=== PATIENT | male | born 1935 | race Caucasian/White ===

== ENCOUNTER → 2016-09-15 | Outpatient (CLI) | payer MEDICARE ==
[2015-07-18 06:23] VITALS: BP 164/73
[~2016-09-15] MED LIST: ASPI325T70 PO; ASPI81TA2 PO; AZIT250T PO; CALC-112 PO; CELE200C PO; CINN500C PO; CLOP75TA PO; CLOP75TA27 PO; CYAN10005 PO; DIGO125T PO; DOCU100C5 PO; FERR325T58 PO; GLYB5TAB3 PO; HYDR-2666 PO; HYDR-2762 PO; HYDR12.53 PO; INSU100I17 SQ; INSU100V13 SQ; INSU100V8 SQ; LISI40TA PO; LOSA100T6 PO; METF850T2 PO; METH500T5 PO; METO-269 PO; METO100T11 PO; METO50TA2 PO; NITR0.4T6 SL; SIMV20TA3 PO; WARF5TAB PO; ZINC30TA2 PO
[2016-09-15 09:54] LABS: BASO % 1 % (0-3); EOS % 3 % (0-3); HEMATOCRIT 29.9 % (39.0-53.0); HEMOGLOBIN 9.9 g/dL (13.0-17.5); LYMPH # 0.9 x10^3/uL (1.0-4.8); LYMPH % 15 % (24-48); MEAN CORPUSCULAR HEMOGLOBIN 25 pg (25-35); MEAN CORPUSCULAR HGB CONC 33 g/dL (31-37); MEAN CORPUSCULAR VOLUME 75 fL (79-100); MONO % 6 % (0-9); NEUT % 77 % (31-73); PLATELET COUNT 356 x10^3/uL (140-400); RED BLOOD COUNT 3.98 x10^6/uL (4.30-5.70); RED CELL DISTRIBUTION WIDTH 15.7 % (11.5-14.5); WHITE BLOOD COUNT 5.9 x10^3/uL (4.0-11.0)
[2016-09-15 10:05] LABS: INR 1.2 (0.8-1.1); PROTHROMBIN TIME PATIENT 14.1 SEC (11.7-14.0)
[2016-09-15 10:06] LABS: ALBUMIN 2.6 g/dL (3.4-5.0); CALCIUM 8.9 mg/dL (8.5-10.1); CREATININE 1.8 mg/dL (0.7-1.3); GFR 36.5; POTASSIUM 4.1 mmol/L (3.5-5.1)
[2016-09-15 10:31] LABS: BILIRUBIN,URINE SMALL (NEG); GLUCOSE,URINE NEGATIVE (NEG); NITRITE,URINE NEGATIVE (NEG); PH,URINE 5.5; PROTEIN,URINE NEGATIVE (NEG-TRACE)
[2016-09-15 10:51] LABS: BACTERIA,URINE 0 /HPF (0-FEW); RBC,URINE 0 /HPF (0-2); SQUAMOUS EPITHELIAL CELL,UR FEW /LPF
--- NOTE | 2016-09-15 10:55 | EKG ---
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
--- NOTE | 2016-09-15 16:59 | RAD ---
PA and lateral chest radiographs 09/15/2016 Clinical history: Preoperative evaluation prior to knee replacement. PA and lateral digital radiographs of the chest were obtained. Comparison study is dated 07/09/2015. A pacemaker is unchanged in position. The cardiac silhouette is mildly enlarged. There is left ventricular prominence. The thoracic aorta is tortuous. Atherosclerotic calcification of the thoracic aorta is seen. Patchy area of probable scarring is seen involving left lower lobe, unchanged. No acute pulmonary infiltrate is seen. No pleural effusion or pneumothorax is noted. Degenerative changes are seen involving the thoracic spine and both shoulders. Impression: No acute abnormality is seen.
== END | disposition home or self-care (01) ==
LOC: SURGPAT 09:13
PROVIDERS: ATTEND Orthopaedic Surgery Sports Medicine
DX: Z01.818 Encounter for other preprocedural examination (principal)
CPT/HCPCS: 36415; 71020; 80048; 81001; 82040; 83036; 85027; 85610; 85651; 85730; 87641; 93005

== ENCOUNTER → 2016-09-26 | Outpatient (CLI) | payer MEDICARE ==
[2015-07-18 06:23] VITALS: BP 164/73
[~2016-09-26] MED LIST changes: +REGADENOSON 0.4 MG/5 ML DISP.SYRIN. IV ONE
--- NOTE | 2016-09-27 12:09 | RAD ---
APPROVED REPORT Test Type: Pharmacological Stress Nurse/Tech: Al Holden RN Test Indications: Pre-op clearance Cardiac History: see ehr Medications: see ehr Medical History: see ehr Resting ECG: Paced Resting Heart Rate: 79 bpm Resting Blood Pressure: 160/78mmHg Pretest Chest Pain: None Nurse/Tech Notes Lungs CTA, S1, S2 Consent: The procedure was explained to the patient in lay terms. Informed consent was witnessed. Mark eout was entered into [employer]. History and Stress Test performed by Ilia CarrNRiley Pharm. Details Pharmacologic stress testing was performed using 0.4mg per 5ml of regadenoson given intravenously ove r 7-10 seconds. Stress Symptoms No chest pain or symptoms. POST EXERCISE Reason for Termination: Infusion complete Max HR: 95 bpm Max Blood Pressure: 164/81mmHg Chest Pain: No. Arrhythmia: No. ST Change: No. INTERPRETATION Stress EKG Conclusion: No acute changes were noted. Imaging Protocol IMAGE PROTOCOL: Rest Tc-99m/stress Tc-99m 1 day Rest: Stress: Viability: Radiopharm.Tc99m DcnrfiilkWi82c Sestamibi Dose12.6mCi 34mCi Duration 15min. 10min. Img Date 09/26/2016 09/26/2016 Inj-Img Vdtm31mcm. 60min. Rest Admin Site:IV - Right ForearmAdministrator:SUZANNA Mccray Stress Admin Site: IV - Right ForearmAdministrator: BRYAN Yung, ARRT (R)(N) STRESS DATA End Diast. Vol.193.0mlAv. Heart Rate72.0bpm End Syst. Vol.94.0mlCO Index BSA0.0L/min Myocardial Sozg555.0gEject. Nohpjkkg85.0% Stress Rates Pk. Fill Rate1.64EDV/secLVtime Pk. Fill 100.03msec Pk. Empty Rate2.49ESV/secLVtime Pk. Jwnjp832.20msec 06/10 Pk. Fill1.21EDV/sec Stress Scores Regional WT1.00Summed WT16.00 Regional WM0.00Summed WM9.00 LV Perf. Quant 17 Seg. SSS14.00 17 Seg. SRS15.00 17 Seg. SDS1.00 Stress Defect Extent (% LAD)31.90Rest Defect Extent (% LAD)26.30Rev. Defect Extent (% LAD)0.60 Stress Defect Extent (% LCX) 85.00Rest Defect Extent (% LCX)85.00Rev. Defect Extent (% LCX)0.00 Stress Defect Extent (% RCA)0.00Rest Defect Extent (% RCA)0.00Rev. Defect Extent (% RCA)0.00 Stress Defect Extent (% LUIS)33.00Rest Defect Extent (% LUIS)30.00Rev. Defect Extent (% LUIS)1.10 Conclusion 1. Baseline electrocardiogram showed an A and V paced rhythm. 2. There is a large perfusion defect both with stress aThe summed reversibility score is only 1. 3. There is a decrease in wall motion over the apex and the lateral wall giving an ejection fraction of 51%. 4. Scan indicates low risk for future cardiac events.
== END | disposition home or self-care (01) ==
LOC: NM 08:01
PROVIDERS: ATTEND Specialist
DX: Z01.818 Encounter for other preprocedural examination (principal); I25.10 Atherosclerotic heart disease of native coronary artery without angina pectoris
CPT/HCPCS: 78452; 93017; 96374; 96375; 96376; A9500; J2785

== ENCOUNTER 2016-10-08 04:14 | Inpatient (IN) | payer MEDICARE ==
[~2016-10-08] VITALS: Ht 172.7 cm; Wt 86.7 kg
[2016-10-08] VITALS (7 sets, daily range): BP systolic 110–161; BP diastolic 50–66
[~2016-10-08 04:14] MED LIST changes: +FERR-26 PO; +OXYC-244 PO; -REGADENOSON 0.4 MG/5 ML DISP.SYRIN. IV ONE; +WARF-78 PO; +WARF2TAB7 PO; -WARF5TAB PO
--- NOTE | 2016-10-08 04:23 | PHYS DOC ---
Past Medical History Past Medical History: CAD, Diabetes-Type II, High Cholesterol, Hypertension Past Surgical History: Colectomy, Pacemaker, Other Additional Past Surgical Histo: cardiac cath with stents,EGD,colonoscopy,bilat elbow surgery,bilat lens imp Alcohol Use: Occasionally Drug Use: None Adult General Chief Complaint Chief Complaint: SHORTNESS OF BREATH HPI HPI Patient is a 81 year old male presenting to the emergency department for evaluation of shortness of breath that started gradually last evening however he has not been able to sleep as he feels he cannot catch his breath when he tries to lay down he feels much more short of breath. He was trying to get to the hospital however when walking to the vehicle he could not catch his breath and had to stop and called the ambulance. Ambulance brought him in on CPAP and he says this has helped his breathing significantly. CPAP was taken off and he appears to be taking deep breaths but he is satting 98% on 2 L. He denies any history of COPD he is unsure if he has congestive heart failure. He had a right knee arthroplasty one week ago and there is some swelling in his right lower extremity but no obvious infection. He is in mild respiratory distress with normal vital signs. Review of Systems Review of Systems Constitutional: Denies fever or chills [] Eyes: Denies change in visual acuity, redness, or eye pain [] HENT: Denies nasal congestion or sore throat [] Respiratory: Denies cough. + shortness of breath [] Cardiovascular: No additional information not addressed in HPI [] GI: Denies abdominal pain, nausea, vomiting, bloody stools or diarrhea [] : Denies dysuria or hematuria [] Musculoskeletal: Denies back pain or joint pain [] Integument: Denies rash or skin lesions [] Neurologic: Denies headache, focal weakness or sensory changes [] Current Medications Current Medications Current Medications Medications (Trade) Dose Ordered Sig/Joey Start Time Stop Time Status Last Admin Dose Admin Albuterol/ Ipratropium (Duoneb) 3 ml 1X ONCE 10/08/16 04:30 10/08/16 04:36 DC 10/08/16 04:33 3 ML Aspirin (Ecotrin) 325 mg 1X ONCE 10/08/16 06:00 10/08/16 06:01 Furosemide (Lasix) 40 mg 1X ONCE 10/08/16 06:00 10/08/16 06:01 Morphine Sulfate 4 mg PRN Q2HR PRN 10/08/16 05:30 10/09/16 05:29 Nitroglycerin (Nitro-Bid Oint) 1 inch 1X ONCE 10/08/16 06:00 10/08/16 06:01 Ondansetron HCl (Zofran) 4 mg PRN Q8HRS PRN 10/08/16 05:30 10/09/16 05:29 Allergies Allergies Allergies Coded Allergies Type Severity Reaction Last Updated Verified No Known Drug Allergies 09/29/16 No Physical Exam Physical Exam Constitutional: Well developed, well nourished, mild respiratory distress, anxious, non-toxic appearance. [] HENT: Normocephalic, atraumatic, bilateral external ears normal, oropharynx moist, no oral exudates, nose normal. [] Eyes: PERRLA, EOMI, conjunctiva normal, no discharge. [] Neck: Normal range of motion, no tenderness, supple, no stridor. [] Cardiovascular:Heart rate regular rhythm, no murmur [] Lungs & Thorax: Bilateral breath sounds with good aeration, crackles noted at bases. Abdomen: Bowel sounds normal, soft, no tenderness, no masses, no pulsatile masses. [] Skin: Warm, dry, no erythema, no rash. [] Back: No tenderness, no CVA tenderness. [] Extremities: RLE wound dressed with mild edema of RLE. Neurologic: Alert and oriented X 3, normal motor function, normal sensory function, no focal deficits noted. [] Current Patient Data Vital Signs Vital Signs Date Time Temp Pulse Resp B/P Pulse Ox O2 Delivery O2 Flow Rate FiO2 10/08/16 05:19 70 20 145/67 95 Nasal Cannula 3 10/08/16 04:24 97.6 97.6 Lab Values Laboratory Tests Test 10/08/16 04:20 10/08/16 04:58 White Blood Count 9.7x10^3/uL (4.0-11.0) Red Blood Count 3.78x10^6/uL (4.30-5.70) L Hemoglobin 9.4g/dL (13.0-17.5) L Hematocrit 29.5% (39.0-53.0) L Mean Corpuscular Volume 78fL (79-100) L Mean Corpuscular Hemoglobin 25pg (25-35) Mean Corpuscular Hemoglobin Concent 32g/dL (31-37) Red Cell Distribution Width 17.5% (11.5-14.5) H Platelet Count 509x10^3/uL (140-400) H Neutrophils (%) (Auto) 87% (31-73) H Lymphocytes (%) (Auto) 7% (24-48) L Monocytes (%) (Auto) 6% (0-9) Eosinophils (%) (Auto) 0% (0-3) Basophils (%) (Auto) 1% (0-3) Neutrophils # (Auto) 8.4x10^3uL (1.8-7.7) H Lymphocytes # (Auto) 0.7x10^3/uL (1.0-4.8) L Monocytes # (Auto) 0.5x10^3/uL (0.0-1.1) Eosinophils # (Auto) 0.0x10^3/uL (0.0-0.7) Basophils # (Auto) 0.1x10^3/uL (0.0-0.2) Platelet Estimate Pending Prothrombin Time 24.8SEC (11.7-14.0) H Prothrombin Time INR 2.4 (0.8-1.1) H PTT 46SEC (24-38) H D-Dimer (Melodie) 3.72ug/mlFEU (0.00-0.50) H Sodium Level 131mmol/L (136-145) L Potassium Level 5.2mmol/L (3.5-5.1) H Chloride Level 97mmol/L (98-107) L Carbon Dioxide Level 21mmol/L (21-32) Anion Gap 13 (6-14) Blood Urea Nitrogen 38mg/dL (8-26) H Creatinine 2.3mg/dL (0.7-1.3) H Estimated GFR (Cockcroft-Gault) 27.5 BUN/Creatinine Ratio 17 (6-20) Glucose Level 384mg/dL (70-99) H Lactic Acid Level 4.6mmol/L (0.4-2.0) *H Calcium Level 8.9mg/dL (8.5-10.1) Magnesium Level 2.0mg/dL (1.8-2.4) Total Bilirubin 0.4mg/dL (0.2-1.0) Aspartate Amino Transferase (AST) 33U/L (15-37) Alanine Aminotransferase (ALT) 17U/L (16-63) Alkaline Phosphatase 70U/L (46-116) Troponin I Quantitative 1.615ng/mL (0.000-0.055) GT-Hlf-F-Type Natriuretic Peptide 11683ox/mL (0-449) H Total Protein 7.3g/dL (6.4-8.2) Albumin 3.1g/dL (3.4-5.0) L Albumin/Globulin Ratio 0.7 (1.0-1.7) L Urine Collection Type Unknown Urine Color Yellow Urine Clarity Clear Urine pH 5.0 Urine Specific [place] 1.025 Urine Protein Negativemg/dL (NEG-TRACE) Urine Glucose (UA) >=1000mg/dL (NEG) Urine Ketones (Stick) Negativemg/dL (NEG) Urine Blood Negative (NEG) Urine Nitrite Negative (NEG) Urine Bilirubin Negative (NEG) Urine Urobilinogen Dipstick 1.0mg/dL (0.2 mg/dL) Urine Leukocyte Esterase Negative (NEG) Urine RBC 0/HPF (0-2) Urine WBC Occ/HPF (0-4) Urine Squamous Epithelial Cells Occ/LPF Urine Bacteria 0/HPF (0-FEW) Urine Hyaline Casts Moderate/HPF Urine Mucus Slight/LPF Laboratory Tests 10/08/16 04:20 Laboratory Tests 10/08/16 04:20 EKG EKG Normal sinus rhythm at 75 bpm with leftward axis and appears to be paced rhythm with nonspecific block. ST elevation in leads 3, AVR, V1-V3. T wave inversion in leads, V4-V6. Similar to prior EDG on 09-15-16. No STEMI criteria met. Radiology/Procedures Radiology/Procedures Chest x-ray shows cardiomegaly with normal mediastinum with nonspecific opacities that appear similar to prior chest x-rays. Course & Med Decision Making Course & Med Decision Making Patient with clinical course and labs consistent with acute pulmonary edema possibly from cardiac ischemia. He is quite difficult to manage because of abnormal VS and medical history with presenting symptoms. Patient given aspirin and Lasix and a small dose of transdermal nitroglycerin. Breathing has improved significantly since being on CPAP and arrival here. He is resting comfortably and I did not do any further BiPAP given how much better he feels looks. Patient may need ischemic workup but he is denying any chest pain currently and shortness of breath feels much improved. LA elevated likely from ischemia rather than infection. Will defer abx for now. I spoke to his primary care provider Dr. Hwang and she is agreeable with admit. She said that she would see the patient later this morning and decide on further workup and interventions. Patient admitted to [facility] in serious but stable condition. Critical care time of 35 mins. Dragon Disclaimer Dragon Disclaimer This electronic medical record was generated, in whole or in part, using a voice recognition dictation system. Departure Departure Impression: Primary Impression: NSTEMI (non-ST elevated myocardial infarction) Additional Impressions: Pulmonary edema Renal insufficiency Lactic acid acidosis Hypoxia Disposition: ADMITTED INPATIENT Admitting Physician: Other (ERI) Condition: IMPROVED Referrals: LATOSHA HWANG MD (PCP) Problem Qualifiers Additional Impressions: Pulmonary edema Chronicity: acute Qualified Code: J81.0 - Acute pulmonary edema EMILY JUDGE DO October 08, 2016 04:23
[2016-10-08] MEDS ORDERED: IPRATRPIUM/ALBUTEROL 0.5/2.5MG 3 ML NEBU. NEB ONE (04:30)
[2016-10-08 04:55] LABS: BASO # 0.1 x10^3/uL (0.0-0.2); BASO % 1 % (0-3); EOS % 0 % (0-3); HEMATOCRIT 29.5 % (39.0-53.0); HEMOGLOBIN 9.4 g/dL (13.0-17.5); LYMPH # 0.7 x10^3/uL (1.0-4.8); LYMPH % 7 % (24-48); MEAN CORPUSCULAR HEMOGLOBIN 25 pg (25-35); MEAN CORPUSCULAR HGB CONC 32 g/dL (31-37); MEAN CORPUSCULAR VOLUME 78 fL (79-100); MONO % 6 % (0-9); NEUT % 87 % (31-73); PLATELET COUNT 509 x10^3/uL (140-400); RED BLOOD COUNT 3.78 x10^6/uL (4.30-5.70); RED CELL DISTRIBUTION WIDTH 17.5 % (11.5-14.5); WHITE BLOOD COUNT 9.7 x10^3/uL (4.0-11.0)
[2016-10-08 05:04] LABS: BILIRUBIN,URINE NEGATIVE (NEG); GLUCOSE,URINE >=1000 mg/dL (NEG); NITRITE,URINE NEGATIVE (NEG); PROTEIN,URINE NEGATIVE (NEG-TRACE)
[2016-10-08 05:14] LABS: CALCIUM 8.9 mg/dL (8.5-10.1); CREATININE 2.3 mg/dL (0.7-1.3); GFR 27.5; POTASSIUM 5.2 mmol/L (3.5-5.1)
[2016-10-08 05:17] LABS: INR 2.4 (0.8-1.1); PROTHROMBIN TIME PATIENT 24.8 SEC (11.7-14.0)
[2016-10-08 05:28] LABS: ALBUMIN 3.1 g/dL (3.4-5.0); ALBUMIN/GLOBULIN RATIO 0.7 (1.0-1.7); TOTAL BILIRUBIN 0.4 mg/dL (0.2-1.0); TOTAL PROTEIN 7.3 g/dL (6.4-8.2)
[2016-10-08 05:29] LABS: BACTERIA,URINE 0 /HPF (0-FEW); RBC,URINE 0 /HPF (0-2); SQUAMOUS EPITHELIAL CELL,UR OCC /LPF; WBC,URINE OCC /HPF (0-4)
[2016-10-08] MEDS ORDERED: MORPHINE SULFATE 4 MG/ML DISP.SYRIN. IV PRN (05:30)
[2016-10-08] MEDS ORDERED: ONDANSETRON PF 4 MG/2 ML VIAL. IV PRN (05:30)
--- NOTE | 2016-10-08 05:49 | ACF ---
Admission Forms Criteria MYOCARDIAL INFARCTION Clinical Indications for Admission to Inpatient Care (Place 'X' for any and all applicable criteria): Admission is indicated for 1 or more of the following (1)(2)(3)(4): [X]I. Acute ME [ ]II. Contraindications and/or Inappropriate clinical situations for Observational Care in patients with Myocardial Infarction, when ANY ONE of the following is required: [ ]a) Patient with High risk of cardiac embolism (e.g, patients with previous cardiac embolism, LVEF < 40%, age >75 and patients with prosthetic valve) 18 [ ]b) Patient with Moderate risk including DM patient, CAD and patient aged 65-75 18 [ ]c) Patient with any change in cardiac biomarker especially troponin should be managed as high risk in an inpatient setting 19 [ ]d) Physician judgement irrespective of ECG and other diagnostic findings 20 [ ]III.General contraindications and/or Inappropriate clinical situations for Observational Care in patients with Myocardial Infarction, when ANY ONE of the following is required: [ ]a) Prediction of prolongation of LOS based on ANY ONE of the following may be considered as a contraindication for observational care 2, 3, 4, 5, 6, 7, 8, 9, 10, 11 [ ]i) Age > 65 yrs. [ ]ii) Patient arriving by ambulance [ ]iii) Patient with high acuity [ ]iv) Patient requiring vital sign monitoring [ ]v) Patient on IV medication [ ]b) Systolic blood pressures greater than or equal to 180mmHg 3,12 [ ]c) Patient with altered mental status including delirium and other alteration of consciousness, (3) [ ]d) Patient whose discharge disposition will be to a long term home or rehabilitation home should not be managed in Emergency Department Observation Unit. CMS rule requires 3 days hospital stay before such placement. 3,13 [ ]e) Patient with failure to thrive due to broad array of etiologies 3 ,16,17 [ ]f) Inability to ambulate 3,14 Extended stay beyond goal length of stay may be needed for (1)(18)(20)(24)(25): [ ]a) Hemodynamic instability, persisting symptoms after intensive medical management, or recurring severe, prolonged symptoms [ ]b) Intravascular procedural complications such as acute vessel closure, stent thrombosis, stent malposition, or vessel dissection (26)(27)(28) [ ]c) Extravascular procedural complications such as retroperitoneal hematoma , pericardial effusion, or cardiac tamponade [ ]d) Entry site complications causing bleeding, hematoma or distal ischemia and requiring ongoing monitoring, surgical repair or surgical thrombectomy. Dangerous arrhythmia [ ]e) Complicated percutaneous coronary intervention (e.g., unsuccessful percutaneous coronary intervention or percutaneous coronary intervention of non- augustine vessel) [ ]f) Urgent or emergent surgery for complications of ME (e.g., ventricular rupture, valvular insufficiency) [ ]g) Surgical revascularization via coronary artery bypass graft [ ]h) Heart failure (e.g., pulmonary edema) [ ]i) Unstable pulmonary comorbidities, including COPD or pneumonia (31) [ ]j) Acute renal failure The original [employer] content created by [employer] has been revised. The portions of the content which have been revised are identified through the use of italic text or in bold, and [facility] [employer] has neither reviewed nor approved the modified material. All other unmodified content is copyright [employer] [facility] [employer] Please see references footnoted in the original [employer] [employer] edition 2016 Admission Criteria Met?: Yes LILLIANA DELONG October 08, 2016 05:49
[2016-10-08] MEDS ORDERED: NITROGLYCERIN OINT 1 GM PACKET. TP ONE (06:00)
[2016-10-08] MEDS ORDERED: ASPIRIN ENTERIC COATED 325 MG TABLET.DR. PO ONE (06:00)
[2016-10-08] MEDS ORDERED: FUROSEMIDE 40 MG/4 ML VIAL. IVP ONE (06:00)
[2016-10-08 06:24] LABS: PLT ESTIMATE INCREASED (ADEQUATE)
[2016-10-08 06:25] LABS: ANISOCYTOSIS SLIGHT
[2016-10-08 06:26] LABS: HYPOCHROMIA SLIGHT
[2016-10-08] MEDS ORDERED: POTA10TA12 PO (06:35)
[2016-10-08] MEDS ORDERED: WARF3TAB7 PO (06:35)
[2016-10-08] MEDS ORDERED: ASPI-482 PO (06:35)
[2016-10-08] MEDS ORDERED: DIGO125T PO (06:35)
--- NOTE | 2016-10-08 06:53 | EKG ---
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
[2016-10-08] MEDS ORDERED: SULF1TAB3 (07:32)
--- NOTE | 2016-10-08 07:36 | RAD ---
Indication shortness of air. A single view of the chest was obtained and is compared to an exam 09/15/2016. There is unchanged moderate cardiomegaly. There are now interstitial changes suggesting superimposed moderate interstitial pulmonary edema. There are tiny pleural effusions. A consolidated pneumonia is not seen. Bipolar cardiac pacing device is noted. IMPRESSION: Interval change likely reflecting interstitial pulmonary edema. Small pleural effusions are also present
[2016-10-08] MEDS ORDERED: oxyCODONE/APAP 7.5/325 1 TAB TABLET PO PRN (08:45)
[2016-10-08] MEDS ORDERED: NITROGLYCERIN SUBLINGUAL 0.4 MG BOTTLE OF 25. SL PRN (08:45)
[2016-10-08] MEDS ORDERED: DIGOXIN 125 MCG TABLET. PO SCH (09:00)
[2016-10-08] MEDS: ASPIRIN ENTERIC COATED 81 MG TABLET.DR. PO SCH (09:00)
[2016-10-08] MEDS ORDERED: hydroCHLOROthiazide 12.5 MG CAPSULE PO SCH (09:00)
[2016-10-08] MEDS ORDERED: POTASSIUM CHLORIDE 10 MEQ TABLET.ER. PO SCH (10:00)
[2016-10-08] MEDS: FERROUS SULFATE 325 MG TABLET. PO SCH ×2 (10:03→18:10)
[2016-10-08] MEDS: METOPROLOL TART IMMED RELEASE 50 MG TABLET. PO SCH ×2 (10:03→20:57)
[2016-10-08] MEDS: LOSARTAN POTASSIUM 50 MG TABLET. PO SCH (10:03)
[2016-10-08] MEDS: CYANOCOBALAMIN (VITAMIN B-12) 1,000 MCG TABLET. PO SCH (10:09)
[2016-10-08] MEDS ORDERED: ASPIRIN 325 MG TABLET PO ONE (11:30)
--- NOTE | 2016-10-08 12:47 | PDOC ---
ORTHO PROGRESS NOTES Vitals Vital Signs Date Time Temp Pulse Resp B/P Pulse Ox O2 Delivery O2 Flow Rate FiO2 10/08/16 12:37 98.7 80 20 123/59 96 Nasal Cannula 2.0 98.7 Labs Laboratory Tests Test 10/08/16 04:20 10/08/16 04:58 10/08/16 08:25 10/08/16 09:06 White Blood Count 9.7x10^3/uL (4.0-11.0) Red Blood Count 3.78x10^6/uL (4.30-5.70) Hemoglobin 9.4g/dL (13.0-17.5) Hematocrit 29.5% (39.0-53.0) Mean Corpuscular Volume 78fL (79-100) Mean Corpuscular Hemoglobin 25pg (25-35) Mean Corpuscular Hemoglobin Concent 32g/dL (31-37) Red Cell Distribution Width 17.5% (11.5-14.5) Platelet Count 509x10^3/uL (140-400) Neutrophils (%) (Auto) 87% (31-73) Lymphocytes (%) (Auto) 7% (24-48) Monocytes (%) (Auto) 6% (0-9) Eosinophils (%) (Auto) 0% (0-3) Basophils (%) (Auto) 1% (0-3) Neutrophils # (Auto) 8.4x10^3uL (1.8-7.7) Lymphocytes # (Auto) 0.7x10^3/uL (1.0-4.8) Monocytes # (Auto) 0.5x10^3/uL (0.0-1.1) Eosinophils # (Auto) 0.0x10^3/uL (0.0-0.7) Basophils # (Auto) 0.1x10^3/uL (0.0-0.2) Segmented Neutrophils % 90% (35-66) Lymphocytes % 5% (24-48) Monocytes % 5% (0-10) Platelet Estimate Increased (ADEQUATE) Hypochromasia Slight Anisocytosis Slight Prothrombin Time 24.8SEC (11.7-14.0) Prothromb Time International Ratio 2.4 (0.8-1.1) Activated Partial Thromboplast Time 46SEC (24-38) D-Dimer (Melodie) 3.72ug/mlFEU (0.00-0.50) Sodium Level 131mmol/L (136-145) Potassium Level 5.2mmol/L (3.5-5.1) Chloride Level 97mmol/L (98-107) Carbon Dioxide Level 21mmol/L (21-32) Anion Gap 13 (6-14) Blood Urea Nitrogen 38mg/dL (8-26) Creatinine 2.3mg/dL (0.7-1.3) Estimated GFR (Cockcroft-Gault) 27.5 BUN/Creatinine Ratio 17 (6-20) Glucose Level 384mg/dL (70-99) Lactic Acid Level 4.6mmol/L (0.4-2.0) 1.7mmol/L (0.4-2.0) Calcium Level 8.9mg/dL (8.5-10.1) Magnesium Level 2.0mg/dL (1.8-2.4) Total Bilirubin 0.4mg/dL (0.2-1.0) Aspartate Amino Transf (AST/SGOT) 33U/L (15-37) Alanine Aminotransferase (ALT/SGPT) 17U/L (16-63) Alkaline Phosphatase 70U/L (46-116) Troponin I Quantitative 1.615ng/mL (0.000-0.055) XU-Ldu-K-Type Natriuretic Peptide 44076ds/mL (0-449) Total Protein 7.3g/dL (6.4-8.2) Albumin 3.1g/dL (3.4-5.0) Albumin/Globulin Ratio 0.7 (1.0-1.7) Urine Collection Type Unknown Urine Color Yellow Urine Clarity Clear Urine pH 5.0 Urine Specific [place] 1.025 Urine Protein Negativemg/dL (NEG-TRACE) Urine Glucose (UA) >=1000mg/dL (NEG) Urine Ketones (Stick) Negativemg/dL (NEG) Urine Blood Negative (NEG) Urine Nitrite Negative (NEG) Urine Bilirubin Negative (NEG) Urine Urobilinogen Dipstick 1.0mg/dL (0.2 mg/dL) Urine Leukocyte Esterase Negative (NEG) Urine RBC 0/HPF (0-2) Urine WBC Occ/HPF (0-4) Urine Squamous Epithelial Cells Occ/LPF Urine Bacteria 0/HPF (0-FEW) Urine Hyaline Casts Moderate/HPF Urine Mucus Slight/LPF Glucose (Fingerstick) 304mg/dL (70-99) Test 10/08/16 11:30 10/08/16 12:02 Troponin I Quantitative 18.466ng/mL (0.000-0.055) Glucose (Fingerstick) 316mg/dL (70-99) Laboratory Tests Test 10/08/16 04:20 10/08/16 04:58 10/08/16 08:25 10/08/16 09:06 White Blood Count 9.7x10^3/uL (4.0-11.0) Red Blood Count 3.78x10^6/uL (4.30-5.70) Hemoglobin 9.4g/dL (13.0-17.5) Hematocrit 29.5% (39.0-53.0) Mean Corpuscular Volume 78fL (79-100) Mean Corpuscular Hemoglobin 25pg (25-35) Mean Corpuscular Hemoglobin Concent 32g/dL (31-37) Red Cell Distribution Width 17.5% (11.5-14.5) Platelet Count 509x10^3/uL (140-400) Neutrophils (%) (Auto) 87% (31-73) Lymphocytes (%) (Auto) 7% (24-48) Monocytes (%) (Auto) 6% (0-9) Eosinophils (%) (Auto) 0% (0-3) Basophils (%) (Auto) 1% (0-3) Neutrophils # (Auto) 8.4x10^3uL (1.8-7.7) Lymphocytes # (Auto) 0.7x10^3/uL (1.0-4.8) Monocytes # (Auto) 0.5x10^3/uL (0.0-1.1) Eosinophils # (Auto) 0.0x10^3/uL (0.0-0.7) Basophils # (Auto) 0.1x10^3/uL (0.0-0.2) Segmented Neutrophils % 90% (35-66) Lymphocytes % 5% (24-48) Monocytes % 5% (0-10) Platelet Estimate Increased (ADEQUATE) Hypochromasia Slight Anisocytosis Slight Prothrombin Time 24.8SEC (11.7-14.0) Prothromb Time International Ratio 2.4 (0.8-1.1) Activated Partial Thromboplast Time 46SEC (24-38) D-Dimer (Melodie) 3.72ug/mlFEU (0.00-0.50) Sodium Level 131mmol/L (136-145) Potassium Level 5.2mmol/L (3.5-5.1) Chloride Level 97mmol/L (98-107) Carbon Dioxide Level 21mmol/L (21-32) Anion Gap 13 (6-14) Blood Urea Nitrogen 38mg/dL (8-26) Creatinine 2.3mg/dL (0.7-1.3) Estimated GFR (Cockcroft-Gault) 27.5 BUN/Creatinine Ratio 17 (6-20) Glucose Level 384mg/dL (70-99) Lactic Acid Level 4.6mmol/L (0.4-2.0) 1.7mmol/L (0.4-2.0) Calcium Level 8.9mg/dL (8.5-10.1) Magnesium Level 2.0mg/dL (1.8-2.4) Total Bilirubin 0.4mg/dL (0.2-1.0) Aspartate Amino Transf (AST/SGOT) 33U/L (15-37) Alanine Aminotransferase (ALT/SGPT) 17U/L (16-63) Alkaline Phosphatase 70U/L (46-116) Troponin I Quantitative 1.615ng/mL (0.000-0.055) PR-Als-H-Type Natriuretic Peptide 00595ax/mL (0-449) Total Protein 7.3g/dL (6.4-8.2) Albumin 3.1g/dL (3.4-5.0) Albumin/Globulin Ratio 0.7 (1.0-1.7) Urine Collection Type Unknown Urine Color Yellow Urine Clarity Clear Urine pH 5.0 Urine Specific [place] 1.025 Urine Protein Negativemg/dL (NEG-TRACE) Urine Glucose (UA) >=1000mg/dL (NEG) Urine Ketones (Stick) Negativemg/dL (NEG) Urine Blood Negative (NEG) Urine Nitrite Negative (NEG) Urine Bilirubin Negative (NEG) Urine Urobilinogen Dipstick 1.0mg/dL (0.2 mg/dL) Urine Leukocyte Esterase Negative (NEG) Urine RBC 0/HPF (0-2) Urine WBC Occ/HPF (0-4) Urine Squamous Epithelial Cells Occ/LPF Urine Bacteria 0/HPF (0-FEW) Urine Hyaline Casts Moderate/HPF Urine Mucus Slight/LPF Glucose (Fingerstick) 304mg/dL (70-99) Test 10/08/16 11:30 10/08/16 12:02 Troponin I Quantitative 18.466ng/mL (0.000-0.055) Glucose (Fingerstick) 316mg/dL (70-99) Assessment and Plan note dictated hold PT anticoag per Cards no planned interventions from myself, will await Cardiology decisions ok to WBAT SHAINA IRIZARRY II, MD October 08, 2016 12:47
[2016-10-08] MEDS: INSULIN ASPART 300 UNITS/3 ML INSULN.PEN SQ SCH ×2 (13:28→18:15)
[2016-10-08] MEDS ORDERED: PHYTONADIONE (VIT K1) 5 MG TABLET PO ONE ×4 (13:45→21:30)
[2016-10-08] MEDS ORDERED: CEPHALEXIN 250 MG CAPSULE. PO SCH (14:00)
[2016-10-08] MEDS ORDERED: VANCOMYCIN 1 GM in IV NORMAL SALINE 250ML 250 ML IV ONE (14:00)
--- NOTE | 2016-10-08 14:03 | RAD ---
Bilateral lower extremity venous ultrasound, 10/08/2016: History: Bilateral leg swelling Duplex evaluation of the deep veins in the lower extremities was performed including grayscale, color-flow and spectral Doppler analysis. The femoral and popliteal veins demonstrate normal compressibility and normal responses to distal augmentation maneuvers. Color imaging of those vessels shows no evidence of intraluminal clot. The visualized deep veins in both calves are patent. IMPRESSION: There is no sonographic evidence of deep vein thrombosis in either lower extremity.
--- NOTE | 2016-10-08 18:43 | CARD ---
APPROVED REPORT EXAM: Two-dimensional and M-mode echocardiogram with Doppler and color Doppler. Other Information Quality : Average Rhythm : NSR INDICATION Non STEMI 2D DIMENSIONS Left Atrium(2D)3.9 (1.6-4.0cm)IVSd1.5 (0.7-1.1cm) Aortic Root(2D)3.2 (2.0-3.7cm)LVDd4.8 (3.9-5.9cm) LVOT Diameter2.0 (1.8-2.4cm)PWd1.4 (0.7-1.1cm) LVDs4.3 (2.5-4.0cm)FS (%) 10.3 % SV23.9 mlLVEF(%)22.5 (>50%) Aortic Valve AoV Peak Facundo.190.0cm/sAoV VTI37.4cm AO Peak GR.14.4mmHgLVOT VTI 23.37cm AO Mean GR.9mmHgAI P 1/2 [id number] Mitral Valve MV E Wxfncapj251.3cm/sMV E Peak Gr.4mmHg MV DECEL [id number] A Hujwboms630.7cm/s MV RQU14aiJ/A Ratio1.0 MV A [id number] (PHT)4.40cm2 TDI Lateral E' P. V10.95cm/sMedial E' P. V5.92cm/s E/Lateral E'9.8E/Medial E'18.1 Tricuspid Valve TR P. Nzxjewpn375ey/sRAP [id number] TR Peak Gr.31psJyFJNK39dnZt LEFT VENTRICLE The left ventricle is normal size. There is mild concentric left ventricular hypertrophy. Left ventri jenn systolic function is moderately impaired. Apical to mid inferior hypoknisis. Apical to mid septal hypokinesis. . RIGHT VENTRICLE The right ventricle is normal size. The right ventricular systolic function is normal. ATRIA The left atrium size is normal. The right atrium size is normal. The interatrial septum is intact wit h no evidence for an atrial septal defect or patent foramen ovale as noted on 2-D or Doppler imaging. AORTIC VALVE The aortic valve is mildly calcified. The aortic valve is trileaflet. Doppler and Color Flow revealed no significant aortic regurgitation. There is no significant aortic valvular stenosis. MITRAL VALVE Mitral annular calcification is borderline. There is no mitral valve stenosis. Doppler and Color Flow revealed mild mitral regurgitation. TRICUSPID VALVE The tricuspid valve is normal in structure and function. Doppler and Color Flow revealed mild tricusp id regurgitation. The PA pressure was estimated at 36 mmHg. There is no tricuspid valve stenosis. PULMONIC VALVE The pulmonic valve is not well visualized. Doppler and Color Flow revealed no pulmonic valvular regur gitation. There is no pulmonic valvular stenosis. GREAT VESSELS The aortic root is normal in size. The IVC is normal in size and collapses >50% with inspiration. PERICARDIAL EFFUSION There is no evidence of significant pericardial effusion. Critical Notification Date: 10/08/2016 Time: 16:06 Physician Name: Critical Value: Yes <Conclusion> The left ventricle is normal size. There is mild concentric left ventricular hypertrophy. Left ventricle systolic function is moderately impaired. Apical to mid inferior hypoknisis. Apical to mid septal hypokinesis. There is a grade 2 diastolic dysfunction. There is no pericardial effusion. There is mitral annular calcification. There is no mitral stenosis and a mild mitral regurgitation. The left atrium is at the upper limits of normal. There is no significant aortic stenosis or regurgitation. Right ventricle is of a normal size with normal systolic function. Doppler and Color Flow revealed mild tricuspid regurgitation. The PA pressure was estimated at 36 mmHg. The pulmonic valve is normal.
[2016-10-08 19:44] LABS: CALCIUM 8.5 mg/dL (8.5-10.1); CREATININE 2.1 mg/dL (0.7-1.3); GFR 30.5; POTASSIUM 4.3 mmol/L (3.5-5.1)
[2016-10-08 20:19] LABS: INR 2.5 (0.8-1.1); PROTHROMBIN TIME PATIENT 25.3 SEC (11.7-14.0)
[2016-10-08] MEDS: AMOXICILLIN/K CLAV 500/125MG TABLET. PO SCH (20:56)
[2016-10-08] MEDS: SIMVASTATIN 20 MG TABLET PO SCH (20:57)
[2016-10-08] MEDS: INSULIN DETEMIR 300 UNITS/3 ML INSULN.PEN. SQ SCH (20:59)
--- NOTE | 2016-10-08 21:54 | PDOC2 ---
CONSULT Date of Consult Date of Consult DATE: 10/08/16 TIME: 21:54 Reason for Consult Reason for Consult: med mgmt Referring Physician Referring Physician: Asha Identification/Chief Complaint Chief Complaint shortnessof breath Source Source: Chart review, Patient History of Present Illness Reason for Visit: Mr. Potts, is a 81 year old male admit with chest pain and shortness of breath. Sx started yesterday, could not cath his breath, dyspnea with walking. CPAP had helped his breathing significantly, he is now on 2l and appears comfortable, and is able to lie flat He had a right knee arthroplasty one week ago Family History Family History: No Significant Social History Quit (1975) ALCOHOL: rare Drugs: None Lives: with Family Domestic Violence: Neg Current Problem List Problem List Problems Medical Problems: (1) Hypoxia Status: Acute (2) Lactic acid acidosis Status: Acute (3) NSTEMI (non-ST elevated myocardial infarction) Status: Acute (4) Pulmonary edema Status: Acute (5) Renal insufficiency Status: Acute Current Medications Current Medications Current Medications Albuterol/ Ipratropium (Duoneb) 3 ml 1X ONCE NEB Last administered on 04:33; Start 10/08/16 at 04:30; Stop 10/08/16 at 04:36; Status DC Aspirin (Ecotrin) 325 mg 1X ONCE PO Last administered on 10/08/16 05:49; Start 10/08/16 at 06:00; Stop 10/08/16 at 06:01; Status DC Furosemide (Lasix) 40 mg 1X ONCE IVP Last administered on 10/08/16 05:49; Start 10/08/16 at 06:00; Stop 10/08/16 at 06:01; Status DC Ondansetron HCl (Zofran) 4 mg PRN Q8HRS PRN IV NAUSEA/VOMITING; Start 10/08/16 at 05:30; Stop 10/09/16 at 05:29 Morphine Sulfate 4 mg PRN Q2HR PRN IV SEVERE PAIN; Start 10/08/16 at 05:30; Stop 10/09/16 at 05:29 Nitroglycerin (Nitro-Bid Oint) 1 inch 1X ONCE TP Last administered on 05:49; Start 10/08/16 at 06:00; Stop 10/08/16 at 06:01; Status DC Aspirin (Ecotrin) 81 mg DAILY PO ; Start 10/08/16 at 09:00 Cyanocobalamin (Vitamin B-12) 2,500 mcg DAILY PO Last administered on 10/08/16 10:09; Start 10/08/16 at 09:00 Digoxin (Lanoxin) 125 mcg DAILY PO ; Start 10/08/16 at 09:00; Stop 10/08/16 at 19: 26; Status DC Ferrous Sulfate (Feosol) 325 mg BIDWMEALS PO Last administered on 10/08/16 18: 10; Start 10/08/16 at 09:00 Hydrochlorothiazide (Microzide) 12.5 mg DAILY PO Last administered on 10/08/16 10:00; Start 10/08/16 at 09:00; Stop 10/08/16 at 20:10; Status DC Acetaminophen/ Hydrocodone Bitart (Lortab 7.5/325) 1 tab PRN Q3HRS PRN PO PAIN ; Start 10/08/16 at 08:45 Insulin Aspart (Novolog) 15 units TIDWMEALS SQ Last administered on 10/08/16 18 :15; Start 10/08/16 at 12:00 Metoprolol Tartrate (Lopressor) 50 mg BID PO Last administered on 10/08/16 20: 57; Start 10/08/16 at 09:00 Nitroglycerin (Nitrostat) 0.4 mg PRN 1X PRN SL CHEST PAIN; Start 10/08/16 at 08: 45 Oxycodone/ Acetaminophen (Percocet 7.5/ 325) 1 tab PRN Q3HRS PRN PO PAIN; Start 10/08/16 at 08:45 Simvastatin (Zocor) 20 mg HS PO Last administered on 10/08/16 20:57; Start 10/08 at 21:00 Insulin Detemir (Levemir) 20 units QHS SQ ; Start 10/08/16 at 21:00 Losartan Potassium (Cozaar) 100 mg DAILY PO Last administered on 10/08/16 10:03 ; Start 10/08/16 at 09:00 Potassium Chloride (Klor-Con) 10 meq DAILYWBKFT PO ; Start 10/08/16 at 10:00; Stop 10/08/16 at 10:32; Status DC Aspirin (Rocío Aspirin) 325 mg 1X ONCE PO Last administered on 10/08/16 13:23 ; Start 10/08/16 at 11:30; Stop 10/08/16 at 11:31; Status DC Cephalexin HCl 500 mg 500 mg TID PO ; Start 10/08/16 at 14:00; Status UNV Vancomycin HCl/ Sodium Chloride (Iv Sodium Chloride 0.9% 250ml) 250 ml @ 250 mls/hr 1X ONCE IV Last administered on 10/08/16 14:25; Start 10/08/16 at 14:00 ; Stop 10/08/16 at 14:59; Status DC Amoxicillin/ Clavulanate Potassium (Augmentin 500/ 125mg) 1 tab BID PO Last administered on 10/08/16 20:56; Start 10/08/16 at 21:00 Phytonadione (Mephyton) 25 mg 1X ONCE PO ; Start 10/08/16 at 13:45; Stop at 13:46; Status DC Phytonadione (Mephyton) 5 mg 1X ONCE PO Last administered on 10/08/16 14:25; Start 10/08/16 at 14:00; Stop 10/08/16 at 14:01; Status DC Phytonadione (Mephyton) 2.5 mg 1X ONCE PO Last administered on 10/08/16 20:57 ; Start 10/08/16 at 20:15; Stop 10/08/16 at 20:16; Status DC Phytonadione (Mephyton) 7.5 mg 1X ONCE PO Last administered on 10/08/16 21:40 ; Start 10/08/16 at 21:30; Stop 10/08/16 at 21:33; Status DC Active Scripts Active Reported Sulfamethoxazole-Tmp Ds Tablet (Sulfamethoxazole/Trimethoprim) Unknown Strength Tablet Unknown Dose Warfarin Sodium 3 Mg Tablet 1 Tab PO DAILY Potassium Chloride 10 Meq Tablet.er 10 Meq PO DAILY Digoxin 125 Mcg Tablet 1 Tab PO DAILY Aspir 81 (Aspirin) 81 Mg Tablet.dr 1 Tab PO DAILY Percocet 7.5-325 Mg Tablet (Oxycodone/Acetaminophen) 1 Each Tablet 1 Tab PO PRN Q3HRS PRN Ferrous Sulfate 325 Mg Tablet 1 Tab PO BID last dose this am next dos is with supper Losartan Potassium 100 Mg Tablet 100 Mg PO DAILY las dose with lunch next dose tomorrow am Hydrocodone-Apap 7.5-325 (Hydrocodone Bit/Acetaminophen) 1 Each Tablet 1 Tab PO Q3HRS PRN Levemir (Insulin Detemir) 100 Unit/1 Ml Vial 20 Unit SQ HS LAST DOSE GIVEN: DATE: 07/18 TIME: 9 PM NEXT DOSE DUE: DATE: 07/19 TIME: 9 PM Metoprolol Tartrate 50 Mg Tablet 50 Mg PO BID LAST DOSE GIVEN: DATE: 10/02/16 TIME: 9 AM NEXT DOSE DUE: DATE: 10/02/16 TIME: 9 PM Vitamin B-12 (Cyanocobalamin (Vitamin B-12)) 1,000 Mcg Tablet 2,500 Mcg PO DAILY LAST DOSE GIVEN: DATE: 10/02/16 TIME: 9 AM NEXT DOSE DUE: DATE: 10/03 TIME: 9 AM Hydrochlorothiazide Capsule (Hydrochlorothiazide) 12.5 Mg Capsule 12.5 Mg PO DAILY LAST DOSE GIVEN: DATE: 10/02/16 TIME: 9 AM NEXT DOSE DUE: DATE: 10/03/16 TIME: 9 AM Novolog Flexpen (Insulin Aspart) 100 Unit/1 Ml Insuln.pen 15 Unit SQ TIDWMEALS LAST DOSE GIVEN: DATE: 07/19 TIME: WITH LUNCH NEXT DOSE DUE: DATE: 07/19 TIME: WITH DINNER NITROGLYCERIN SubLingual (Nitroglycerin) 0.4 Mg Tab.subl 0.4 Mg SL PRN 1X PRN NOT GIVEN IN HOSPITAL. TAKE DIRECTED. Simvastatin 20 Mg Tablet 20 Mg PO HS LAST DOSE GIVEN: DATE: 10/01/16 TIME: 9 PM NEXT DOSE DUE: DATE: 10/02/16 TIME: 9 PM Allergies Allergies: Coded Allergies: No Known Drug Allergies (Unverified , 09/29/16) ROS General: No: Appetite, Chills, Fatigue, Malaise, Night Sweats, Other PSYCHOLOGICAL ROS: No: Anxiety, Behavioral Disorder, Concentration difficultie , Decreased libido, Depression, Disorientation, Hallucinations, Hostility, Irritablity, Memory difficulties, Mood Swings, Obsessive thoughts, Other, Sleep disturbances, Suicidal ideation Eyes: No Blurry vision, No Decreased vision, No Double vision, No Dry eyes, No Excessive tearing, No Eye Pain, No Itchy Eyes, No Loss of vision, No Other, No Photophobia, No Scotomata, No Uses contacts, No Uses glasses HEENT: YES: Other (hard of hearing), No: Epistaxis, Heacaches, Hearing change, Nasal congestion, Nasal discharge, Oral lesions, Sinus pain, Sneezing, Snoring, Sore Throat, Tinnitus, Vertigo, Visual Changes, Vocal changes Respiratory: No: Cough, Hemoptysis, Orthopnea, Other, Pleuritic Pain, SOB with excertion, Shortness of breath, Sputum Changes, Stridor, Tachypnea, Wheezing Cardiovascular: yes Chest Pain, No Edema, No Lt Headedness, No Orthopnea, No Other, No Palpitations, No Paroxysmal Noc. Dyspnea Gastrointestinal: Yes Nausea, No Abdominal Pain, No Constipation, No Diarrhea, No Hematochezia, No Melena, No Other, No Vomiting Genitourinary: No , No , No , No , No , No , No , No Discharge, No Dysuria, No Flank Pain, No Frequency, No Hematuria, No Incontinence, No Other, No Pain, No Retention, No Urgency Musculoskeletal: Yes Gait Disturbance, Yes Joint Pain, Yes Joint Stiffness, Yes Pain In: (knee), No Joint Swelling, No Muscle Pain, No Muscular Weakness, No Other, No Swelling In: Neurological: Yes Gait Disturbance Skin: Yes Dry Skin, No Acne, No Eczema, No Hair Changes, No Lumps, No Mole Changes, No Mottling, No Nail Changes, No Other, No Pruritus, No Rash, No Skin Lesion Changes Physical Exam General: Alert, Oriented X3, Cooperative HEENT: Atraumatic, PERRLA Lungs: Clear to auscultation Heart: Regular rate Abdomen: Normal bowel sounds, Soft Extremities: No clubbing, No cyanosis Skin: No rashes, No breakdown Neuro: Normal gait, Normal speech MUSCULOSKELETAL: Other (right knee swollen, bandaged, skin clear) Vitals VITALS Vital Signs Date Time Temp Pulse Resp B/P Pulse Ox O2 Delivery O2 Flow Rate FiO2 10/08/16 20:57 79 117/52 10/08/16 19:52 98.7 18 98 Nasal Cannula 2.0 98.7 Labs Labs Laboratory Tests Test 10/08/16 04:20 10/08/16 04:58 10/08/16 08:25 10/08/16 09:06 White Blood Count 9.7x10^3/uL (4.0-11.0) Red Blood Count 3.78x10^6/uL (4.30-5.70) Hemoglobin 9.4g/dL (13.0-17.5) Hematocrit 29.5% (39.0-53.0) Mean Corpuscular Volume 78fL (79-100) Mean Corpuscular Hemoglobin 25pg (25-35) Mean Corpuscular Hemoglobin Concent 32g/dL (31-37) Red Cell Distribution Width 17.5% (11.5-14.5) Platelet Count 509x10^3/uL (140-400) Neutrophils (%) (Auto) 87% (31-73) Lymphocytes (%) (Auto) 7% (24-48) Monocytes (%) (Auto) 6% (0-9) Eosinophils (%) (Auto) 0% (0-3) Basophils (%) (Auto) 1% (0-3) Neutrophils # (Auto) 8.4x10^3uL (1.8-7.7) Lymphocytes # (Auto) 0.7x10^3/uL (1.0-4.8) Monocytes # (Auto) 0.5x10^3/uL (0.0-1.1) Eosinophils # (Auto) 0.0x10^3/uL (0.0-0.7) Basophils # (Auto) 0.1x10^3/uL (0.0-0.2) Segmented Neutrophils % 90% (35-66) Lymphocytes % 5% (24-48) Monocytes % 5% (0-10) Platelet Estimate Increased (ADEQUATE) Hypochromasia Slight Anisocytosis Slight Prothrombin Time 24.8SEC (11.7-14.0) Prothromb Time International Ratio 2.4 (0.8-1.1) Activated Partial Thromboplast Time 46SEC (24-38) D-Dimer (Melodie) 3.72ug/mlFEU (0.00-0.50) Sodium Level 131mmol/L (136-145) Potassium Level 5.2mmol/L (3.5-5.1) Chloride Level 97mmol/L (98-107) Carbon Dioxide Level 21mmol/L (21-32) Anion Gap 13 (6-14) Blood Urea Nitrogen 38mg/dL (8-26) Creatinine 2.3mg/dL (0.7-1.3) Estimated GFR (Cockcroft-Gault) 27.5 BUN/Creatinine Ratio 17 (6-20) Glucose Level 384mg/dL (70-99) Lactic Acid Level 4.6mmol/L (0.4-2.0) 1.7mmol/L (0.4-2.0) Calcium Level 8.9mg/dL (8.5-10.1) Magnesium Level 2.0mg/dL (1.8-2.4) Total Bilirubin 0.4mg/dL (0.2-1.0) Aspartate Amino Transf (AST/SGOT) 33U/L (15-37) Alanine Aminotransferase (ALT/SGPT) 17U/L (16-63) Alkaline Phosphatase 70U/L (46-116) Troponin I Quantitative 1.615ng/mL (0.000-0.055) IY-Ghg-C-Type Natriuretic Peptide 92089oh/mL (0-449) Total Protein 7.3g/dL (6.4-8.2) Albumin 3.1g/dL (3.4-5.0) Albumin/Globulin Ratio 0.7 (1.0-1.7) Urine Collection Type Unknown Urine Color Yellow Urine Clarity Clear Urine pH 5.0 Urine Specific Eldridge 1.025 Urine Protein Negativemg/dL (NEG-TRACE) Urine Glucose (UA) >=1000mg/dL (NEG) Urine Ketones (Stick) Negativemg/dL (NEG) Urine Blood Negative (NEG) Urine Nitrite Negative (NEG) Urine Bilirubin Negative (NEG) Urine Urobilinogen Dipstick 1.0mg/dL (0.2 mg/dL) Urine Leukocyte Esterase Negative (NEG) Urine RBC 0/HPF (0-2) Urine WBC Occ/HPF (0-4) Urine Squamous Epithelial Cells Occ/LPF Urine Bacteria 0/HPF (0-FEW) Urine Hyaline Casts Moderate/HPF Urine Mucus Slight/LPF Glucose (Fingerstick) 304mg/dL (70-99) Test 10/08/16 11:30 10/08/16 12:02 10/08/16 17:28 10/08/16 18:07 Troponin I Quantitative 18.466ng/mL (0.000-0.055) 16.574ng/mL (0.000-0.055) Glucose (Fingerstick) 316mg/dL (70-99) 167mg/dL (70-99) Test 10/08/16 18:20 10/08/16 20:53 10/08/16 21:16 Prothrombin Time 25.3SEC (11.7-14.0) Prothromb Time International Ratio 2.5 (0.8-1.1) Sodium Level 135mmol/L (136-145) Potassium Level 4.3mmol/L (3.5-5.1) Chloride Level 101mmol/L (98-107) Carbon Dioxide Level 25mmol/L (21-32) Anion Gap 9 (6-14) Blood Urea Nitrogen 40mg/dL (8-26) Creatinine 2.1mg/dL (0.7-1.3) Estimated GFR (Cockcroft-Gault) 30.5 Glucose Level 152mg/dL (70-99) Calcium Level 8.5mg/dL (8.5-10.1) Glucose (Fingerstick) 57mg/dL (70-99) 87mg/dL (70-99) Laboratory Tests Test 10/08/16 04:20 10/08/16 04:58 10/08/16 08:25 10/08/16 09:06 White Blood Count 9.7x10^3/uL (4.0-11.0) Red Blood Count 3.78x10^6/uL (4.30-5.70) Hemoglobin 9.4g/dL (13.0-17.5) Hematocrit 29.5% (39.0-53.0) Mean Corpuscular Volume 78fL (79-100) Mean Corpuscular Hemoglobin 25pg (25-35) Mean Corpuscular Hemoglobin Concent 32g/dL (31-37) Red Cell Distribution Width 17.5% (11.5-14.5) Platelet Count 509x10^3/uL (140-400) Neutrophils (%) (Auto) 87% (31-73) Lymphocytes (%) (Auto) 7% (24-48) Monocytes (%) (Auto) 6% (0-9) Eosinophils (%) (Auto) 0% (0-3) Basophils (%) (Auto) 1% (0-3) Neutrophils # (Auto) 8.4x10^3uL (1.8-7.7) Lymphocytes # (Auto) 0.7x10^3/uL (1.0-4.8) Monocytes # (Auto) 0.5x10^3/uL (0.0-1.1) Eosinophils # (Auto) 0.0x10^3/uL (0.0-0.7) Basophils # (Auto) 0.1x10^3/uL (0.0-0.2) Segmented Neutrophils % 90% (35-66) Lymphocytes % 5% (24-48) Monocytes % 5% (0-10) Platelet Estimate Increased (ADEQUATE) Hypochromasia Slight Anisocytosis Slight Prothrombin Time 24.8SEC (11.7-14.0) Prothromb Time International Ratio 2.4 (0.8-1.1) Activated Partial Thromboplast Time 46SEC (24-38) D-Dimer (Melodie) 3.72ug/mlFEU (0.00-0.50) Sodium Level 131mmol/L (136-145) Potassium Level 5.2mmol/L (3.5-5.1) Chloride Level 97mmol/L (98-107) Carbon Dioxide Level 21mmol/L (21-32) Anion Gap 13 (6-14) Blood Urea Nitrogen 38mg/dL (8-26) Creatinine 2.3mg/dL (0.7-1.3) Estimated GFR (Cockcroft-Gault) 27.5 BUN/Creatinine Ratio 17 (6-20) Glucose Level 384mg/dL (70-99) Lactic Acid Level 4.6mmol/L (0.4-2.0) 1.7mmol/L (0.4-2.0) Calcium Level 8.9mg/dL (8.5-10.1) Magnesium Level 2.0mg/dL (1.8-2.4) Total Bilirubin 0.4mg/dL (0.2-1.0) Aspartate Amino Transf (AST/SGOT) 33U/L (15-37) Alanine Aminotransferase (ALT/SGPT) 17U/L (16-63) Alkaline Phosphatase 70U/L (46-116) Troponin I Quantitative 1.615ng/mL (0.000-0.055) UI-Rov-G-Type Natriuretic Peptide 77924xp/mL (0-449) Total Protein 7.3g/dL (6.4-8.2) Albumin 3.1g/dL (3.4-5.0) Albumin/Globulin Ratio 0.7 (1.0-1.7) Urine Collection Type Unknown Urine Color Yellow Urine Clarity Clear Urine pH 5.0 Urine Specific Eldridge 1.025 Urine Protein Negativemg/dL (NEG-TRACE) Urine Glucose (UA) >=1000mg/dL (NEG) Urine Ketones (Stick) Negativemg/dL (NEG) Urine Blood Negative (NEG) Urine Nitrite Negative (NEG) Urine Bilirubin Negative (NEG) Urine Urobilinogen Dipstick 1.0mg/dL (0.2 mg/dL) Urine Leukocyte Esterase Negative (NEG) Urine RBC 0/HPF (0-2) Urine WBC Occ/HPF (0-4) Urine Squamous Epithelial Cells Occ/LPF Urine Bacteria 0/HPF (0-FEW) Urine Hyaline Casts Moderate/HPF Urine Mucus Slight/LPF Glucose (Fingerstick) 304mg/dL (70-99) Test 10/08/16 11:30 10/08/16 12:02 10/08/16 17:28 10/08/16 18:07 Troponin I Quantitative 18.466ng/mL (0.000-0.055) 16.574ng/mL (0.000-0.055) Glucose (Fingerstick) 316mg/dL (70-99) 167mg/dL (70-99) Test 10/08/16 18:20 10/08/16 20:53 10/08/16 21:16 Prothrombin Time 25.3SEC (11.7-14.0) Prothromb Time International Ratio 2.5 (0.8-1.1) Sodium Level 135mmol/L (136-145) Potassium Level 4.3mmol/L (3.5-5.1) Chloride Level 101mmol/L (98-107) Carbon Dioxide Level 25mmol/L (21-32) Anion Gap 9 (6-14) Blood Urea Nitrogen 40mg/dL (8-26) Creatinine 2.1mg/dL (0.7-1.3) Estimated GFR (Cockcroft-Gault) 30.5 Glucose Level 152mg/dL (70-99) Calcium Level 8.5mg/dL (8.5-10.1) Glucose (Fingerstick) 57mg/dL (70-99) 87mg/dL (70-99) Assessment/Plan Assessment/Plan STEMI, trop peak at 18 acute on chronic systolic CHF CKD 3, w/ likely vasomotor, anemia of CKD, with microcytosis, check iron level DM2 htn OA, right knee pain, lactic acidosis, CHF, and wound healing mild malnutrition renal consult agree with cath thanks for the consult COREY CERVANTES MD October 08, 2016 21:54
--- NOTE | 2016-10-08 21:56 | HP ---
ADMIT DATE: 10/08/2016 HISTORY OF PRESENT ILLNESS: This is an 81-year-old white male who presented himself to the Emergency Room with severe shortness of breath. On questioning, now he states that he started to feel short of breath on the . He also, for the first time, admitted that he would have some tightness of the chest along with the shortness of breath. He would get short of breath and tightness in the chest on lying flat. His was concerned enough that she brought him to the office on 10/07/2016. However, she did not stay and have him been seen. She asked the nurse to get his vitals. His vital signs were normal and so she went home. Last night, he was short of breath and had tightness in the chest on lying down. He got up. He then told his that he would need to go to the Emergency Room. She intended to drive him to the Emergency Room. He got down to the kitchen, but just could not get his breath anymore and could not move. It was then that she called the ambulance. The ambulance found him to be hypoxic and placed him on a BiPAP and brought him to the Emergency Room. In the Emergency Room, his chest x-ray showed pulmonary vascular congestion for the first time. His EKG showed a paced rhythm. The troponin was mildly elevated to 1.6. The BNP was significantly elevated to 13,500. The lactic acid was elevated to 4.6. The BUN was elevated to 38. The creatinine was 2.3. He was thus hospitalized. He now states that he has been having shortness of breath and tightness in the chest on walking a short distance. I had asked him about these symptoms when I saw him 2 weeks ago for a preoperative evaluation. He totally denied any symptoms at all and simply kept saying that his right knee was bothering him so much, he was really anxious to go ahead with the surgery that had already been scheduled for ____. At that time, I did an echocardiogram, which showed an EF of 50%. We did myocardial perfusion imaging study, which showed a large scar in the lateral wall and the inferior wall. There was very little ischemia and the summed reversibility score was only 1. The ejection fraction was 51%. A month ago the creatinine was 1.2. Apparently, no further lab work had been done after that. A chest x-ray showed no pulmonary vascular congestion. He thus underwent the right knee placement on ___. Dr. Guerrero saw him on the first day and then I saw him on the subsequent days and he was discharged on the . At that time, he had no symptoms. He was participating well in physical therapy and was doing very well. I saw him walk up and down the [place]. He had been upstairs. He had had no complaints. He was thus discharged on Coumadin. He had been told to stop the aspirin a week prior to surgery, which he did and he has not taken aspirin since then. PAST MEDICAL HISTORY: As follows. He had had a stent in the right coronary artery several years ago. A few years later, he had a stent in the circumflex coronary artery. His last cardiac catheterization was in 01/2015. At that time, the left main trunk was normal. The LAD though a narrow vessel, wrapped around the apex. The right coronary artery had a patent stent in it. The circumflex coronary artery had a patent stent in the first obtuse marginal branch, but there was an intrastent stenosis of 95%. This was dilated and another stent placed in the previous stent. The LV was fairly normal with ejection fraction of 50%. 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 He, all along, has had some supraventricular arrhythmias with atrial tachycardia. He probably had a sick sinus syndrome. His pacemaker was interrogated recently and he was noted to have intermittent episodes of atrial fibrillation. He had one brief episode of nonsustained ventricular tachycardia. He then underwent a myocardial perfusion imaging study on 09/26/2016. It showed a large scar with perfusion defects over the lateral wall and the inferior wall. The summed reversibility score, as stated before, was only 1. The ejection fraction by the MPI was 51%. He has had no complaints and certainly did not complain to me of chest pain. He has not been very compliant with his visits to the office. Sometimes a year goes by before I see him. He has had diabetes mellitus. 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 He then gave up that job and has started to take insulin. 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 Again as stated before, he failed to tell me that he would get tightness in the chest on walking and last night he had tightness in the chest when he laid down. He has hypertension, which has been under control. He has dyslipidemia. He does not smoke and has never smoked. He does not take alcohol. MEDICATIONS: His present medications are: 1. Aspirin 81 mg a day, which he has not taken for about 3 weeks. 2. B12 1000 mcg a day. 3. Lanoxin 0.125 mg a day. 4. Ferrous sulfate 325 mg a day. 5. Hydrochlorothiazide 12.5 mg a day. 6. Hydrocodone/acetaminophen 7.5/325 q. 4 hours. p.r.n. 7. NovoLog 15 units before each meal. 8. Levemir 20 units at night. 9. Losartan 100 mg a day. 10. Metoprolol tartrate 50 mg twice a day. 11. Oxycodone. 12. Potassium chloride 10 mEq a day. 13. Simvastatin 20 mg at night. 14. Bactrim DS 1 tablet twice a day for a possible infection in his right knee. 15. Warfarin 3 mg a day. PHYSICAL EXAMINATION: GENERAL: He was in no distress. He denied having any shortness of breath or tightness in the chest when I saw him. He was lying flat. He had his oxygen on and said that he was breathing better with the oxygen. VITAL SIGNS: The heart rate was 88 per minute and regular. On interrogation of the pacemaker, he was noted to be in sinus rhythm, complete heart block according to the pacemaker rep. The blood pressure was 110/50. He was afebrile. The oxygen saturation was 96% on nasal cannula and later was 99% on room air. He had been given IV Lasix and he had diuresed. LUNGS: Showed decreased breath sounds and rales in the bases, but clear in the interscapular area and higher up. HEART: First and second sounds are normal. There is no murmur or gallop. ABDOMEN: Soft. EXTREMITIES: 1+ edema of the right leg, but no edema of the left leg. An EKG showed a paced rhythm. A chest x-ray showed mild cardiomegaly and increased vascular congestion. There was a possible left pleural effusion. LABORATORY DATA: Hemoglobin was 9.4 grams percent. There was 87% neutrophils, 7% lymphocytes and 6% monocytes. The sodium was 131, potassium 5.2, chloride 97, BUN of 38 and creatinine was 2.3. The creatinine was 1.2 in July. The blood sugar was elevated this morning at 384. The albumin was 3.1. The blood sugars during the day have been elevated. Lactic acid was 4.6 on admission and later was 1.7. The troponin on admission was 1.6. Later in the day it went up to 18.46 and yet later was 16.574. The INR on admission was 2.4. D-dimer was elevated to 3.72. Venous Doppler showed no sonographic evidence of deep venous thrombosis in either lower extremity. IMPRESSION: 1. Non-ST segment elevation acute myocardial infarction. 2. Acute on chronic renal failure. 3. Congestive cardiac failure due to systolic dysfunction. 4. Uncontrolled diabetes mellitus. 5. Complete heart block, probably of new onset. 6. Hypertension, under control. 7. Lactic acidosis, probably due to the congestive heart failure. 8. Mild leukocytosis, probably due to the myocardial infarction, no source of infection detected. 9. Elevated D-dimer with no evidence of deep venous thrombosis. 10. Recent right knee replacement. Coronary arteriograms were considered to be done today with the elevated troponin. However, this could not be carried out because of the elevated INR. We will try to correct it and do it tomorrow. He also has renal dysfunction. Repeat creatinine done later this evening was 2.1. We will have Nephrology to see but because of his cardiac condition, he will need to have the coronary arteriograms despite the renal dysfunction. The patient and the family understand. 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 We will get viability study tomorrow morning while awaiting the cardiac catheterization, which will be performed in the afternoon because of scheduling. LATOSHA HWANG MD DR: BRANDY/malou JOB#: [id number] / [id number]
--- NOTE | 2016-10-09 01:43 | CONS ---
DATE OF CONSULTATION: 10/08/2016 REFERRING PROVIDER: Dr. Kavita Barry. CONSULTING PROVIDER: Zeferino Stovall MD REASON FOR CONSULTATION: Right total knee arthroplasty. CHIEF COMPLAINT: Tightness in chest and trouble breathing. HISTORY OF PRESENT ILLNESS: The patient is a very pleasant 81-year-old gentleman who is a little over 2 weeks out from right total knee arthroplasty by myself, who was seen in my clinic earlier this week for complaints of some serous drainage. He tells me he really has not had much drainage that is new since getting the dressing on. He takes the antibiotics for a couple of days. He was admitted last night for heart attack and pulmonary edema. He tells me that he began having some difficulty breathing and tightness in his chest starting around yesterday afternoon and got progressively worse, which prompted the visit to the Emergency Department. Troponins have been elevated and Cardiology has evaluated the patient. He tells me that he is breathing better right now. He tells me he really does not have much knee pain. He has been doing some exercises in bed. ALLERGIES: None. MEDICATIONS: Reviewed, please see MRAD. PAST MEDICAL HISTORY: Coronary artery disease, type 2 diabetes, hypercholesterolemia, hypertension, colectomy, pacemaker implantation, cardiac catheterization with stents, EGD, bilateral total knee arthroplasty most recently a couple of weeks ago on the right side by myself. SOCIAL HISTORY: Lives with , uses alcohol occasionally. No tobacco. REVIEW OF SYSTEMS: Twelve point review of systems negative except as per HPI. PHYSICAL EXAMINATION: GENERAL: The patient is alert and oriented, no acute distress. Mood and affect are appropriate. VITAL SIGNS: Reviewed. BP is 140s-160s/50s-60s, pulse 76-92. He has been febrile, 2 liters by nasal cannula to maintain his O2 sats at 95-98%. HEENT: Head normocephalic and atraumatic. Extraocular muscles are intact. CARDIOVASCULAR: Regular rate and rhythm. No edema at his ankles. LUNGS: Respirations are unlabored with symmetric chest rise. ABDOMEN: Soft, nondistended. EXTREMITIES: Examination of right lower extremity reveals Aquacel dressing in place over his knee incision. There is some drainage around this that is thin appearing serosanguineous. The dressing is not saturated. He can wiggle his toes distally. Toes are warm with good capillary refill. IMAGING STUDIES: Chest x-ray was reviewed and has worsening interstitial edema and no effusions. LABORATORY DATA: Reviewed. Hemoglobin 9.4. INR 2.4. His troponin went from 1.6 early this morning to 18 about an hour ago. IMPRESSION: 1. Myocardial infarction. 2. Pulmonary edema. 2. Right total knee arthroplasty. PLAN: I did discuss with the patient that the cardiac system is priority here. I had seen and evaluated him in the clinic and he had serous drainage, mostly was some serosanguineous drainage and I did not feel this was coming from down deep. We will continue to monitor this. I would hold off on any PT right now. Anticoagulation can be managed by Cardiology to suit their purposes. He can weightbear as tolerated on his right lower extremity from my standpoint. ZEFERINO STOVALL MD DR: RADHA/malou JOB#: [id number] / [id number] BREONNA
[2016-10-09 02:23] VITALS: BP 136/66
[2016-10-09 07:53] LABS: BASO % 1 % (0-3); EOS % 3 % (0-3); HEMATOCRIT 25.4 % (39.0-53.0); HEMOGLOBIN 8.2 g/dL (13.0-17.5); LYMPH # 0.9 x10^3/uL (1.0-4.8); LYMPH % 11 % (24-48); MEAN CORPUSCULAR HEMOGLOBIN 25 pg (25-35); MEAN CORPUSCULAR HGB CONC 32 g/dL (31-37); MEAN CORPUSCULAR VOLUME 77 fL (79-100); MONO % 9 % (0-9); NEUT % 76 % (31-73); PLATELET COUNT 388 x10^3/uL (140-400); RED BLOOD COUNT 3.29 x10^6/uL (4.30-5.70); RED CELL DISTRIBUTION WIDTH 17.2 % (11.5-14.5); WHITE BLOOD COUNT 7.7 x10^3/uL (4.0-11.0)
[2016-10-09 07:55] VITALS: BP 136/68
[2016-10-09 07:58] LABS: CALCIUM 8.6 mg/dL (8.5-10.1); CREATININE 1.9 mg/dL (0.7-1.3); GFR 34.3
[2016-10-09 07:59] LABS: % SAT IRON 15 % (15-34); IRON,SERUM 39 ug/dL (65-175)
[2016-10-09 08:02] LABS: CHOLESTEROL/HDL RATIO 2.4; INR 1.7 (0.8-1.1); PROTHROMBIN TIME PATIENT 18.8 SEC (11.7-14.0)
--- NOTE | 2016-10-09 08:19 | PDOC ---
ORTHO PROGRESS NOTES Subjective Patient in Nuc Med, cath later today Vitals Vital Signs Date Time Temp Pulse Resp B/P (MAP) Pulse Ox O2 Delivery O2 Flow Rate FiO2 10/09/16 07:55 97.7 81 18 136/68 (90) 99 Nasal Cannula 97.7 10/08/16 19:52 2.0 Labs Laboratory Tests Test 10/08/16 04:20 10/08/16 04:58 10/08/16 08:25 10/08/16 09:06 White Blood Count 9.7 x10^3/uL (4.0-11.0) Red Blood Count 3.78 x10^6/uL (4.30-5.70) Hemoglobin 9.4 g/dL (13.0-17.5) Hematocrit 29.5 % (39.0-53.0) Mean Corpuscular Volume 78 fL (79-100) Mean Corpuscular Hemoglobin 25 pg (25-35) Mean Corpuscular Hemoglobin Concent 32 g/dL (31-37) Red Cell Distribution Width 17.5 % (11.5-14.5) Platelet Count 509 x10^3/uL (140-400) Neutrophils (%) (Auto) 87 % (31-73) Lymphocytes (%) (Auto) 7 % (24-48) Monocytes (%) (Auto) 6 % (0-9) Eosinophils (%) (Auto) 0 % (0-3) Basophils (%) (Auto) 1 % (0-3) Neutrophils # (Auto) 8.4 x10^3uL (1.8-7.7) Lymphocytes # (Auto) 0.7 x10^3/uL (1.0-4.8) Monocytes # (Auto) 0.5 x10^3/uL (0.0-1.1) Eosinophils # (Auto) 0.0 x10^3/uL (0.0-0.7) Basophils # (Auto) 0.1 x10^3/uL (0.0-0.2) Segmented Neutrophils % 90 % (35-66) Lymphocytes % 5 % (24-48) Monocytes % 5 % (0-10) Platelet Estimate Increased (ADEQUATE) Hypochromasia Slight Anisocytosis Slight Prothrombin Time 24.8 SEC (11.7-14.0) Prothromb Time International Ratio 2.4 (0.8-1.1) Activated Partial Thromboplast Time 46 SEC (24-38) D-Dimer (Melodie) 3.72 ug/mlFEU (0.00-0.50) Sodium Level 131 mmol/L (136-145) Potassium Level 5.2 mmol/L (3.5-5.1) Chloride Level 97 mmol/L (98-107) Carbon Dioxide Level 21 mmol/L (21-32) Anion Gap 13 (6-14) Blood Urea Nitrogen 38 mg/dL (8-26) Creatinine 2.3 mg/dL (0.7-1.3) Estimated GFR (Cockcroft-Gault) 27.5 BUN/Creatinine Ratio 17 (6-20) Glucose Level 384 mg/dL (70-99) Lactic Acid Level 4.6 mmol/L (0.4-2.0) 1.7 mmol/L (0.4-2.0) Calcium Level 8.9 mg/dL (8.5-10.1) Magnesium Level 2.0 mg/dL (1.8-2.4) Total Bilirubin 0.4 mg/dL (0.2-1.0) Aspartate Amino Transf (AST/SGOT) 33 U/L (15-37) Alanine Aminotransferase (ALT/SGPT) 17 U/L (16-63) Alkaline Phosphatase 70 U/L (46-116) Troponin I Quantitative 1.615 ng/mL (0.000-0.055) ZE-Gmj-A-Type Natriuretic Peptide 96456 pg/mL (0-449) Total Protein 7.3 g/dL (6.4-8.2) Albumin 3.1 g/dL (3.4-5.0) Albumin/Globulin Ratio 0.7 (1.0-1.7) Urine Collection Type Unknown Urine Color Yellow Urine Clarity Clear Urine pH 5.0 Urine Specific [place] 1.025 Urine Protein Negative mg/dL (NEG-TRACE) Urine Glucose (UA) >=1000 mg/dL (NEG) Urine Ketones (Stick) Negative mg/dL (NEG) Urine Blood Negative (NEG) Urine Nitrite Negative (NEG) Urine Bilirubin Negative (NEG) Urine Urobilinogen Dipstick 1.0 mg/dL (0.2 mg/dL) Urine Leukocyte Esterase Negative (NEG) Urine RBC 0 /HPF (0-2) Urine WBC Occ /HPF (0-4) Urine Squamous Epithelial Cells Occ /LPF Urine Bacteria 0 /HPF (0-FEW) Urine Hyaline Casts Moderate /HPF Urine Mucus Slight /LPF Glucose (Fingerstick) 304 mg/dL (70-99) Test 10/08/16 11:30 10/08/16 12:02 10/08/16 17:28 10/08/16 18:07 Troponin I Quantitative 18.466 ng/mL (0.000-0.055) 16.574 ng/mL (0.000-0.055) Glucose (Fingerstick) 316 mg/dL (70-99) 167 mg/dL (70-99) Test 10/08/16 18:20 10/08/16 20:53 10/08/16 21:16 10/08/16 22:44 Prothrombin Time 25.3 SEC (11.7-14.0) Prothromb Time International Ratio 2.5 (0.8-1.1) Sodium Level 135 mmol/L (136-145) Potassium Level 4.3 mmol/L (3.5-5.1) Chloride Level 101 mmol/L (98-107) Carbon Dioxide Level 25 mmol/L (21-32) Anion Gap 9 (6-14) Blood Urea Nitrogen 40 mg/dL (8-26) Creatinine 2.1 mg/dL (0.7-1.3) Estimated GFR (Cockcroft-Gault) 30.5 Glucose Level 152 mg/dL (70-99) Calcium Level 8.5 mg/dL (8.5-10.1) Glucose (Fingerstick) 57 mg/dL (70-99) 87 mg/dL (70-99) 179 mg/dL (70-99) Test 10/09/16 03:40 10/09/16 03:45 10/09/16 05:35 10/09/16 07:35 White Blood Count 7.7 x10^3/uL (4.0-11.0) Red Blood Count 3.29 x10^6/uL (4.30-5.70) Hemoglobin 8.2 g/dL (13.0-17.5) Hematocrit 25.4 % (39.0-53.0) Mean Corpuscular Volume 77 fL (79-100) Mean Corpuscular Hemoglobin 25 pg (25-35) Mean Corpuscular Hemoglobin Concent 32 g/dL (31-37) Red Cell Distribution Width 17.2 % (11.5-14.5) Platelet Count 388 x10^3/uL (140-400) Neutrophils (%) (Auto) 76 % (31-73) Lymphocytes (%) (Auto) 11 % (24-48) Monocytes (%) (Auto) 9 % (0-9) Eosinophils (%) (Auto) 3 % (0-3) Basophils (%) (Auto) 1 % (0-3) Neutrophils # (Auto) 5.9 x10^3uL (1.8-7.7) Lymphocytes # (Auto) 0.9 x10^3/uL (1.0-4.8) Monocytes # (Auto) 0.7 x10^3/uL (0.0-1.1) Eosinophils # (Auto) 0.2 x10^3/uL (0.0-0.7) Basophils # (Auto) 0.0 x10^3/uL (0.0-0.2) Prothrombin Time 18.8 SEC (11.7-14.0) Prothromb Time International Ratio 1.7 (0.8-1.1) Sodium Level 133 mmol/L (136-145) Potassium Level 5.0 mmol/L (3.5-5.1) Chloride Level 100 mmol/L (98-107) Carbon Dioxide Level 24 mmol/L (21-32) Anion Gap 9 (6-14) Blood Urea Nitrogen 37 mg/dL (8-26) Creatinine 1.9 mg/dL (0.7-1.3) Estimated GFR (Cockcroft-Gault) 34.3 Glucose Level 215 mg/dL (70-99) Calcium Level 8.6 mg/dL (8.5-10.1) Iron Level 39 ug/dL (65-175) Total Iron Binding Capacity 260 ug/dL (250-450) Iron Saturation 15 % (15-34) Triglycerides Level 65 mg/dL (0-150) Cholesterol Level 119 mg/dL (0-200) LDL Cholesterol, Calculated 57 mg/dL (0-100) VLDL Cholesterol, Calculated 13 mg/dL (0-40) Non-HDL Cholesterol Calculated 70 mg/dL (0-129) HDL Cholesterol 49 mg/dL (40-60) Cholesterol/HDL Ratio 2.4 Glucose (Fingerstick) 252 mg/dL (70-99) 271 mg/dL (70-99) Laboratory Tests Test 10/08/16 08:25 10/08/16 09:06 10/08/16 11:30 10/08/16 12:02 Lactic Acid Level 1.7 mmol/L (0.4-2.0) Glucose (Fingerstick) 304 mg/dL (70-99) 316 mg/dL (70-99) Troponin I Quantitative 18.466 ng/mL (0.000-0.055) Test 10/08/16 17:28 10/08/16 18:07 10/08/16 18:20 10/08/16 20:53 Troponin I Quantitative 16.574 ng/mL (0.000-0.055) Glucose (Fingerstick) 167 mg/dL (70-99) 57 mg/dL (70-99) Prothrombin Time 25.3 SEC (11.7-14.0) Prothromb Time International Ratio 2.5 (0.8-1.1) Sodium Level 135 mmol/L (136-145) Potassium Level 4.3 mmol/L (3.5-5.1) Chloride Level 101 mmol/L (98-107) Carbon Dioxide Level 25 mmol/L (21-32) Anion Gap 9 (6-14) Blood Urea Nitrogen 40 mg/dL (8-26) Creatinine 2.1 mg/dL (0.7-1.3) Estimated GFR (Cockcroft-Gault) 30.5 Glucose Level 152 mg/dL (70-99) Calcium Level 8.5 mg/dL (8.5-10.1) Test 10/08/16 21:16 10/08/16 22:44 10/09/16 03:40 10/09/16 03:45 Glucose (Fingerstick) 87 mg/dL (70-99) 179 mg/dL (70-99) White Blood Count 7.7 x10^3/uL (4.0-11.0) Red Blood Count 3.29 x10^6/uL (4.30-5.70) Hemoglobin 8.2 g/dL (13.0-17.5) Hematocrit 25.4 % (39.0-53.0) Mean Corpuscular Volume 77 fL (79-100) Mean Corpuscular Hemoglobin 25 pg (25-35) Mean Corpuscular Hemoglobin Concent 32 g/dL (31-37) Red Cell Distribution Width 17.2 % (11.5-14.5) Platelet Count 388 x10^3/uL (140-400) Neutrophils (%) (Auto) 76 % (31-73) Lymphocytes (%) (Auto) 11 % (24-48) Monocytes (%) (Auto) 9 % (0-9) Eosinophils (%) (Auto) 3 % (0-3) Basophils (%) (Auto) 1 % (0-3) Neutrophils # (Auto) 5.9 x10^3uL (1.8-7.7) Lymphocytes # (Auto) 0.9 x10^3/uL (1.0-4.8) Monocytes # (Auto) 0.7 x10^3/uL (0.0-1.1) Eosinophils # (Auto) 0.2 x10^3/uL (0.0-0.7) Basophils # (Auto) 0.0 x10^3/uL (0.0-0.2) Prothrombin Time 18.8 SEC (11.7-14.0) Prothromb Time International Ratio 1.7 (0.8-1.1) Sodium Level 133 mmol/L (136-145) Potassium Level 5.0 mmol/L (3.5-5.1) Chloride Level 100 mmol/L (98-107) Carbon Dioxide Level 24 mmol/L (21-32) Anion Gap 9 (6-14) Blood Urea Nitrogen 37 mg/dL (8-26) Creatinine 1.9 mg/dL (0.7-1.3) Estimated GFR (Cockcroft-Gault) 34.3 Glucose Level 215 mg/dL (70-99) Calcium Level 8.6 mg/dL (8.5-10.1) Iron Level 39 ug/dL (65-175) Total Iron Binding Capacity 260 ug/dL (250-450) Iron Saturation 15 % (15-34) Triglycerides Level 65 mg/dL (0-150) Cholesterol Level 119 mg/dL (0-200) LDL Cholesterol, Calculated 57 mg/dL (0-100) VLDL Cholesterol, Calculated 13 mg/dL (0-40) Non-HDL Cholesterol Calculated 70 mg/dL (0-129) HDL Cholesterol 49 mg/dL (40-60) Cholesterol/HDL Ratio 2.4 Test 10/09/16 05:35 10/09/16 07:35 Glucose (Fingerstick) 252 mg/dL (70-99) 271 mg/dL (70-99) Assessment and Plan discussed his Ortho care with Nurse will follow along SHAINA BLAKELY II, MD October 09, 2016 08:19
[2016-10-09] MEDS: FERROUS SULFATE 325 MG TABLET. PO SCH ×2 (09:19→17:25)
[2016-10-09] MEDS: ASPIRIN ENTERIC COATED 81 MG TABLET.DR. PO SCH (09:19)
[2016-10-09] MEDS: AMOXICILLIN/K CLAV 500/125MG TABLET. PO SCH ×2 (09:19→20:58)
[2016-10-09] MEDS: CYANOCOBALAMIN (VITAMIN B-12) 1,000 MCG TABLET. PO SCH (09:20)
[2016-10-09] MEDS: METOPROLOL TART IMMED RELEASE 50 MG TABLET. PO SCH ×2 (09:20→20:58)
[2016-10-09] MEDS: LOSARTAN POTASSIUM 50 MG TABLET. PO SCH (09:20)
[2016-10-09] MEDS: INSULIN ASPART 300 UNITS/3 ML INSULN.PEN SQ SCH ×5 (09:24→17:00)
[2016-10-09] MEDS: HYDROcodone/APAP 7.5/325MG 1 TAB TABLET PO PRN ×3 (09:26→21:06)
[2016-10-09 10:21] VITALS: BP 119/58
[2016-10-09] MEDS: IV NORMAL SALINE 1000ML BAG 1,000 ML IV SCH ×2 (11:00→22:16)
[2016-10-09] MEDS ORDERED: ACETYLCYSTEINE 20% ORAL SOLN 600 MG/3 ML SYRINGE. PO SCH ×2 (11:00→12:30)
[2016-10-09] MEDS ORDERED: MAGNESIUM SULFATE 2GM 50 ML IV PRN (11:00)
--- NOTE | 2016-10-09 11:01 | PDOC2 ---
CONSULT Date of Consult Date of Consult DATE: 10/09/16 TIME: 10:54 Reason for Consult Reason for Consult: ^ed Creat Referring Physician Referring Physician: Dr Barry Identification/Chief Complaint Chief Complaint CP angina Problems: Source Source: Chart review, Patient History of Present Illness Reason for Visit: as dictated Family History Family History: No Significant Social History Quit (1975) ALCOHOL: rare Drugs: None Lives: with Family Domestic Violence: Neg Current Problem List Problem List Problems Medical Problems: (1) Hypoxia Status: Acute (2) Lactic acid acidosis Status: Acute (3) NSTEMI (non-ST elevated myocardial infarction) Status: Acute (4) Pulmonary edema Status: Acute (5) Renal insufficiency Status: Acute Current Medications Current Medications Current Medications Albuterol/ Ipratropium (Duoneb) 3 ml 1X ONCE NEB Last administered on 04:33; Start 10/08/16 at 04:30; Stop 10/08/16 at 04:36; Status DC Aspirin (Ecotrin) 325 mg 1X ONCE PO Last administered on 10/08/16 05:49; Start 10/08/16 at 06:00; Stop 10/08/16 at 06:01; Status DC Furosemide (Lasix) 40 mg 1X ONCE IVP Last administered on 10/08/16 05:49; Start 10/08/16 at 06:00; Stop 10/08/16 at 06:01; Status DC Ondansetron HCl (Zofran) 4 mg PRN Q8HRS PRN IV NAUSEA/VOMITING; Start 10/08/16 at 05:30; Stop 10/09/16 at 05:29; Status DC Morphine Sulfate 4 mg PRN Q2HR PRN IV SEVERE PAIN; Start 10/08/16 at 05:30; Stop 10/09/16 at 05:29; Status DC Nitroglycerin (Nitro-Bid Oint) 1 inch 1X ONCE TP Last administered on 05:49; Start 10/08/16 at 06:00; Stop 10/08/16 at 06:01; Status DC Aspirin (Ecotrin) 81 mg DAILY PO Last administered on 10/09/16 09:19; Start 10/08/16 at 09:00 Cyanocobalamin (Vitamin B-12) 2,500 mcg DAILY PO Last administered on 10/09/16 09:20; Start 10/08/16 at 09:00 Digoxin (Lanoxin) 125 mcg DAILY PO ; Start 10/08/16 at 09:00; Stop 10/08/16 at 19: 26; Status DC Ferrous Sulfate (Feosol) 325 mg BIDWMEALS PO Last administered on 10/09/16 09: 19; Start 10/08/16 at 09:00 Hydrochlorothiazide (Microzide) 12.5 mg DAILY PO Last administered on 10/08/16 10:00; Start 10/08/16 at 09:00; Stop 10/08/16 at 20:10; Status DC Acetaminophen/ Hydrocodone Bitart (Lortab 7.5/325) 1 tab PRN Q3HRS PRN PO PAIN Last administered on 10/09/16 09:26; Start 10/08/16 at 08:45 Insulin Aspart (Novolog) 15 units TIDWMEALS SQ Last administered on 10/09/16 09 :24; Start 10/08/16 at 12:00 Metoprolol Tartrate (Lopressor) 50 mg BID PO Last administered on 10/09/16 09: 20; Start 10/08/16 at 09:00 Nitroglycerin (Nitrostat) 0.4 mg PRN 1X PRN SL CHEST PAIN; Start 10/08/16 at 08: 45 Oxycodone/ Acetaminophen (Percocet 7.5/ 325) 1 tab PRN Q3HRS PRN PO PAIN; Start 10/08/16 at 08:45 Simvastatin (Zocor) 20 mg HS PO Last administered on 10/08/16 20:57; Start 10/08 at 21:00 Insulin Detemir (Levemir) 20 units QHS SQ ; Start 10/08/16 at 21:00 Losartan Potassium (Cozaar) 100 mg DAILY PO Last administered on 10/09/16 09:20 ; Start 10/08/16 at 09:00 Potassium Chloride (Klor-Con) 10 meq DAILYWBKFT PO ; Start 10/08/16 at 10:00; Stop 10/08/16 at 10:32; Status DC Aspirin (Rocío Aspirin) 325 mg 1X ONCE PO Last administered on 10/08/16 13:23 ; Start 10/08/16 at 11:30; Stop 10/08/16 at 11:31; Status DC Cephalexin HCl (Keflex) 500 mg TID PO ; Start 10/08/16 at 14:00; Status UNV Vancomycin HCl 1 gm/Sodium Chloride 250 ml @ 250 mls/hr 1X ONCE IV Last administered on 10/08/16 14:25; Start 10/08/16 at 14:00; Stop 10/08/16 at 14:59; Status DC Amoxicillin/ Clavulanate Potassium (Augmentin 500/ 125mg) 1 tab BID PO Last administered on 10/09/16 09:19; Start 10/08/16 at 21:00 Phytonadione (Mephyton) 25 mg 1X ONCE PO ; Start 10/08/16 at 13:45; Stop at 13:46; Status DC Phytonadione (Mephyton) 5 mg 1X ONCE PO Last administered on 10/08/16 14:25; Start 10/08/16 at 14:00; Stop 10/08/16 at 14:01; Status DC Phytonadione (Mephyton) 2.5 mg 1X ONCE PO Last administered on 10/08/16 20:57 ; Start 10/08/16 at 20:15; Stop 10/08/16 at 20:16; Status DC Phytonadione (Mephyton) 7.5 mg 1X ONCE PO Last administered on 10/08/16 21:40 ; Start 10/08/16 at 21:30; Stop 10/08/16 at 21:33; Status DC Active Scripts Active Reported Sulfamethoxazole-Tmp Ds Tablet (Sulfamethoxazole/Trimethoprim) Unknown Strength Tablet Unknown Dose Warfarin Sodium 3 Mg Tablet 1 Tab PO DAILY Potassium Chloride 10 Meq Tablet.er 10 Meq PO DAILY Digoxin 125 Mcg Tablet 1 Tab PO DAILY Aspir 81 (Aspirin) 81 Mg Tablet. 1 Tab PO DAILY Percocet 7.5-325 Mg Tablet (Oxycodone/Acetaminophen) 1 Each Tablet 1 Tab PO PRN Q3HRS PRN Ferrous Sulfate 325 Mg Tablet 1 Tab PO BID last dose this am next dos is with supper Losartan Potassium 100 Mg Tablet 100 Mg PO DAILY las dose with lunch next dose tomorrow am Hydrocodone-Apap 7.5-325 (Hydrocodone Bit/Acetaminophen) 1 Each Tablet 1 Tab PO Q3HRS PRN Levemir (Insulin Detemir) 100 Unit/1 Ml Vial 20 Unit SQ HS LAST DOSE GIVEN: DATE: 07/18 TIME: 9 PM NEXT DOSE DUE: DATE: 07/19 TIME: 9 PM Metoprolol Tartrate 50 Mg Tablet 50 Mg PO BID LAST DOSE GIVEN: DATE: 10/02/16 TIME: 9 AM NEXT DOSE DUE: DATE: 10/02/16 TIME: 9 PM Vitamin B-12 (Cyanocobalamin (Vitamin B-12)) 1,000 Mcg Tablet 2,500 Mcg PO DAILY LAST DOSE GIVEN: DATE: 10/02/16 TIME: 9 AM NEXT DOSE DUE: DATE: 10/03 TIME: 9 AM Hydrochlorothiazide Capsule (Hydrochlorothiazide) 12.5 Mg Capsule 12.5 Mg PO DAILY LAST DOSE GIVEN: DATE: 10/02/16 TIME: 9 AM NEXT DOSE DUE: DATE: 10/03/16 TIME: 9 AM Novolog Flexpen (Insulin Aspart) 100 Unit/1 Ml Insuln.pen 15 Unit SQ TIDWMEALS LAST DOSE GIVEN: DATE: 07/19 TIME: WITH LUNCH NEXT DOSE DUE: DATE: 07/19 TIME: WITH DINNER NITROGLYCERIN SubLingual (Nitroglycerin) 0.4 Mg Tab.subl 0.4 Mg SL PRN 1X PRN NOT GIVEN IN HOSPITAL. TAKE DIRECTED. Simvastatin 20 Mg Tablet 20 Mg PO HS LAST DOSE GIVEN: DATE: 10/01/16 TIME: 9 PM NEXT DOSE DUE: DATE: 10/02/16 TIME: 9 PM Allergies Allergies: Coded Allergies: No Known Drug Allergies (Unverified , 09/29/16) ROS Review of System GEN: no Fevers no Chills EYES: no new Visual Complaints ENT: no EN Drainage no Hearing deficiets CVS: no Orthopnea + CP RESP: + SOB + ÁLVAREZ GI: + Nausea no Vomiting : no Dysuria + Urgency HEME: no easy bruising no Palp Ly Nodes NEURO no Focal Weakness no Sz PSYCH: no Suicidal Ideation no Depression SKIN: no Rashes ENDO: no Polyuria or Polydipsia no Hot/Cold Intolerance MU SK: no Arthraigia no Myalgia Physical Exam Physical Exam General Appearance: Awake Alert Oriented x 3 In no Distress Eyes: VIsion Unchanged Conjunctiva Normal EN: No EN Drainage Mucous Memb. moist Neck: no JVD no JVP Supple no Thyromegaly CVS: S1 S2 no Murmur No Gallop No Rub no Edema Resp: no Rales no Rhonchi no Acc. Muscle use GI: BAS +ve NO Bruit Non Tender Non Distended : no CVA tenderness; no Suprapubic Tenderness SKIN: no Rashes Breast Exam deferred Mu.Sk: Adequate ROM no Muscle Atrophy Heme: Unable to palpate Obvious LAD no palp Splenomegaly NEURO: Good Strength and Tone Cranial Nerves II - XII grossly intact Psych: not Depressed no Active hallucination Vital Signs Vital Signs Date Time Temp Pulse Resp B/P (MAP) Pulse Ox O2 Delivery O2 Flow Rate FiO2 10/09/16 10:36 15 96 Nasal Cannula 1.0 10/09/16 10:21 98.7 73 119/58 (78) 98.7 Assessment & Plan ARF/ VMn due to ^^ FSBS, Vol Depletion, bactrim.: Current FLuid and E-lyte status does not necessitate emergent need for Dialysis. IVF as ordered. Risk of CAN discussed with pt and . ? FUNG - check PVR - may need flomax AMI - LHC planned for later today; IVf and NAC asordered ? CKD III - DM HTN /NS cannot be ruled out; May need PEPs as OP Microcytic Anemia: check Ferritin for IV Fe.; Epogen as needed. Nocturia - check PVR HTN: Current BP meds reviewed. See orders for changes. defer to Cardiology to optimze post LHC Discussed Plan of Care and prognosis etc. at length with family. Labs Labs Laboratory Tests Test 10/08/16 04:20 10/08/16 04:58 10/08/16 08:25 10/08/16 09:06 White Blood Count 9.7 x10^3/uL (4.0-11.0) Red Blood Count 3.78 x10^6/uL (4.30-5.70) Hemoglobin 9.4 g/dL (13.0-17.5) Hematocrit 29.5 % (39.0-53.0) Mean Corpuscular Volume 78 fL (79-100) Mean Corpuscular Hemoglobin 25 pg (25-35) Mean Corpuscular Hemoglobin Concent 32 g/dL (31-37) Red Cell Distribution Width 17.5 % (11.5-14.5) Platelet Count 509 x10^3/uL (140-400) Neutrophils (%) (Auto) 87 % (31-73) Lymphocytes (%) (Auto) 7 % (24-48) Monocytes (%) (Auto) 6 % (0-9) Eosinophils (%) (Auto) 0 % (0-3) Basophils (%) (Auto) 1 % (0-3) Neutrophils # (Auto) 8.4 x10^3uL (1.8-7.7) Lymphocytes # (Auto) 0.7 x10^3/uL (1.0-4.8) Monocytes # (Auto) 0.5 x10^3/uL (0.0-1.1) Eosinophils # (Auto) 0.0 x10^3/uL (0.0-0.7) Basophils # (Auto) 0.1 x10^3/uL (0.0-0.2) Segmented Neutrophils % 90 % (35-66) Lymphocytes % 5 % (24-48) Monocytes % 5 % (0-10) Platelet Estimate Increased (ADEQUATE) Hypochromasia Slight Anisocytosis Slight Prothrombin Time 24.8 SEC (11.7-14.0) Prothromb Time International Ratio 2.4 (0.8-1.1) Activated Partial Thromboplast Time 46 SEC (24-38) D-Dimer (Melodie) 3.72 ug/mlFEU (0.00-0.50) Sodium Level 131 mmol/L (136-145) Potassium Level 5.2 mmol/L (3.5-5.1) Chloride Level 97 mmol/L (98-107) Carbon Dioxide Level 21 mmol/L (21-32) Anion Gap 13 (6-14) Blood Urea Nitrogen 38 mg/dL (8-26) Creatinine 2.3 mg/dL (0.7-1.3) Estimated GFR (Cockcroft-Gault) 27.5 BUN/Creatinine Ratio 17 (6-20) Glucose Level 384 mg/dL (70-99) Lactic Acid Level 4.6 mmol/L (0.4-2.0) 1.7 mmol/L (0.4-2.0) Calcium Level 8.9 mg/dL (8.5-10.1) Magnesium Level 2.0 mg/dL (1.8-2.4) Total Bilirubin 0.4 mg/dL (0.2-1.0) Aspartate Amino Transf (AST/SGOT) 33 U/L (15-37) Alanine Aminotransferase (ALT/SGPT) 17 U/L (16-63) Alkaline Phosphatase 70 U/L (46-116) Troponin I Quantitative 1.615 ng/mL (0.000-0.055) GL-Gjt-A-Type Natriuretic Peptide 14899 pg/mL (0-449) Total Protein 7.3 g/dL (6.4-8.2) Albumin 3.1 g/dL (3.4-5.0) Albumin/Globulin Ratio 0.7 (1.0-1.7) Urine Collection Type Unknown Urine Color Yellow Urine Clarity Clear Urine pH 5.0 Urine Specific [place] 1.025 Urine Protein Negative mg/dL (NEG-TRACE) Urine Glucose (UA) >=1000 mg/dL (NEG) Urine Ketones (Stick) Negative mg/dL (NEG) Urine Blood Negative (NEG) Urine Nitrite Negative (NEG) Urine Bilirubin Negative (NEG) Urine Urobilinogen Dipstick 1.0 mg/dL (0.2 mg/dL) Urine Leukocyte Esterase Negative (NEG) Urine RBC 0 /HPF (0-2) Urine WBC Occ /HPF (0-4) Urine Squamous Epithelial Cells Occ /LPF Urine Bacteria 0 /HPF (0-FEW) Urine Hyaline Casts Moderate /HPF Urine Mucus Slight /LPF Glucose (Fingerstick) 304 mg/dL (70-99) Test 10/08/16 11:30 10/08/16 12:02 10/08/16 17:28 10/08/16 18:07 Troponin I Quantitative 18.466 ng/mL (0.000-0.055) 16.574 ng/mL (0.000-0.055) Glucose (Fingerstick) 316 mg/dL (70-99) 167 mg/dL (70-99) Test 10/08/16 18:20 10/08/16 20:53 10/08/16 21:16 10/08/16 22:44 Prothrombin Time 25.3 SEC (11.7-14.0) Prothromb Time International Ratio 2.5 (0.8-1.1) Sodium Level 135 mmol/L (136-145) Potassium Level 4.3 mmol/L (3.5-5.1) Chloride Level 101 mmol/L (98-107) Carbon Dioxide Level 25 mmol/L (21-32) Anion Gap 9 (6-14) Blood Urea Nitrogen 40 mg/dL (8-26) Creatinine 2.1 mg/dL (0.7-1.3) Estimated GFR (Cockcroft-Gault) 30.5 Glucose Level 152 mg/dL (70-99) Calcium Level 8.5 mg/dL (8.5-10.1) Glucose (Fingerstick) 57 mg/dL (70-99) 87 mg/dL (70-99) 179 mg/dL (70-99) Test 10/09/16 03:40 10/09/16 03:45 10/09/16 05:35 10/09/16 07:35 White Blood Count 7.7 x10^3/uL (4.0-11.0) Red Blood Count 3.29 x10^6/uL (4.30-5.70) Hemoglobin 8.2 g/dL (13.0-17.5) Hematocrit 25.4 % (39.0-53.0) Mean Corpuscular Volume 77 fL (79-100) Mean Corpuscular Hemoglobin 25 pg (25-35) Mean Corpuscular Hemoglobin Concent 32 g/dL (31-37) Red Cell Distribution Width 17.2 % (11.5-14.5) Platelet Count 388 x10^3/uL (140-400) Neutrophils (%) (Auto) 76 % (31-73) Lymphocytes (%) (Auto) 11 % (24-48) Monocytes (%) (Auto) 9 % (0-9) Eosinophils (%) (Auto) 3 % (0-3) Basophils (%) (Auto) 1 % (0-3) Neutrophils # (Auto) 5.9 x10^3uL (1.8-7.7) Lymphocytes # (Auto) 0.9 x10^3/uL (1.0-4.8) Monocytes # (Auto) 0.7 x10^3/uL (0.0-1.1) Eosinophils # (Auto) 0.2 x10^3/uL (0.0-0.7) Basophils # (Auto) 0.0 x10^3/uL (0.0-0.2) Prothrombin Time 18.8 SEC (11.7-14.0) Prothromb Time International Ratio 1.7 (0.8-1.1) Sodium Level 133 mmol/L (136-145) Potassium Level 5.0 mmol/L (3.5-5.1) Chloride Level 100 mmol/L (98-107) Carbon Dioxide Level 24 mmol/L (21-32) Anion Gap 9 (6-14) Blood Urea Nitrogen 37 mg/dL (8-26) Creatinine 1.9 mg/dL (0.7-1.3) Estimated GFR (Cockcroft-Gault) 34.3 Glucose Level 215 mg/dL (70-99) Calcium Level 8.6 mg/dL (8.5-10.1) Iron Level 39 ug/dL (65-175) Total Iron Binding Capacity 260 ug/dL (250-450) Iron Saturation 15 % (15-34) Triglycerides Level 65 mg/dL (0-150) Cholesterol Level 119 mg/dL (0-200) LDL Cholesterol, Calculated 57 mg/dL (0-100) VLDL Cholesterol, Calculated 13 mg/dL (0-40) Non-HDL Cholesterol Calculated 70 mg/dL (0-129) HDL Cholesterol 49 mg/dL (40-60) Cholesterol/HDL Ratio 2.4 Thyroid Stimulating Hormone (TSH) 0.530 uIU/mL (0.358-3.74) Glucose (Fingerstick) 252 mg/dL (70-99) 271 mg/dL (70-99) Laboratory Tests Test 10/08/16 11:30 10/08/16 12:02 10/08/16 17:28 10/08/16 18:07 Troponin I Quantitative 18.466 ng/mL (0.000-0.055) 16.574 ng/mL (0.000-0.055) Glucose (Fingerstick) 316 mg/dL (70-99) 167 mg/dL (70-99) Test 10/08/16 18:20 10/08/16 20:53 10/08/16 21:16 10/08/16 22:44 Prothrombin Time 25.3 SEC (11.7-14.0) Prothromb Time International Ratio 2.5 (0.8-1.1) Sodium Level 135 mmol/L (136-145) Potassium Level 4.3 mmol/L (3.5-5.1) Chloride Level 101 mmol/L (98-107) Carbon Dioxide Level 25 mmol/L (21-32) Anion Gap 9 (6-14) Blood Urea Nitrogen 40 mg/dL (8-26) Creatinine 2.1 mg/dL (0.7-1.3) Estimated GFR (Cockcroft-Gault) 30.5 Glucose Level 152 mg/dL (70-99) Calcium Level 8.5 mg/dL (8.5-10.1) Glucose (Fingerstick) 57 mg/dL (70-99) 87 mg/dL (70-99) 179 mg/dL (70-99) Test 10/09/16 03:40 10/09/16 03:45 10/09/16 05:35 10/09/16 07:35 White Blood Count 7.7 x10^3/uL (4.0-11.0) Red Blood Count 3.29 x10^6/uL (4.30-5.70) Hemoglobin 8.2 g/dL (13.0-17.5) Hematocrit 25.4 % (39.0-53.0) Mean Corpuscular Volume 77 fL (79-100) Mean Corpuscular Hemoglobin 25 pg (25-35) Mean Corpuscular Hemoglobin Concent 32 g/dL (31-37) Red Cell Distribution Width 17.2 % (11.5-14.5) Platelet Count 388 x10^3/uL (140-400) Neutrophils (%) (Auto) 76 % (31-73) Lymphocytes (%) (Auto) 11 % (24-48) Monocytes (%) (Auto) 9 % (0-9) Eosinophils (%) (Auto) 3 % (0-3) Basophils (%) (Auto) 1 % (0-3) Neutrophils # (Auto) 5.9 x10^3uL (1.8-7.7) Lymphocytes # (Auto) 0.9 x10^3/uL (1.0-4.8) Monocytes # (Auto) 0.7 x10^3/uL (0.0-1.1) Eosinophils # (Auto) 0.2 x10^3/uL (0.0-0.7) Basophils # (Auto) 0.0 x10^3/uL (0.0-0.2) Prothrombin Time 18.8 SEC (11.7-14.0) Prothromb Time International Ratio 1.7 (0.8-1.1) Sodium Level 133 mmol/L (136-145) Potassium Level 5.0 mmol/L (3.5-5.1) Chloride Level 100 mmol/L (98-107) Carbon Dioxide Level 24 mmol/L (21-32) Anion Gap 9 (6-14) Blood Urea Nitrogen 37 mg/dL (8-26) Creatinine 1.9 mg/dL (0.7-1.3) Estimated GFR (Cockcroft-Gault) 34.3 Glucose Level 215 mg/dL (70-99) Calcium Level 8.6 mg/dL (8.5-10.1) Iron Level 39 ug/dL (65-175) Total Iron Binding Capacity 260 ug/dL (250-450) Iron Saturation 15 % (15-34) Triglycerides Level 65 mg/dL (0-150) Cholesterol Level 119 mg/dL (0-200) LDL Cholesterol, Calculated 57 mg/dL (0-100) VLDL Cholesterol, Calculated 13 mg/dL (0-40) Non-HDL Cholesterol Calculated 70 mg/dL (0-129) HDL Cholesterol 49 mg/dL (40-60) Cholesterol/HDL Ratio 2.4 Thyroid Stimulating Hormone (TSH) 0.530 uIU/mL (0.358-3.74) Glucose (Fingerstick) 252 mg/dL (70-99) 271 mg/dL (70-99) TERRI BOWDEN MD October 09, 2016 11:01
[2016-10-09 11:15] LABS: URIC ACID 5.8 mg/dL (3.5-7.2)
[2016-10-09] MEDS ORDERED: DEXTROSE 50% 25 GM / 50ML DISP.SYRIN. IV PRN (11:15)
--- NOTE | 2016-10-09 11:24 | PDOC ---
PROGRESS NOTES Chief Complaint Chief Complaint STEMI, trop peak at 18 acute on chronic systolic CHF CKD 3, w/ likely vasomotor, anemia of CKD, DM2 htn OA, right knee pain, lactic acidosis, CHF, and wound healing mild malnutrition History of Present Illness History of Present Illness some hyperglycemic today was low BS 57 yesterday evening Vitals Vitals Vital Signs Date Time Temp Pulse Resp B/P (MAP) Pulse Ox O2 Delivery O2 Flow Rate FiO2 10/09/16 10:36 15 96 Nasal Cannula 1.0 10/09/16 10:21 98.7 73 119/58 (78) 98.7 Physical Exam General: Alert, Oriented X3, Cooperative, No acute distress Heart: Regular rate Abdomen: Normal bowel sounds, Soft Extremities: No clubbing, No cyanosis Skin: No rashes, No breakdown Labs LABS Laboratory Tests Test 10/08/16 11:30 10/08/16 12:02 10/08/16 17:28 10/08/16 18:07 Troponin I Quantitative 18.466 ng/mL (0.000-0.055) 16.574 ng/mL (0.000-0.055) Glucose (Fingerstick) 316 mg/dL (70-99) 167 mg/dL (70-99) Test 10/08/16 18:20 10/08/16 20:53 10/08/16 21:16 10/08/16 22:44 Prothrombin Time 25.3 SEC (11.7-14.0) Prothromb Time International Ratio 2.5 (0.8-1.1) Sodium Level 135 mmol/L (136-145) Potassium Level 4.3 mmol/L (3.5-5.1) Chloride Level 101 mmol/L (98-107) Carbon Dioxide Level 25 mmol/L (21-32) Anion Gap 9 (6-14) Blood Urea Nitrogen 40 mg/dL (8-26) Creatinine 2.1 mg/dL (0.7-1.3) Estimated GFR (Cockcroft-Gault) 30.5 Glucose Level 152 mg/dL (70-99) Calcium Level 8.5 mg/dL (8.5-10.1) Glucose (Fingerstick) 57 mg/dL (70-99) 87 mg/dL (70-99) 179 mg/dL (70-99) Test 10/09/16 03:40 10/09/16 03:45 10/09/16 05:35 10/09/16 07:35 White Blood Count 7.7 x10^3/uL (4.0-11.0) Red Blood Count 3.29 x10^6/uL (4.30-5.70) Hemoglobin 8.2 g/dL (13.0-17.5) Hematocrit 25.4 % (39.0-53.0) Mean Corpuscular Volume 77 fL (79-100) Mean Corpuscular Hemoglobin 25 pg (25-35) Mean Corpuscular Hemoglobin Concent 32 g/dL (31-37) Red Cell Distribution Width 17.2 % (11.5-14.5) Platelet Count 388 x10^3/uL (140-400) Neutrophils (%) (Auto) 76 % (31-73) Lymphocytes (%) (Auto) 11 % (24-48) Monocytes (%) (Auto) 9 % (0-9) Eosinophils (%) (Auto) 3 % (0-3) Basophils (%) (Auto) 1 % (0-3) Neutrophils # (Auto) 5.9 x10^3uL (1.8-7.7) Lymphocytes # (Auto) 0.9 x10^3/uL (1.0-4.8) Monocytes # (Auto) 0.7 x10^3/uL (0.0-1.1) Eosinophils # (Auto) 0.2 x10^3/uL (0.0-0.7) Basophils # (Auto) 0.0 x10^3/uL (0.0-0.2) Prothrombin Time 18.8 SEC (11.7-14.0) Prothromb Time International Ratio 1.7 (0.8-1.1) Sodium Level 133 mmol/L (136-145) Potassium Level 5.0 mmol/L (3.5-5.1) Chloride Level 100 mmol/L (98-107) Carbon Dioxide Level 24 mmol/L (21-32) Anion Gap 9 (6-14) Blood Urea Nitrogen 37 mg/dL (8-26) Creatinine 1.9 mg/dL (0.7-1.3) Estimated GFR (Cockcroft-Gault) 34.3 Glucose Level 215 mg/dL (70-99) Calcium Level 8.6 mg/dL (8.5-10.1) Iron Level 39 ug/dL (65-175) Total Iron Binding Capacity 260 ug/dL (250-450) Iron Saturation 15 % (15-34) Triglycerides Level 65 mg/dL (0-150) Cholesterol Level 119 mg/dL (0-200) LDL Cholesterol, Calculated 57 mg/dL (0-100) VLDL Cholesterol, Calculated 13 mg/dL (0-40) Non-HDL Cholesterol Calculated 70 mg/dL (0-129) HDL Cholesterol 49 mg/dL (40-60) Cholesterol/HDL Ratio 2.4 Thyroid Stimulating Hormone (TSH) 0.530 uIU/mL (0.358-3.74) Glucose (Fingerstick) 252 mg/dL (70-99) 271 mg/dL (70-99) Review of Systems Review of Systems no chest pain no n/v/d no dyspnea or orthopnea Assessment and Plan Assessmemt and Plan cardiac cath when renal fxn allows Problems Medical Problems: (1) Hypoxia Status: Acute (2) Lactic acid acidosis Status: Acute (3) NSTEMI (non-ST elevated myocardial infarction) Status: Acute (4) Pulmonary edema Status: Acute (5) Renal insufficiency Status: Acute Problems: Comment Review of Relevant I have reviewed the following items alphonso (where applicable) has been applied. Labs Laboratory Tests Test 10/08/16 04:20 10/08/16 04:58 10/08/16 08:25 10/08/16 09:06 White Blood Count 9.7 x10^3/uL (4.0-11.0) Red Blood Count 3.78 x10^6/uL (4.30-5.70) Hemoglobin 9.4 g/dL (13.0-17.5) Hematocrit 29.5 % (39.0-53.0) Mean Corpuscular Volume 78 fL (79-100) Mean Corpuscular Hemoglobin 25 pg (25-35) Mean Corpuscular Hemoglobin Concent 32 g/dL (31-37) Red Cell Distribution Width 17.5 % (11.5-14.5) Platelet Count 509 x10^3/uL (140-400) Neutrophils (%) (Auto) 87 % (31-73) Lymphocytes (%) (Auto) 7 % (24-48) Monocytes (%) (Auto) 6 % (0-9) Eosinophils (%) (Auto) 0 % (0-3) Basophils (%) (Auto) 1 % (0-3) Neutrophils # (Auto) 8.4 x10^3uL (1.8-7.7) Lymphocytes # (Auto) 0.7 x10^3/uL (1.0-4.8) Monocytes # (Auto) 0.5 x10^3/uL (0.0-1.1) Eosinophils # (Auto) 0.0 x10^3/uL (0.0-0.7) Basophils # (Auto) 0.1 x10^3/uL (0.0-0.2) Segmented Neutrophils % 90 % (35-66) Lymphocytes % 5 % (24-48) Monocytes % 5 % (0-10) Platelet Estimate Increased (ADEQUATE) Hypochromasia Slight Anisocytosis Slight Prothrombin Time 24.8 SEC (11.7-14.0) Prothromb Time International Ratio 2.4 (0.8-1.1) Activated Partial Thromboplast Time 46 SEC (24-38) D-Dimer (Melodie) 3.72 ug/mlFEU (0.00-0.50) Sodium Level 131 mmol/L (136-145) Potassium Level 5.2 mmol/L (3.5-5.1) Chloride Level 97 mmol/L (98-107) Carbon Dioxide Level 21 mmol/L (21-32) Anion Gap 13 (6-14) Blood Urea Nitrogen 38 mg/dL (8-26) Creatinine 2.3 mg/dL (0.7-1.3) Estimated GFR (Cockcroft-Gault) 27.5 BUN/Creatinine Ratio 17 (6-20) Glucose Level 384 mg/dL (70-99) Lactic Acid Level 4.6 mmol/L (0.4-2.0) 1.7 mmol/L (0.4-2.0) Calcium Level 8.9 mg/dL (8.5-10.1) Magnesium Level 2.0 mg/dL (1.8-2.4) Total Bilirubin 0.4 mg/dL (0.2-1.0) Aspartate Amino Transf (AST/SGOT) 33 U/L (15-37) Alanine Aminotransferase (ALT/SGPT) 17 U/L (16-63) Alkaline Phosphatase 70 U/L (46-116) Troponin I Quantitative 1.615 ng/mL (0.000-0.055) SF-Sjw-E-Type Natriuretic Peptide 08206 pg/mL (0-449) Total Protein 7.3 g/dL (6.4-8.2) Albumin 3.1 g/dL (3.4-5.0) Albumin/Globulin Ratio 0.7 (1.0-1.7) Urine Collection Type Unknown Urine Color Yellow Urine Clarity Clear Urine pH 5.0 Urine Specific [place] 1.025 Urine Protein Negative mg/dL (NEG-TRACE) Urine Glucose (UA) >=1000 mg/dL (NEG) Urine Ketones (Stick) Negative mg/dL (NEG) Urine Blood Negative (NEG) Urine Nitrite Negative (NEG) Urine Bilirubin Negative (NEG) Urine Urobilinogen Dipstick 1.0 mg/dL (0.2 mg/dL) Urine Leukocyte Esterase Negative (NEG) Urine RBC 0 /HPF (0-2) Urine WBC Occ /HPF (0-4) Urine Squamous Epithelial Cells Occ /LPF Urine Bacteria 0 /HPF (0-FEW) Urine Hyaline Casts Moderate /HPF Urine Mucus Slight /LPF Glucose (Fingerstick) 304 mg/dL (70-99) Test 10/08/16 11:30 10/08/16 12:02 10/08/16 17:28 10/08/16 18:07 Troponin I Quantitative 18.466 ng/mL (0.000-0.055) 16.574 ng/mL (0.000-0.055) Glucose (Fingerstick) 316 mg/dL (70-99) 167 mg/dL (70-99) Test 10/08/16 18:20 10/08/16 20:53 10/08/16 21:16 10/08/16 22:44 Prothrombin Time 25.3 SEC (11.7-14.0) Prothromb Time International Ratio 2.5 (0.8-1.1) Sodium Level 135 mmol/L (136-145) Potassium Level 4.3 mmol/L (3.5-5.1) Chloride Level 101 mmol/L (98-107) Carbon Dioxide Level 25 mmol/L (21-32) Anion Gap 9 (6-14) Blood Urea Nitrogen 40 mg/dL (8-26) Creatinine 2.1 mg/dL (0.7-1.3) Estimated GFR (Cockcroft-Gault) 30.5 Glucose Level 152 mg/dL (70-99) Calcium Level 8.5 mg/dL (8.5-10.1) Glucose (Fingerstick) 57 mg/dL (70-99) 87 mg/dL (70-99) 179 mg/dL (70-99) Test 10/09/16 03:40 10/09/16 03:45 10/09/16 05:35 10/09/16 07:35 White Blood Count 7.7 x10^3/uL (4.0-11.0) Red Blood Count 3.29 x10^6/uL (4.30-5.70) Hemoglobin 8.2 g/dL (13.0-17.5) Hematocrit 25.4 % (39.0-53.0) Mean Corpuscular Volume 77 fL (79-100) Mean Corpuscular Hemoglobin 25 pg (25-35) Mean Corpuscular Hemoglobin Concent 32 g/dL (31-37) Red Cell Distribution Width 17.2 % (11.5-14.5) Platelet Count 388 x10^3/uL (140-400) Neutrophils (%) (Auto) 76 % (31-73) Lymphocytes (%) (Auto) 11 % (24-48) Monocytes (%) (Auto) 9 % (0-9) Eosinophils (%) (Auto) 3 % (0-3) Basophils (%) (Auto) 1 % (0-3) Neutrophils # (Auto) 5.9 x10^3uL (1.8-7.7) Lymphocytes # (Auto) 0.9 x10^3/uL (1.0-4.8) Monocytes # (Auto) 0.7 x10^3/uL (0.0-1.1) Eosinophils # (Auto) 0.2 x10^3/uL (0.0-0.7) Basophils # (Auto) 0.0 x10^3/uL (0.0-0.2) Prothrombin Time 18.8 SEC (11.7-14.0) Prothromb Time International Ratio 1.7 (0.8-1.1) Sodium Level 133 mmol/L (136-145) Potassium Level 5.0 mmol/L (3.5-5.1) Chloride Level 100 mmol/L (98-107) Carbon Dioxide Level 24 mmol/L (21-32) Anion Gap 9 (6-14) Blood Urea Nitrogen 37 mg/dL (8-26) Creatinine 1.9 mg/dL (0.7-1.3) Estimated GFR (Cockcroft-Gault) 34.3 Glucose Level 215 mg/dL (70-99) Calcium Level 8.6 mg/dL (8.5-10.1) Iron Level 39 ug/dL (65-175) Total Iron Binding Capacity 260 ug/dL (250-450) Iron Saturation 15 % (15-34) Triglycerides Level 65 mg/dL (0-150) Cholesterol Level 119 mg/dL (0-200) LDL Cholesterol, Calculated 57 mg/dL (0-100) VLDL Cholesterol, Calculated 13 mg/dL (0-40) Non-HDL Cholesterol Calculated 70 mg/dL (0-129) HDL Cholesterol 49 mg/dL (40-60) Cholesterol/HDL Ratio 2.4 Thyroid Stimulating Hormone (TSH) 0.530 uIU/mL (0.358-3.74) Glucose (Fingerstick) 252 mg/dL (70-99) 271 mg/dL (70-99) Laboratory Tests Test 10/08/16 11:30 10/08/16 12:02 10/08/16 17:28 10/08/16 18:07 Troponin I Quantitative 18.466 ng/mL (0.000-0.055) 16.574 ng/mL (0.000-0.055) Glucose (Fingerstick) 316 mg/dL (70-99) 167 mg/dL (70-99) Test 10/08/16 18:20 10/08/16 20:53 10/08/16 21:16 10/08/16 22:44 Prothrombin Time 25.3 SEC (11.7-14.0) Prothromb Time International Ratio 2.5 (0.8-1.1) Sodium Level 135 mmol/L (136-145) Potassium Level 4.3 mmol/L (3.5-5.1) Chloride Level 101 mmol/L (98-107) Carbon Dioxide Level 25 mmol/L (21-32) Anion Gap 9 (6-14) Blood Urea Nitrogen 40 mg/dL (8-26) Creatinine 2.1 mg/dL (0.7-1.3) Estimated GFR (Cockcroft-Gault) 30.5 Glucose Level 152 mg/dL (70-99) Calcium Level 8.5 mg/dL (8.5-10.1) Glucose (Fingerstick) 57 mg/dL (70-99) 87 mg/dL (70-99) 179 mg/dL (70-99) Test 10/09/16 03:40 10/09/16 03:45 10/09/16 05:35 10/09/16 07:35 White Blood Count 7.7 x10^3/uL (4.0-11.0) Red Blood Count 3.29 x10^6/uL (4.30-5.70) Hemoglobin 8.2 g/dL (13.0-17.5) Hematocrit 25.4 % (39.0-53.0) Mean Corpuscular Volume 77 fL (79-100) Mean Corpuscular Hemoglobin 25 pg (25-35) Mean Corpuscular Hemoglobin Concent 32 g/dL (31-37) Red Cell Distribution Width 17.2 % (11.5-14.5) Platelet Count 388 x10^3/uL (140-400) Neutrophils (%) (Auto) 76 % (31-73) Lymphocytes (%) (Auto) 11 % (24-48) Monocytes (%) (Auto) 9 % (0-9) Eosinophils (%) (Auto) 3 % (0-3) Basophils (%) (Auto) 1 % (0-3) Neutrophils # (Auto) 5.9 x10^3uL (1.8-7.7) Lymphocytes # (Auto) 0.9 x10^3/uL (1.0-4.8) Monocytes # (Auto) 0.7 x10^3/uL (0.0-1.1) Eosinophils # (Auto) 0.2 x10^3/uL (0.0-0.7) Basophils # (Auto) 0.0 x10^3/uL (0.0-0.2) Prothrombin Time 18.8 SEC (11.7-14.0) Prothromb Time International Ratio 1.7 (0.8-1.1) Sodium Level 133 mmol/L (136-145) Potassium Level 5.0 mmol/L (3.5-5.1) Chloride Level 100 mmol/L (98-107) Carbon Dioxide Level 24 mmol/L (21-32) Anion Gap 9 (6-14) Blood Urea Nitrogen 37 mg/dL (8-26) Creatinine 1.9 mg/dL (0.7-1.3) Estimated GFR (Cockcroft-Gault) 34.3 Glucose Level 215 mg/dL (70-99) Calcium Level 8.6 mg/dL (8.5-10.1) Iron Level 39 ug/dL (65-175) Total Iron Binding Capacity 260 ug/dL (250-450) Iron Saturation 15 % (15-34) Triglycerides Level 65 mg/dL (0-150) Cholesterol Level 119 mg/dL (0-200) LDL Cholesterol, Calculated 57 mg/dL (0-100) VLDL Cholesterol, Calculated 13 mg/dL (0-40) Non-HDL Cholesterol Calculated 70 mg/dL (0-129) HDL Cholesterol 49 mg/dL (40-60) Cholesterol/HDL Ratio 2.4 Thyroid Stimulating Hormone (TSH) 0.530 uIU/mL (0.358-3.74) Glucose (Fingerstick) 252 mg/dL (70-99) 271 mg/dL (70-99) Microbiology 10/08/16 Blood Culture - Preliminary, Resulted NO GROWTH AFTER 1 DAY Medications Current Medications Albuterol/ Ipratropium (Duoneb) 3 ml 1X ONCE NEB Last administered on 04:33; Start 10/08/16 at 04:30; Stop 10/08/16 at 04:36; Status DC Aspirin (Ecotrin) 325 mg 1X ONCE PO Last administered on 10/08/16 05:49; Start 10/08/16 at 06:00; Stop 10/08/16 at 06:01; Status DC Furosemide (Lasix) 40 mg 1X ONCE IVP Last administered on 10/08/16 05:49; Start 10/08/16 at 06:00; Stop 10/08/16 at 06:01; Status DC Ondansetron HCl (Zofran) 4 mg PRN Q8HRS PRN IV NAUSEA/VOMITING; Start 10/08/16 at 05:30; Stop 10/09/16 at 05:29; Status DC Morphine Sulfate 4 mg PRN Q2HR PRN IV SEVERE PAIN; Start 10/08/16 at 05:30; Stop 10/09/16 at 05:29; Status DC Nitroglycerin (Nitro-Bid Oint) 1 inch 1X ONCE TP Last administered on 05:49; Start 10/08/16 at 06:00; Stop 10/08/16 at 06:01; Status DC Aspirin (Ecotrin) 81 mg DAILY PO Last administered on 10/09/16 09:19; Start 10/08/16 at 09:00 Cyanocobalamin (Vitamin B-12) 2,500 mcg DAILY PO Last administered on 10/09/16 09:20; Start 10/08/16 at 09:00 Digoxin (Lanoxin) 125 mcg DAILY PO ; Start 10/08/16 at 09:00; Stop 10/08/16 at 19: 26; Status DC Ferrous Sulfate (Feosol) 325 mg BIDWMEALS PO Last administered on 10/09/16 09: 19; Start 10/08/16 at 09:00 Hydrochlorothiazide (Microzide) 12.5 mg DAILY PO Last administered on 10/08/16 10:00; Start 10/08/16 at 09:00; Stop 10/08/16 at 20:10; Status DC Acetaminophen/ Hydrocodone Bitart (Lortab 7.5/325) 1 tab PRN Q3HRS PRN PO PAIN Last administered on 10/09/16 09:26; Start 10/08/16 at 08:45 Insulin Aspart (Novolog) 15 units TIDWMEALS SQ Last administered on 10/09/16 09 :24; Start 10/08/16 at 12:00 Metoprolol Tartrate (Lopressor) 50 mg BID PO Last administered on 10/09/16 09: 20; Start 10/08/16 at 09:00 Nitroglycerin (Nitrostat) 0.4 mg PRN 1X PRN SL CHEST PAIN; Start 10/08/16 at 08: 45 Oxycodone/ Acetaminophen (Percocet 7.5/ 325) 1 tab PRN Q3HRS PRN PO PAIN; Start 10/08/16 at 08:45 Simvastatin (Zocor) 20 mg HS PO Last administered on 10/08/16 20:57; Start 10/08 at 21:00 Insulin Detemir (Levemir) 20 units QHS SQ ; Start 10/08/16 at 21:00 Losartan Potassium (Cozaar) 100 mg DAILY PO Last administered on 10/09/16 09:20 ; Start 10/08/16 at 09:00 Potassium Chloride (Klor-Con) 10 meq DAILYWBKFT PO ; Start 10/08/16 at 10:00; Stop 10/08/16 at 10:32; Status DC Aspirin (Rocío Aspirin) 325 mg 1X ONCE PO Last administered on 10/08/16 13:23 ; Start 10/08/16 at 11:30; Stop 10/08/16 at 11:31; Status DC Cephalexin HCl (Keflex) 500 mg TID PO ; Start 10/08/16 at 14:00; Status UNV Vancomycin HCl 1 gm/Sodium Chloride 250 ml @ 250 mls/hr 1X ONCE IV Last administered on 10/08/16 14:25; Start 10/08/16 at 14:00; Stop 10/08/16 at 14:59; Status DC Amoxicillin/ Clavulanate Potassium (Augmentin 500/ 125mg) 1 tab BID PO Last administered on 10/09/16 09:19; Start 10/08/16 at 21:00 Phytonadione (Mephyton) 25 mg 1X ONCE PO ; Start 10/08/16 at 13:45; Stop at 13:46; Status DC Phytonadione (Mephyton) 5 mg 1X ONCE PO Last administered on 10/08/16 14:25; Start 10/08/16 at 14:00; Stop 10/08/16 at 14:01; Status DC Phytonadione (Mephyton) 2.5 mg 1X ONCE PO Last administered on 10/08/16 20:57 ; Start 10/08/16 at 20:15; Stop 10/08/16 at 20:16; Status DC Phytonadione (Mephyton) 7.5 mg 1X ONCE PO Last administered on 10/08/16 21:40 ; Start 10/08/16 at 21:30; Stop 10/08/16 at 21:33; Status DC Sodium Chloride 1,000 ml @ 100 mls/hr Q10H IV ; Start 10/09/16 at 11:00 Magnesium Sulfate/ Dextrose 50 ml @ 25 mls/hr PRN DAILY PRN IV for Mag < 1.7 on am labs; Start 10/09/16 at 11:00 Acetylcysteine (Mucomyst 20% Oral Solution) 1,200 mg BID PO ; Start 10/09/16 at 11:00; Stop 10/11/16 at 10:59 Active Scripts Active Reported Sulfamethoxazole-Tmp Ds Tablet (Sulfamethoxazole/Trimethoprim) Unknown Strength Tablet Unknown Dose Warfarin Sodium 3 Mg Tablet 1 Tab PO DAILY Potassium Chloride 10 Meq Tablet.er 10 Meq PO DAILY Digoxin 125 Mcg Tablet 1 Tab PO DAILY Aspir 81 (Aspirin) 81 Mg Tablet.dr 1 Tab PO DAILY Percocet 7.5-325 Mg Tablet (Oxycodone/Acetaminophen) 1 Each Tablet 1 Tab PO PRN Q3HRS PRN Ferrous Sulfate 325 Mg Tablet 1 Tab PO BID last dose this am next dos is with supper Losartan Potassium 100 Mg Tablet 100 Mg PO DAILY las dose with lunch next dose tomorrow am Hydrocodone-Apap 7.5-325 (Hydrocodone Bit/Acetaminophen) 1 Each Tablet 1 Tab PO Q3HRS PRN Levemir (Insulin Detemir) 100 Unit/1 Ml Vial 20 Unit SQ HS LAST DOSE GIVEN: DATE: 07/18 TIME: 9 PM NEXT DOSE DUE: DATE: 07/19 TIME: 9 PM Metoprolol Tartrate 50 Mg Tablet 50 Mg PO BID LAST DOSE GIVEN: DATE: 10/02/16 TIME: 9 AM NEXT DOSE DUE: DATE: 10/02/16 TIME: 9 PM Vitamin B-12 (Cyanocobalamin (Vitamin B-12)) 1,000 Mcg Tablet 2,500 Mcg PO DAILY LAST DOSE GIVEN: DATE: 10/02/16 TIME: 9 AM NEXT DOSE DUE: DATE: 10/03 TIME: 9 AM Hydrochlorothiazide Capsule (Hydrochlorothiazide) 12.5 Mg Capsule 12.5 Mg PO DAILY LAST DOSE GIVEN: DATE: 10/02/16 TIME: 9 AM NEXT DOSE DUE: DATE: 10/03/16 TIME: 9 AM Novolog Flexpen (Insulin Aspart) 100 Unit/1 Ml Insuln.pen 15 Unit SQ TIDWMEALS LAST DOSE GIVEN: DATE: 07/19 TIME: WITH LUNCH NEXT DOSE DUE: DATE: 07/19 TIME: WITH DINNER NITROGLYCERIN SubLingual (Nitroglycerin) 0.4 Mg Tab.subl 0.4 Mg SL PRN 1X PRN NOT GIVEN IN HOSPITAL. TAKE DIRECTED. Simvastatin 20 Mg Tablet 20 Mg PO HS LAST DOSE GIVEN: DATE: 10/01/16 TIME: 9 PM NEXT DOSE DUE: DATE: 10/02/16 TIME: 9 PM Vitals/I & O Vital Sign - Last 24 Hours 10/08/16 10/08/16 10/08/16 10/08/16 12:37 15:00 19:50 19:52 Temp 98.7 98.4 98.7 98.7 98.4 98.7 Pulse 80 70 81 Resp 20 18 18 B/P (MAP) 123/59 (80) 110/50 (70) 124/62 (82) Pulse Ox 96 99 98 O2 Delivery Nasal Cannula Room Air Room Air Nasal Cannula O2 Flow Rate 2.0 2.0 10/08/16 10/08/16 10/09/16 10/09/16 20:57 22:36 02:23 07:55 Temp 98.6 98.1 97.7 98.6 98.1 97.7 Pulse 79 80 77 81 Resp 20 17 18 B/P (MAP) 117/52 116/61 (79) 136/66 (89) 136/68 (90) Pulse Ox 96 96 99 O2 Delivery Room Air Room Air Nasal Cannula 10/09/16 10/09/16 10/09/16 10/09/16 08:00 09:20 09:20 09:26 Pulse 81 81 B/P (MAP) 136/68 136/68 Pulse Ox 99 O2 Delivery Nasal Cannula Nasal Cannula O2 Flow Rate 1.0 1.0 10/09/16 10/09/16 10:21 10:36 Temp 98.7 98.7 Pulse 73 Resp 18 15 B/P (MAP) 119/58 (78) Pulse Ox 97 96 O2 Delivery Room Air Nasal Cannula O2 Flow Rate 1.0 Intake and Output 10/08/16 10/08/16 10/09/16 15:00 23:00 07:00 Intake Total 700 ml 360 ml Output Total 450 ml Balance 250 ml 360 ml COREY CERVANTES MD October 09, 2016 11:24
--- NOTE | 2016-10-09 15:09 | RAD ---
Indication acute renal failure superimposed on chronic renal disease. Grayscale imaging targeted to the kidneys was performed. No similar imaging is available. The right kidney measures approximately 9.7 x 5.4 x 5.3 cm. Within the right kidney there is a hypoechoic 1.6 cm mass compatible with a cyst. No definite solid mass or hydronephrosis is seen. The left kidney measures 10 x 5 x 4.4 cm and appears normal. The urinary bladder appeared grossly normal. A small post void residual, estimated at 20 cc, was seen. IMPRESSION: Small right renal cyst otherwise morphologically unremarkable renal ultrasound exam Small postvoid residual in the urinary bladder
[2016-10-09 19:10] VITALS: BP 127/67
[2016-10-09] MEDS: SIMVASTATIN 20 MG TABLET PO SCH (20:58)
[2016-10-09] MEDS: ACETYLCYSTEINE 20% ORAL SOLN 600 MG/3 ML SYRINGE. PO SCH (20:59)
[2016-10-09] MEDS: INSULIN DETEMIR 300 UNITS/3 ML INSULN.PEN. SQ SCH (21:05)
--- NOTE | 2016-10-09 21:38 | PDOC ---
Provider Note Provider Note He has had no shortness of breath or chest tightness. Lungs are clear except for basilar rales. He now uses no supplemental oxygen. Creatinine has come down to 1.9 g percent. Agree with cautious hydration. Discussed with Dr. Pimentel. He feels it is reasonable to proceed with coronary arteriograms tomorrow. It has been scheduled for 9:30 AM. Probably has multivessel disease. Revascularization will be guided by the viability study that will be completed tomorrow. LATOSHA HWANG MD October 09, 2016 21:38
--- NOTE | 2016-10-09 21:50 | CONS ---
DATE OF CONSULTATION: 10/09/2016 PRIMARY PHYSICIAN: Dr. Barry. REASON FOR CONSULTATION: Acute on chronic renal insufficiency. 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 He is known to have diabetes for greater than 20 years by his reports. He was known to have underlying coronary artery disease also. He was followed by Dr. Barry. He thinks he has a history of enlarged prostate, but has not had a digital rectal exam per se. He has not seen a urologist. He was recently told that he needs to see a senior clinical project manager also. His creatinines have been running anywhere from 1.3-1.6 in [id number] timeframe. Fluid status at that time is not known. The patient recently has been on Bactrim based on his home list of medications. He developed chest pain over the last few days and is felt to have sustained an acute RI whereby his troponins have gone up from 1.6 at presentation to 18.46 yesterday. His INR was elevated and was unable to be taken to the shellfish processing laborer. The plans to go to shellfish processing laborer today are noted. Lactic acid was checked and was elevated initially at 4.6, but came down nicely to 1.7. Yesterday's UA does show significant glycosuria. PAST MEDICAL HISTORY: Significant for; 1. Coronary artery disease, status post stenting in the past. 2. Longstanding diabetes. 3. Cataract surgery requiring laser procedures. No known diabetic retinopathy. Upper dentures, tonsillectomy, history of heart murmur, details not known with valve replacement surgery in the past, pacemaker placement, hyperlipidemia, hypertension, hemorrhoids, hiatal hernia, appendectomy, colon resection, cholecystectomy, intermittent diarrhea, constipation, enlarged prostate (subjective), left knee replacement, history of arthritis, presumed osteoarthritis. SOCIAL HISTORY: , lives with his . For rest of the details, please see electronic renal consult note. FAMILY HISTORY: Negative for known kidney problems. TERRI BOWDEN MD DR: GIOVANNI/malou JOB#: [id number] / [id number]
[2016-10-09] MEDS: TEMAZEPAM 15 MG CAPSULE PO PRN (22:16)
[2016-10-09 22:18] VITALS: BP 124/59
[2016-10-10] VITALS (16 sets, daily range): BP systolic 115–145; BP diastolic 58–77
[2016-10-10 04:50] LABS: INR 1.3 (0.8-1.1); PROTHROMBIN TIME PATIENT 15.5 SEC (11.7-14.0)
[2016-10-10 05:15] LABS: ALBUMIN 2.3 g/dL (3.4-5.0); CALCIUM 8.2 mg/dL (8.5-10.1); CREATININE 1.7 mg/dL (0.7-1.3); POTASSIUM 4.4 mmol/L (3.5-5.1)
[2016-10-10] MEDS: ACETYLCYSTEINE 20% ORAL SOLN 600 MG/3 ML SYRINGE. PO SCH ×2 (06:24→20:51)
[2016-10-10] MEDS ORDERED: IV DEXTROSE 5% 1,000 ML IV SCH (07:00)
[2016-10-10] MEDS: IV NORMAL SALINE 1000ML BAG 1,000 ML IV SCH ×2 (07:00→17:00)
[2016-10-10] MEDS: FERROUS SULFATE 325 MG TABLET. PO SCH ×2 (08:00→17:52)
[2016-10-10] MEDS: INSULIN ASPART 300 UNITS/3 ML INSULN.PEN SQ SCH ×6 (08:00→17:57)
[2016-10-10] MEDS: ASPIRIN ENTERIC COATED 81 MG TABLET.DR. PO SCH (08:14)
[2016-10-10] MEDS: LOSARTAN POTASSIUM 50 MG TABLET. PO SCH (08:16)
[2016-10-10] MEDS: METOPROLOL TART IMMED RELEASE 50 MG TABLET. PO SCH ×2 (08:16→20:50)
[2016-10-10] MEDS: AMOXICILLIN/K CLAV 500/125MG TABLET. PO SCH ×2 (08:17→20:49)
[2016-10-10] MEDS: CYANOCOBALAMIN (VITAMIN B-12) 1,000 MCG TABLET. PO SCH (08:32)
[2016-10-10] MEDS ORDERED: IODIXANOL 320 MG/ML 100 ML VIAL. ONE ×2 (10:55→13:56)
[2016-10-10] MEDS ORDERED: LIDOCAINE 2% 20 ML VIAL. ONE (10:55)
--- NOTE | 2016-10-10 11:19 | PDOC ---
[facility] [employer] 10/10/16 1119: ORTHO PROGRESS NOTES Subjective Akil is doing well today. No knee pain. Denies CP today. Vitals Vital Signs Date Time Temp Pulse Resp B/P (MAP) Pulse Ox O2 Delivery O2 Flow Rate FiO2 10/10/16 10:48 98.1 64 20 128/69 (88) 98 Room Air 98.1 10/09/16 10:36 1.0 Labs Laboratory Tests Test 10/08/16 11:30 10/08/16 12:02 10/08/16 17:28 10/08/16 18:07 Troponin I Quantitative 18.466 ng/mL (0.000-0.055) 16.574 ng/mL (0.000-0.055) Glucose (Fingerstick) 316 mg/dL (70-99) 167 mg/dL (70-99) Test 10/08/16 18:20 10/08/16 20:53 10/08/16 21:16 10/08/16 22:44 Prothrombin Time 25.3 SEC (11.7-14.0) Prothromb Time International Ratio 2.5 (0.8-1.1) Sodium Level 135 mmol/L (136-145) Potassium Level 4.3 mmol/L (3.5-5.1) Chloride Level 101 mmol/L (98-107) Carbon Dioxide Level 25 mmol/L (21-32) Anion Gap 9 (6-14) Blood Urea Nitrogen 40 mg/dL (8-26) Creatinine 2.1 mg/dL (0.7-1.3) Estimated GFR (Cockcroft-Gault) 30.5 Glucose Level 152 mg/dL (70-99) Calcium Level 8.5 mg/dL (8.5-10.1) Glucose (Fingerstick) 57 mg/dL (70-99) 87 mg/dL (70-99) 179 mg/dL (70-99) Test 10/09/16 03:40 10/09/16 03:45 10/09/16 05:35 10/09/16 07:35 White Blood Count 7.7 x10^3/uL (4.0-11.0) Red Blood Count 3.29 x10^6/uL (4.30-5.70) Hemoglobin 8.2 g/dL (13.0-17.5) Hematocrit 25.4 % (39.0-53.0) Mean Corpuscular Volume 77 fL (79-100) Mean Corpuscular Hemoglobin 25 pg (25-35) Mean Corpuscular Hemoglobin Concent 32 g/dL (31-37) Red Cell Distribution Width 17.2 % (11.5-14.5) Platelet Count 388 x10^3/uL (140-400) Neutrophils (%) (Auto) 76 % (31-73) Lymphocytes (%) (Auto) 11 % (24-48) Monocytes (%) (Auto) 9 % (0-9) Eosinophils (%) (Auto) 3 % (0-3) Basophils (%) (Auto) 1 % (0-3) Neutrophils # (Auto) 5.9 x10^3uL (1.8-7.7) Lymphocytes # (Auto) 0.9 x10^3/uL (1.0-4.8) Monocytes # (Auto) 0.7 x10^3/uL (0.0-1.1) Eosinophils # (Auto) 0.2 x10^3/uL (0.0-0.7) Basophils # (Auto) 0.0 x10^3/uL (0.0-0.2) Reticulocyte Count (auto) 1.7 % (0.5-2.5) Prothrombin Time 18.8 SEC (11.7-14.0) Prothromb Time International Ratio 1.7 (0.8-1.1) Sodium Level 133 mmol/L (136-145) Potassium Level 5.0 mmol/L (3.5-5.1) Chloride Level 100 mmol/L (98-107) Carbon Dioxide Level 24 mmol/L (21-32) Anion Gap 9 (6-14) Blood Urea Nitrogen 37 mg/dL (8-26) Creatinine 1.9 mg/dL (0.7-1.3) Estimated GFR (Cockcroft-Gault) 34.3 Glucose Level 215 mg/dL (70-99) Uric Acid 5.8 mg/dL (3.5-7.2) Calcium Level 8.6 mg/dL (8.5-10.1) Iron Level 39 ug/dL (65-175) Total Iron Binding Capacity 260 ug/dL (250-450) Iron Saturation 15 % (15-34) Ferritin 68 ng/mL (26-388) Creatine Kinase 180 U/L (39-308) Triglycerides Level 65 mg/dL (0-150) Cholesterol Level 119 mg/dL (0-200) LDL Cholesterol, Calculated 57 mg/dL (0-100) VLDL Cholesterol, Calculated 13 mg/dL (0-40) Non-HDL Cholesterol Calculated 70 mg/dL (0-129) HDL Cholesterol 49 mg/dL (40-60) Cholesterol/HDL Ratio 2.4 Thyroid Stimulating Hormone (TSH) 0.530 uIU/mL (0.358-3.74) Glucose (Fingerstick) 252 mg/dL (70-99) 271 mg/dL (70-99) Test 10/09/16 11:25 10/09/16 16:51 10/09/16 20:34 10/10/16 03:35 Glucose (Fingerstick) 249 mg/dL (70-99) 150 mg/dL (70-99) 298 mg/dL (70-99) Hemoglobin 7.8 g/dL (13.0-17.5) Prothrombin Time 15.5 SEC (11.7-14.0) Prothromb Time International Ratio 1.3 (0.8-1.1) Sodium Level 134 mmol/L (136-145) Potassium Level 4.4 mmol/L (3.5-5.1) Chloride Level 102 mmol/L (98-107) Carbon Dioxide Level 25 mmol/L (21-32) Anion Gap 7 (6-14) Blood Urea Nitrogen 36 mg/dL (8-26) Creatinine 1.7 mg/dL (0.7-1.3) Estimated GFR (Cockcroft-Gault) 39.0 Glucose Level 220 mg/dL (70-99) Calcium Level 8.2 mg/dL (8.5-10.1) Phosphorus Level 3.0 mg/dL (2.6-4.7) Magnesium Level 1.7 mg/dL (1.8-2.4) Albumin 2.3 g/dL (3.4-5.0) Test 10/10/16 07:37 10/10/16 10:23 Glucose (Fingerstick) 228 mg/dL (70-99) 197 mg/dL (70-99) Laboratory Tests Test 10/09/16 11:25 10/09/16 16:51 10/09/16 20:34 10/10/16 03:35 Glucose (Fingerstick) 249 mg/dL (70-99) 150 mg/dL (70-99) 298 mg/dL (70-99) Hemoglobin 7.8 g/dL (13.0-17.5) Prothrombin Time 15.5 SEC (11.7-14.0) Prothromb Time International Ratio 1.3 (0.8-1.1) Sodium Level 134 mmol/L (136-145) Potassium Level 4.4 mmol/L (3.5-5.1) Chloride Level 102 mmol/L (98-107) Carbon Dioxide Level 25 mmol/L (21-32) Anion Gap 7 (6-14) Blood Urea Nitrogen 36 mg/dL (8-26) Creatinine 1.7 mg/dL (0.7-1.3) Estimated GFR (Cockcroft-Gault) 39.0 Glucose Level 220 mg/dL (70-99) Calcium Level 8.2 mg/dL (8.5-10.1) Phosphorus Level 3.0 mg/dL (2.6-4.7) Magnesium Level 1.7 mg/dL (1.8-2.4) Albumin 2.3 g/dL (3.4-5.0) Test 10/10/16 07:37 10/10/16 10:23 Glucose (Fingerstick) 228 mg/dL (70-99) 197 mg/dL (70-99) Notes Patient is awake and alert sitting up in bed. Breathing unlabored, no acute distress. Incision is covered with aquacel dressing, intact no drainage. No erythema. Mild edema. Neurovascular intact left lower extremity. Problems: (1) Right knee DJD Assessment and Plan Continue rehabilitation per protocol Will continue to follow during acute hospital stay for SHAINA VERDUGO II, MD 10/10/16 1424: Problem Qualifiers (1) Right knee DJD: Osteoarthritis type: primary Qualified Codes: M17.11 - Unilateral primary osteoarthritis, right knee KEMAL PRYOR APRN October 10, 2016 11:19 SHAINA BLAKELY II, MD October 10, 2016 14:24
--- NOTE | 2016-10-10 12:12 | PDOC ---
SUBJECTIVE ROS DOUGLAS/ CKD III Doign well overall CVS: no Orthopnea, no CP RESP: no SOB, no ÁLVAREZ GI: no Nausea, no Vomiting : no Dysuria, no Urgency OBJECTIVE Vital Signs Vital Signs Date Time Temp Pulse Resp B/P (MAP) Pulse Ox O2 Delivery O2 Flow Rate FiO2 10/10/16 10:48 98.1 64 20 128/69 (88) 98 Room Air 98.1 10/09/16 10:36 1.0 I & 0 Intake and Output 10/10/16 07:00 Intake Total 1520 ml Output Total 1700 ml Balance -180 ml Intake Oral 1520 ml Output Urine Total 1700 ml PHYSICAL EXAM Physical Exam General Appearance: Awake Alert Oriented x 3 In no Distress Eyes: VIsion Unchanged Conjunctiva Normal EN: No EN Drainage Mucous Memb. moist Neck: no JVD no JVP Supple no Thyromegaly CVS: S1 S2 no Murmur No Gallop No Rub no Edema Resp: no Rales no Rhonchi no Acc. Muscle use GI: BAS +ve NO Bruit Non Tender Non Distended : no CVA tenderness; no Suprapubic Tenderness Assessment & Plan ARF - Better today ; Current FLuid and E-lyte status does not necessitate emergent need for Dialysis. IVF as ordered. ?Nocturia with ? FUNG - small PVR on US - may need flomax if nunu as OP AMI - LHC planned for later today; IVf and NAC as ordered ? CKD III - DM HTN /NS cannot be ruled out; May need PEPs as OP Microcytic Anemia: IV Fe.for now HTN: Current BP meds reviewed. defer to Cardiology to optimze post LHC Discussed Plan of Care and prognosis etc. at length with family. COMMENT/RELEVANT DATA Meds Current Medications Medications (Trade) Dose Ordered Sig/Joey Start Time Stop Time Status Last Admin Dose Admin Acetaminophen/ Hydrocodone Bitart (Lortab 7.5/325) 1 tab PRN Q3HRS PRN 10/08/16 08:45 10/09/16 21:06 1 TAB Acetylcysteine (Mucomyst 20% Oral Solution) 1,200 mg BID 10/09/16 21:00 10/11/16 20:59 10/10/16 06:24 1,200 MG Albuterol/ Ipratropium (Duoneb) 3 ml 1X ONCE 10/08/16 04:30 10/08/16 04:36 DC 10/08/16 04:33 3 ML Amoxicillin/ Clavulanate Potassium (Augmentin 500/ 125mg) 1 tab BID 10/08/16 21:00 10/10/16 08:17 1 TAB Aspirin (Rocío Aspirin) 325 mg 1X ONCE 10/08/16 11:30 10/08/16 11:31 DC 10/08/16 13:23 325 MG Aspirin (Ecotrin) 81 mg DAILY 10/08/16 09:00 10/10/16 08:14 81 MG Cephalexin HCl (Keflex) 500 mg TID 10/08/16 14:00 UNV Cyanocobalamin (Vitamin B-12) 2,500 mcg DAILY 10/08/16 09:00 10/09/16 09:20 2,500 MCG Dextrose 1,000 ml @ 50 mls/hr Q20H 10/10/16 07:00 10/10/16 06:24 50 MLS/HR Dextrose (Dextrose 50%-Water Syringe) 12.5 gm PRN Q15MIN PRN 10/09/16 11:15 Digoxin (Lanoxin) 125 mcg DAILY 10/08/16 09:00 10/08/16 19:26 DC Ferrous Sulfate (Feosol) 325 mg BIDWMEALS 10/08/16 09:00 10/09/16 17:25 325 MG Furosemide (Lasix) 40 mg 1X ONCE 10/08/16 06:00 10/08/16 06:01 DC 10/08/16 05:49 40 MG Heparin Sodium/ Sodium Chloride 500 ml @ As Directed STK-MED ONCE 10/10/16 10:54 10/10/16 10:55 DC Hydrochlorothiazide (Microzide) 12.5 mg DAILY 10/08/16 09:00 10/08/16 20:10 DC 10/08/16 10:00 12.5 MG Insulin Aspart (Novolog) 0-9 UNITS TIDWMEALS 10/09/16 12:00 10/09/16 12:51 3 UNITS Insulin Detemir (Levemir) 20 units QHS 10/08/16 21:00 10/09/16 21:05 20 UNITS Iodixanol (Visipaque 320) 100 ml STK-MED ONCE 10/10/16 10:55 10/10/16 10:56 DC Lidocaine HCl 20 ml STK-MED ONCE 10/10/16 10:55 10/10/16 10:56 DC Losartan Potassium (Cozaar) 100 mg DAILY 10/08/16 09:00 10/10/16 08:16 100 MG Magnesium Sulfate/ Dextrose 50 ml @ 25 mls/hr PRN DAILY PRN 10/09/16 11:00 Metoprolol Tartrate (Lopressor) 50 mg BID 10/08/16 09:00 10/10/16 08:16 50 MG Morphine Sulfate 4 mg PRN Q2HR PRN 10/08/16 05:30 10/09/16 05:29 DC Nitroglycerin (Nitro-Bid Oint) 1 inch 1X ONCE 10/08/16 06:00 10/08/16 06:01 DC 10/08/16 05:49 1 INCH Nitroglycerin (Nitrostat) 0.4 mg PRN 1X PRN 10/08/16 08:45 Ondansetron HCl (Zofran) 4 mg PRN Q8HRS PRN 10/08/16 05:30 10/09/16 05:29 DC Oxycodone/ Acetaminophen (Percocet 7.5/ 325) 1 tab PRN Q3HRS PRN 10/08/16 08:45 Phytonadione (Mephyton) 7.5 mg 1X ONCE 10/08/16 21:30 10/08/16 21:33 DC 10/08/16 21:40 7.5 MG Potassium Chloride (Klor-Con) 10 meq [id number] 10/08/16 10:00 10/08/16 10:32 DC Simvastatin (Zocor) 20 mg HS 10/08/16 21:00 10/09/16 20:58 20 MG Sodium Chloride 1,000 ml @ 100 mls/hr Q10H 10/09/16 11:00 10/09/16 22:16 100 MLS/HR Temazepam (Restoril) 15 mg PRN QHS PRN 10/09/16 21:00 10/09/16 22:16 15 MG Vancomycin HCl 1 gm/Sodium Chloride 250 ml @ 250 mls/hr 1X ONCE 10/08/16 14:00 10/08/16 14:59 DC 10/08/16 14:25 250 MLS/HR Lab Laboratory Tests Test 10/09/16 16:51 10/09/16 20:34 10/10/16 03:35 10/10/16 07:37 Glucose (Fingerstick) 150 mg/dL (70-99) 298 mg/dL (70-99) 228 mg/dL (70-99) Hemoglobin 7.8 g/dL (13.0-17.5) Prothrombin Time 15.5 SEC (11.7-14.0) Prothromb Time International Ratio 1.3 (0.8-1.1) Sodium Level 134 mmol/L (136-145) Potassium Level 4.4 mmol/L (3.5-5.1) Chloride Level 102 mmol/L (98-107) Carbon Dioxide Level 25 mmol/L (21-32) Anion Gap 7 (6-14) Blood Urea Nitrogen 36 mg/dL (8-26) Creatinine 1.7 mg/dL (0.7-1.3) Estimated GFR (Cockcroft-Gault) 39.0 Glucose Level 220 mg/dL (70-99) Calcium Level 8.2 mg/dL (8.5-10.1) Phosphorus Level 3.0 mg/dL (2.6-4.7) Magnesium Level 1.7 mg/dL (1.8-2.4) Albumin 2.3 g/dL (3.4-5.0) Test 10/10/16 10:23 Glucose (Fingerstick) 197 mg/dL (70-99) TERRI BOWDEN MD October 10, 2016 12:12
[2016-10-10] MEDS ORDERED: IRON SUCROSE COMPLEX 200 MG in IV NORMAL SALINE 100ML 100 ML IV SCH (13:00)
[2016-10-10] MEDS ORDERED: MAGNESIUM SULFATE 1GM 100 ML IV ONE (13:00)
--- NOTE | 2016-10-10 13:07 | PDOC ---
PROGRESS NOTES Chief Complaint Chief Complaint STEMI, trop peak at 18 acute on chronic systolic CHF CKD 3, w/ likely vasomotor, anemia of CKD, DM2 htn OA, right knee pain, lactic acidosis, CHF, and wound healing mild malnutrition History of Present Illness History of Present Illness feels well wants to get up inq. about cath and then possible DC Vitals Vitals Vital Signs Date Time Temp Pulse Resp B/P (MAP) Pulse Ox O2 Delivery O2 Flow Rate FiO2 10/10/16 10:48 98.1 64 20 128/69 (88) 98 Room Air 98.1 10/09/16 10:36 1.0 Physical Exam General: Alert, Oriented X3, Cooperative, No acute distress Heart: Regular rate, No murmurs Lungs: Clear Abdomen: Normal bowel sounds, Soft Extremities: No clubbing, No cyanosis Skin: No rashes, No breakdown Labs LABS Laboratory Tests Test 10/09/16 16:51 10/09/16 20:34 10/10/16 03:35 10/10/16 07:37 Glucose (Fingerstick) 150 mg/dL (70-99) 298 mg/dL (70-99) 228 mg/dL (70-99) Hemoglobin 7.8 g/dL (13.0-17.5) Prothrombin Time 15.5 SEC (11.7-14.0) Prothromb Time International Ratio 1.3 (0.8-1.1) Sodium Level 134 mmol/L (136-145) Potassium Level 4.4 mmol/L (3.5-5.1) Chloride Level 102 mmol/L (98-107) Carbon Dioxide Level 25 mmol/L (21-32) Anion Gap 7 (6-14) Blood Urea Nitrogen 36 mg/dL (8-26) Creatinine 1.7 mg/dL (0.7-1.3) Estimated GFR (Cockcroft-Gault) 39.0 Glucose Level 220 mg/dL (70-99) Calcium Level 8.2 mg/dL (8.5-10.1) Phosphorus Level 3.0 mg/dL (2.6-4.7) Magnesium Level 1.7 mg/dL (1.8-2.4) Albumin 2.3 g/dL (3.4-5.0) Test 10/10/16 10:23 Glucose (Fingerstick) 197 mg/dL (70-99) Review of Systems Review of Systems no n.v.d Assessment and Plan Assessmemt and Plan Problems Medical Problems: (1) Hypoxia Status: Acute (2) Lactic acid acidosis Status: Acute (3) NSTEMI (non-ST elevated myocardial infarction) Status: Acute (4) Pulmonary edema Status: Acute (5) Renal insufficiency Status: Acute Problems: Comment Review of Relevant I have reviewed the following items alphonso (where applicable) has been applied. Labs Laboratory Tests Test 10/08/16 17:28 10/08/16 18:07 10/08/16 18:20 10/08/16 20:53 Troponin I Quantitative 16.574 ng/mL (0.000-0.055) Glucose (Fingerstick) 167 mg/dL (70-99) 57 mg/dL (70-99) Prothrombin Time 25.3 SEC (11.7-14.0) Prothromb Time International Ratio 2.5 (0.8-1.1) Sodium Level 135 mmol/L (136-145) Potassium Level 4.3 mmol/L (3.5-5.1) Chloride Level 101 mmol/L (98-107) Carbon Dioxide Level 25 mmol/L (21-32) Anion Gap 9 (6-14) Blood Urea Nitrogen 40 mg/dL (8-26) Creatinine 2.1 mg/dL (0.7-1.3) Estimated GFR (Cockcroft-Gault) 30.5 Glucose Level 152 mg/dL (70-99) Calcium Level 8.5 mg/dL (8.5-10.1) Test 10/08/16 21:16 10/08/16 22:44 10/09/16 03:40 10/09/16 03:45 Glucose (Fingerstick) 87 mg/dL (70-99) 179 mg/dL (70-99) White Blood Count 7.7 x10^3/uL (4.0-11.0) Red Blood Count 3.29 x10^6/uL (4.30-5.70) Hemoglobin 8.2 g/dL (13.0-17.5) Hematocrit 25.4 % (39.0-53.0) Mean Corpuscular Volume 77 fL (79-100) Mean Corpuscular Hemoglobin 25 pg (25-35) Mean Corpuscular Hemoglobin Concent 32 g/dL (31-37) Red Cell Distribution Width 17.2 % (11.5-14.5) Platelet Count 388 x10^3/uL (140-400) Neutrophils (%) (Auto) 76 % (31-73) Lymphocytes (%) (Auto) 11 % (24-48) Monocytes (%) (Auto) 9 % (0-9) Eosinophils (%) (Auto) 3 % (0-3) Basophils (%) (Auto) 1 % (0-3) Neutrophils # (Auto) 5.9 x10^3uL (1.8-7.7) Lymphocytes # (Auto) 0.9 x10^3/uL (1.0-4.8) Monocytes # (Auto) 0.7 x10^3/uL (0.0-1.1) Eosinophils # (Auto) 0.2 x10^3/uL (0.0-0.7) Basophils # (Auto) 0.0 x10^3/uL (0.0-0.2) Reticulocyte Count (auto) 1.7 % (0.5-2.5) Prothrombin Time 18.8 SEC (11.7-14.0) Prothromb Time International Ratio 1.7 (0.8-1.1) Sodium Level 133 mmol/L (136-145) Potassium Level 5.0 mmol/L (3.5-5.1) Chloride Level 100 mmol/L (98-107) Carbon Dioxide Level 24 mmol/L (21-32) Anion Gap 9 (6-14) Blood Urea Nitrogen 37 mg/dL (8-26) Creatinine 1.9 mg/dL (0.7-1.3) Estimated GFR (Cockcroft-Gault) 34.3 Glucose Level 215 mg/dL (70-99) Uric Acid 5.8 mg/dL (3.5-7.2) Calcium Level 8.6 mg/dL (8.5-10.1) Iron Level 39 ug/dL (65-175) Total Iron Binding Capacity 260 ug/dL (250-450) Iron Saturation 15 % (15-34) Ferritin 68 ng/mL (26-388) Creatine Kinase 180 U/L (39-308) Triglycerides Level 65 mg/dL (0-150) Cholesterol Level 119 mg/dL (0-200) LDL Cholesterol, Calculated 57 mg/dL (0-100) VLDL Cholesterol, Calculated 13 mg/dL (0-40) Non-HDL Cholesterol Calculated 70 mg/dL (0-129) HDL Cholesterol 49 mg/dL (40-60) Cholesterol/HDL Ratio 2.4 Thyroid Stimulating Hormone (TSH) 0.530 uIU/mL (0.358-3.74) Test 10/09/16 05:35 10/09/16 07:35 10/09/16 11:25 10/09/16 16:51 Glucose (Fingerstick) 252 mg/dL (70-99) 271 mg/dL (70-99) 249 mg/dL (70-99) 150 mg/dL (70-99) Test 10/09/16 20:34 10/10/16 03:35 10/10/16 07:37 10/10/16 10:23 Glucose (Fingerstick) 298 mg/dL (70-99) 228 mg/dL (70-99) 197 mg/dL (70-99) Hemoglobin 7.8 g/dL (13.0-17.5) Prothrombin Time 15.5 SEC (11.7-14.0) Prothromb Time International Ratio 1.3 (0.8-1.1) Sodium Level 134 mmol/L (136-145) Potassium Level 4.4 mmol/L (3.5-5.1) Chloride Level 102 mmol/L (98-107) Carbon Dioxide Level 25 mmol/L (21-32) Anion Gap 7 (6-14) Blood Urea Nitrogen 36 mg/dL (8-26) Creatinine 1.7 mg/dL (0.7-1.3) Estimated GFR (Cockcroft-Gault) 39.0 Glucose Level 220 mg/dL (70-99) Calcium Level 8.2 mg/dL (8.5-10.1) Phosphorus Level 3.0 mg/dL (2.6-4.7) Magnesium Level 1.7 mg/dL (1.8-2.4) Albumin 2.3 g/dL (3.4-5.0) Laboratory Tests Test 10/09/16 16:51 10/09/16 20:34 10/10/16 03:35 10/10/16 07:37 Glucose (Fingerstick) 150 mg/dL (70-99) 298 mg/dL (70-99) 228 mg/dL (70-99) Hemoglobin 7.8 g/dL (13.0-17.5) Prothrombin Time 15.5 SEC (11.7-14.0) Prothromb Time International Ratio 1.3 (0.8-1.1) Sodium Level 134 mmol/L (136-145) Potassium Level 4.4 mmol/L (3.5-5.1) Chloride Level 102 mmol/L (98-107) Carbon Dioxide Level 25 mmol/L (21-32) Anion Gap 7 (6-14) Blood Urea Nitrogen 36 mg/dL (8-26) Creatinine 1.7 mg/dL (0.7-1.3) Estimated GFR (Cockcroft-Gault) 39.0 Glucose Level 220 mg/dL (70-99) Calcium Level 8.2 mg/dL (8.5-10.1) Phosphorus Level 3.0 mg/dL (2.6-4.7) Magnesium Level 1.7 mg/dL (1.8-2.4) Albumin 2.3 g/dL (3.4-5.0) Test 10/10/16 10:23 Glucose (Fingerstick) 197 mg/dL (70-99) Microbiology 10/08/16 Blood Culture - Preliminary, Resulted NO GROWTH AFTER 2 DAYS Medications Current Medications Albuterol/ Ipratropium (Duoneb) 3 ml 1X ONCE NEB Last administered on 04:33; Start 10/08/16 at 04:30; Stop 10/08/16 at 04:36; Status DC Aspirin (Ecotrin) 325 mg 1X ONCE PO Last administered on 10/08/16 05:49; Start 10/08/16 at 06:00; Stop 10/08/16 at 06:01; Status DC Furosemide (Lasix) 40 mg 1X ONCE IVP Last administered on 10/08/16 05:49; Start 10/08/16 at 06:00; Stop 10/08/16 at 06:01; Status DC Ondansetron HCl (Zofran) 4 mg PRN Q8HRS PRN IV NAUSEA/VOMITING; Start 10/08/16 at 05:30; Stop 10/09/16 at 05:29; Status DC Morphine Sulfate 4 mg PRN Q2HR PRN IV SEVERE PAIN; Start 10/08/16 at 05:30; Stop 10/09/16 at 05:29; Status DC Nitroglycerin (Nitro-Bid Oint) 1 inch 1X ONCE TP Last administered on 05:49; Start 10/08/16 at 06:00; Stop 10/08/16 at 06:01; Status DC Aspirin (Ecotrin) 81 mg DAILY PO Last administered on 10/10/16 08:14; Start 10/08/16 at 09:00 Cyanocobalamin (Vitamin B-12) 2,500 mcg DAILY PO Last administered on 10/09/16 09:20; Start 10/08/16 at 09:00 Digoxin (Lanoxin) 125 mcg DAILY PO ; Start 10/08/16 at 09:00; Stop 10/08/16 at 19: 26; Status DC Ferrous Sulfate (Feosol) 325 mg BIDWMEALS PO Last administered on 10/09/16 17: 25; Start 10/08/16 at 09:00 Hydrochlorothiazide (Microzide) 12.5 mg DAILY PO Last administered on 10/08/16 10:00; Start 10/08/16 at 09:00; Stop 10/08/16 at 20:10; Status DC Acetaminophen/ Hydrocodone Bitart (Lortab 7.5/325) 1 tab PRN Q3HRS PRN PO PAIN Last administered on 10/09/16 21:06; Start 10/08/16 at 08:45 Insulin Aspart (Novolog) 15 units TIDWMEALS SQ Last administered on 10/09/16 12 :50; Start 10/08/16 at 12:00 Metoprolol Tartrate (Lopressor) 50 mg BID PO Last administered on 10/10/16 08: 16; Start 10/08/16 at 09:00 Nitroglycerin (Nitrostat) 0.4 mg PRN 1X PRN SL CHEST PAIN; Start 10/08/16 at 08: 45 Oxycodone/ Acetaminophen (Percocet 7.5/ 325) 1 tab PRN Q3HRS PRN PO PAIN; Start 10/08/16 at 08:45 Simvastatin (Zocor) 20 mg HS PO Last administered on 10/09/16 20:58; Start 10/08 at 21:00 Insulin Detemir (Levemir) 20 units QHS SQ Last administered on 10/09/16 21:05; Start 10/08/16 at 21:00 Losartan Potassium (Cozaar) 100 mg DAILY PO Last administered on 10/10/16 08:16 ; Start 10/08/16 at 09:00 Potassium Chloride (Klor-Con) 10 meq DAILYWBKFT PO ; Start 10/08/16 at 10:00; Stop 10/08/16 at 10:32; Status DC Aspirin (Rocío Aspirin) 325 mg 1X ONCE PO Last administered on 10/08/16 13:23 ; Start 10/08/16 at 11:30; Stop 10/08/16 at 11:31; Status DC Cephalexin HCl (Keflex) 500 mg TID PO ; Start 10/08/16 at 14:00; Status UNV Vancomycin HCl 1 gm/Sodium Chloride 250 ml @ 250 mls/hr 1X ONCE IV Last administered on 10/08/16 14:25; Start 10/08/16 at 14:00; Stop 10/08/16 at 14:59; Status DC Amoxicillin/ Clavulanate Potassium (Augmentin 500/ 125mg) 1 tab BID PO Last administered on 10/10/16 08:17; Start 10/08/16 at 21:00 Phytonadione (Mephyton) 25 mg 1X ONCE PO ; Start 10/08/16 at 13:45; Stop at 13:46; Status DC Phytonadione (Mephyton) 5 mg 1X ONCE PO Last administered on 10/08/16 14:25; Start 10/08/16 at 14:00; Stop 10/08/16 at 14:01; Status DC Phytonadione (Mephyton) 2.5 mg 1X ONCE PO Last administered on 10/08/16 20:57 ; Start 10/08/16 at 20:15; Stop 10/08/16 at 20:16; Status DC Phytonadione (Mephyton) 7.5 mg 1X ONCE PO Last administered on 10/08/16 21:40 ; Start 10/08/16 at 21:30; Stop 10/08/16 at 21:33; Status DC Sodium Chloride 1,000 ml @ 100 mls/hr Q10H IV Last administered on 10/09/16 22 :16; Start 10/09/16 at 11:00 Magnesium Sulfate/ Dextrose 50 ml @ 25 mls/hr PRN DAILY PRN IV for Mag < 1.7 on am labs; Start 10/09/16 at 11:00 Acetylcysteine (Mucomyst 20% Oral Solution) 1,200 mg BID PO ; Start 10/09/16 at 11:00; Stop 10/09/16 at 11:39; Status DC Insulin Aspart (Novolog) 0-9 UNITS TIDWMEALS SQ Last administered on 10/09/16 12:51; Start 10/09/16 at 12:00 Dextrose (Dextrose 50%-Water Syringe) 12.5 gm PRN Q15MIN PRN IV SEE COMMENTS; Start 10/09/16 at 11:15 Acetylcysteine (Mucomyst 20% Oral Solution) 1,200 mg BID PO ; Start 10/09/16 at 12:30; Stop 10/09/16 at 12:30; Status DC Acetylcysteine (Mucomyst 20% Oral Solution) 1,200 mg BID PO Last administered on 10/10/16 06:24; Start 10/09/16 at 21:00; Stop 10/11/16 at 20:59 Temazepam (Restoril) 15 mg PRN QHS PRN PO INSOMNIA Last administered on 22:16; Start 10/09/16 at 21:00 Dextrose 1,000 ml @ 50 mls/hr Q20H IV Last administered on 10/10/16 06:24; Start 10/10/16 at 07:00 Heparin Sodium/ Sodium Chloride 500 ml @ As Directed STK-MED ONCE .ROUTE ; Start 10/10/16 at 10:54; Stop 10/10/16 at 10:55; Status DC Lidocaine HCl 20 ml STK-MED ONCE .ROUTE ; Start 10/10/16 at 10:55; Stop 10/10/16 at 10:56; Status DC Iodixanol (Visipaque 320) 100 ml STK-MED ONCE .ROUTE ; Start 10/10/16 at 10:55; Stop 10/10/16 at 10:56; Status DC Magnesium Sulfate/ Dextrose 100 ml @ 100 mls/hr 1X ONCE IV ; Start 10/10/16 at 13:00; Stop 5/5/17 at 13:59 Iron Sucrose 200 mg/Sodium Chloride 110 ml @ 55 mls/hr 3X/WEEK IV ; Start at 13:00; Stop 10/20/16 at 10:59 Active Scripts Active Reported Sulfamethoxazole-Tmp Ds Tablet (Sulfamethoxazole/Trimethoprim) Unknown Strength Tablet Unknown Dose Warfarin Sodium 3 Mg Tablet 1 Tab PO DAILY Potassium Chloride 10 Meq Tablet.er 10 Meq PO DAILY Digoxin 125 Mcg Tablet 1 Tab PO DAILY Aspir 81 (Aspirin) 81 Mg Tablet.dr 1 Tab PO DAILY Percocet 7.5-325 Mg Tablet (Oxycodone/Acetaminophen) 1 Each Tablet 1 Tab PO PRN Q3HRS PRN Ferrous Sulfate 325 Mg Tablet 1 Tab PO BID last dose this am next dos is with supper Losartan Potassium 100 Mg Tablet 100 Mg PO DAILY las dose with lunch next dose tomorrow am Hydrocodone-Apap 7.5-325 (Hydrocodone Bit/Acetaminophen) 1 Each Tablet 1 Tab PO Q3HRS PRN Levemir (Insulin Detemir) 100 Unit/1 Ml Vial 20 Unit SQ HS LAST DOSE GIVEN: DATE: 07/18 TIME: 9 PM NEXT DOSE DUE: DATE: 07/19 TIME: 9 PM Metoprolol Tartrate 50 Mg Tablet 50 Mg PO BID LAST DOSE GIVEN: DATE: 10/02/16 TIME: 9 AM NEXT DOSE DUE: DATE: 10/02/16 TIME: 9 PM Vitamin B-12 (Cyanocobalamin (Vitamin B-12)) 1,000 Mcg Tablet 2,500 Mcg PO DAILY LAST DOSE GIVEN: DATE: 10/02/16 TIME: 9 AM NEXT DOSE DUE: DATE: 10/03 TIME: 9 AM Hydrochlorothiazide Capsule (Hydrochlorothiazide) 12.5 Mg Capsule 12.5 Mg PO DAILY LAST DOSE GIVEN: DATE: 10/02/16 TIME: 9 AM NEXT DOSE DUE: DATE: 10/03/16 TIME: 9 AM Novolog Flexpen (Insulin Aspart) 100 Unit/1 Ml Insuln.pen 15 Unit SQ TIDWMEALS LAST DOSE GIVEN: DATE: 07/19 TIME: WITH LUNCH NEXT DOSE DUE: DATE: 07/19 TIME: WITH DINNER NITROGLYCERIN SubLingual (Nitroglycerin) 0.4 Mg Tab.subl 0.4 Mg SL PRN 1X PRN NOT GIVEN IN HOSPITAL. TAKE DIRECTED. Simvastatin 20 Mg Tablet 20 Mg PO HS LAST DOSE GIVEN: DATE: 10/01/16 TIME: 9 PM NEXT DOSE DUE: DATE: 10/02/16 TIME: 9 PM Vitals/I & O Vital Sign - Last 24 Hours 10/09/16 10/09/16 10/09/16 10/09/16 17:27 19:10 19:50 20:58 Temp 97.9 97.9 Pulse 91 85 Resp 17 16 B/P (MAP) 127/67 (87) 127/67 Pulse Ox 96 97 O2 Delivery Room Air Room Air Room Air 10/09/16 10/09/16 10/09/16 10/10/16 21:06 22:16 22:18 03:00 Temp 98.4 97.8 98.4 97.8 Pulse 72 71 Resp 18 18 18 18 B/P (MAP) 124/59 (80) 115/66 (82) Pulse Ox 97 96 96 98 O2 Delivery Room Air Room Air Room Air Room Air 10/10/16 10/10/16 10/10/16 10/10/16 07:00 08:15 08:16 08:16 Temp 97.9 97.9 Pulse 79 77 78 Resp 20 B/P (MAP) 137/68 (91) 137/68 137/68 Pulse Ox 98 O2 Delivery Room Air Room Air 10/10/16 10/10/16 09:45 10:48 Temp 97.7 98.1 97.7 98.1 Pulse 79 64 Resp 18 20 B/P (MAP) 127/67 128/69 (88) Pulse Ox 98 O2 Delivery Room Air Intake and Output 10/09/16 10/09/16 10/10/16 15:00 23:00 07:00 Intake Total 120 ml 1200 ml 200 ml Output Total 400 ml 800 ml 500 ml Balance -280 ml 400 ml -300 ml Nutrition Consultation Dietary Evaluation: Recommendations by RD: Dietary education by RD Comments: Rec. cardiac/ADA diet when able to resume PO intake Educated on TLC diet and nutrition label reading Provided handouts on TLC diet and nutrition label reading for reference upon d/c Expected Outcomes/Goals: to meet >75% est nutr needs to identify 2 heart healthy foods Malnutrition Findings: Reduced Salary And Wage Administrator Strength (Non-Sev: N/A Malnutrition related to morbid: No Weight Status: Overweight Fluid Accumulation (N/A): N/A COREY CERVANTES MD October 10, 2016 13:06
--- NOTE | 2016-10-10 13:32 | PDOC ---
MODERATE SEDATION ASSESSMENT RISKS/ALTERNATIVES Risks/Alternatives Risks and alternatives of this type of sedation and procedure discussed with: RISK/ALTERNATIVES: Patient H & P ON CHART H & P H & P on chart and reviewed for co-morbid conditions and appropriate labs. H&P ON CHART: Yes STATUS PREG STATUS ASSESSED: Yes MEDS/ALLERGIES REVIEWED Meds/Allergies Reviewed Medications and Allergies including time and route of recently administered narcotics and sedatives. MEDS/ALLERGIES REVIEWED: Yes ASA RATING ASA RATING: II AIRWAY ASSESSMENT Airway Assessment Airway patency, oral function limitations, presence of caps, crowns, dentures, partials, and ability to extend neck assessed. AIRWAY ASSESSMENT: Yes MALLAMPATI SCORE MALLAMPATI SCORE: II PRE-SEDATION ASSESSMENT PRE-SEDATION ASSESSMENT: Yes DANYELLE TRAN MD October 10, 2016 13:32
[2016-10-10] MEDS ORDERED: fentaNYL PF VIAL 250 MCG/5 ML VIAL ONE (13:35)
[2016-10-10] MEDS ORDERED: MIDAZOLAM HCL/PF 5 MG/5 ML VIAL. ONE (13:36)
[2016-10-10] MEDS ORDERED: HEPARIN for IV BOLUS 10,000 UNIT/10 ML VIAL. ONE (13:54)
[2016-10-10] MEDS ORDERED: MIDAZOLAM HCL/PF 5 MG/5 ML VIAL. IV ONE (14:00)
[2016-10-10] MEDS ORDERED: LIDOCAINE 2% 20 ML VIAL. IJ ONE (14:00)
[2016-10-10] MEDS ORDERED: fentaNYL PF VIAL 100 MCG/2 ML VIAL IV ONE (14:00)
[2016-10-10] MEDS ORDERED: IODIXANOL 320 MG/ML 100 ML VIAL. IV ONE (14:00)
[2016-10-10] MEDS ORDERED: HEPARIN for IV BOLUS 10,000 UNIT/10 ML VIAL. IV ONE (14:00)
[2016-10-10] MEDS ORDERED: NITROGLYCERIN 200 MCG/2 ML SYRINGE FOR CATH/VASC LAB. ONE (14:04)
[2016-10-10] MEDS ORDERED: CLOPIDOGREL BISULFATE 75 MG TABLET ONE (14:14)
[2016-10-10] MEDS ORDERED: ASPIRIN 325 MG TABLET ONE (14:14)
[2016-10-10] MEDS ORDERED: ASPIRIN 325 MG TABLET PO ONE (14:15)
[2016-10-10] MEDS ORDERED: CLOPIDOGREL BISULFATE 75 MG TABLET PO ONE (14:15)
[2016-10-10] MEDS ORDERED: CONTRAST GIVEN MC PRN (14:15)
[2016-10-10] MEDS ORDERED: NITROGLYCERIN 200 MCG/2 ML SYRINGE FOR CATH/VASC LAB. IART ONE (14:15)
[2016-10-10] MEDS ORDERED: HEPARIN 25,000UTS/500ML PREMIX 500 ML IV ONE (15:00)
--- NOTE | 2016-10-10 15:19 | CARD ---
APPROVED REPORT PROCEDURE NARRATIVE This patient is a very pleasant 81-year-old gentleman with a known history of coronary artery disease and multiple stents as well as a permanent pacemaker. He has been having progressive episodes of chest pains and had a workup done by Dr. Barry which s howed some reversible ischemia and an ischemic cardiomyopathy. The patient is now going to go for a heart catheter and possible coronary angioplasty possible stent and he has signed an informed consent. After the patient arrived in the [facility] [employer] with the patient in supine position the right groin area wa s prepped and draped in the usual fashion anatomy was identified on special palpation the area was in filtrated with Xylocaine to obtain topical anesthesia and then using Seldinger technique a Cordis she ath was inserted in to the femoral artery. A left Sp catheter was then utilized to do views of the left coronary artery. A right Sp catheter was then utilized to do views of the right coronary artery. A pigtail catheter was then utilized to do a ventriculogram. Findings: Coronaries: The left main is small in caliber with calcifications but no apparent significant disease . The LAD is a small vessel with calcifications and in the mid segment there is an area that is about 95% stenosed distal to that the vessel appears to be small in caliber. The circumflex is small in caliber but the stent is open with good flow. There is an obtuse marginal that is 100% occluded at the ostium and the stent that is in the obtuse marginal is totally occluded. The RCA is a medium size vessel with diffuse plaquing in the 20-50% range through out the entire vessel. Ventriculogram: The left ventricle is dilated and hypokinetic, the global left ventricular ejection f raction was estimated to be about 25%. There was no gradient across the aortic valve. Once this was evaluated I felt that the patient has significant stenosis of the LAD and that we shoul d go ahead and open up that vessel with a stent. The RCA and the circumflex had diffuse disease but n othing that I think would benefit from a stent and the totally occluded obtuse marginal seems to be a chronically occluded vessel that would not be of any benefit to attempt to open it. Therefore I decided to proceed at this time in stenting the LAD. The patient was fully heparinized and then a guiding catheter was utilized to engage the left coronar y os. A guidewire was then advanced all the way to the distal segment of the LAD and then a 2.25 x 18 mm drug-eluting stent was advanced over the guidewire and once I was satisfied with its positioning it was deployed. Multiple high-pressure inflations were then done in the area. Following that a view was then done and we saw that the previously dilated areas appear to be well op ened there was excellent flow through there and no dissection was identified and there was no signifi cant residual disease. The patient was free of chest pain at this time. I decided then to terminate the procedure and after the catheter was removed and ACT was checked and the sheath was pulled and an Angio-Seal collagen plug was deployed in place. There was no significant bleeding following this and the patient was transferred back to his room in satisfactory condition a fter tolerating the procedure rather well. Conclusion This patient has significant coronary artery disease and there is diffuse small vessel disease. The l esion that he had in the LAD was stented with good results. Further workup and treatment as per Dr. Barry. During the procedure the patient was fully heparinized and he also received a loading dose of Plavix.
[2016-10-10] MEDS: SIMVASTATIN 20 MG TABLET PO SCH (20:51)
[2016-10-10] MEDS: HYDROcodone/APAP 7.5/325MG 1 TAB TABLET PO PRN (20:51)
[2016-10-10] MEDS: INSULIN DETEMIR 300 UNITS/3 ML INSULN.PEN. SQ SCH (21:02)
--- NOTE | 2016-10-10 21:53 | PDOC ---
Provider Note Provider Note No chest pain or shortness of breath. D stented today. Viability test showed that the myocardium is viable. We will resume physical therapy and observed until 58. LATOSHA HWANG MD October 10, 2016 21:53
[2016-10-10] MEDS ORDERED: WARFARIN 5 MG TABLET. PO ONE (22:00)
[2016-10-10] MEDS: TEMAZEPAM 15 MG CAPSULE PO PRN (23:40)
[2016-10-11 03:59] VITALS: BP 131/65
[2016-10-11 06:09] LABS: ALBUMIN 2.2 g/dL (3.4-5.0); CALCIUM 8.4 mg/dL (8.5-10.1); CREATININE 1.3 mg/dL (0.7-1.3); GFR 53.1; PHOSPHORUS 3.6 mg/dL (2.6-4.7); POTASSIUM 4.2 mmol/L (3.5-5.1)
[2016-10-11 07:00] VITALS: BP 142/63
[2016-10-11] MEDS: FERROUS SULFATE 325 MG TABLET. PO SCH ×2 (07:47→16:04)
[2016-10-11] MEDS: AMOXICILLIN/K CLAV 500/125MG TABLET. PO SCH ×2 (07:47→20:59)
[2016-10-11] MEDS: CLOPIDOGREL BISULFATE 75 MG TABLET PO SCH (07:47)
[2016-10-11] MEDS: INSULIN ASPART 300 UNITS/3 ML INSULN.PEN SQ SCH ×6 (07:47→17:00)
[2016-10-11] MEDS: LOSARTAN POTASSIUM 50 MG TABLET. PO SCH (07:49)
[2016-10-11] MEDS: ISOSORBIDE MONONITRATE ER 30 MG TAB.ER.24H PO SCH (07:50)
[2016-10-11] MEDS: ASPIRIN ENTERIC COATED 81 MG TABLET.DR. PO SCH (07:50)
[2016-10-11] MEDS: METOPROLOL TART IMMED RELEASE 50 MG TABLET. PO SCH ×2 (07:51→21:01)
[2016-10-11] MEDS: CYANOCOBALAMIN (VITAMIN B-12) 1,000 MCG TABLET. PO SCH (07:51)
[2016-10-11] MEDS: HYDROcodone/APAP 7.5/325MG 1 TAB TABLET PO PRN ×4 (07:52→22:17)
[2016-10-11] MEDS: ACETYLCYSTEINE 20% ORAL SOLN 600 MG/3 ML SYRINGE. PO SCH (07:54)
--- NOTE | 2016-10-11 09:25 | PDOC ---
SUBJECTIVE ROS DOUGLAS/ CKD III Doing and feeling much better today CVS: no Orthopnea, no CP RESP: no SOB, no ÁLVAREZ GI: no Nausea, no Vomiting : no Dysuria, no Urgency OBJECTIVE Vital Signs Vital Signs Date Time Temp Pulse Resp B/P (MAP) Pulse Ox O2 Delivery O2 Flow Rate FiO2 10/11/16 08:00 Room Air 10/11/16 07:52 18 98 10/11/16 07:51 84 142/74 10/11/16 07:00 98.6 2.0 98.6 I & 0 Intake and Output 10/11/16 07:00 Intake Total 400 ml Output Total 1775 ml Balance -1375 ml Intake Oral 400 ml Output Urine Total 1775 ml PHYSICAL EXAM Physical Exam General Appearance: Awake Alert Oriented x 3 In no Distress Eyes: VIsion Unchanged Conjunctiva Normal EN: No EN Drainage Mucous Memb. moist Neck: no JVD no JVP Supple no Thyromegaly CVS: S1 S2 no Murmur No Gallop No Rub no Edema Resp: no Rales no Rhonchi no Acc. Muscle use GI: BAS +ve NO Bruit Non Tender Non Distended : no CVA tenderness; no Suprapubic Tenderness Assessment & Plan ARF - much Better today with IVF as ordered. ?Nocturia with ? FUNG - small PVR on US - may need flomax if nunu as OP - OP URO eval encouraged AMI - [facility] noted. defer to Cardiology to optimize CV meds. Watch creat off of IVF ? CKD III - DM HTN /NS cannot be ruled out; May need PEPs as OP Microcytic Anemia: IV Fe.for now HTN: defer to Cardiology to optimze post [facility] Discussed Plan of Care and prognosis etc. at length with family. F/up as OP in 4-6 weeks - will sign off - pl call with Qs COMMENT/RELEVANT DATA Meds Current Medications Medications (Trade) Dose Ordered Sig/Joey Start Time Stop Time Status Last Admin Dose Admin Acetaminophen/ Hydrocodone Bitart (Lortab 7.5/325) 1 tab PRN Q3HRS PRN 10/08/16 08:45 10/11/16 07:52 1 TAB Acetylcysteine (Mucomyst 20% Oral Solution) 1,200 mg BID 10/09/16 21:00 10/11/16 20:59 10/11/16 07:54 1,200 MG Albuterol/ Ipratropium (Duoneb) 3 ml 1X ONCE 10/08/16 04:30 10/08/16 04:36 DC 10/08/16 04:33 3 ML Amoxicillin/ Clavulanate Potassium (Augmentin 500/ 125mg) 1 tab BID 10/08/16 21:00 10/11/16 07:47 1 TAB Aspirin (Rocío Aspirin) 325 mg 1X ONCE 10/10/16 14:15 10/10/16 14:19 DC 10/10/16 14:18 325 MG Aspirin (Ecotrin) 81 mg DAILY 10/08/16 09:00 10/11/16 07:50 81 MG Cephalexin HCl (Keflex) 500 mg TID 10/08/16 14:00 UNV Clopidogrel Bisulfate (Plavix) 75 mg DAILYWBKFT 10/11/16 08:00 10/11/16 07:47 75 MG Cyanocobalamin (Vitamin B-12) 2,500 mcg DAILY 10/08/16 09:00 10/11/16 07:51 2,500 MCG Dextrose 1,000 ml @ 50 mls/hr Q20H 10/10/16 07:00 10/10/16 20:08 DC 10/10/16 06:24 50 MLS/HR Dextrose (Dextrose 50%-Water Syringe) 12.5 gm PRN Q15MIN PRN 10/09/16 11:15 Digoxin (Lanoxin) 125 mcg DAILY 10/08/16 09:00 10/08/16 19:26 DC Fentanyl Citrate (Fentanyl 2ml Vial) 75 mcg 1X ONCE 10/10/16 14:00 10/10/16 14:02 DC 10/10/16 14:00 50 MCG Fentanyl Citrate (Fentanyl 5ml Vial) 250 mcg STK-MED ONCE 10/10/16 13:35 10/10/16 13:36 DC Ferrous Sulfate (Feosol) 325 mg BIDWMEALS 10/08/16 09:00 10/11/16 07:47 325 MG Furosemide (Lasix) 40 mg 1X ONCE 10/08/16 06:00 10/08/16 06:01 DC 10/08/16 05:49 40 MG Heparin Sodium (Porcine) (Heparin Sodium) 8,000 unit 1X ONCE 10/10/16 14:00 10/10/16 14:02 DC 10/10/16 14:21 8,000 UNIT Heparin Sodium/ Dextrose 500 ml @ 0 mls/hr 1X ONCE 10/10/16 15:00 10/10/16 15:09 DC 10/10/16 15:30 16 MLS/HR Heparin Sodium/ Sodium Chloride 1,000 unit 1X ONCE 10/10/16 14:00 10/10/16 14:02 DC 10/10/16 14:19 1,000 UNIT Hydrochlorothiazide (Microzide) 12.5 mg DAILY 10/08/16 09:00 10/08/16 20:10 DC 10/08/16 10:00 12.5 MG Info (Do NOT chart on this entry -- for MONITORING) 1 each PRN DAILY PRN 10/10/16 14:15 10/12/16 14:14 Insulin Aspart (Novolog) 0-9 UNITS TIDWMEALS 10/09/16 12:00 10/10/16 17:57 9 UNITS Insulin Detemir (Levemir) 20 units QHS 10/08/16 21:00 10/10/16 21:02 20 UNITS Iodixanol (Visipaque 320) 100 ml 1X ONCE 10/10/16 14:00 10/10/16 14:02 DC 10/10/16 14:19 137 ML Iron Sucrose 200 mg/Sodium Chloride 110 ml @ 55 mls/hr 3X/WEEK 10/10/16 13:00 10/20/16 10:59 10/10/16 15:20 55 MLS/HR Isosorbide Mononitrate (Imdur) 30 mg DAILY 10/11/16 09:00 10/11/16 07:50 30 MG Lidocaine HCl 20 ml 1X ONCE 10/10/16 14:00 10/10/16 14:02 DC 10/10/16 14:19 20 ML Losartan Potassium (Cozaar) 100 mg DAILY 10/08/16 09:00 10/11/16 07:49 100 MG Magnesium Sulfate/ Dextrose 100 ml @ 100 mls/hr 1X ONCE 10/10/16 13:00 10/10/16 13:59 DC 10/10/16 15:21 100 MLS/HR Metoprolol Tartrate (Lopressor) 50 mg BID 10/08/16 09:00 10/11/16 07:51 50 MG Midazolam HCl (Versed) 5 mg 1X ONCE 10/10/16 14:00 10/10/16 14:02 DC 10/10/16 14:18 1 MG Morphine Sulfate 4 mg PRN Q2HR PRN 10/08/16 05:30 10/09/16 05:29 DC Nitroglycerin (Nitro-Bid Oint) 1 inch 1X ONCE 10/08/16 06:00 10/08/16 06:01 DC 10/08/16 05:49 1 INCH Nitroglycerin (Nitroglycerin) 200 mcg 1X ONCE 10/10/16 14:15 10/10/16 14:16 DC 10/10/16 14:18 200 MCG Nitroglycerin (Nitrostat) 0.4 mg PRN 1X PRN 10/08/16 08:45 Ondansetron HCl (Zofran) 4 mg PRN Q8HRS PRN 10/08/16 05:30 10/09/16 05:29 DC Oxycodone/ Acetaminophen (Percocet 7.5/ 325) 1 tab PRN Q3HRS PRN 10/08/16 08:45 Phytonadione (Mephyton) 7.5 mg 1X ONCE 10/08/16 21:30 10/08/16 21:33 DC 10/08/16 21:40 7.5 MG Potassium Chloride (Klor-Con) 10 meq DAILYWBKFT 10/08/16 10:00 10/08/16 10:32 DC Simvastatin (Zocor) 20 mg HS 10/08/16 21:00 10/10/16 20:51 20 MG Sodium Chloride 1,000 ml @ 100 mls/hr Q10H 10/09/16 11:00 10/10/16 20:08 DC 10/09/16 22:16 100 MLS/HR Temazepam (Restoril) 15 mg PRN QHS PRN 10/09/16 21:00 10/10/16 23:40 15 MG Vancomycin HCl 1 gm/Sodium Chloride 250 ml @ 250 mls/hr 1X ONCE 10/08/16 14:00 10/08/16 14:59 DC 10/08/16 14:25 250 MLS/HR Warfarin Sodium (Coumadin Per Physician) 1 each PRN DAILY PRN 10/10/16 22:00 Warfarin Sodium (Coumadin) 5 mg 1X ONCE 10/10/16 22:00 10/10/16 22:01 DC 10/10/16 23:35 5 MG Lab Laboratory Tests Test 10/10/16 10:23 10/10/16 17:03 10/10/16 20:46 10/11/16 04:50 Glucose (Fingerstick) 197 mg/dL (70-99) 350 mg/dL (70-99) 117 mg/dL (70-99) 104 mg/dL (70-99) Test 10/11/16 05:00 10/11/16 07:26 10/11/16 07:39 Sodium Level 135 mmol/L (136-145) Potassium Level 4.2 mmol/L (3.5-5.1) Chloride Level 102 mmol/L (98-107) Carbon Dioxide Level 25 mmol/L (21-32) Anion Gap 8 (6-14) Blood Urea Nitrogen 28 mg/dL (8-26) Creatinine 1.3 mg/dL (0.7-1.3) Estimated GFR (Cockcroft-Gault) 53.1 Glucose Level 109 mg/dL (70-99) Calcium Level 8.4 mg/dL (8.5-10.1) Phosphorus Level 3.6 mg/dL (2.6-4.7) Magnesium Level 1.8 mg/dL (1.8-2.4) Albumin 2.2 g/dL (3.4-5.0) Heparin Anti-Xa Act, Unfractionated < 0.10 IU/mL (0.30-0.70) Glucose (Fingerstick) 106 mg/dL (70-99) TERRI BOWDEN MD October 11, 2016 09:25
--- NOTE | 2016-10-11 09:51 | PDOC ---
PROGRESS NOTES Subjective Subjective STEMI, trop peak at 18 acute on chronic systolic CHF CKD 3, w/ likely vasomotor, anemia of CKD, HGb had trended lower, 1 u PRBC given yesterday DM2 htn OA, right knee pain, lactic acidosis, CHF, and wound healing mild malnutrition Objective Objective Vital Signs Date Time Temp Pulse Resp B/P (MAP) Pulse Ox O2 Delivery O2 Flow Rate FiO2 10/11/16 08:00 Room Air 10/11/16 07:52 18 98 10/11/16 07:51 84 142/74 10/11/16 07:00 98.6 2.0 98.6 Intake and Output 10/11/16 07:00 Intake Total 400 ml Output Total 1775 ml Balance -1375 ml Intake Oral 400 ml Output Urine Total 1775 ml Physical Exam Heart: Regular rate (tele, reg) General: Alert, Oriented X3, Cooperative Neuro: Normal speech, Other (walks OK with walker) Skin: No rashes Assessment Assessment Problems Medical Problems: (1) Hypoxia Status: Acute (2) Lactic acid acidosis Status: Acute (3) NSTEMI (non-ST elevated myocardial infarction) Status: Acute (4) Pulmonary edema Status: Acute (5) Renal insufficiency Status: Acute Plan Plan of Care s/p Cath,stent per CV, good viability, DC per primary Comment Review of Relevant I have reviewed the following items alphonso (where applicable) has been applied. Labs Laboratory Tests Test 10/09/16 11:25 10/09/16 16:51 10/09/16 20:34 10/10/16 03:35 Glucose (Fingerstick) 249 mg/dL (70-99) 150 mg/dL (70-99) 298 mg/dL (70-99) Hemoglobin 7.8 g/dL (13.0-17.5) Prothrombin Time 15.5 SEC (11.7-14.0) Prothromb Time International Ratio 1.3 (0.8-1.1) Sodium Level 134 mmol/L (136-145) Potassium Level 4.4 mmol/L (3.5-5.1) Chloride Level 102 mmol/L (98-107) Carbon Dioxide Level 25 mmol/L (21-32) Anion Gap 7 (6-14) Blood Urea Nitrogen 36 mg/dL (8-26) Creatinine 1.7 mg/dL (0.7-1.3) Estimated GFR (Cockcroft-Gault) 39.0 Glucose Level 220 mg/dL (70-99) Calcium Level 8.2 mg/dL (8.5-10.1) Phosphorus Level 3.0 mg/dL (2.6-4.7) Magnesium Level 1.7 mg/dL (1.8-2.4) Albumin 2.3 g/dL (3.4-5.0) Test 10/10/16 07:37 10/10/16 10:23 10/10/16 17:03 10/10/16 20:46 Glucose (Fingerstick) 228 mg/dL (70-99) 197 mg/dL (70-99) 350 mg/dL (70-99) 117 mg/dL (70-99) Test 10/11/16 04:50 10/11/16 05:00 10/11/16 07:26 10/11/16 07:39 Glucose (Fingerstick) 104 mg/dL (70-99) 106 mg/dL (70-99) Sodium Level 135 mmol/L (136-145) Potassium Level 4.2 mmol/L (3.5-5.1) Chloride Level 102 mmol/L (98-107) Carbon Dioxide Level 25 mmol/L (21-32) Anion Gap 8 (6-14) Blood Urea Nitrogen 28 mg/dL (8-26) Creatinine 1.3 mg/dL (0.7-1.3) Estimated GFR (Cockcroft-Gault) 53.1 Glucose Level 109 mg/dL (70-99) Calcium Level 8.4 mg/dL (8.5-10.1) Phosphorus Level 3.6 mg/dL (2.6-4.7) Magnesium Level 1.8 mg/dL (1.8-2.4) Albumin 2.2 g/dL (3.4-5.0) Heparin Anti-Xa Act, Unfractionated < 0.10 IU/mL (0.30-0.70) Laboratory Tests Test 10/10/16 10:23 10/10/16 17:03 10/10/16 20:46 10/11/16 04:50 Glucose (Fingerstick) 197 mg/dL (70-99) 350 mg/dL (70-99) 117 mg/dL (70-99) 104 mg/dL (70-99) Test 10/11/16 05:00 10/11/16 07:26 10/11/16 07:39 Sodium Level 135 mmol/L (136-145) Potassium Level 4.2 mmol/L (3.5-5.1) Chloride Level 102 mmol/L (98-107) Carbon Dioxide Level 25 mmol/L (21-32) Anion Gap 8 (6-14) Blood Urea Nitrogen 28 mg/dL (8-26) Creatinine 1.3 mg/dL (0.7-1.3) Estimated GFR (Cockcroft-Gault) 53.1 Glucose Level 109 mg/dL (70-99) Calcium Level 8.4 mg/dL (8.5-10.1) Phosphorus Level 3.6 mg/dL (2.6-4.7) Magnesium Level 1.8 mg/dL (1.8-2.4) Albumin 2.2 g/dL (3.4-5.0) Heparin Anti-Xa Act, Unfractionated < 0.10 IU/mL (0.30-0.70) Glucose (Fingerstick) 106 mg/dL (70-99) Microbiology 10/08/16 Blood Culture - Preliminary, Resulted NO GROWTH AFTER 3 DAYS Medications Current Medications Albuterol/ Ipratropium (Duoneb) 3 ml 1X ONCE NEB Last administered on 04:33; Start 10/08/16 at 04:30; Stop 10/08/16 at 04:36; Status DC Aspirin (Ecotrin) 325 mg 1X ONCE PO Last administered on 10/08/16 05:49; Start 10/08/16 at 06:00; Stop 10/08/16 at 06:01; Status DC Furosemide (Lasix) 40 mg 1X ONCE IVP Last administered on 10/08/16 05:49; Start 10/08/16 at 06:00; Stop 10/08/16 at 06:01; Status DC Ondansetron HCl (Zofran) 4 mg PRN Q8HRS PRN IV NAUSEA/VOMITING; Start 10/08/16 at 05:30; Stop 10/09/16 at 05:29; Status DC Morphine Sulfate 4 mg PRN Q2HR PRN IV SEVERE PAIN; Start 10/08/16 at 05:30; Stop 10/09/16 at 05:29; Status DC Nitroglycerin (Nitro-Bid Oint) 1 inch 1X ONCE TP Last administered on 05:49; Start 10/08/16 at 06:00; Stop 10/08/16 at 06:01; Status DC Aspirin (Ecotrin) 81 mg DAILY PO Last administered on 10/11/16 07:50; Start 10/08/16 at 09:00 Cyanocobalamin (Vitamin B-12) 2,500 mcg DAILY PO Last administered on 10/11/16 07:51; Start 10/08/16 at 09:00 Digoxin (Lanoxin) 125 mcg DAILY PO ; Start 10/08/16 at 09:00; Stop 10/08/16 at 19: 26; Status DC Ferrous Sulfate (Feosol) 325 mg BIDWMEALS PO Last administered on 10/11/16 07: 47; Start 10/08/16 at 09:00 Hydrochlorothiazide (Microzide) 12.5 mg DAILY PO Last administered on 10/08/16 10:00; Start 10/08/16 at 09:00; Stop 10/08/16 at 20:10; Status DC Acetaminophen/ Hydrocodone Bitart (Lortab 7.5/325) 1 tab PRN Q3HRS PRN PO PAIN Last administered on 10/11/16 07:52; Start 10/08/16 at 08:45 Insulin Aspart (Novolog) 15 units TIDWMEALS SQ Last administered on 10/11/16 08 :00; Start 10/08/16 at 12:00 Metoprolol Tartrate (Lopressor) 50 mg BID PO Last administered on 10/11/16 07: 51; Start 10/08/16 at 09:00 Nitroglycerin (Nitrostat) 0.4 mg PRN 1X PRN SL CHEST PAIN; Start 10/08/16 at 08: 45 Oxycodone/ Acetaminophen (Percocet 7.5/ 325) 1 tab PRN Q3HRS PRN PO PAIN; Start 10/08/16 at 08:45 Simvastatin (Zocor) 20 mg HS PO Last administered on 10/10/16 20:51; Start 10/08 at 21:00 Insulin Detemir (Levemir) 20 units QHS SQ Last administered on 10/10/16 21:02; Start 10/08/16 at 21:00 Losartan Potassium (Cozaar) 100 mg DAILY PO Last administered on 10/11/16 07:49 ; Start 10/08/16 at 09:00 Potassium Chloride (Klor-Con) 10 meq DAILYWBKFT PO ; Start 10/08/16 at 10:00; Stop 10/08/16 at 10:32; Status DC Aspirin (Rocío Aspirin) 325 mg 1X ONCE PO Last administered on 10/08/16 13:23 ; Start 10/08/16 at 11:30; Stop 10/08/16 at 11:31; Status DC Cephalexin HCl (Keflex) 500 mg TID PO ; Start 10/08/16 at 14:00; Status UNV Vancomycin HCl 1 gm/Sodium Chloride 250 ml @ 250 mls/hr 1X ONCE IV Last administered on 10/08/16 14:25; Start 10/08/16 at 14:00; Stop 10/08/16 at 14:59; Status DC Amoxicillin/ Clavulanate Potassium (Augmentin 500/ 125mg) 1 tab BID PO Last administered on 10/11/16 07:47; Start 10/08/16 at 21:00 Phytonadione (Mephyton) 25 mg 1X ONCE PO ; Start 10/08/16 at 13:45; Stop at 13:46; Status DC Phytonadione (Mephyton) 5 mg 1X ONCE PO Last administered on 10/08/16 14:25; Start 10/08/16 at 14:00; Stop 10/08/16 at 14:01; Status DC Phytonadione (Mephyton) 2.5 mg 1X ONCE PO Last administered on 10/08/16 20:57 ; Start 10/08/16 at 20:15; Stop 10/08/16 at 20:16; Status DC Phytonadione (Mephyton) 7.5 mg 1X ONCE PO Last administered on 10/08/16 21:40 ; Start 10/08/16 at 21:30; Stop 10/08/16 at 21:33; Status DC Sodium Chloride 1,000 ml @ 100 mls/hr Q10H IV Last administered on 10/09/16 22 :16; Start 10/09/16 at 11:00; Stop 10/10/16 at 20:08; Status DC Magnesium Sulfate/ Dextrose 50 ml @ 25 mls/hr PRN DAILY PRN IV for Mag < 1.7 on am labs; Start 10/09/16 at 11:00 Acetylcysteine (Mucomyst 20% Oral Solution) 1,200 mg BID PO ; Start 10/09/16 at 11:00; Stop 10/09/16 at 11:39; Status DC Insulin Aspart (Novolog) 0-9 UNITS TIDWMEALS SQ Last administered on 10/10/16 17:57; Start 10/09/16 at 12:00 Dextrose (Dextrose 50%-Water Syringe) 12.5 gm PRN Q15MIN PRN IV SEE COMMENTS; Start 10/09/16 at 11:15 Acetylcysteine (Mucomyst 20% Oral Solution) 1,200 mg BID PO ; Start 10/09/16 at 12:30; Stop 10/09/16 at 12:30; Status DC Acetylcysteine (Mucomyst 20% Oral Solution) 1,200 mg BID PO Last administered on 10/11/16 07:54; Start 10/09/16 at 21:00; Stop 10/11/16 at 20:59 Temazepam (Restoril) 15 mg PRN QHS PRN PO INSOMNIA Last administered on 23:40; Start 10/09/16 at 21:00 Dextrose 1,000 ml @ 50 mls/hr Q20H IV Last administered on 10/10/16 06:24; Start 10/10/16 at 07:00; Stop 10/10/16 at 20:08; Status DC Heparin Sodium/ Sodium Chloride 500 ml @ As Directed STK-MED ONCE .ROUTE ; Start 10/10/16 at 10:54; Stop 10/10/16 at 10:55; Status DC Lidocaine HCl 20 ml STK-MED ONCE .ROUTE ; Start 10/10/16 at 10:55; Stop 10/10/16 at 10:56; Status DC Iodixanol (Visipaque 320) 100 ml STK-MED ONCE .ROUTE ; Start 10/10/16 at 10:55; Stop 10/10/16 at 10:56; Status DC Magnesium Sulfate/ Dextrose 100 ml @ 100 mls/hr 1X ONCE IV Last administered on 10/10/16 15:21; Start 10/10/16 at 13:00; Stop 10/10/16 at 13:59; Status DC Iron Sucrose 200 mg/Sodium Chloride 110 ml @ 55 mls/hr 3X/WEEK IV Last administered on 10/10/16 15:20; Start 10/10/16 at 13:00; Stop 10/20/16 at 10:59 Fentanyl Citrate (Fentanyl 5ml Vial) 250 mcg STK-MED ONCE .ROUTE ; Start at 13:35; Stop 10/10/16 at 13:36; Status DC Midazolam HCl (Versed) 5 mg STK-MED ONCE .ROUTE ; Start 10/10/16 at 13:36; Stop 10/10/16 at 13:37; Status DC Heparin Sodium (Porcine) (Heparin Sodium) 10,000 unit STK-MED ONCE .ROUTE ; Start 10/10/16 at 13:54; Stop 10/10/16 at 13:55; Status DC Iodixanol (Visipaque 320) 100 ml STK-MED ONCE .ROUTE ; Start 10/10/16 at 13:56; Stop 10/10/16 at 13:57; Status DC Heparin Sodium/ Sodium Chloride 1,000 unit 1X ONCE IV Last administered on 10/10 14:19; Start 10/10/16 at 14:00; Stop 10/10/16 at 14:02; Status DC Heparin Sodium (Porcine) (Heparin Sodium) 8,000 unit 1X ONCE IV Last administered on 10/10/16 14:21; Start 10/10/16 at 14:00; Stop 10/10/16 at 14:02; Status DC Midazolam HCl (Versed) 5 mg 1X ONCE IV Last administered on 10/10/16 14:18; Start 10/10/16 at 14:00; Stop 10/10/16 at 14:02; Status DC Fentanyl Citrate (Fentanyl 2ml Vial) 75 mcg 1X ONCE IV Last administered on 14:00; Start 10/10/16 at 14:00; Stop 10/10/16 at 14:02; Status DC Iodixanol (Visipaque 320) 100 ml 1X ONCE IV Last administered on 10/10/16 14: 19; Start 10/10/16 at 14:00; Stop 10/10/16 at 14:02; Status DC Lidocaine HCl 20 ml 1X ONCE IJ Last administered on 10/10/16 14:19; Start 10/10 at 14:00; Stop 10/10/16 at 14:02; Status DC Info (Do NOT chart on this entry -- for MONITORING) 1 each PRN DAILY PRN MC SEE COMMENTS; Start 10/10/16 at 14:15; Stop 10/12/16 at 14:14 Nitroglycerin (Nitroglycerin) 200 mcg STK-MED ONCE .ROUTE ; Start 10/10/16 at 14: 04; Stop 10/10/16 at 14:05; Status DC Nitroglycerin (Nitroglycerin) 200 mcg 1X ONCE IART Last administered on 14:18; Start 10/10/16 at 14:15; Stop 10/10/16 at 14:16; Status DC Aspirin (Rocío Aspirin) 325 mg STK-MED ONCE .ROUTE ; Start 10/10/16 at 14:14; Stop 10/10/16 at 14:15; Status DC Clopidogrel Bisulfate (Plavix) 75 mg STK-MED ONCE .ROUTE ; Start 10/10/16 at 14: 14; Stop 10/10/16 at 14:15; Status DC Clopidogrel Bisulfate (Plavix) 300 mg 1X ONCE PO Last administered on 14:18; Start 10/10/16 at 14:15; Stop 10/10/16 at 14:19; Status DC Aspirin (Rocío Aspirin) 325 mg 1X ONCE PO Last administered on 10/10/16 14:18 ; Start 10/10/16 at 14:15; Stop 10/10/16 at 14:19; Status DC Heparin Sodium/ Dextrose 500 ml @ 0 mls/hr 1X ONCE IV Last administered on 10/10 15:30; Start 10/10/16 at 15:00; Stop 10/10/16 at 15:09; Status DC Clopidogrel Bisulfate (Plavix) 75 mg DAILYWBKFT PO Last administered on 07:47; Start 10/11/16 at 08:00 Isosorbide Mononitrate (Imdur) 30 mg DAILY PO Last administered on 10/11/16 07: 50; Start 10/11/16 at 09:00 Warfarin Sodium (Coumadin) 5 mg 1X ONCE PO Last administered on 5/5/17at 23:35 ; Start 10/10/16 at 22:00; Stop 10/10/16 at 22:01; Status DC Warfarin Sodium (Coumadin Per Physician) 1 each PRN DAILY PRN MC SEE COMMENTS; Start 10/10/16 at 22:00 Active Scripts Active Reported Sulfamethoxazole-Tmp Ds Tablet (Sulfamethoxazole/Trimethoprim) Unknown Strength Tablet Unknown Dose Warfarin Sodium 3 Mg Tablet 1 Tab PO DAILY Potassium Chloride 10 Meq Tablet.er 10 Meq PO DAILY Digoxin 125 Mcg Tablet 1 Tab PO DAILY Aspir 81 (Aspirin) 81 Mg Tablet.dr 1 Tab PO DAILY Percocet 7.5-325 Mg Tablet (Oxycodone/Acetaminophen) 1 Each Tablet 1 Tab PO PRN Q3HRS PRN Ferrous Sulfate 325 Mg Tablet 1 Tab PO BID last dose this am next dos is with supper Losartan Potassium 100 Mg Tablet 100 Mg PO DAILY las dose with lunch next dose tomorrow am Hydrocodone-Apap 7.5-325 (Hydrocodone Bit/Acetaminophen) 1 Each Tablet 1 Tab PO Q3HRS PRN Levemir (Insulin Detemir) 100 Unit/1 Ml Vial 20 Unit SQ HS LAST DOSE GIVEN: DATE: 07/18 TIME: 9 PM NEXT DOSE DUE: DATE: 07/19 TIME: 9 PM Metoprolol Tartrate 50 Mg Tablet 50 Mg PO BID LAST DOSE GIVEN: DATE: 10/02/16 TIME: 9 AM NEXT DOSE DUE: DATE: 10/02/16 TIME: 9 PM Vitamin B-12 (Cyanocobalamin (Vitamin B-12)) 1,000 Mcg Tablet 2,500 Mcg PO DAILY LAST DOSE GIVEN: DATE: 10/02/16 TIME: 9 AM NEXT DOSE DUE: DATE: 10/03 TIME: 9 AM Hydrochlorothiazide Capsule (Hydrochlorothiazide) 12.5 Mg Capsule 12.5 Mg PO DAILY LAST DOSE GIVEN: DATE: 10/02/16 TIME: 9 AM NEXT DOSE DUE: DATE: 10/03/16 TIME: 9 AM Novolog Flexpen (Insulin Aspart) 100 Unit/1 Ml Insuln.pen 15 Unit SQ TIDWMEALS LAST DOSE GIVEN: DATE: 07/19 TIME: WITH LUNCH NEXT DOSE DUE: DATE: 07/19 TIME: WITH DINNER NITROGLYCERIN SubLingual (Nitroglycerin) 0.4 Mg Tab.subl 0.4 Mg SL PRN 1X PRN NOT GIVEN IN HOSPITAL. TAKE DIRECTED. Simvastatin 20 Mg Tablet 20 Mg PO HS LAST DOSE GIVEN: DATE: 10/01/16 TIME: 9 PM NEXT DOSE DUE: DATE: 10/02/16 TIME: 9 PM Vitals/I & O Vital Sign - Last 24 Hours 10/10/16 10/10/16 10/10/16 10/10/16 10:45 10:48 11:45 14:00 Temp 98.1 98.1 Pulse 66 64 64 Resp 18 20 20 16 B/P (MAP) 140/77 128/69 (88) 125/65 Pulse Ox 98 97 O2 Delivery Room Air Nasal Cannula O2 Flow Rate 2.0 10/10/16 10/10/16 10/10/16 10/10/16 15:00 15:15 15:30 15:34 Pulse 83 83 82 75 Resp 18 18 18 B/P (MAP) 145/74 (97) 138/64 (88) 137/66 (89) 137/66 (89) 10/10/16 10/10/16 10/10/16 10/10/16 15:45 16:15 16:45 17:15 Pulse 82 58 80 78 Resp 18 18 18 18 B/P (MAP) 134/71 (92) 117/58 (77) 129/67 (87) 124/65 (84) 10/10/16 10/10/16 10/10/16 10/10/16 19:15 19:15 20:50 20:51 Temp 97.4 97.4 Pulse 81 80 Resp 18 18 B/P (MAP) 142/69 (93) 146/75 Pulse Ox 100 96 O2 Delivery Room Air Nasal Cannula Room Air O2 Flow Rate 2.0 10/10/16 10/10/16 10/11/16 10/11/16 21:52 23:36 03:59 07:00 Temp 97.7 97.8 98.6 97.7 97.8 98.6 Pulse 60 68 84 Resp 16 18 18 18 B/P (MAP) 126/62 (83) 131/65 (87) 142/63 (89) Pulse Ox 97 97 99 94 O2 Delivery Room Air Room Air Room Air Nasal Cannula O2 Flow Rate 2.0 10/11/16 10/11/16 10/11/16 10/11/16 07:49 07:50 07:51 07:52 Pulse 81 84 84 Resp 18 B/P (MAP) 142/74 142/74 142/74 Pulse Ox 98 O2 Delivery Room Air 10/11/16 08:00 O2 Delivery Room Air Intake and Output 10/10/16 10/10/16 10/11/16 15:00 23:00 07:00 Intake Total 240 ml 160 ml Output Total 525 ml 500 ml 750 ml Balance -525 ml -260 ml -590 ml Nutrition Consultation Dietary Evaluation: Recommendations by RD: Dietary education by RD Comments: Rec. cardiac/ADA diet when able to resume PO intake Educated on TLC diet and nutrition label reading Provided handouts on TLC diet and nutrition label reading for reference upon d/c Expected Outcomes/Goals: to meet >75% est nutr needs to identify 2 heart healthy foods Malnutrition Findings: Reduced [employer] Strength (Non-Sev: N/A Malnutrition related to morbid: No Weight Status: Overweight Fluid Accumulation (N/A): N/A COREY CERVANTES MD October 11, 2016 09:51
[2016-10-11 11:00] VITALS: BP 105/52
--- NOTE | 2016-10-11 12:18 | RAD ---
APPROVED REPORT Imaging Protocol IMAGE PROTOCOL: Viability only Rest: Stress: Viability: Radiopharm.Thallium Dose3.2mCi Duration 15min. Img Date 10/09/2016 Inj-Img [id number]. Viability without Stress The patient was injected with 3.2mCi of Thallium 201 in the IV - Left Hand by SUZANNA Yung at 10/09/2016, 0730 Date/Time. Initial Imaging was performed by SUZANNA Gil at 10/09/2016, 0800 Date/Time. The patient was injected with 1mCi of Thallium 201 in the IV - Left Hand by SUZANNA Gil at 10/09, 0825 Date/Time. Delayed Images were acquired by SUZANNA Gil at 10/09/2016, 1145 Date/Time. Motion Correction: No Conclusion 1. Viability study was obtained by utilizing thallium-201. 2. 0.2 mCi of thallium-201 was injected. Images were obtained an hour later. 3. Second set of images were obtained 4 hours later. 4. Await 24-hour images were obtained the next day. 5. There is uptake of the isotope throughout the myocardium. 6. Entire myocardium is thus a viable.
--- NOTE | 2016-10-11 14:56 | PDOC ---
Provider Note Provider Note She is on no further episodes of shortness of breath or chest tightness. He feels better and is anxious to go home tomorrow. Lungs are clear. Head name is now down to 1.3. He underwent physical therapy with no problems. Plan to discharge tomorrow. LATOSHA HWANG MD October 11, 2016 14:56
[2016-10-11 15:00] VITALS: BP 113/53
[2016-10-11] MEDS ORDERED: ENOXAPARIN 40 MG/0.4 ML SYRINGE. SQ ONE (15:00)
[2016-10-11] MEDS ORDERED: WARFARIN 7.5 MG TABLET. PO ONE (16:00)
[2016-10-11 19:00] VITALS: BP 117/64
[2016-10-11] MEDS: SIMVASTATIN 20 MG TABLET PO SCH (20:59)
[2016-10-11] MEDS: INSULIN DETEMIR 300 UNITS/3 ML INSULN.PEN. SQ SCH (21:04)
[2016-10-11] MEDS: TEMAZEPAM 15 MG CAPSULE PO PRN (22:14)
[2016-10-11 22:17] VITALS: BP 142/72
[2016-10-12 03:14] VITALS: BP 138/69
[2016-10-12 05:23] LABS: BASO % 1 % (0-3); EOS % 7 % (0-3); HEMATOCRIT 28.1 % (39.0-53.0); HEMOGLOBIN 9.2 g/dL (13.0-17.5); LYMPH # 0.8 x10^3/uL (1.0-4.8); LYMPH % 16 % (24-48); MEAN CORPUSCULAR HEMOGLOBIN 26 pg (25-35); MEAN CORPUSCULAR HGB CONC 33 g/dL (31-37); MEAN CORPUSCULAR VOLUME 79 fL (79-100); MONO % 8 % (0-9); NEUT % 68 % (31-73); PLATELET COUNT 347 x10^3/uL (140-400); RED BLOOD COUNT 3.56 x10^6/uL (4.30-5.70); RED CELL DISTRIBUTION WIDTH 17.7 % (11.5-14.5); WHITE BLOOD COUNT 4.9 x10^3/uL (4.0-11.0)
[2016-10-12 05:38] LABS: ALBUMIN 2.3 g/dL (3.4-5.0); CALCIUM 8.1 mg/dL (8.5-10.1); CREATININE 1.5 mg/dL (0.7-1.3); PHOSPHORUS 4.1 mg/dL (2.6-4.7); POTASSIUM 4.5 mmol/L (3.5-5.1)
[2016-10-12 07:00] VITALS: BP 146/67
[2016-10-12] MEDS: INSULIN ASPART 300 UNITS/3 ML INSULN.PEN SQ SCH ×4 (08:00→12:08)
[2016-10-12] MEDS: FERROUS SULFATE 325 MG TABLET. PO SCH ×2 (08:19→16:11)
[2016-10-12] MEDS: CLOPIDOGREL BISULFATE 75 MG TABLET PO SCH (08:20)
[2016-10-12] MEDS: ASPIRIN ENTERIC COATED 81 MG TABLET.DR. PO SCH (08:20)
[2016-10-12] MEDS: AMOXICILLIN/K CLAV 500/125MG TABLET. PO SCH (08:20)
[2016-10-12] MEDS: CYANOCOBALAMIN (VITAMIN B-12) 1,000 MCG TABLET. PO SCH (08:20)
[2016-10-12] MEDS: HYDROcodone/APAP 7.5/325MG 1 TAB TABLET PO PRN (08:21)
[2016-10-12] MEDS: ISOSORBIDE MONONITRATE ER 30 MG TAB.ER.24H PO SCH (08:21)
[2016-10-12] MEDS: LOSARTAN POTASSIUM 50 MG TABLET. PO SCH (08:22)
[2016-10-12] MEDS: METOPROLOL TART IMMED RELEASE 50 MG TABLET. PO SCH (08:22)
[2016-10-12] MEDS ORDERED: ENOXAPARIN 40 MG/0.4 ML SYRINGE. SQ SCH (09:00)
[2016-10-12] MEDS ORDERED: AMOX1TAB58 PO (10:43)
[2016-10-12] MEDS ORDERED: ISOS30TA4 PO ×2 (10:43→12:20)
[2016-10-12] MEDS ORDERED: CLOP75TA PO ×2 (10:43→12:20)
[2016-10-12] MEDS ORDERED: ASPI325T11 PO (10:43)
[2016-10-12] MEDS ORDERED: VANCOMYCIN 1 GM in IV NORMAL SALINE 250ML 250 ML IV ONE (10:45)
[2016-10-12] MEDS ORDERED: LOSA50TA6 PO (10:45)
[2016-10-12 11:00] VITALS: BP 110/62
[2016-10-12 11:09] LABS: INR 1.6 (0.8-1.1); PROTHROMBIN TIME PATIENT 17.8 SEC (11.7-14.0)
[2016-10-12] MEDS ORDERED: SULF1TAB24 PO (12:20)
[2016-10-12] MEDS ORDERED: LOSA50TA2 PO (12:20)
[2016-10-12] MEDS ORDERED: WARF2TAB7 PO (12:20)
--- NOTE | 2016-10-12 12:22 | PDOC ---
PROGRESS NOTES Chief Complaint Chief Complaint STEMI, trop peak at 18 acute on chronic systolic CHF CKD 3, w/ likely vasomotor, anemia of CKD, DM2 htn OA, right knee pain, lactic acidosis, CHF, and wound healing mild malnutrition History of Present Illness History of Present Illness feels well wants to get up inq. about cath and then possible DC Vitals Vitals Vital Signs Date Time Temp Pulse Resp B/P (MAP) Pulse Ox O2 Delivery O2 Flow Rate FiO2 10/12/16 11:00 97.6 67 18 110/62 (78) 100 Room Air 97.6 10/11/16 15:00 2.0 Physical Exam General: Alert, Oriented X3, Cooperative Heart: Regular rate (tele, reg) Lungs: Clear Abdomen: Normal bowel sounds, Soft Extremities: No clubbing, No cyanosis Skin: No rashes Labs LABS Laboratory Tests Test 10/11/16 17:05 10/11/16 17:47 10/11/16 21:01 10/12/16 04:00 Glucose (Fingerstick) 52 mg/dL (70-99) 132 mg/dL (70-99) 185 mg/dL (70-99) White Blood Count 4.9 x10^3/uL (4.0-11.0) Red Blood Count 3.56 x10^6/uL (4.30-5.70) Hemoglobin 9.2 g/dL (13.0-17.5) Hematocrit 28.1 % (39.0-53.0) Mean Corpuscular Volume 79 fL (79-100) Mean Corpuscular Hemoglobin 26 pg (25-35) Mean Corpuscular Hemoglobin Concent 33 g/dL (31-37) Red Cell Distribution Width 17.7 % (11.5-14.5) Platelet Count 347 x10^3/uL (140-400) Neutrophils (%) (Auto) 68 % (31-73) Lymphocytes (%) (Auto) 16 % (24-48) Monocytes (%) (Auto) 8 % (0-9) Eosinophils (%) (Auto) 7 % (0-3) Basophils (%) (Auto) 1 % (0-3) Neutrophils # (Auto) 3.3 x10^3uL (1.8-7.7) Lymphocytes # (Auto) 0.8 x10^3/uL (1.0-4.8) Monocytes # (Auto) 0.4 x10^3/uL (0.0-1.1) Eosinophils # (Auto) 0.3 x10^3/uL (0.0-0.7) Basophils # (Auto) 0.0 x10^3/uL (0.0-0.2) Sodium Level 134 mmol/L (136-145) Potassium Level 4.5 mmol/L (3.5-5.1) Chloride Level 101 mmol/L (98-107) Carbon Dioxide Level 26 mmol/L (21-32) Anion Gap 7 (6-14) Blood Urea Nitrogen 30 mg/dL (8-26) Creatinine 1.5 mg/dL (0.7-1.3) Estimated GFR (Cockcroft-Gault) 45.0 Glucose Level 115 mg/dL (70-99) Calcium Level 8.1 mg/dL (8.5-10.1) Phosphorus Level 4.1 mg/dL (2.6-4.7) Magnesium Level 1.7 mg/dL (1.8-2.4) Albumin 2.3 g/dL (3.4-5.0) Test 10/12/16 07:42 10/12/16 10:20 10/12/16 11:43 Glucose (Fingerstick) 140 mg/dL (70-99) 124 mg/dL (70-99) Prothrombin Time 17.8 SEC (11.7-14.0) Prothromb Time International Ratio 1.6 (0.8-1.1) Assessment and Plan Assessmemt and Plan agree w DC Problems Medical Problems: (1) Hypoxia Status: Acute (2) Lactic acid acidosis Status: Acute (3) NSTEMI (non-ST elevated myocardial infarction) Status: Acute (4) Pulmonary edema Status: Acute (5) Renal insufficiency Status: Acute Problems: Comment Review of Relevant I have reviewed the following items alphonso (where applicable) has been applied. Labs Laboratory Tests Test 10/10/16 17:03 10/10/16 20:46 10/11/16 04:50 10/11/16 05:00 Glucose (Fingerstick) 350 mg/dL (70-99) 117 mg/dL (70-99) 104 mg/dL (70-99) Sodium Level 135 mmol/L (136-145) Potassium Level 4.2 mmol/L (3.5-5.1) Chloride Level 102 mmol/L (98-107) Carbon Dioxide Level 25 mmol/L (21-32) Anion Gap 8 (6-14) Blood Urea Nitrogen 28 mg/dL (8-26) Creatinine 1.3 mg/dL (0.7-1.3) Estimated GFR (Cockcroft-Gault) 53.1 Glucose Level 109 mg/dL (70-99) Calcium Level 8.4 mg/dL (8.5-10.1) Phosphorus Level 3.6 mg/dL (2.6-4.7) Magnesium Level 1.8 mg/dL (1.8-2.4) Albumin 2.2 g/dL (3.4-5.0) Test 10/11/16 07:26 10/11/16 07:39 10/11/16 12:06 10/11/16 17:05 Heparin Anti-Xa Act, Unfractionated < 0.10 IU/mL (0.30-0.70) Glucose (Fingerstick) 106 mg/dL (70-99) 167 mg/dL (70-99) 52 mg/dL (70-99) Test 10/11/16 17:47 10/11/16 21:01 10/12/16 04:00 10/12/16 07:42 Glucose (Fingerstick) 132 mg/dL (70-99) 185 mg/dL (70-99) 140 mg/dL (70-99) White Blood Count 4.9 x10^3/uL (4.0-11.0) Red Blood Count 3.56 x10^6/uL (4.30-5.70) Hemoglobin 9.2 g/dL (13.0-17.5) Hematocrit 28.1 % (39.0-53.0) Mean Corpuscular Volume 79 fL (79-100) Mean Corpuscular Hemoglobin 26 pg (25-35) Mean Corpuscular Hemoglobin Concent 33 g/dL (31-37) Red Cell Distribution Width 17.7 % (11.5-14.5) Platelet Count 347 x10^3/uL (140-400) Neutrophils (%) (Auto) 68 % (31-73) Lymphocytes (%) (Auto) 16 % (24-48) Monocytes (%) (Auto) 8 % (0-9) Eosinophils (%) (Auto) 7 % (0-3) Basophils (%) (Auto) 1 % (0-3) Neutrophils # (Auto) 3.3 x10^3uL (1.8-7.7) Lymphocytes # (Auto) 0.8 x10^3/uL (1.0-4.8) Monocytes # (Auto) 0.4 x10^3/uL (0.0-1.1) Eosinophils # (Auto) 0.3 x10^3/uL (0.0-0.7) Basophils # (Auto) 0.0 x10^3/uL (0.0-0.2) Sodium Level 134 mmol/L (136-145) Potassium Level 4.5 mmol/L (3.5-5.1) Chloride Level 101 mmol/L (98-107) Carbon Dioxide Level 26 mmol/L (21-32) Anion Gap 7 (6-14) Blood Urea Nitrogen 30 mg/dL (8-26) Creatinine 1.5 mg/dL (0.7-1.3) Estimated GFR (Cockcroft-Gault) 45.0 Glucose Level 115 mg/dL (70-99) Calcium Level 8.1 mg/dL (8.5-10.1) Phosphorus Level 4.1 mg/dL (2.6-4.7) Magnesium Level 1.7 mg/dL (1.8-2.4) Albumin 2.3 g/dL (3.4-5.0) Test 10/12/16 10:20 10/12/16 11:43 Prothrombin Time 17.8 SEC (11.7-14.0) Prothromb Time International Ratio 1.6 (0.8-1.1) Glucose (Fingerstick) 124 mg/dL (70-99) Laboratory Tests Test 10/11/16 17:05 10/11/16 17:47 10/11/16 21:01 10/12/16 04:00 Glucose (Fingerstick) 52 mg/dL (70-99) 132 mg/dL (70-99) 185 mg/dL (70-99) White Blood Count 4.9 x10^3/uL (4.0-11.0) Red Blood Count 3.56 x10^6/uL (4.30-5.70) Hemoglobin 9.2 g/dL (13.0-17.5) Hematocrit 28.1 % (39.0-53.0) Mean Corpuscular Volume 79 fL (79-100) Mean Corpuscular Hemoglobin 26 pg (25-35) Mean Corpuscular Hemoglobin Concent 33 g/dL (31-37) Red Cell Distribution Width 17.7 % (11.5-14.5) Platelet Count 347 x10^3/uL (140-400) Neutrophils (%) (Auto) 68 % (31-73) Lymphocytes (%) (Auto) 16 % (24-48) Monocytes (%) (Auto) 8 % (0-9) Eosinophils (%) (Auto) 7 % (0-3) Basophils (%) (Auto) 1 % (0-3) Neutrophils # (Auto) 3.3 x10^3uL (1.8-7.7) Lymphocytes # (Auto) 0.8 x10^3/uL (1.0-4.8) Monocytes # (Auto) 0.4 x10^3/uL (0.0-1.1) Eosinophils # (Auto) 0.3 x10^3/uL (0.0-0.7) Basophils # (Auto) 0.0 x10^3/uL (0.0-0.2) Sodium Level 134 mmol/L (136-145) Potassium Level 4.5 mmol/L (3.5-5.1) Chloride Level 101 mmol/L (98-107) Carbon Dioxide Level 26 mmol/L (21-32) Anion Gap 7 (6-14) Blood Urea Nitrogen 30 mg/dL (8-26) Creatinine 1.5 mg/dL (0.7-1.3) Estimated GFR (Cockcroft-Gault) 45.0 Glucose Level 115 mg/dL (70-99) Calcium Level 8.1 mg/dL (8.5-10.1) Phosphorus Level 4.1 mg/dL (2.6-4.7) Magnesium Level 1.7 mg/dL (1.8-2.4) Albumin 2.3 g/dL (3.4-5.0) Test 10/12/16 07:42 10/12/16 10:20 10/12/16 11:43 Glucose (Fingerstick) 140 mg/dL (70-99) 124 mg/dL (70-99) Prothrombin Time 17.8 SEC (11.7-14.0) Prothromb Time International Ratio 1.6 (0.8-1.1) Microbiology 10/08/16 Blood Culture - Preliminary, Resulted NO GROWTH AFTER 4 DAYS Medications Current Medications Albuterol/ Ipratropium (Duoneb) 3 ml 1X ONCE NEB Last administered on 04:33; Start 10/08/16 at 04:30; Stop 10/08/16 at 04:36; Status DC Aspirin (Ecotrin) 325 mg 1X ONCE PO Last administered on 10/08/16 05:49; Start 10/08/16 at 06:00; Stop 10/08/16 at 06:01; Status DC Furosemide (Lasix) 40 mg 1X ONCE IVP Last administered on 10/08/16 05:49; Start 10/08/16 at 06:00; Stop 10/08/16 at 06:01; Status DC Ondansetron HCl (Zofran) 4 mg PRN Q8HRS PRN IV NAUSEA/VOMITING; Start 10/08/16 at 05:30; Stop 10/09/16 at 05:29; Status DC Morphine Sulfate 4 mg PRN Q2HR PRN IV SEVERE PAIN; Start 10/08/16 at 05:30; Stop 10/09/16 at 05:29; Status DC Nitroglycerin (Nitro-Bid Oint) 1 inch 1X ONCE TP Last administered on 05:49; Start 10/08/16 at 06:00; Stop 10/08/16 at 06:01; Status DC Aspirin (Ecotrin) 81 mg DAILY PO Last administered on 10/12/16 08:20; Start 10/08/16 at 09:00 Cyanocobalamin (Vitamin B-12) 2,500 mcg DAILY PO Last administered on 10/12/16 08:20; Start 10/08/16 at 09:00 Digoxin (Lanoxin) 125 mcg DAILY PO ; Start 10/08/16 at 09:00; Stop 10/08/16 at 19: 26; Status DC Ferrous Sulfate (Feosol) 325 mg BIDWMEALS PO Last administered on 10/12/16 08: 19; Start 10/08/16 at 09:00 Hydrochlorothiazide (Microzide) 12.5 mg DAILY PO Last administered on 10/08/16 10:00; Start 10/08/16 at 09:00; Stop 10/08/16 at 20:10; Status DC Acetaminophen/ Hydrocodone Bitart (Lortab 7.5/325) 1 tab PRN Q3HRS PRN PO PAIN Last administered on 10/12/16 08:21; Start 10/08/16 at 08:45 Insulin Aspart (Novolog) 15 units TIDWMEALS SQ Last administered on 10/12/16 12 :08; Start 10/08/16 at 12:00 Metoprolol Tartrate (Lopressor) 50 mg BID PO Last administered on 10/12/16 08: 22; Start 10/08/16 at 09:00 Nitroglycerin (Nitrostat) 0.4 mg PRN 1X PRN SL CHEST PAIN; Start 10/08/16 at 08: 45 Oxycodone/ Acetaminophen (Percocet 7.5/ 325) 1 tab PRN Q3HRS PRN PO PAIN; Start 10/08/16 at 08:45 Simvastatin (Zocor) 20 mg HS PO Last administered on 10/11/16 20:59; Start 10/08 at 21:00 Insulin Detemir (Levemir) 20 units QHS SQ Last administered on 10/11/16 21:04; Start 10/08/16 at 21:00 Losartan Potassium (Cozaar) 100 mg DAILY PO Last administered on 10/12/16 08:22 ; Start 10/08/16 at 09:00 Potassium Chloride (Klor-Con) 10 meq DAILYWBKFT PO ; Start 10/08/16 at 10:00; Stop 10/08/16 at 10:32; Status DC Aspirin (Rocío Aspirin) 325 mg 1X ONCE PO Last administered on 10/08/16 13:23 ; Start 10/08/16 at 11:30; Stop 10/08/16 at 11:31; Status DC Cephalexin HCl (Keflex) 500 mg TID PO ; Start 10/08/16 at 14:00; Status UNV Vancomycin HCl 1 gm/Sodium Chloride 250 ml @ 250 mls/hr 1X ONCE IV Last administered on 10/08/16 14:25; Start 10/08/16 at 14:00; Stop 10/08/16 at 14:59; Status DC Amoxicillin/ Clavulanate Potassium (Augmentin 500/ 125mg) 1 tab BID PO Last administered on 10/12/16 08:20; Start 10/08/16 at 21:00 Phytonadione (Mephyton) 25 mg 1X ONCE PO ; Start 10/08/16 at 13:45; Stop at 13:46; Status DC Phytonadione (Mephyton) 5 mg 1X ONCE PO Last administered on 10/08/16 14:25; Start 10/08/16 at 14:00; Stop 10/08/16 at 14:01; Status DC Phytonadione (Mephyton) 2.5 mg 1X ONCE PO Last administered on 10/08/16 20:57 ; Start 10/08/16 at 20:15; Stop 10/08/16 at 20:16; Status DC Phytonadione (Mephyton) 7.5 mg 1X ONCE PO Last administered on 10/08/16 21:40 ; Start 10/08/16 at 21:30; Stop 10/08/16 at 21:33; Status DC Sodium Chloride 1,000 ml @ 100 mls/hr Q10H IV Last administered on 10/09/16 22 :16; Start 10/09/16 at 11:00; Stop 10/10/16 at 20:08; Status DC Magnesium Sulfate/ Dextrose 50 ml @ 25 mls/hr PRN DAILY PRN IV for Mag < 1.7 on am labs; Start 10/09/16 at 11:00 Acetylcysteine (Mucomyst 20% Oral Solution) 1,200 mg BID PO ; Start 10/09/16 at 11:00; Stop 10/09/16 at 11:39; Status DC Insulin Aspart (Novolog) 0-9 UNITS TIDWMEALS SQ Last administered on 10/11/16 12:10; Start 10/09/16 at 12:00 Dextrose (Dextrose 50%-Water Syringe) 12.5 gm PRN Q15MIN PRN IV SEE COMMENTS; Start 10/09/16 at 11:15 Acetylcysteine (Mucomyst 20% Oral Solution) 1,200 mg BID PO ; Start 10/09/16 at 12:30; Stop 10/09/16 at 12:30; Status DC Acetylcysteine (Mucomyst 20% Oral Solution) 1,200 mg BID PO Last administered on 10/11/16 07:54; Start 10/09/16 at 21:00; Stop 10/11/16 at 20:59; Status DC Temazepam (Restoril) 15 mg PRN QHS PRN PO INSOMNIA Last administered on 22:14; Start 10/09/16 at 21:00 Dextrose 1,000 ml @ 50 mls/hr Q20H IV Last administered on 10/10/16 06:24; Start 10/10/16 at 07:00; Stop 10/10/16 at 20:08; Status DC Heparin Sodium/ Sodium Chloride 500 ml @ As Directed STK-MED ONCE .ROUTE ; Start 10/10/16 at 10:54; Stop 10/10/16 at 10:55; Status DC Lidocaine HCl 20 ml STK-MED ONCE .ROUTE ; Start 10/10/16 at 10:55; Stop 10/10/16 at 10:56; Status DC Iodixanol (Visipaque 320) 100 ml STK-MED ONCE .ROUTE ; Start 10/10/16 at 10:55; Stop 10/10/16 at 10:56; Status DC Magnesium Sulfate/ Dextrose 100 ml @ 100 mls/hr 1X ONCE IV Last administered on 10/10/16 15:21; Start 10/10/16 at 13:00; Stop 10/10/16 at 13:59; Status DC Iron Sucrose 200 mg/Sodium Chloride 110 ml @ 55 mls/hr 3X/WEEK IV Last administered on 10/10/16 15:20; Start 10/10/16 at 13:00; Stop 10/20/16 at 10:59 Fentanyl Citrate (Fentanyl 5ml Vial) 250 mcg STK-MED ONCE .ROUTE ; Start at 13:35; Stop 10/10/16 at 13:36; Status DC Midazolam HCl (Versed) 5 mg STK-MED ONCE .ROUTE ; Start 10/10/16 at 13:36; Stop 10/10/16 at 13:37; Status DC Heparin Sodium (Porcine) (Heparin Sodium) 10,000 unit STK-MED ONCE .ROUTE ; Start 10/10/16 at 13:54; Stop 10/10/16 at 13:55; Status DC Iodixanol (Visipaque 320) 100 ml STK-MED ONCE .ROUTE ; Start 10/10/16 at 13:56; Stop 10/10/16 at 13:57; Status DC Heparin Sodium/ Sodium Chloride 1,000 unit 1X ONCE IV Last administered on 10/10 14:19; Start 10/10/16 at 14:00; Stop 10/10/16 at 14:02; Status DC Heparin Sodium (Porcine) (Heparin Sodium) 8,000 unit 1X ONCE IV Last administered on 10/10/16 14:21; Start 10/10/16 at 14:00; Stop 10/10/16 at 14:02; Status DC Midazolam HCl (Versed) 5 mg 1X ONCE IV Last administered on 10/10/16 14:18; Start 10/10/16 at 14:00; Stop 10/10/16 at 14:02; Status DC Fentanyl Citrate (Fentanyl 2ml Vial) 75 mcg 1X ONCE IV Last administered on 14:00; Start 10/10/16 at 14:00; Stop 10/10/16 at 14:02; Status DC Iodixanol (Visipaque 320) 100 ml 1X ONCE IV Last administered on 10/10/16 14: 19; Start 10/10/16 at 14:00; Stop 10/10/16 at 14:02; Status DC Lidocaine HCl 20 ml 1X ONCE IJ Last administered on 10/10/16 14:19; Start 10/10 at 14:00; Stop 10/10/16 at 14:02; Status DC Info (Do NOT chart on this entry -- for MONITORING) 1 each PRN DAILY PRN MC SEE COMMENTS; Start 10/10/16 at 14:15; Stop 10/12/16 at 14:14 Nitroglycerin (Nitroglycerin) 200 mcg STK-MED ONCE .ROUTE ; Start 10/10/16 at 14: 04; Stop 10/10/16 at 14:05; Status DC Nitroglycerin (Nitroglycerin) 200 mcg 1X ONCE IART Last administered on 14:18; Start 10/10/16 at 14:15; Stop 10/10/16 at 14:16; Status DC Aspirin (Rocío Aspirin) 325 mg STK-MED ONCE .ROUTE ; Start 10/10/16 at 14:14; Stop 10/10/16 at 14:15; Status DC Clopidogrel Bisulfate (Plavix) 75 mg STK-MED ONCE .ROUTE ; Start 10/10/16 at 14: 14; Stop 10/10/16 at 14:15; Status DC Clopidogrel Bisulfate (Plavix) 300 mg 1X ONCE PO Last administered on 14:18; Start 10/10/16 at 14:15; Stop 10/10/16 at 14:19; Status DC Aspirin (Rocío Aspirin) 325 mg 1X ONCE PO Last administered on 10/10/16 14:18 ; Start 10/10/16 at 14:15; Stop 10/10/16 at 14:19; Status DC Heparin Sodium/ Dextrose 500 ml @ 0 mls/hr 1X ONCE IV Last administered on 10/10 15:30; Start 10/10/16 at 15:00; Stop 10/10/16 at 15:09; Status DC Clopidogrel Bisulfate (Plavix) 75 mg DAILYWBKFT PO Last administered on 08:20; Start 10/11/16 at 08:00 Isosorbide Mononitrate (Imdur) 30 mg DAILY PO Last administered on 10/12/16 08: 21; Start 10/11/16 at 09:00 Warfarin Sodium (Coumadin) 5 mg 1X ONCE PO Last administered on 10/10/16 23:35 ; Start 10/10/16 at 22:00; Stop 10/10/16 at 22:01; Status DC Warfarin Sodium (Coumadin Per Physician) 1 each PRN DAILY PRN MC SEE COMMENTS; Start 10/10/16 at 22:00 Warfarin Sodium (Coumadin) 7.5 mg 1X ONCE PO Last administered on 10/11/16 16: 03; Start 10/11/16 at 16:00; Stop 10/11/16 at 16:01; Status DC Enoxaparin Sodium (Lovenox 40mg Syringe) 40 mg 1X ONCE SQ Last administered on 10/11/16 16:03; Start 10/11/16 at 15:00; Stop 10/11/16 at 15:28; Status DC Enoxaparin Sodium (Lovenox 40mg Syringe) 40 mg Q24H SQ Last administered on 10/12 08:23; Start 10/12/16 at 09:00 Vancomycin HCl 1 gm/Sodium Chloride 250 ml @ 250 mls/hr 1X ONCE IV Last administered on 10/12/16 11:40; Start 10/12/16 at 10:45; Stop 10/12/16 at 11:44; Status DC Warfarin Sodium (Coumadin) 5 mg 1X ONCE PO ; Start 10/12/16 at 16:00; Stop at 16:01 Active Scripts Active Bactrim Ds Tablet (Sulfamethoxazole/Trimethoprim) 1 Each Tablet 1 Tab PO BID Cozaar (Losartan Potassium) 50 Mg Tablet 100 Mg PO DAILY Warfarin Sodium 2 Mg Tablet 1 Tab PO DAILY Isosorbide Mononitrate Er (Isosorbide Mononitrate) 30 Mg Tab.er.24h 1 Tab PO DAILY Clopidogrel (Clopidogrel Bisulfate) 75 Mg Tablet 1 Tab PO DAILY Losartan Potassium 50 Mg Tablet 50 Mg PO DAILY 30 Days Aspirin Ec (Aspirin) 325 Mg Tablet.dr 1 Tab PO DAILY Isosorbide Mononitrate Er (Isosorbide Mononitrate) 30 Mg Tab.er.24h 1 Tab PO DAILY Clopidogrel (Clopidogrel Bisulfate) 75 Mg Tablet 1 Tab PO DAILY Reported Percocet 7.5-325 Mg Tablet (Oxycodone/Acetaminophen) 1 Each Tablet 1 Tab PO PRN Q3HRS PRN Ferrous Sulfate 325 Mg Tablet 1 Tab PO BID last dose this am next dos is with supper Hydrocodone-Apap 7.5-325 (Hydrocodone Bit/Acetaminophen) 1 Each Tablet 1 Tab PO Q3HRS PRN Levemir (Insulin Detemir) 100 Unit/1 Ml Vial 20 Unit SQ HS LAST DOSE GIVEN: DATE: 07/18 TIME: 9 PM NEXT DOSE DUE: DATE: 07/19 TIME: 9 PM Metoprolol Tartrate 50 Mg Tablet 50 Mg PO BID LAST DOSE GIVEN: DATE: 10/02/16 TIME: 9 AM NEXT DOSE DUE: DATE: 10/02/16 TIME: 9 PM Vitamin B-12 (Cyanocobalamin (Vitamin B-12)) 1,000 Mcg Tablet 2,500 Mcg PO DAILY LAST DOSE GIVEN: DATE: 10/02/16 TIME: 9 AM NEXT DOSE DUE: DATE: 10/03 TIME: 9 AM Novolog Flexpen (Insulin Aspart) 100 Unit/1 Ml Insuln.pen 15 Unit SQ TIDWMEALS LAST DOSE GIVEN: DATE: 07/19 TIME: WITH LUNCH NEXT DOSE DUE: DATE: 07/19 TIME: WITH DINNER NITROGLYCERIN SubLingual (Nitroglycerin) 0.4 Mg Tab.subl 0.4 Mg SL PRN 1X PRN NOT GIVEN IN HOSPITAL. TAKE DIRECTED. Simvastatin 20 Mg Tablet 20 Mg PO HS LAST DOSE GIVEN: DATE: 10/01/16 TIME: 9 PM NEXT DOSE DUE: DATE: 10/02/16 TIME: 9 PM Vitals/I & O Vital Sign - Last 24 Hours 10/11/16 10/11/16 10/11/16 10/11/16 13:28 15:00 17:18 19:00 Temp 97.8 98.1 97.8 98.1 Pulse 86 81 Resp 20 18 18 18 B/P (MAP) 113/53 (73) 117/64 (81) Pulse Ox 99 97 2 94 O2 Delivery Room Air Nasal Cannula Room Air Room Air O2 Flow Rate 2.0 10/11/16 10/11/16 10/11/16 10/11/16 19:59 21:01 22:17 22:17 Temp 98.4 98.4 Pulse 81 79 Resp 18 18 B/P (MAP) 117/64 142/72 (95) Pulse Ox 99 97 O2 Delivery Room Air Room Air Room Air 10/12/16 10/12/16 10/12/16 10/12/16 03:14 07:00 08:21 08:21 Temp 97.6 98.0 97.6 98.0 Pulse 73 80 79 Resp 18 18 18 B/P (MAP) 138/69 (92) 146/67 (93) 142/67 Pulse Ox 98 97 97 O2 Delivery Room Air Room Air Room Air 10/12/16 10/12/16 10/12/16 10/12/16 08:22 08:22 08:28 09:21 Pulse 79 79 Resp 18 B/P (MAP) 142/67 142/67 Pulse Ox 97 O2 Delivery Room Air Room Air 10/12/16 11:00 Temp 97.6 97.6 Pulse 67 Resp 18 B/P (MAP) 110/62 (78) Pulse Ox 100 O2 Delivery Room Air Intake and Output 10/11/16 10/11/16 10/12/16 15:00 23:00 07:00 Intake Total 105 ml 900 ml 510 ml Output Total 1300 ml 1500 ml Balance 105 ml -400 ml -990 ml Nutrition Consultation Dietary Evaluation: Recommendations by RD: Dietary education by RD Comments: Rec. 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
[2016-10-12 15:00] VITALS: BP 109/50
--- NOTE | 2016-10-12 15:03 | PDOC ---
PROGRESS NOTES Subjective Subjective Problems overnight:knee feels good, walking the domingo twice daily Objective Vital Signs Vital Signs Date Time Temp Pulse Resp B/P (MAP) Pulse Ox O2 Delivery O2 Flow Rate FiO2 10/12/16 11:00 97.6 67 18 110/62 (78) 100 Room Air 97.6 10/11/16 15:00 2.0 Physical Exam Aquacel dressing intact, good knee motion, no visible drainage since 10/08 change Labs Laboratory Tests Test 10/10/16 17:03 10/10/16 20:46 10/11/16 04:50 10/11/16 05:00 Glucose (Fingerstick) 350 mg/dL (70-99) 117 mg/dL (70-99) 104 mg/dL (70-99) Sodium Level 135 mmol/L (136-145) Potassium Level 4.2 mmol/L (3.5-5.1) Chloride Level 102 mmol/L (98-107) Carbon Dioxide Level 25 mmol/L (21-32) Anion Gap 8 (6-14) Blood Urea Nitrogen 28 mg/dL (8-26) Creatinine 1.3 mg/dL (0.7-1.3) Estimated GFR (Cockcroft-Gault) 53.1 Glucose Level 109 mg/dL (70-99) Calcium Level 8.4 mg/dL (8.5-10.1) Phosphorus Level 3.6 mg/dL (2.6-4.7) Magnesium Level 1.8 mg/dL (1.8-2.4) Albumin 2.2 g/dL (3.4-5.0) Test 10/11/16 07:26 10/11/16 07:39 10/11/16 12:06 10/11/16 17:05 Heparin Anti-Xa Act, Unfractionated < 0.10 IU/mL (0.30-0.70) Glucose (Fingerstick) 106 mg/dL (70-99) 167 mg/dL (70-99) 52 mg/dL (70-99) Test 10/11/16 17:47 10/11/16 21:01 10/12/16 04:00 10/12/16 07:42 Glucose (Fingerstick) 132 mg/dL (70-99) 185 mg/dL (70-99) 140 mg/dL (70-99) White Blood Count 4.9 x10^3/uL (4.0-11.0) Red Blood Count 3.56 x10^6/uL (4.30-5.70) Hemoglobin 9.2 g/dL (13.0-17.5) Hematocrit 28.1 % (39.0-53.0) Mean Corpuscular Volume 79 fL (79-100) Mean Corpuscular Hemoglobin 26 pg (25-35) Mean Corpuscular Hemoglobin Concent 33 g/dL (31-37) Red Cell Distribution Width 17.7 % (11.5-14.5) Platelet Count 347 x10^3/uL (140-400) Neutrophils (%) (Auto) 68 % (31-73) Lymphocytes (%) (Auto) 16 % (24-48) Monocytes (%) (Auto) 8 % (0-9) Eosinophils (%) (Auto) 7 % (0-3) Basophils (%) (Auto) 1 % (0-3) Neutrophils # (Auto) 3.3 x10^3uL (1.8-7.7) Lymphocytes # (Auto) 0.8 x10^3/uL (1.0-4.8) Monocytes # (Auto) 0.4 x10^3/uL (0.0-1.1) Eosinophils # (Auto) 0.3 x10^3/uL (0.0-0.7) Basophils # (Auto) 0.0 x10^3/uL (0.0-0.2) Sodium Level 134 mmol/L (136-145) Potassium Level 4.5 mmol/L (3.5-5.1) Chloride Level 101 mmol/L (98-107) Carbon Dioxide Level 26 mmol/L (21-32) Anion Gap 7 (6-14) Blood Urea Nitrogen 30 mg/dL (8-26) Creatinine 1.5 mg/dL (0.7-1.3) Estimated GFR (Cockcroft-Gault) 45.0 Glucose Level 115 mg/dL (70-99) Calcium Level 8.1 mg/dL (8.5-10.1) Phosphorus Level 4.1 mg/dL (2.6-4.7) Magnesium Level 1.7 mg/dL (1.8-2.4) Albumin 2.3 g/dL (3.4-5.0) Test 10/12/16 10:20 10/12/16 11:43 Prothrombin Time 17.8 SEC (11.7-14.0) Prothromb Time International Ratio 1.6 (0.8-1.1) Glucose (Fingerstick) 124 mg/dL (70-99) Laboratory Tests Test 10/11/16 17:05 10/11/16 17:47 10/11/16 21:01 10/12/16 04:00 Glucose (Fingerstick) 52 mg/dL (70-99) 132 mg/dL (70-99) 185 mg/dL (70-99) White Blood Count 4.9 x10^3/uL (4.0-11.0) Red Blood Count 3.56 x10^6/uL (4.30-5.70) Hemoglobin 9.2 g/dL (13.0-17.5) Hematocrit 28.1 % (39.0-53.0) Mean Corpuscular Volume 79 fL (79-100) Mean Corpuscular Hemoglobin 26 pg (25-35) Mean Corpuscular Hemoglobin Concent 33 g/dL (31-37) Red Cell Distribution Width 17.7 % (11.5-14.5) Platelet Count 347 x10^3/uL (140-400) Neutrophils (%) (Auto) 68 % (31-73) Lymphocytes (%) (Auto) 16 % (24-48) Monocytes (%) (Auto) 8 % (0-9) Eosinophils (%) (Auto) 7 % (0-3) Basophils (%) (Auto) 1 % (0-3) Neutrophils # (Auto) 3.3 x10^3uL (1.8-7.7) Lymphocytes # (Auto) 0.8 x10^3/uL (1.0-4.8) Monocytes # (Auto) 0.4 x10^3/uL (0.0-1.1) Eosinophils # (Auto) 0.3 x10^3/uL (0.0-0.7) Basophils # (Auto) 0.0 x10^3/uL (0.0-0.2) Sodium Level 134 mmol/L (136-145) Potassium Level 4.5 mmol/L (3.5-5.1) Chloride Level 101 mmol/L (98-107) Carbon Dioxide Level 26 mmol/L (21-32) Anion Gap 7 (6-14) Blood Urea Nitrogen 30 mg/dL (8-26) Creatinine 1.5 mg/dL (0.7-1.3) Estimated GFR (Cockcroft-Gault) 45.0 Glucose Level 115 mg/dL (70-99) Calcium Level 8.1 mg/dL (8.5-10.1) Phosphorus Level 4.1 mg/dL (2.6-4.7) Magnesium Level 1.7 mg/dL (1.8-2.4) Albumin 2.3 g/dL (3.4-5.0) Test 10/12/16 07:42 10/12/16 10:20 10/12/16 11:43 Glucose (Fingerstick) 140 mg/dL (70-99) 124 mg/dL (70-99) Prothrombin Time 17.8 SEC (11.7-14.0) Prothromb Time International Ratio 1.6 (0.8-1.1) Assessment Assessment POD# [], S/P [] Problems: Plan Plan of Care F/U Wilman Marie, mathew medical management and activity as nunu for knee MARCO VILLAGOMEZ MD October 12, 2016 15:03
[2016-10-12] MEDS ORDERED: WARFARIN 5 MG TABLET. PO ONE (16:00)
--- NOTE | 2016-10-12 18:49 | DS ---
DATE OF DISCHARGE: 10/12/2016 HOSPITAL COURSE: This is an 81-year-old white male who came into the Emergency Room because of severe shortness of breath. The shortness of breath was so bad that even though he considered coming by private transportation, he had to call the ambulance. When he came in, he was hypoxic. He was on a BiPAP. The EKG showed no ST segment elevation. A chest x-ray showed pulmonary vascular congestion for the first time. The initial lab work was as follows: The sodium was 131, potassium 5.2, BUN 38, and creatinine was 2.3. The blood sugar was significantly elevated to 384. The liver function tests were normal. The BNP was 13,500. The troponin was elevated to 1.6. He has clearly had a non-STEMI. Cardiac catheterization was not carried out immediately because of his elevated creatinine and more so because of his elevated INR of 2.3. He was given vitamin K. The INR came down to 1.3. He was given IV fluids, seen by a rollway worker and also given . The creatinine came down to 1.3. He thus underwent coronary arteriograms on 10/11/2016. The stent in the circumflex and first obtuse marginal branch that had been placed about 3 years ago, is now totally occluded. It does fill via collaterals. There was a severe obstruction in the LAD beyond patent stent. This was dilated and another stent placed. Right coronary artery showed no significant disease. He had a drop in his EF to about 25% from what it was about 50% 3 years ago. There was a large area of hypokinesis occupying the apex of the anterior wall. Because of this, he underwent a viability study, which showed that the entire myocardium was viable. Thus, he has had revascularization of the LAD, but not the circumflex. He has potential vibrant muscle in the lateral wall. His diabetes at home seems to control with a hemoglobin A1c of 7.1. It is to be noticed that the troponin did go up to 18. However, the site of the infarct is not quite clear. It is not clear whether the total occlusion of the stent in the circumflex coronary artery was new. The total cholesterol was 119, triglycerides 65, HDL cholesterol 49, and LDL cholesterol was 57, indicating that his lipids are under good control. His hemoglobin dropped to 7.8. His iron was 39, which is low, total iron binding capacity was 216, saturation of 15%. He was given several doses of Venofer. He was given 1 unit of packed red blood cells with which his hemoglobin came up to 9.2. He was seen in consultation by Dr. Stovall, who was aware of the fact that he needed triple anticoagulants. He said he would simply watch the legs. He wanted him to continue with the antibiotics. FINAL DIAGNOSES: 1. Non-ST segment elevation myocardial infarction, site unclear because of a paced rhythm. 2. Severe coronary artery disease. 3. Ischemic cardiomyopathy with ejection fraction of 25%. 4. Viable myocardium with the potential for improvement in the ejection fraction. 5. Hypertension. 6. Acute renal failure, improved. 7. Dyslipidemia, on treatment. 8. Anemia, probably iron deficiency anemia. HOMEGOING INSTRUCTIONS: 1. Activities to tolerance. 2. May proceed with Physical Therapy for his knee and after he is done with that then we will send him to cardiac rehabilitation. 3. 2 gram sodium ADA diet. 4. Aspirin 325 mg a day. 5. Plavix 75 mg a day. 6. Imdur 30 mg a day. 7. Losartan 100 mg a day. 8. Bactrim DS 1 tablet twice a day. 9. Warfarin 3 mg a day. 10. B12 1000 mcg a day. 11. Ferrous sulfate 325 mg a day. 12. Hydrocodone or oxycodone. 13. NovoLog 15 units before each meal. 14. Levemir 20 units at night. 15. Metoprolol 50 mg twice a day. 16. Simvastatin 20 mg at night. He will be seen in the office on 10/14/2016. He will also follow up with Dr. Stovall as previously arranged. LATOSHA HWANG MD DR: BRANDY/malou JOB#: [id number] / [id number]
--- NOTE | 2016-10-12 23:59 | PDOC ---
Provider Note Provider Note RENAL F/U : RITESH S : Doing better O : VSS Afebrile. Neck : Supple Lungs : Non labored. CVS : RRR Abd : Bengin appearance with no obvious distention Ext : No edema/trace Alert No distress. Labs reviewed. ARF : Better HTN/DM II w CKD CKD III Other labs better. CPM. LAYLA AWAD MD October 12, 2016 23:59
[2016-10-14 06:51] LABS: UR PROTEIN RD 17.8 mg/dL
[2016-10-14 06:53] LABS: TOTAL PROTEIN CREATININE RATIO 280 mg/g creat
== END 2016-10-12 16:50 | disposition home or self-care (01) | DRG 246 ==
LOC: ER 04:14 → 2 NORTH 05:13
PROVIDERS: ADMIT Specialist; ATTEND Specialist
PROC: 027034Z Dilation of Coronary Artery, One Artery with Drug-eluting Intraluminal Device, Percutaneous Approach (ICD-10-PCS; principal; 2016-10-10)
PROC: 4A023N7 Measurement of Cardiac Sampling and Pressure, Left Heart, Percutaneous Approach (ICD-10-PCS; 2016-10-10)
PROC: B2111ZZ Fluoroscopy of Multiple Coronary Arteries using Low Osmolar Contrast (ICD-10-PCS; 2016-10-10)
PROC: B2151ZZ Fluoroscopy of Left Heart using Low Osmolar Contrast (ICD-10-PCS; 2016-10-10)
PROC: 30233N1 Transfusion of Nonautologous Red Blood Cells into Peripheral Vein, Percutaneous Approach (ICD-10-PCS; 2016-10-10)
DX: I21.4 Non-ST elevation (NSTEMI) myocardial infarction (principal); I50.23 Acute on chronic systolic (congestive) heart failure; E44.1 Mild protein-calorie malnutrition; E87.2 Acidosis; I13.0 Hypertensive heart and chronic kidney disease with heart failure and stage 1 through stage 4 chronic kidney disease, or unspecified chronic kidney disease; I44.2 Atrioventricular block, complete; N17.9 Acute kidney failure, unspecified; D50.9 Iron deficiency anemia, unspecified; D63.1 Anemia in chronic kidney disease; D72.829 Elevated white blood cell count, unspecified; E11.22 Type 2 diabetes mellitus with diabetic chronic kidney disease; E11.65 Type 2 diabetes mellitus with hyperglycemia; E78.00 Pure hypercholesterolemia, unspecified; E78.5 Hyperlipidemia, unspecified; I25.119 Atherosclerotic heart disease of native coronary artery with unspecified angina pectoris; I25.5 Ischemic cardiomyopathy; I48.91 Unspecified atrial fibrillation; M17.11 Unilateral primary osteoarthritis, right knee; N18.3 Chronic kidney disease, stage 3 (moderate); N40.0 Benign prostatic hyperplasia without lower urinary tract symptoms; Z96.653 Presence of artificial knee joint, bilateral; R09.02 Hypoxemia; Z68.29 Body mass index [BMI] 29.0-29.9, adult; Z79.02 Long term (current) use of antithrombotics/antiplatelets; Z79.4 Long term (current) use of insulin; Z79.82 Long term (current) use of aspirin; Z79.899 Other long term (current) drug therapy; Z95.0 Presence of cardiac pacemaker; Z95.2 Presence of prosthetic heart valve; Z95.5 Presence of coronary angioplasty implant and graft
CPT/HCPCS: 36415; 71010; 76770; 78451; 78452; 80048; 80053; 80061; 80069; 81001; 82550; 82570; 82607; 82728; 82947; 83036; 83540; 83550; 83605; 83735; 83880; 84156; 84300; 84443; 84484; 84550; 85007; 85018; 85027; 85045; 85347; 85379; 85520; 85610; 85730; 86850; 86900; 86901; 86920; 87040; 93005; 93306; 93458; 93970; 94640; 94660; 96374; 96376; A9505; C1769; C1771; C1874; C1887; C1892; G0269; J1650; J1756; J1815; J1940; J2250; J3010; J3370; J3475; J3490; J7030; J7050; J7620; P9016; 97110; 97116; 99291-25

== ENCOUNTER 2016-11-10 00:09 | Inpatient (IN) | payer MEDICARE ==
[~2016-11-10] VITALS: Ht 172.7 cm; Wt 83.5 kg
[~2016-11-10 00:09] MED LIST changes: +AMOX1TAB58 PO; +ASPI-482 PO; +ASPI325T11 PO; +ISOS30TA4 PO; +LOSA50TA2 PO; +LOSA50TA6 PO; +POTA10TA12 PO; +SULF1TAB24 PO; +SULF1TAB3; +WARF3TAB7 PO
[2016-11-10 00:33] LABS: BASO # 0.1 x10^3/uL (0.0-0.2); BASO % 1 % (0-3); EOS % 2 % (0-3); HEMATOCRIT 28.2 % (39.0-53.0); HEMOGLOBIN 9.1 g/dL (13.0-17.5); LYMPH % 15 % (24-48); MEAN CORPUSCULAR HEMOGLOBIN 26 pg (25-35); MEAN CORPUSCULAR HGB CONC 32 g/dL (31-37); MEAN CORPUSCULAR VOLUME 81 fL (79-100); MONO % 9 % (0-9); NEUT % 73 % (31-73); PLATELET COUNT 335 x10^3/uL (140-400); RED BLOOD COUNT 3.48 x10^6/uL (4.30-5.70); RED CELL DISTRIBUTION WIDTH 19.3 % (11.5-14.5); WHITE BLOOD COUNT 6.3 x10^3/uL (4.0-11.0)
[2016-11-10 00:44] LABS: CALCIUM 8.8 mg/dL (8.5-10.1); CREATININE 2.1 mg/dL (0.7-1.3); GFR 30.5; POTASSIUM 4.7 mmol/L (3.5-5.1)
[2016-11-10] MEDS ORDERED: IPRATRPIUM/ALBUTEROL 0.5/2.5MG 3 ML NEBU. NEB ONE (00:45)
[2016-11-10] MEDS ORDERED: NITROGLYCERIN 0.2MG/HR PATCH. TD ONE (00:45)
[2016-11-10] MEDS ORDERED: ASPIRIN 325 MG TABLET PO ONE (00:45)
[2016-11-10 00:51] LABS: ALBUMIN/GLOBULIN RATIO 0.6 (1.0-1.7); TOTAL BILIRUBIN 0.4 mg/dL (0.2-1.0)
[2016-11-10 01:11] LABS: INR 1.3 (0.8-1.1); PROTHROMBIN TIME PATIENT 15.5 SEC (11.7-14.0)
[2016-11-10] MEDS ORDERED: FUROSEMIDE 40 MG/4 ML VIAL. IVP ONE (01:15)
[2016-11-10 02:00] VITALS: BP 141/63
[2016-11-10] MEDS ORDERED: HEPARIN for IV BOLUS 10,000 UNIT/10 ML VIAL. IV PRN (02:15)
[2016-11-10] MEDS ORDERED: HEPARIN for IV BOLUS 10,000 UNIT/10 ML VIAL. IV ONE (02:15)
[2016-11-10] MEDS ORDERED: HEPARIN 25,000UTS/500ML PREMIX 500 ML IV PRN (02:15)
[2016-11-10] MEDS ORDERED: MORPHINE SULFATE 2 MG/ML DISP.SYRIN. IV PRN (02:45)
[2016-11-10] MEDS ORDERED: ONDANSETRON PF 4 MG/2 ML VIAL. IV PRN (02:45)
[2016-11-10] MEDS ORDERED: NITROGLYCERIN SUBLINGUAL 0.4 MG BOTTLE OF 25. SL PRN ×2 (02:45→12:45)
[2016-11-10] MEDS ORDERED: ACETAMINOPHEN 325 MG TABLET. PO PRN (02:45)
[2016-11-10 03:11] VITALS: BP 141/63
[2016-11-10 04:16] LABS: PCO2 ABG 34 mmHg (35-46); PH ABG 7.43 (7.35-7.45); PO2 ABG 132 mmHg (65-108)
[2016-11-10 04:17] LABS: FIO2 ABG 30; HCO3 ABG 22 mmol/L (21-28); SAT O2 ABG 98 % (92-99)
--- NOTE | 2016-11-10 04:51 | PHYS DOC ---
Past Medical History Past Medical History: CAD, Diabetes-Type II, High Cholesterol, Hypertension, [place] Past Surgical History: Knee Replacement, Pacemaker, Other Additional Past Surgical Histo: cardiac cath with stents,EGD,colonoscopy,bilat elbow surgery,bilat lens imp Alcohol Use: Occasionally Drug Use: None Adult General Chief Complaint Chief Complaint: CHEST PAIN HPI HPI Patient is a 81 year old male who presents with shortness of breath. Reports reports acute onset of symptoms about 2 hours prior to arrival. Reports she is unable to lie flat and has severe dyspnea with exertion. Initially complained of chest pain but to me denies having chest pain at any time today. Reports increased bilateral lower extremity edema. Denies fevers or chills, cough. Reports history of CHF for which she takes Lasix and is compliant. Recent hospitalization with LAD stent placed by Dr. Guerrero. Also has history of diabetes, hypertension. PCP and salesperson books is Dr. Hwang. Review of Systems Review of Systems Constitutional: Denies fever or chills Eyes: Denies change in visual acuity HENT: Denies nasal congestion or sore throat Respiratory: Denies cough, reports shortness of breath Cardiovascular: Denies chest pain, reports edema GI: Denies abdominal pain, nausea, vomiting, or diarrhea Musculoskeletal: Denies back pain or joint pain Integument: Denies rash or skin lesions Neurologic: Denies headache, focal weakness or sensory changes Current Medications Current Medications Current Medications Medications (Trade) Dose Ordered Sig/Joey Start Time Stop Time Status Last Admin Dose Admin Albuterol/ Ipratropium (Duoneb) 3 ml 1X ONCE 11/10/16 00:45 11/10/16 00:46 DC 11/10/16 00:43 3 ML Aspirin (Rocío Aspirin) 325 mg 1X ONCE 11/10/16 00:45 11/10/16 00:46 DC 11/10/16 00:49 325 MG Nitroglycerin (Nitro-Dur) 1 patch 1X ONCE 11/10/16 00:45 11/10/16 00:46 DC 11/10/16 00:49 1 PATCH Allergies Allergies Allergies Coded Allergies Type Severity Reaction Last Updated Verified No Known Drug Allergies 09/29/16 No Physical Exam Physical Exam Constitutional: Well developed, well nourished, mild distress. HENT: Normocephalic, atraumatic, bilateral external ears normal, oropharynx moist, nose normal. Eyes: conjunctiva normal, no discharge. Neck: supple, no stridor. Cardiovascular: RRR, no murmurs, 2+ pitting edema to bilateral lower extremities. Lungs & Thorax: Lungs sounds present bilaterally, crackles throughout, no wheezing, tachypneic with increased worker breathing, mild respiratory distress. Abdomen: soft, nontender, nondistended. Skin: Warm, dry, no erythema, no rash. Back: No tenderness. Extremities: No tenderness, 2+ pitting edema to bilateral lower extremities without calf tenderness. Neurologic: Alert and oriented X 3, no focal deficits noted. Psychologic: Affect normal, judgement normal, mood normal. Current Patient Data Vital Signs Vital Signs Date Time Temp Pulse Resp B/P (MAP) Pulse Ox O2 Delivery O2 Flow Rate FiO2 11/10/16 01:00 98 20 168/70 (102) 94 Nasal Cannula 2.0 11/10/16 00:24 97.5 97.5 Lab Values Laboratory Tests Test 11/10/16 00:17 White Blood Count 6.3 x10^3/uL (4.0-11.0) Red Blood Count 3.48 x10^6/uL (4.30-5.70) L Hemoglobin 9.1 g/dL (13.0-17.5) L Hematocrit 28.2 % (39.0-53.0) L Mean Corpuscular Volume 81 fL (79-100) Mean Corpuscular Hemoglobin 26 pg (25-35) Mean Corpuscular Hemoglobin Concent 32 g/dL (31-37) Red Cell Distribution Width 19.3 % (11.5-14.5) H Platelet Count 335 x10^3/uL (140-400) Neutrophils (%) (Auto) 73 % (31-73) Lymphocytes (%) (Auto) 15 % (24-48) L Monocytes (%) (Auto) 9 % (0-9) Eosinophils (%) (Auto) 2 % (0-3) Basophils (%) (Auto) 1 % (0-3) Neutrophils # (Auto) 4.6 x10^3uL (1.8-7.7) Lymphocytes # (Auto) 1.0 x10^3/uL (1.0-4.8) Monocytes # (Auto) 0.5 x10^3/uL (0.0-1.1) Eosinophils # (Auto) 0.1 x10^3/uL (0.0-0.7) Basophils # (Auto) 0.1 x10^3/uL (0.0-0.2) Prothrombin Time 15.5 SEC (11.7-14.0) H Prothrombin Time INR 1.3 (0.8-1.1) H PTT 32 SEC (24-38) Sodium Level 138 mmol/L (136-145) Potassium Level 4.7 mmol/L (3.5-5.1) Chloride Level 105 mmol/L (98-107) Carbon Dioxide Level 22 mmol/L (21-32) Anion Gap 11 (6-14) Blood Urea Nitrogen 39 mg/dL (8-26) H Creatinine 2.1 mg/dL (0.7-1.3) H Estimated GFR (Cockcroft-Gault) 30.5 BUN/Creatinine Ratio 19 (6-20) Glucose Level 250 mg/dL (70-99) H Calcium Level 8.8 mg/dL (8.5-10.1) Total Bilirubin 0.4 mg/dL (0.2-1.0) Aspartate Amino Transferase (AST) 20 U/L (15-37) Alanine Aminotransferase (ALT) 18 U/L (16-63) Alkaline Phosphatase 73 U/L (46-116) Troponin I Quantitative 0.045 ng/mL (0.000-0.055) AN-Hng-B-Type Natriuretic Peptide 86380 pg/mL (0-449) H Total Protein 8.0 g/dL (6.4-8.2) Albumin 3.0 g/dL (3.4-5.0) L Albumin/Globulin Ratio 0.6 (1.0-1.7) L Laboratory Tests 11/10/16 00:17 Laboratory Tests 11/10/16 00:17 EKG EKG Interpreted by me: Paced rhythm rate 87, PVC [] Radiology/Procedures Radiology/Procedures Chest x-ray: Interpreted by me: Cardiomegaly, pulmonary edema, and no focal infiltrate or pneumothorax [] Course & Med Decision Making Course & Med Decision Making Pertinent Labs and Imaging studies reviewed. (See chart for details) The patient presents with dyspnea. Requiring oxygen by nasal cannula at time of arrival. He appeared comfortable during my initial exam. Obtained labs, EKG, chest x-ray. Findings consistent with acute exacerbation of congestive heart failure with pulmonary edema. Gave aspirin, placed nitroglycerin patch, administered Lasix. On reassessment he appeared to be having mild distress with worsening dyspnea. Placed on BiPAP at that time. Recommended admission to the hospital for further evaluation and treatment. The patient agreed with plan of care. Discussed with Dr. Hwang who agrees to admit to inpatient status to the ICU. She requested initiation of heparin drip which was ordered. The patient is being admitted in improved but critical condition. Critical care time: 35 minutes [] Dragon Disclaimer Dragon Disclaimer This electronic medical record was generated, in whole or in part, using a voice recognition dictation system. Departure Departure Impression: Primary Impression: CHF (congestive heart failure) Additional Impressions: Acute respiratory failure Pulmonary edema Anemia Acute renal failure Hyperglycemia Disposition: ADMITTED INPATIENT Condition: STABLE Referrals: LATOSHA HWANG MD (PCP) Problem Qualifiers DILLON LUIS MD Nov 10, 2016 04:51
[2016-11-10 06:33] VITALS: BP 131/67
--- NOTE | 2016-11-10 06:50 | EKG ---
[facility] [address] [place] [address] Test Date: 2016-11-10 Test Time: 00:14:24 Pat Name: EDDIE LINN Department: Room: 204 1 Gender: M Advertising Intern: : [id number] Requested By: DILLON LUIS Order Number: [id number] Reading MD: Kavita Barry Measurements Intervals [place] Rate: 87 P: 0 NH: 186 QRS: 32 QRSD: 168 T: 158 QT: 386 QTc: 471 Interpretive Statements SINUS ARRHYTHMIA FIRST DEGREE AV BLOCK VENTRICULAR PREMATURE COMPLEX(ES) NON SPECIFIC INTRAVENTRICULAR BLOCK QRS(T) CONTOUR ABNORMALITY CONSISTENT WITH ANTERIOR INFARCT AGE UNDETERMINED Electronically Signed On 11-13-2016 22:17:07 CDT by Kavita Barry
--- NOTE | 2016-11-10 07:07 | RAD ---
Portable chest, 11/10/2016: History: Chest pain Comparison is made to a study from 10/08/2016. A left-sided transvenous pacemaker remains in place with 2 leads extending into the right heart. The heart is at the upper limits of normal in size. The pulmonary vascularity is congested. There is mild interstitial prominence with Dionicio B lines in the right base. Blunting of the left lateral costophrenic angle is chronic and apparently due to scarring. Similar pulmonary findings were present on the 10/08/2016 study. IMPRESSION: Mild ongoing or recurrent congestive heart failure with mild interstitial pulmonary edema.
[2016-11-10] MEDS ORDERED: ANTI-COAG MONITOR BY PHARMACY. MC PRN (08:00)
[2016-11-10 10:24] VITALS: BP 127/62
[2016-11-10] MEDS ORDERED: IV NORMAL SALINE 1000ML BAG 1,000 ML IV SCH (11:30)
[2016-11-10] MEDS ORDERED: DEXTROSE 50% 25 GM / 50ML DISP.SYRIN. IV PRN (12:30)
[2016-11-10] MEDS ORDERED: HYDROcodone/APAP 7.5/325MG 1 TAB TABLET PO PRN (12:45)
[2016-11-10] MEDS ORDERED: oxyCODONE/APAP 7.5/325 1 TAB TABLET PO PRN (12:45)
[2016-11-10] MEDS: INSULIN ASPART 300 UNITS/3 ML INSULN.PEN SQ SCH ×4 (13:00→17:58)
[2016-11-10] MEDS ORDERED: LOSARTAN POTASSIUM 50 MG TABLET. PO SCH (13:30)
[2016-11-10] MEDS: CLOPIDOGREL BISULFATE 75 MG TABLET PO SCH (14:53)
[2016-11-10] MEDS: METOPROLOL TART IMMED RELEASE 50 MG TABLET. PO SCH ×2 (14:53→22:03)
[2016-11-10] MEDS: ASPIRIN ENTERIC COATED 325 MG TABLET.DR. PO SCH (14:53)
[2016-11-10] MEDS: CYANOCOBALAMIN (VITAMIN B-12) 1,000 MCG TABLET. PO SCH (14:53)
[2016-11-10] MEDS: ISOSORBIDE MONONITRATE ER 30 MG TAB.ER.24H PO SCH (14:54)
[2016-11-10] MEDS: FERROUS SULFATE 325 MG TABLET. PO SCH (17:32)
[2016-11-10 19:15] VITALS: BP 119/62
--- NOTE | 2016-11-10 19:32 | CARD ---
APPROVED REPORT EXAM: LIMITED Two-dimensional and M-mode echocardiogram. Other Information Quality : GoodHR: 85bpm Rhythm : NSR INDICATION LV Function:Systolic 2D DIMENSIONS RVDd3.0 (2.9-3.5cm)Left Atrium(2D)4.6 (1.6-4.0cm) IVSd1.4 (0.7-1.1cm)Aortic Root(2D)3.2 (2.0-3.7cm) LVDd5.3 (3.9-5.9cm)LVOT Diameter2.3 (1.8-2.4cm) PWd1.2 (0.7-1.1cm)LVDs4.3 (2.5-4.0cm) FS (%) 18.8 %SV51.8 ml LVEF(%)38.4 (>50%) LEFT VENTRICLE The left ventricle is normal size. There is mild concentric left ventricular hypertrophy. Left ventri jenn systolic function is moderately impaired. The Ejection Fraction is 35-40%. Abnormal septal wall m otion is noted. Severe hypokinesis of the mid anteroseptal and anterior apecial pa. Severe hypokin esis of the apical to mid inferior and septal pa. Limited echo, left ventricular compliance was no t assessed. No left ventricle thrombus noted on this study. RIGHT VENTRICLE The right ventricle is normal size. There is normal right ventricular wall thickness. The right ventr icular systolic function is normal. There is a pacemaker lead in the right ventricle. ATRIA The left atrium is moderately dilated. The right atrium size is normal. AORTIC VALVE The aortic valve is mildly sclerotic. The aortic valve is trileaflet. There is no significant aortic valvular stenosis. MITRAL VALVE Mitral annular calcification is mild. The mitral valve leaflets are thickened. There is no evidence o f mitral valve prolapse. There is no mitral valve stenosis. TRICUSPID VALVE Unable to determine pulmonary artery pressure at exam time. PULMONIC VALVE There is no pulmonic valvular stenosis. GREAT VESSELS The aortic root is normal in size. The ascending aorta is normal in size. The pulmonary artery is nor mal. The IVC is normal in size and collapses >50% with inspiration. PERICARDIAL EFFUSION There is no evidence of significant pericardial effusion. Critical Notification Critical Value: No <Conclusion> The left ventricle is normal size. There is mild concentric left ventricular hypertrophy. Left ventricle systolic function is moderately impaired. The Ejection Fraction is 35-40%. Abnormal septal wall motion is noted. Severe hypokinesis of the mid anteroseptal and anterior apecial pa. Severe hypokinesis of the apical to mid inferior and septal pa. Limited echo, left ventricular compliance was not assessed.
--- NOTE | 2016-11-10 19:36 | RAD ---
APPROVED REPORT Imaging Protocol IMAGE PROTOCOL: rest only Rest: Stress: Viability: Radiopharm.Tc99m Sestamibi [id number] Img Date 11/10/2016 Inj-Img [id number]. Rest Admin Site:IV - Right AntecubitalAdministrator:Amando Junior, RT (R)(N) LV Perf. Quant 17 Seg. SRS11.00 Stress Defect Extent (% LAD)Rest Defect Extent (% LAD)20.00Rev. Defect Extent (% LAD) Stress Defect Extent (% LCX) Rest Defect Extent (% LCX)80.00Rev. Defect Extent (% LCX) Stress Defect Extent (% RCA)Rest Defect Extent (% RCA)0.00Rev. Defect Extent (% RCA) Stress Defect Extent (% LUIS)Rest Defect Extent (% LUIS)23.70Rev. Defect Extent (% LUIS) Conclusion 1. Rest study was performed for viability 2. A sacar is seen over the lateral wall and a portion of the septum. 3. This corrobarates with the known REAL ESTATE CLOSING COORDINATOR of the circumflex coronary artery
[2016-11-10] MEDS ORDERED: SMZ/TMP 800/160MG TABLET. PO SCH (21:00)
--- NOTE | 2016-11-10 21:08 | PDOC ---
Provider Note Provider Note No further episodes of chest pain or shortness of breath. Echocardiogram revealed an ejection fraction of 35-40%. Viability study showed that there is a scar over the lateral wall and septum. This being the case there is no indication to attempt to open up the chronically totally occluded circumflex coronary artery. He will undergo a stress study tomorrow to see if the LAD is patent. Blanca hasbeen advised to stay off salt. EF is 35-40% so there is no indication for the AICD or bi-V. He has tolerated the fluids well. Will check a BMP tomorrow. LATOSHA HWANG MD Nov 10, 2016 21:08
[2016-11-10] MEDS: ACETYLCYSTEINE 20% ORAL SOLN 600 MG/3 ML SYRINGE. PO SCH (22:02)
[2016-11-10] MEDS: SIMVASTATIN 20 MG TABLET PO SCH (22:03)
[2016-11-10] MEDS: INSULIN DETEMIR 300 UNITS/3 ML INSULN.PEN. SQ SCH (22:12)
[2016-11-10 22:45] VITALS: BP 110/53
--- NOTE | 2016-11-10 23:14 | PDOC2 ---
CONSULT Date of Consult Date of Consult DATE: 11/10/16 TIME: 23:10 Family History Family History: No Significant Social History ALCOHOL: rare Drugs: None Lives: with Family Domestic Violence: Neg Current Problem List Problem List Problems Medical Problems: (1) Acute renal failure Status: Acute (2) Acute respiratory failure Status: Acute (3) Anemia Status: Acute (4) Hyperglycemia Status: Acute (5) Pulmonary edema Status: Acute Current Medications Current Medications Current Medications Aspirin (Rocío Aspirin) 325 mg 1X ONCE PO Last administered on 11/10/16 00:49 ; Start 11/10/16 at 00:45; Stop 11/10/16 at 00:46; Status DC Albuterol/ Ipratropium (Duoneb) 3 ml 1X ONCE NEB Last administered on 00:43; Start 11/10/16 at 00:45; Stop 11/10/16 at 00:46; Status DC Nitroglycerin (Nitro-Dur) 1 patch 1X ONCE TD Last administered on 11/10/16 00: 49; Start 11/10/16 at 00:45; Stop 11/10/16 at 00:46; Status DC Furosemide (Lasix) 80 mg 1X ONCE IVP Last administered on 11/10/16 01:28; Start 11/10/16 at 01:15; Stop 11/10/16 at 01:16; Status DC Heparin Sodium (Porcine) (Heparin Sodium) 4,000 unit 1X ONCE IV ; Start at 02:15; Stop 11/10/16 at 03:54; Status DC Heparin Sodium/ Dextrose 500 ml @ 0 mls/hr CONT PRN IV SEE I/O RECORD; Start at 02:15; Stop 11/10/16 at 03:54; Status DC Heparin Sodium (Porcine) (Heparin Sodium) 2,150 unit PRN Q6HRS PRN IV FOR UFH LEVEL LESS THAN 0.2; Start 11/10/16 at 02:15; Stop 11/10/16 at 03:54; Status DC Ondansetron HCl (Zofran) 4 mg PRN Q8HRS PRN IV NAUSEA/VOMITING; Start 11/10/16 at 02:45; Stop 11/11/16 at 02:44 Morphine Sulfate 2 mg PRN Q2HR PRN IV PAIN; Start 11/10/16 at 02:45; Stop at 02:44 Acetaminophen (Tylenol) 650 mg PRN Q4HRS PRN PO FEVER; Start 11/10/16 at 02:45; Stop 11/11/16 at 02:44 Nitroglycerin (Nitrostat) 0.4 mg PRN Q5MIN PRN SL CHEST PAIN; Start 11/10/16 at 02:45; Stop 11/10/16 at 14:46; Status DC Enoxaparin Sodium (Lovenox Per Pharmacy Treatment Dosing) 1 each PRN Q12HR PRN MC SEE COMMENTS; Start 11/10/16 at 04:00; Stop 11/10/16 at 09:22; Status DC Enoxaparin Sodium (Lovenox 100mg Syringe) 90 mg Q12HR SQ ; Start 11/10/16 at 09: 00; Stop 11/10/16 at 09:21; Status DC Info (Anti-Coagulation Monitoring By Pharmacy) 1 each PRN DAILY PRN MC SEE COMMENTS; Start 11/10/16 at 08:00; Stop 11/10/16 at 09:22; Status DC Sodium Chloride 1,000 ml @ 75 mls/hr [id number] IV Last administered on 11/10/16 13:03; Start 11/10/16 at 11:30; Stop 11/10/16 at 21:13; Status DC Acetylcysteine (Mucomyst 20% Oral Solution) 600 mg BID PO Last administered on 11/10/16 22:02; Start 11/10/16 at 21:00; Stop 11/12/16 at 20:59 Insulin Aspart (NovoLOG) 0-5 UNITS TIDWMEALS SQ Last administered on 11/10/16 17:36; Start 11/10/16 at 13:00 Dextrose (Dextrose 50%-Water Syringe) 12.5 gm PRN Q15MIN PRN IV SEE COMMENTS; Start 11/10/16 at 12:30 Aspirin (Ecotrin) 325 mg DAILY PO Last administered on 11/10/16 14:53; Start at 13:30 Clopidogrel Bisulfate (Plavix) 75 mg DAILY PO Last administered on 11/10/16 14: 53; Start 11/10/16 at 13:30 Cyanocobalamin (Vitamin B-12) 2,500 mcg DAILY PO Last administered on 11/10/16 14:53; Start 11/10/16 at 13:30 Ferrous Sulfate (Feosol) 325 mg BIDWMEALS PO Last administered on 11/10/16 17: 32; Start 11/10/16 at 17:00 Acetaminophen/ Hydrocodone Bitart (Lortab 7.5/325) 1 tab PRN Q3HRS PRN PO PAIN ; Start 11/10/16 at 12:45 Insulin Aspart (NovoLOG) 15 units TIDWMEALS SQ Last administered on 11/10/16 17 :58; Start 11/10/16 at 13:00 Isosorbide Mononitrate (Imdur) 30 mg DAILY PO Last administered on 11/10/16 14: 54; Start 11/10/16 at 13:30 Losartan Potassium (Cozaar) 100 mg DAILY PO Last administered on 11/10/16 14:55 ; Start 11/10/16 at 13:30; Stop 11/10/16 at 17:11; Status DC Metoprolol Tartrate (Lopressor) 50 mg BID PO Last administered on 11/10/16 22: 03; Start 11/10/16 at 13:30 Nitroglycerin (Nitrostat) 0.4 mg PRN 1X PRN SL CHEST PAIN; Start 11/10/16 at 12: 45 Oxycodone/ Acetaminophen (Percocet 7.5/ 325) 1 tab PRN Q3HRS PRN PO PAIN; Start 11/10/16 at 12:45 Simvastatin (Zocor) 20 mg HS PO Last administered on 11/10/16 22:03; Start 11/10 at 21:00 Trimethoprim/ Sulfamethoxazole (Bactrim Ds) 1 tab BID PO ; Start 11/10/16 at 21: 00; Status UNV Insulin Detemir (Levemir) 20 units QHS SQ Last administered on 11/10/16 22:12; Start 11/10/16 at 21:00 Active Scripts Active Bactrim Ds Tablet (Sulfamethoxazole/Trimethoprim) 1 Each Tablet 1 Tab PO BID Cozaar (Losartan Potassium) 50 Mg Tablet 100 Mg PO DAILY Warfarin Sodium 2 Mg Tablet 1 Tab PO DAILY Aspirin Ec (Aspirin) 325 Mg Tablet.dr 1 Tab PO DAILY Isosorbide Mononitrate Er (Isosorbide Mononitrate) 30 Mg Tab.er.24h 1 Tab PO DAILY Clopidogrel (Clopidogrel Bisulfate) 75 Mg Tablet 1 Tab PO DAILY Reported Percocet 7.5-325 Mg Tablet (Oxycodone/Acetaminophen) 1 Each Tablet 1 Tab PO PRN Q3HRS PRN Ferrous Sulfate 325 Mg Tablet 1 Tab PO BID last dose this am next dos is with supper Hydrocodone-Apap 7.5-325 (Hydrocodone Bit/Acetaminophen) 1 Each Tablet 1 Tab PO Q3HRS PRN Levemir (Insulin Detemir) 100 Unit/1 Ml Vial 20 Unit SQ HS LAST DOSE GIVEN: DATE: 07/18 TIME: 9 PM NEXT DOSE DUE: DATE: 07/19 TIME: 9 PM Metoprolol Tartrate 50 Mg Tablet 50 Mg PO BID LAST DOSE GIVEN: DATE: 10/02/16 TIME: 9 AM NEXT DOSE DUE: DATE: 10/02/16 TIME: 9 PM Vitamin B-12 (Cyanocobalamin (Vitamin B-12)) 1,000 Mcg Tablet 2,500 Mcg PO DAILY LAST DOSE GIVEN: DATE: 10/02/16 TIME: 9 AM NEXT DOSE DUE: DATE: 10/03 TIME: 9 AM Novolog Flexpen (Insulin Aspart) 100 Unit/1 Ml Insuln.pen 15 Unit SQ TIDWMEALS LAST DOSE GIVEN: DATE: 07/19 TIME: WITH LUNCH NEXT DOSE DUE: DATE: 07/19 TIME: WITH DINNER NITROGLYCERIN SubLingual (Nitroglycerin) 0.4 Mg Tab.subl 0.4 Mg SL PRN 1X PRN NOT GIVEN IN HOSPITAL. TAKE DIRECTED. Simvastatin 20 Mg Tablet 20 Mg PO HS LAST DOSE GIVEN: DATE: 10/01/16 TIME: 9 PM NEXT DOSE DUE: DATE: 10/02/16 TIME: 9 PM Allergies Allergies: Coded Allergies: No Known Drug Allergies (Unverified , 09/29/16) Vitals VITALS Vital Signs Date Time Temp Pulse Resp B/P (MAP) Pulse Ox O2 Delivery O2 Flow Rate FiO2 11/10/16 22:45 98.5 77 18 110/53 (72) 99 Room Air 98.5 11/10/16 02:00 2.0 Labs Labs Laboratory Tests Test 11/10/16 00:17 11/10/16 04:05 11/10/16 08:30 11/10/16 09:55 White Blood Count 6.3 x10^3/uL (4.0-11.0) Red Blood Count 3.48 x10^6/uL (4.30-5.70) Hemoglobin 9.1 g/dL (13.0-17.5) Hematocrit 28.2 % (39.0-53.0) Mean Corpuscular Volume 81 fL (79-100) Mean Corpuscular Hemoglobin 26 pg (25-35) Mean Corpuscular Hemoglobin Concent 32 g/dL (31-37) Red Cell Distribution Width 19.3 % (11.5-14.5) Platelet Count 335 x10^3/uL (140-400) Neutrophils (%) (Auto) 73 % (31-73) Lymphocytes (%) (Auto) 15 % (24-48) Monocytes (%) (Auto) 9 % (0-9) Eosinophils (%) (Auto) 2 % (0-3) Basophils (%) (Auto) 1 % (0-3) Neutrophils # (Auto) 4.6 x10^3uL (1.8-7.7) Lymphocytes # (Auto) 1.0 x10^3/uL (1.0-4.8) Monocytes # (Auto) 0.5 x10^3/uL (0.0-1.1) Eosinophils # (Auto) 0.1 x10^3/uL (0.0-0.7) Basophils # (Auto) 0.1 x10^3/uL (0.0-0.2) Prothrombin Time 15.5 SEC (11.7-14.0) Prothromb Time International Ratio 1.3 (0.8-1.1) Activated Partial Thromboplast Time 32 SEC (24-38) Sodium Level 138 mmol/L (136-145) Potassium Level 4.7 mmol/L (3.5-5.1) Chloride Level 105 mmol/L (98-107) Carbon Dioxide Level 22 mmol/L (21-32) Anion Gap 11 (6-14) Blood Urea Nitrogen 39 mg/dL (8-26) Creatinine 2.1 mg/dL (0.7-1.3) Estimated GFR (Cockcroft-Gault) 30.5 BUN/Creatinine Ratio 19 (6-20) Glucose Level 250 mg/dL (70-99) Calcium Level 8.8 mg/dL (8.5-10.1) Total Bilirubin 0.4 mg/dL (0.2-1.0) Aspartate Amino Transf (AST/SGOT) 20 U/L (15-37) Alanine Aminotransferase (ALT/SGPT) 18 U/L (16-63) Alkaline Phosphatase 73 U/L (46-116) Troponin I Quantitative 0.045 ng/mL (0.000-0.055) 1.862 ng/mL (0.000-0.055) 1.836 ng/mL (0.000-0.055) PW-Nvv-N-Type Natriuretic Peptide 85498 pg/mL (0-449) Total Protein 8.0 g/dL (6.4-8.2) Albumin 3.0 g/dL (3.4-5.0) Albumin/Globulin Ratio 0.6 (1.0-1.7) O2 Saturation 98 % (92-99) Arterial Blood pH 7.43 (7.35-7.45) Arterial Blood pCO2 at Patient Temp 34 mmHg (35-46) Arterial Blood pO2 at Patient Temp 132 mmHg (65-108) Arterial Blood HCO3 22 mmol/L (21-28) Arterial Blood Base Excess -2 mmol/L (-3-3) FiO2 30 Test 11/10/16 12:27 11/10/16 15:15 11/10/16 17:01 11/10/16 20:38 Glucose (Fingerstick) 226 mg/dL (70-99) 274 mg/dL (70-99) 259 mg/dL (70-99) Troponin I Quantitative 1.394 ng/mL (0.000-0.055) Laboratory Tests Test 11/10/16 00:17 11/10/16 04:05 11/10/16 08:30 11/10/16 09:55 White Blood Count 6.3 x10^3/uL (4.0-11.0) Red Blood Count 3.48 x10^6/uL (4.30-5.70) Hemoglobin 9.1 g/dL (13.0-17.5) Hematocrit 28.2 % (39.0-53.0) Mean Corpuscular Volume 81 fL (79-100) Mean Corpuscular Hemoglobin 26 pg (25-35) Mean Corpuscular Hemoglobin Concent 32 g/dL (31-37) Red Cell Distribution Width 19.3 % (11.5-14.5) Platelet Count 335 x10^3/uL (140-400) Neutrophils (%) (Auto) 73 % (31-73) Lymphocytes (%) (Auto) 15 % (24-48) Monocytes (%) (Auto) 9 % (0-9) Eosinophils (%) (Auto) 2 % (0-3) Basophils (%) (Auto) 1 % (0-3) Neutrophils # (Auto) 4.6 x10^3uL (1.8-7.7) Lymphocytes # (Auto) 1.0 x10^3/uL (1.0-4.8) Monocytes # (Auto) 0.5 x10^3/uL (0.0-1.1) Eosinophils # (Auto) 0.1 x10^3/uL (0.0-0.7) Basophils # (Auto) 0.1 x10^3/uL (0.0-0.2) Prothrombin Time 15.5 SEC (11.7-14.0) Prothromb Time International Ratio 1.3 (0.8-1.1) Activated Partial Thromboplast Time 32 SEC (24-38) Sodium Level 138 mmol/L (136-145) Potassium Level 4.7 mmol/L (3.5-5.1) Chloride Level 105 mmol/L (98-107) Carbon Dioxide Level 22 mmol/L (21-32) Anion Gap 11 (6-14) Blood Urea Nitrogen 39 mg/dL (8-26) Creatinine 2.1 mg/dL (0.7-1.3) Estimated GFR (Cockcroft-Gault) 30.5 BUN/Creatinine Ratio 19 (6-20) Glucose Level 250 mg/dL (70-99) Calcium Level 8.8 mg/dL (8.5-10.1) Total Bilirubin 0.4 mg/dL (0.2-1.0) Aspartate Amino Transf (AST/SGOT) 20 U/L (15-37) Alanine Aminotransferase (ALT/SGPT) 18 U/L (16-63) Alkaline Phosphatase 73 U/L (46-116) Troponin I Quantitative 0.045 ng/mL (0.000-0.055) 1.862 ng/mL (0.000-0.055) 1.836 ng/mL (0.000-0.055) TM-Yfd-O-Type Natriuretic Peptide 97010 pg/mL (0-449) Total Protein 8.0 g/dL (6.4-8.2) Albumin 3.0 g/dL (3.4-5.0) Albumin/Globulin Ratio 0.6 (1.0-1.7) O2 Saturation 98 % (92-99) Arterial Blood pH 7.43 (7.35-7.45) Arterial Blood pCO2 at Patient Temp 34 mmHg (35-46) Arterial Blood pO2 at Patient Temp 132 mmHg (65-108) Arterial Blood HCO3 22 mmol/L (21-28) Arterial Blood Base Excess -2 mmol/L (-3-3) FiO2 30 Test 11/10/16 12:27 11/10/16 15:15 11/10/16 17:01 11/10/16 20:38 Glucose (Fingerstick) 226 mg/dL (70-99) 274 mg/dL (70-99) 259 mg/dL (70-99) Troponin I Quantitative 1.394 ng/mL (0.000-0.055) Assessment/Plan Assessment/Plan RENAL CONSULT / RITESH. ARF/ATN. HTN w CKD CKD II/III CAD CATH in am. Hold LOSARTAN tomorrow. IVF Labs. Thank you. LAYLA AWAD MD Nov 10, 2016 23:14
--- NOTE | 2016-11-10 23:17 | HP ---
ADMIT DATE: 11/10/2016 HISTORY OF PRESENT ILLNESS: This is an 81-year-old white male who was brought in last night because of shortness of breath. He had been doing fairly well when he went to bed; however, he woke up with severe shortness of breath. Rather than waiting longer as he did the last time, he had his take him to the Emergency Room right away. In the Emergency Room, his chest x-ray showed mild pulmonary vascular congestion. The BNP was elevated. He was hypoxic and he was placed on a BiPAP. He went up to the floor. The BiPAP was removed very quickly and he was placed on nasal cannula and after that on room air. This patient was hospitalized in 10/2016 after having had a knee replacement with similar symptoms of paroxysmal nocturnal dyspnea and he was found to be in congestive heart failure. He had had a salty meal. He also had elevated enzymes. He underwent cardiac catheterization. There was a severe obstruction in the LAD that was stented. The previously placed stent in the circumflex coronary artery was not totally occluded and OM branch filled via collaterals. His EF had dropped to 40%. He was discharged on dual antiplatelet therapy. His Coumadin is continued. He had no bleeding with this. The Coumadin was recently discontinued because he it has been a month since his knee surgery. He has continued to take the Plavix and aspirin. He has diabetes. He initially refused to take insulin and his diabetes was way out of control. Recently, he has agreed to take the insulin. The A1c is better. He has been anemic. He has had GI bleed due to angiodysplasia. His hemoglobin was at around 10 g percent on iron supplements. He does not take alcohol nor does he smoke. PRESENT MEDICATIONS: 1. Aspirin 81 mg a day. 2. Clopidogrel 75 mg a day. 3. B12 1000 mcg a day. 4. Ferrous sulfate 325 mg twice a day. 5. Hydrocodone. 6. NovoLog 15 units before each meal. 7. Levemir 20 units at night. 8. Isosorbide mononitrate 30 mg a day. 9. Losartan 50 mg a day. 10. Metoprolol tartrate 50 mg twice a day. 11. Simvastatin 20 mg at night. 12. He was on Bactrim, but I believe this has been discontinued. PHYSICAL EXAMINATION: GENERAL: He is in no distress. VITAL SIGNS: The heart rate is 80 per minute and regular. The blood pressure is 130/80. LUNGS: Clear at this time. HEART: The heart sounds are normal with no murmur or gallop. ABDOMEN: Soft. EXTREMITIES: There is no edema of the legs. IMPRESSION: 1. Orthopnea and paroxysmal nocturnal dyspnea. 2. Coronary artery disease. 3. Mild elevation of troponin, probably due to congestive heart failure. Doubt that this is due to acute coronary syndrome. We plan to do a myocardial perfusion imaging study at this time. If there are any areas of ischemia this will be attended to. The patient is again admonished against using salt, which was the problem for his previous hospitalization. LATOSHA HWANG MD DR: BRANDY/malou JOB#: [id number] / [id number]
[2016-11-11 03:05] VITALS: BP 140/73
[2016-11-11 06:06] LABS: CALCIUM 8.4 mg/dL (8.5-10.1); CREATININE 1.4 mg/dL (0.7-1.3); GFR 48.8; POTASSIUM 4.2 mmol/L (3.5-5.1)
[2016-11-11 06:09] LABS: BASO % 1 % (0-3); EOS % 4 % (0-3); HEMATOCRIT 24.2 % (39.0-53.0); HEMOGLOBIN 7.9 g/dL (13.0-17.5); LYMPH # 0.7 x10^3/uL (1.0-4.8); LYMPH % 15 % (24-48); MEAN CORPUSCULAR HEMOGLOBIN 26 pg (25-35); MEAN CORPUSCULAR HGB CONC 33 g/dL (31-37); MEAN CORPUSCULAR VOLUME 80 fL (79-100); MONO % 7 % (0-9); NEUT % 74 % (31-73); PLATELET COUNT 271 x10^3/uL (140-400); RED BLOOD COUNT 3.01 x10^6/uL (4.30-5.70); RED CELL DISTRIBUTION WIDTH 18.8 % (11.5-14.5); WHITE BLOOD COUNT 4.6 x10^3/uL (4.0-11.0)
[2016-11-11 06:26] LABS: CHOLESTEROL/HDL RATIO 2.4
[2016-11-11 07:20] VITALS: BP 149/73
[2016-11-11] MEDS: INSULIN ASPART 300 UNITS/3 ML INSULN.PEN SQ SCH ×6 (08:00→17:23)
[2016-11-11] MEDS: FERROUS SULFATE 325 MG TABLET. PO SCH ×2 (08:29→17:21)
[2016-11-11 11:00] VITALS: BP 145/73
[2016-11-11] MEDS ORDERED: REGADENOSON 0.4 MG/5 ML DISP.SYRIN. IV ONE (11:30)
[2016-11-11] MEDS: ACETYLCYSTEINE 20% ORAL SOLN 600 MG/3 ML SYRINGE. PO SCH ×2 (12:25→21:09)
[2016-11-11] MEDS: CYANOCOBALAMIN (VITAMIN B-12) 1,000 MCG TABLET. PO SCH (12:28)
[2016-11-11] MEDS: ISOSORBIDE MONONITRATE ER 30 MG TAB.ER.24H PO SCH (12:28)
[2016-11-11] MEDS: METOPROLOL TART IMMED RELEASE 50 MG TABLET. PO SCH ×2 (12:29→21:09)
[2016-11-11] MEDS: ASPIRIN ENTERIC COATED 325 MG TABLET.DR. PO SCH (12:30)
[2016-11-11] MEDS: CLOPIDOGREL BISULFATE 75 MG TABLET PO SCH (12:30)
[2016-11-11 15:07] VITALS: BP 136/69
[2016-11-11 19:20] VITALS: BP 117/58
[2016-11-11] MEDS: SIMVASTATIN 20 MG TABLET PO SCH (21:08)
[2016-11-11] MEDS: INSULIN DETEMIR 300 UNITS/3 ML INSULN.PEN. SQ SCH (21:14)
[2016-11-11 23:00] VITALS: BP 131/65
--- NOTE | 2016-11-11 23:10 | PDOC ---
Provider Note Provider Note He has had no chest pain. C/O of some shortness of breath NormalO2 sat on room air. MPI today showed no evidence of ischemia over the anterior wall. This indicates that the the stent in the LAD is patent. The Hgb. has dropped to 9.6 g to 7.9Gms. percent from 11 at the office. Check again tomorrow. Blood transfusion if necessary. Creatinine has much improved. Heart regular. No S3. Lungs are clear. Plan chest x-ray tomorrow and repeat hemoglobin tomorrow. Interrogate pacemaker while he is here. Home tomorrow. LATOSHA HWANG MD Nov 11, 2016 23:10
--- NOTE | 2016-11-11 23:46 | PDOC ---
Provider Note Provider Note RENAL F/U : RITESH S : No new issues. CATH postponed. O : VSS Afebrile. Neck : Supple Lungs : Non labored. CVS : RRR Abd : Benign in appearance, without distention. Ext : No edema Neuro : Awake. Labs reviewed. A/P : ARF/ATN HTN w CKD CKD II/III CAD. Doing better Cr 1.2 Supportive care Labs. CPM. LAYLA AWAD MD Nov 11, 2016 23:46
[2016-11-12 03:00] VITALS: BP 140/68
[2016-11-12 03:53] LABS: HEMATOCRIT 25.4 % (39.0-53.0); HEMOGLOBIN 8.2 g/dL (13.0-17.5); RED BLOOD COUNT 3.16 x10^6/uL (4.30-5.70); RED CELL DISTRIBUTION WIDTH 18.8 % (11.5-14.5); WHITE BLOOD COUNT 4.4 x10^3/uL (4.0-11.0)
[2016-11-12 04:21] LABS: CALCIUM 8.5 mg/dL (8.5-10.1); CREATININE 1.4 mg/dL (0.7-1.3); GFR 48.8; POTASSIUM 4.2 mmol/L (3.5-5.1)
[2016-11-12 04:28] LABS: % SAT IRON 14 % (15-34); IRON,SERUM 33 ug/dL (65-175)
[2016-11-12 07:59] VITALS: BP 142/73
[2016-11-12] MEDS: INSULIN ASPART 300 UNITS/3 ML INSULN.PEN SQ SCH ×6 (08:00→17:41)
[2016-11-12] MEDS: ACETYLCYSTEINE 20% ORAL SOLN 600 MG/3 ML SYRINGE. PO SCH (09:00)
[2016-11-12] MEDS: ISOSORBIDE MONONITRATE ER 30 MG TAB.ER.24H PO SCH (09:14)
[2016-11-12] MEDS: ASPIRIN ENTERIC COATED 325 MG TABLET.DR. PO SCH (09:14)
[2016-11-12] MEDS: CYANOCOBALAMIN (VITAMIN B-12) 1,000 MCG TABLET. PO SCH (09:14)
[2016-11-12] MEDS: CLOPIDOGREL BISULFATE 75 MG TABLET PO SCH (09:14)
[2016-11-12] MEDS: FERROUS SULFATE 325 MG TABLET. PO SCH ×2 (09:15→17:00)
[2016-11-12] MEDS: METOPROLOL TART IMMED RELEASE 50 MG TABLET. PO SCH (09:15)
--- NOTE | 2016-11-12 10:36 | RAD ---
Indication shortness of breath. PA and lateral views of the chest were obtained and are compared to a single view examination 2 days previously. Changes of congestive heart failure seen previously have improved. No gross congestive heart failure is seen on today's exam. Heart size is unchanged. Significant pleural fluid in either lung is not seen. There is no focal consolidated pneumonia. Bipolar cardiac pacing device is noted. IMPRESSION: Interval improvement. Changes of congestive heart failure seen previously are improved. No new finding in the chest is seen
[2016-11-12 15:52] VITALS: BP 132/65
--- NOTE | 2016-11-12 18:04 | PDOC ---
Provider Note Provider Note S : No new issues. O : VSS Afebrile. Neck : Supple Lungs : Non labored. CVS : RRR Abd : Benign in appearance, without distention. Ext : No edema Neuro : Awake. Labs reviewed. A/P : ARF/ATN HTN w CKD CKD II/III CAD. Doing better Cr 1.4 ( stable ). Supportive care Labs. CPM. LAYLA AWAD MD Nov 12, 2016 18:04
== END 2016-11-12 19:07 | disposition home or self-care (01) | DRG 682 ==
LOC: ER 00:09 → 2 NORTH 01:12
PROVIDERS: ADMIT Specialist; ATTEND Specialist
PROC: 5A09357 Assistance with Respiratory Ventilation, Less than 24 Consecutive Hours, Continuous Positive Airway Pressure (ICD-10-PCS; principal; 2016-11-10)
DX: N17.0 Acute kidney failure with tubular necrosis (principal); I50.23 Acute on chronic systolic (congestive) heart failure; I13.0 Hypertensive heart and chronic kidney disease with heart failure and stage 1 through stage 4 chronic kidney disease, or unspecified chronic kidney disease; E11.22 Type 2 diabetes mellitus with diabetic chronic kidney disease; D64.9 Anemia, unspecified; I25.10 Atherosclerotic heart disease of native coronary artery without angina pectoris; Z96.659 Presence of unspecified artificial knee joint; E78.00 Pure hypercholesterolemia, unspecified; E11.65 Type 2 diabetes mellitus with hyperglycemia; I50.9 Heart failure, unspecified; N18.2 Chronic kidney disease, stage 2 (mild); Z79.4 Long term (current) use of insulin; Z79.82 Long term (current) use of aspirin; Z79.899 Other long term (current) drug therapy; Z95.5 Presence of coronary angioplasty implant and graft; Z95.0 Presence of cardiac pacemaker
CPT/HCPCS: 36415; 36600; 71010; 71020; 78451; 80048; 80053; 80061; 82607; 82805; 82962; 83036; 83540; 83550; 83880; 84484; 85027; 85610; 85730; 93005; 93017; 93308; 94620; 94640; 94660; 94799; 96374; A9500; J1815; J1940; J2785; J7030; J7620; 99291-25

== ENCOUNTER 2016-12-09 13:11 | Inpatient (IN) | payer MEDICARE ==
[~2016-12-09] VITALS: Ht 172.7 cm; Wt 83.2 kg
[~2016-12-09 13:11] MED LIST changes: +ASPI-630 PO; -ASPI81TA2 PO; -CINN500C PO; +CINN500C2 PO; -CLOP75TA27 PO; +CLOP75TA57 PO; +DOCU100C28 PO; -DOCU100C5 PO; -HYDR-2666 PO; +HYDR-2758 PO; +NITR0.4T22 SL; -NITR0.4T6 SL; -OXYC-244 PO; +OXYC-327 PO; +SULF-143; -SULF1TAB3
[2016-12-09 13:37] LABS: BASO % 0 % (0-3); EOS % 1 % (0-3); HEMATOCRIT 30.4 % (39.0-53.0); LYMPH # 0.5 x10^3/uL (1.0-4.8); LYMPH % 8 % (24-48); MEAN CORPUSCULAR HEMOGLOBIN 26 pg (25-35); MEAN CORPUSCULAR HGB CONC 33 g/dL (31-37); MEAN CORPUSCULAR VOLUME 78 fL (79-100); MONO % 4 % (0-9); NEUT % 87 % (31-73); PLATELET COUNT 326 x10^3/uL (140-400); RED BLOOD COUNT 3.91 x10^6/uL (4.30-5.70); RED CELL DISTRIBUTION WIDTH 16.6 % (11.5-14.5)
[2016-12-09 13:49] LABS: CALCIUM 8.7 mg/dL (8.5-10.1); CREATININE 1.7 mg/dL (0.7-1.3); POTASSIUM 4.5 mmol/L (3.5-5.1)
--- NOTE | 2016-12-09 13:50 | PHYS DOC ---
Past Medical History Past Medical History: CAD, Diabetes-Type II, High Cholesterol, Hypertension, VA Past Surgical History: Appendectomy, Knee Replacement, Pacemaker, Other Additional Past Surgical Histo: cardiac cath with stents,EGD,colonoscopy,bilat elbow surgery,bilat lens imp Alcohol Use: None Drug Use: None Adult General Chief Complaint Chief Complaint: CHEST PAIN HPI HPI 81-year-old male presenting to the emergency department today with chest pain. His pain started last night around 2 AM. He describes it as a pressure. It is nonradiating. Moderate. Denies it radiating. He denies unilateral leg pain or swelling, hemoptysis, recent immobilization. His pain is been improving over the morning and currently is approximately 1 out of 10. Review of systems. Review of systems is negative for abdominal pain nausea vomiting diaphoresis vision changes numbness weakness or tingling. All other review of systems is negative unless otherwise noted in history of present illness. ED course: 81-year-old male presenting with chest pain. EKG similar to previous compared to on November 102016. Chest x-ray obtained along with blood work. probnp elevated chronically similar to previous. otherwise trop within nl limits. Given the patient's multiple stents the past and significant cardiac history, the patient was admitted for further evaluation workup and care. The patient was admitted to Dr. 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 Review of Systems Review of Systems SEE ABOVE. Current Medications Current Medications Current Medications Medications (Trade) Dose Ordered Sig/[facility] Start Time Stop Time Status Last Admin Dose Admin Aspirin (Children'S Aspirin) 324 mg 1X ONCE 12/09/16 14:00 12/09/16 14:01 DC 12/09/16 13:47 243 MG Morphine Sulfate 2 mg PRN Q2HR PRN 12/09/16 14:00 12/10/16 13:59 UNV Ondansetron HCl (Zofran) 4 mg PRN Q8HRS PRN 12/09/16 14:00 12/10/16 13:59 UNV Sodium Chloride 1,000 ml @ 100 mls/hr Q10H 12/09/16 13:58 12/10/16 13:57 UNV Allergies Allergies Allergies Coded Allergies Type Severity Reaction Last Updated Verified No Known Drug Allergies 09/29/16 No Physical Exam Physical Exam Constitutional: Well developed, well nourished, no acute distress, non-toxic appearance. [] HENT: Normocephalic, atraumatic, bilateral external ears normal, oropharynx moist, no oral exudates, nose normal. [] Eyes: PERRLA, EOMI, conjunctiva normal, no discharge. [] Neck: Normal range of motion, no tenderness, supple, no stridor. [] Cardiovascular:Heart rate regular rhythm, no murmur [] Lungs & Thorax: Bilateral breath sounds clear to auscultation [] Abdomen: Bowel sounds normal, soft, no tenderness, no masses, no pulsatile masses. [] Skin: Warm, dry, no erythema, no rash. [] Back: No tenderness, no CVA tenderness. [] Extremities: No tenderness, no cyanosis, no clubbing, ROM intact, no edema. [] no evidence of dvt. Neurologic: Alert and oriented X 3, normal motor function, normal sensory function, no focal deficits noted. [] Psychologic: Affect normal, judgement normal, mood normal. [] Current Patient Data Vital Signs Vital Signs Date Time Temp Pulse Resp B/P (MAP) Pulse Ox O2 Delivery O2 Flow Rate FiO2 12/09/16 13:25 98.0 70 16 162/81 (108) 100 Room Air 98.0 Lab Values Laboratory Tests Test 12/09/16 13:24 White Blood Count 6.0 x10^3/uL (4.0-11.0) Red Blood Count 3.91 x10^6/uL (4.30-5.70) L Hemoglobin 10.0 g/dL (13.0-17.5) L Hematocrit 30.4 % (39.0-53.0) L Mean Corpuscular Volume 78 fL (79-100) L Mean Corpuscular Hemoglobin 26 pg (25-35) Mean Corpuscular Hemoglobin Concent 33 g/dL (31-37) Red Cell Distribution Width 16.6 % (11.5-14.5) H Platelet Count 326 x10^3/uL (140-400) Neutrophils (%) (Auto) 87 % (31-73) H Lymphocytes (%) (Auto) 8 % (24-48) L Monocytes (%) (Auto) 4 % (0-9) Eosinophils (%) (Auto) 1 % (0-3) Basophils (%) (Auto) 0 % (0-3) Neutrophils # (Auto) 5.2 x10^3uL (1.8-7.7) Lymphocytes # (Auto) 0.5 x10^3/uL (1.0-4.8) L Monocytes # (Auto) 0.2 x10^3/uL (0.0-1.1) Eosinophils # (Auto) 0.0 x10^3/uL (0.0-0.7) Basophils # (Auto) 0.0 x10^3/uL (0.0-0.2) Platelet Estimate Pending Sodium Level 135 mmol/L (136-145) L Potassium Level 4.5 mmol/L (3.5-5.1) Chloride Level 99 mmol/L (98-107) Carbon Dioxide Level 26 mmol/L (21-32) Anion Gap 10 (6-14) Blood Urea Nitrogen 30 mg/dL (8-26) H Creatinine 1.7 mg/dL (0.7-1.3) H Estimated GFR (Cockcroft-Gault) 39.0 Glucose Level 237 mg/dL (70-99) H Calcium Level 8.7 mg/dL (8.5-10.1) Total Bilirubin 0.4 mg/dL (0.2-1.0) Direct Bilirubin 0.2 mg/dL (0.0-0.2) Aspartate Amino Transferase (AST) 18 U/L (15-37) Alanine Aminotransferase (ALT) 15 U/L (16-63) L Alkaline Phosphatase 69 U/L (46-116) Troponin I Quantitative 0.023 ng/mL (0.000-0.055) VC-Wyc-M-Type Natriuretic Peptide 31794 pg/mL (0-449) H Total Protein 8.2 g/dL (6.4-8.2) Albumin 3.2 g/dL (3.4-5.0) L Lipase 115 U/L (73-393) Laboratory Tests 12/09/16 13:24 Laboratory Tests 12/09/16 13:24 EKG EKG [] Radiology/Procedures Radiology/Procedures []Chest x-ray reviewed by myself compared to previous on November 122016 shows no obvious infiltrate or pneumothorax present. No obvious acute cardiopulmonary process present. Course & Med Decision Making Course & Med Decision Making Pertinent Labs and Imaging studies reviewed. (See chart for details) [] Dragon Disclaimer Dragon Disclaimer This electronic medical record was generated, in whole or in part, using a voice recognition dictation system. Departure Departure Impression: Primary Impression: Chest pain Disposition: ADMITTED INPATIENT Admitting Physician: Other (premsingh) Condition: STABLE Referrals: LATOSHA HWANG MD (PCP) Problem Qualifiers Primary Impression: Chest pain Chest pain type: unspecified Qualified Codes: R07.9 - Chest pain, unspecified OMAR RENO MD Dec 09, 2016 13:50
[2016-12-09 13:54] LABS: ALBUMIN 3.2 g/dL (3.4-5.0); DIRECT BILIRUBIN 0.2 mg/dL (0.0-0.2); TOTAL BILIRUBIN 0.4 mg/dL (0.2-1.0); TOTAL PROTEIN 8.2 g/dL (6.4-8.2)
--- NOTE | 2016-12-09 13:54 | RAD ---
Indication chest pain. A single view of the chest was obtained and is compared to an examination almost one month earlier. Heart size is unchanged. There is no gross congestive heart failure. There is slight elevation of the left hemidiaphragm similar to the previous exam. An acute finding in the chest is not seen. There is no significant pleural fluid. There is no pneumothorax. Bipolar cardiac pacing device is noted. IMPRESSION: No acute finding is seen in the chest
[2016-12-09] MEDS ORDERED: ASPIRIN CHEWABLE 81 MG TABLET. PO ONE (14:00)
[2016-12-09] MEDS ORDERED: MORPHINE SULFATE 2 MG/ML DISP.SYRIN. IV PRN (14:00)
[2016-12-09] MEDS ORDERED: ONDANSETRON PF 4 MG/2 ML VIAL. IV PRN (14:00)
[2016-12-09 14:11] LABS: % BASOS 1 % (0-3)
[2016-12-09 14:12] LABS: PLT ESTIMATE ADEQUATE (ADEQUATE)
[2016-12-09 15:00] VITALS: BP 152/82
[2016-12-09] MEDS ORDERED: FURO-68 PO (15:55)
[2016-12-09] MEDS: IV NORMAL SALINE 1000ML BAG 1,000 ML IV SCH ×2 (16:25→23:58)
[2016-12-09] MEDS ORDERED: PROCHLORPERAZINE 10 MG/2 ML VIAL. IV PRN (17:45)
[2016-12-09 19:59] VITALS: BP 156/86
[2016-12-09] MEDS: SIMVASTATIN 20 MG TABLET PO SCH (21:43)
[2016-12-09] MEDS: INSULIN DETEMIR 300 UNITS/3 ML INSULN.PEN. SQ SCH (22:09)
[2016-12-09 23:28] VITALS: BP 150/77
[2016-12-10 02:18] LABS: BASO % 0 % (0-3); EOS % 0 % (0-3); HEMATOCRIT 31.2 % (39.0-53.0); HEMOGLOBIN 10.2 g/dL (13.0-17.5); LYMPH # 0.3 x10^3/uL (1.0-4.8); LYMPH % 4 % (24-48); MEAN CORPUSCULAR HEMOGLOBIN 26 pg (25-35); MEAN CORPUSCULAR HGB CONC 33 g/dL (31-37); MEAN CORPUSCULAR VOLUME 78 fL (79-100); MONO % 4 % (0-9); NEUT % 92 % (31-73); PLATELET COUNT 308 x10^3/uL (140-400); RED BLOOD COUNT 3.97 x10^6/uL (4.30-5.70); RED CELL DISTRIBUTION WIDTH 16.7 % (11.5-14.5); WHITE BLOOD COUNT 6.9 x10^3/uL (4.0-11.0)
[2016-12-10 02:31] LABS: CALCIUM 8.4 mg/dL (8.5-10.1); CREATININE 1.5 mg/dL (0.7-1.3); POTASSIUM 4.7 mmol/L (3.5-5.1)
[2016-12-10 03:00] VITALS: BP 107/69
[2016-12-10 05:55] LABS: % SAT IRON 9 % (15-34); IRON,SERUM 25 ug/dL (65-175)
--- NOTE | 2016-12-10 06:12 | EKG ---
[facility] [address] [place] [address] Test Date: 2016-12-09 Test Time: 13:15:33 Pat Name: EDDIE LINN Department: Room: Gender: M Graphic Specialist: : [id number] Requested By: OMAR RENO Order Number: [id number] Reading MD: Measurements Intervals [place] Rate: 74 P: 36 VA: 200 QRS: 26 QRSD: 182 T: 140 QT: 442 QTc: 497 Interpretive Statements SINUS RHYTHM NON SPECIFIC INTRAVENTRICULAR BLOCK QRS(T) CONTOUR ABNORMALITY CONSISTENT WITH ANTERIOR INFARCT AGE UNDETERMINED ABNORMAL ECG RI6.01 No previous ECG available for comparison
[2016-12-10 07:00] VITALS: BP 104/53
[2016-12-10] MEDS: INSULIN ASPART 300 UNITS/3 ML INSULN.PEN SQ SCH ×3 (07:30→16:47)
[2016-12-10] MEDS ORDERED: ASPIRIN 325 MG TABLET PO SCH (08:00)
[2016-12-10] MEDS ORDERED: CLOPIDOGREL BISULFATE 75 MG TABLET PO SCH (08:00)
[2016-12-10] MEDS: FERROUS SULFATE 325 MG TABLET. PO SCH (08:52)
[2016-12-10] MEDS: ISOSORBIDE MONONITRATE ER 30 MG TAB.ER.24H PO SCH (08:52)
[2016-12-10] MEDS: CYANOCOBALAMIN (VITAMIN B-12) 1,000 MCG TABLET. PO SCH (08:52)
[2016-12-10] MEDS: FUROSEMIDE 40 MG TABLET. PO SCH (08:52)
[2016-12-10] MEDS: LOSARTAN POTASSIUM 50 MG TABLET. PO SCH (08:53)
[2016-12-10] MEDS: METOPROLOL SUCC 24HR ER 50 MG TAB.ER.24H. PO SCH (08:55)
--- NOTE | 2016-12-10 09:42 | PDOC2 ---
GI CONSULT Reason For Consult: Abd pain, ROLANDO HPI: HPI: 81 y/o male w/ previous GI workup/history as follows: H/o ROLANDO on PO iron. Also CAD on ASA and Plavix, recently on Warfarin as well following knee surgery. Hgb not outside his normal currently. EGD and colonoscopy 11/2013: normal esophagus, gastritis, normal small bowel, s/ p right hemicolectomy w/ anastomosis, sigmoid diverticulosis, and internal hemorrhoids. Previous to this had colonoscopies in 1997, 2001, 2006, and 2011. Chart suggests h/o colon polyp(s), no evidence of this. Also had EGDs in 2006 and 2011 w/ negative gastric and duodenal biopsies. 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 S/p appendectomy w/ partial colon resection, also reports another bowel resection w/ Dr. Chaudhari (says "for a bubble" - ?diverticulosis). Chart lists h /o cholecystectomy; he denies. On this occasion came to ER for acute onset of upper abdominal pain (band-like under ribs) w/ some radiation to back and possibly to chest that began yesterday morning. Attempted to take his to breakfast, felt worse, came back home and had a significant amount of vomiting. W/ recent knee surgery, has been on pain medications and has felt constipated as a result. Has tried prune juice and Citrucel, still struggling to have small stools (last on 12/08). Currently feeling much better (w/ morphine), did have retching overnight. Denies heartburn/reflux, dysphagia, hematemesis, hematochezia, melena, weight loss, and NSAID use. Pt and reports diabetes control is "not good." PMH: PMH: ROLANDO likely related to AVMs on PO iron, CAD w/ 7 stents on ASA and Plavix, DM, CKD, OA, bilateral knee replacements, appendectomy w/ right hemicolectomy, additional bowel resection, cataract extraction, tonsillectomy, pacemaker Social History: Smoke: Quit ALCOHOL: rare Drugs: None ROS: GEN: Denies fevers, chills, sweats HEENT: Denies blurred vision, sore throat CV: Denies chest pain RESP: Denies shortness of air, cough GI: Per HPI : Denies hematuria, dysuria ENDO: Denies weight changes NEURO: Denies confusion, dizziness MSK: Denies weakness, joint pain/swelling SKIN: Denies jaundice, pruritus Vitals: Vitals: Vital Signs Date Time Temp Pulse Resp B/P (MAP) Pulse Ox O2 Delivery O2 Flow Rate FiO2 12/10/16 08:55 77 104/53 12/10/16 07:00 98.1 18 98 Room Air 98.1 Labs: Labs: Laboratory Tests Test 12/09/16 13:24 12/09/16 16:07 12/09/16 19:35 12/09/16 22:01 White Blood Count 6.0 x10^3/uL (4.0-11.0) Red Blood Count 3.91 x10^6/uL (4.30-5.70) Hemoglobin 10.0 g/dL (13.0-17.5) Hematocrit 30.4 % (39.0-53.0) Mean Corpuscular Volume 78 fL (79-100) Mean Corpuscular Hemoglobin 26 pg (25-35) Mean Corpuscular Hemoglobin Concent 33 g/dL (31-37) Red Cell Distribution Width 16.6 % (11.5-14.5) Platelet Count 326 x10^3/uL (140-400) Neutrophils (%) (Auto) 87 % (31-73) Lymphocytes (%) (Auto) 8 % (24-48) Monocytes (%) (Auto) 4 % (0-9) Eosinophils (%) (Auto) 1 % (0-3) Basophils (%) (Auto) 0 % (0-3) Neutrophils # (Auto) 5.2 x10^3uL (1.8-7.7) Lymphocytes # (Auto) 0.5 x10^3/uL (1.0-4.8) Monocytes # (Auto) 0.2 x10^3/uL (0.0-1.1) Eosinophils # (Auto) 0.0 x10^3/uL (0.0-0.7) Basophils # (Auto) 0.0 x10^3/uL (0.0-0.2) Segmented Neutrophils % 86 % (35-66) Band Neutrophils % 1 % (0-9) Lymphocytes % 5 % (24-48) Monocytes % 7 % (0-10) Basophils % 1 % (0-3) Platelet Estimate Adequate (ADEQUATE) Sodium Level 135 mmol/L (136-145) Potassium Level 4.5 mmol/L (3.5-5.1) Chloride Level 99 mmol/L (98-107) Carbon Dioxide Level 26 mmol/L (21-32) Anion Gap 10 (6-14) Blood Urea Nitrogen 30 mg/dL (8-26) Creatinine 1.7 mg/dL (0.7-1.3) Estimated GFR (Cockcroft-Gault) 39.0 Glucose Level 237 mg/dL (70-99) Calcium Level 8.7 mg/dL (8.5-10.1) Total Bilirubin 0.4 mg/dL (0.2-1.0) Direct Bilirubin 0.2 mg/dL (0.0-0.2) Aspartate Amino Transf (AST/SGOT) 18 U/L (15-37) Alanine Aminotransferase (ALT/SGPT) 15 U/L (16-63) Alkaline Phosphatase 69 U/L (46-116) Troponin I Quantitative 0.023 ng/mL (0.000-0.055) 0.029 ng/mL (0.000-0.055) MF-Gel-O-Type Natriuretic Peptide 93833 pg/mL (0-449) Total Protein 8.2 g/dL (6.4-8.2) Albumin 3.2 g/dL (3.4-5.0) Lipase 115 U/L (73-393) Glucose (Fingerstick) 120 mg/dL (70-99) 242 mg/dL (70-99) Test 12/10/16 02:00 12/10/16 07:16 White Blood Count 6.9 x10^3/uL (4.0-11.0) Red Blood Count 3.97 x10^6/uL (4.30-5.70) Hemoglobin 10.2 g/dL (13.0-17.5) Hematocrit 31.2 % (39.0-53.0) Mean Corpuscular Volume 78 fL (79-100) Mean Corpuscular Hemoglobin 26 pg (25-35) Mean Corpuscular Hemoglobin Concent 33 g/dL (31-37) Red Cell Distribution Width 16.7 % (11.5-14.5) Platelet Count 308 x10^3/uL (140-400) Neutrophils (%) (Auto) 92 % (31-73) Lymphocytes (%) (Auto) 4 % (24-48) Monocytes (%) (Auto) 4 % (0-9) Eosinophils (%) (Auto) 0 % (0-3) Basophils (%) (Auto) 0 % (0-3) Neutrophils # (Auto) 6.4 x10^3uL (1.8-7.7) Lymphocytes # (Auto) 0.3 x10^3/uL (1.0-4.8) Monocytes # (Auto) 0.3 x10^3/uL (0.0-1.1) Eosinophils # (Auto) 0.0 x10^3/uL (0.0-0.7) Basophils # (Auto) 0.0 x10^3/uL (0.0-0.2) Sodium Level 135 mmol/L (136-145) Potassium Level 4.7 mmol/L (3.5-5.1) Chloride Level 97 mmol/L (98-107) Carbon Dioxide Level 25 mmol/L (21-32) Anion Gap 13 (6-14) Blood Urea Nitrogen 33 mg/dL (8-26) Creatinine 1.5 mg/dL (0.7-1.3) Estimated GFR (Cockcroft-Gault) 45.0 Glucose Level 274 mg/dL (70-99) Calcium Level 8.4 mg/dL (8.5-10.1) Iron Level 25 ug/dL (65-175) Total Iron Binding Capacity 264 ug/dL (250-450) Iron Saturation 9 % (15-34) Troponin I Quantitative 0.030 ng/mL (0.000-0.055) Vitamin B12 Level 1322 pg/mL (247-911) Glucose (Fingerstick) 248 mg/dL (70-99) Allergies: Coded Allergies: No Known Drug Allergies (Unverified , 09/29/16) Medications: Current Medications Medications (Trade) Dose Ordered Sig/Joey Route PRN Reason Start Time Stop Time Status Last Admin Dose Admin Aspirin (Children'S Aspirin) 324 mg 1X ONCE PO 12/09/16 14:00 12/09/16 14:01 DC 12/09/16 13:47 Ondansetron HCl (Zofran) 4 mg PRN Q8HRS PRN IV NAUSEA/VOMITING 7/4/17 14:00 12/10/16 13:59 12/09/16 17:19 Morphine Sulfate 2 mg PRN Q2HR PRN IV PAIN 12/09/16 14:00 12/10/16 13:59 12/09/16 22:12 Sodium Chloride 1,000 ml @ 100 mls/hr Q10H IV 12/09/16 13:58 12/10/16 13:57 12/09/16 16:25 Prochlorperazine Edisylate (Compazine) 5 mg PRN Q6HRS PRN IV NAUSEA/VOMITING 12/09/16 17:45 12/09/16 19:52 Clopidogrel Bisulfate (Plavix) 75 mg DAILYWBKFT PO 12/10/16 08:00 12/10/16 08:52 Isosorbide Mononitrate (Imdur) 30 mg DAILY PO 12/10/16 09:00 12/10/16 08:52 Aspirin (Rocío Aspirin) 325 mg DAILYWBKFT PO 12/10/16 08:00 12/10/16 08:52 Furosemide (Lasix) 40 mg DAILY PO 12/10/16 09:00 12/10/16 08:52 Losartan Potassium (Cozaar) 100 mg DAILY PO 12/10/16 09:00 12/10/16 08:53 Simvastatin (Zocor) 20 mg HS PO 12/09/16 21:00 12/09/16 21:43 Cyanocobalamin (Vitamin B-12) 2,500 mcg DAILY PO 12/10/16 09:00 12/10/16 08:52 Metoprolol Succinate (Toprol Xl) 50 mg DAILY PO 12/10/16 09:00 12/10/16 08:55 Insulin Detemir (Levemir) 20 units QHS SQ 12/09/16 21:00 12/09/16 22:09 Ferrous Sulfate (Feosol) 325 mg DAILYWBKFT PO 12/10/16 08:00 12/10/16 08:52 Imaging: Imaging: CXR IMPRESSION: No acute finding is seen in the chest. PE: GEN: NAD HEENT: Atraumatic, PERRL LUNGS: CTAB anteriorly HEART: RRR ABD: NABS, S/ND/NT EXTREMITY: No edema SKIN: No rashes, no jaundice NEURO/PSYCH: A & O 3 A/P: A/P: Abd pain, vomiting -acute onset yesterday morning ROLANDO -chronic, extensive GI workup as above -last EGD and colonoscopy 2013, SBCE in 2006 w/ AVMs -Hgb stable on PO iron, no obvious bleeding -also significant CAD on ASA and Plavix, recently also on Warfarin Constipation -following recent knee surgery, attributed to pain meds -unresolved w/ Citrucel and prune juice DM -says not controlled well recently S/p appendectomy w/ right colon resection, ?another resection -- ROLANDO stable, new issues w/ abd pain/vomiting. Denies h/o cholecystectomy. Will check abd US re: this. ?GES later Will add Miralax for constipation, also try PPI. SAVI GURROLA Dec 10, 2016 09:42
[2016-12-10] MEDS: IV NORMAL SALINE 1000ML BAG 1,000 ML IV SCH (09:58)
[2016-12-10 10:45] VITALS: BP 104/52
[2016-12-10] MEDS: PANTOPRAZOLE 40 MG TABLET.DR. PO SCH (11:57)
[2016-12-10] MEDS ORDERED: IRON SUCROSE COMPLEX 200 MG in IV NORMAL SALINE 100ML 100 ML IV ONE (13:00)
[2016-12-10 13:36] LABS: CALCIUM 8.4 mg/dL (8.5-10.1); CREATININE 1.8 mg/dL (0.7-1.3); GFR 36.5
[2016-12-10 13:42] LABS: ALBUMIN 2.8 g/dL (3.4-5.0); ALBUMIN/GLOBULIN RATIO 0.6 (1.0-1.7); TOTAL BILIRUBIN 0.5 mg/dL (0.2-1.0); TOTAL PROTEIN 7.6 g/dL (6.4-8.2)
--- NOTE | 2016-12-10 14:04 | RAD ---
Indication:Left lower quadrant pain Grayscale images of the abdomen were obtained. Comparison none Liver:There is increased attenuation of the ultrasound beam by the liver compatible with fatty infiltration. There is a focal area of fatty sparing seen in the area of the gallbladder fossa. A significant liver anomaly is not seen. Gallbladder:Normal. The common bile diameter of approximately 6 to 7 mm is within normal limits given the patient's age Spleen:Normal Pancreas:Poorly visualized and largely obscured by gas Kidneys:Somewhat small but otherwise normal. Abdominal aorta and IVC:The proximal and mid abdominal aorta were obscured. The distal abdominal aorta appeared normal. The inferior vena cava, similar to the pancreas was largely obscured. Ancillary findings: None IMPRESSION: Generalized fatty infiltration of the liver. A focal area of fatty sparing is seen in the area of the gallbladder fossa. Slightly small kidneys. Midline structures partially obscured. No acute or definite significant finding seen
[2016-12-10 14:50] VITALS: BP 93/42
[2016-12-10] MEDS: POLYETHYLENE GLYCOL 3350 17 GM PACKET. PO SCH (15:05)
[2016-12-10 19:00] VITALS: BP 94/50
--- NOTE | 2016-12-10 20:42 | PDOC ---
Provider Note Provider Note This patient was hospitalized on 12/09/16 in my absence by Dr. Guerrero. Saw him on the morning of 12/10/16. Says he had a sudden onset of severe pain over the left upper quadrant and left lower chest. It radiated to the back. There was associated with nausea and vomiting and he did a lot of retching. He had no shortness of breath or diaphoresis. This was unlike the chest pain he had when he came in with a non-STEMI in October of this year. He's had a recent stent placed in his LAD. In October 2016. He has several areas of severe obstruction in the circumflex coronary artery. He has a decrease in his left ventricular systolic function to 35-40%. A recent full echo is not available. He has diabetes mellitus which has been under fairly good control at home though his blood sugars have been elevated in the hospital as before. He has chronic kidney disease and during one of his hospitalizations the creatinine was 2.1 and he was seen by nephrology. He has a permanent pacemaker. This is a dual-chamber pacemaker. He underwent a right knee replacement in September and did well thereafter. He returned to work and has had no chest pain with exertion. Does have shortness of breath as before. She had iron deficiency anemia and a recent hemoglobin was 8.6 g percent on oral iron.. He has had extensive GI workup as recorded by Madelyn Fields. He does not smoke or take alcohol. Medications as listed. On examination the heart rate was 70/m. The blood pressure was 130/80. The lungs were clear. Heart sounds were normal. There was a grade 2/6 systolic murmur at the base. Abdomen was soft. There was no right upper quadrant tenderness. There was no swelling of the legs. EKG showed an intraventricular conduction block of the left bundle-branch block type. The QRS is wide. Chest x-ray showed no evidence of pulmonary vascular congestion. The BNP was significantly elevated. Liver function tests amylase and lipase were normal. The gallbladder sonogram showed that the gallbladder was normal. Serial troponins are negative. Impression 1. Abdominal pain nausea vomiting etiology to be determined 2. Diabetes mellitus with a recent optimum hemoglobin A1c blood sugars elevated this admission. 3. Chronic kidney disease with a creatinine of 2.1 at one time and now 1.8. 4. Coronary artery disease with recent stent placement several areas of obstruction that were not amenable to intervention. 5. Ischemic cardiomyopathy. 6. Systolic murmur etiology to be determined. 7. Iron deficiency anemia despite oral supplements. 8. Degenerative disc joint disease with a recent right knee replacement. Plan see orders. LATOSHA HWANG MD Dec 10, 2016 20:42
[2016-12-10] MEDS: SIMVASTATIN 20 MG TABLET PO SCH (22:12)
[2016-12-10] MEDS: HYDROcodone/APAP 7.5/325MG 1 TAB TABLET PO PRN (22:12)
[2016-12-10] MEDS: INSULIN DETEMIR 300 UNITS/3 ML INSULN.PEN. SQ SCH (22:15)
[2016-12-10 23:00] VITALS: BP 105/55
[2016-12-11 07:00] VITALS: BP 102/57
[2016-12-11] MEDS: INSULIN ASPART 300 UNITS/3 ML INSULN.PEN SQ SCH ×3 (07:30→16:30)
[2016-12-11] MEDS: ISOSORBIDE MONONITRATE ER 30 MG TAB.ER.24H PO SCH (07:52)
[2016-12-11] MEDS: LOSARTAN POTASSIUM 50 MG TABLET. PO SCH (07:52)
[2016-12-11] MEDS: CYANOCOBALAMIN (VITAMIN B-12) 1,000 MCG TABLET. PO SCH (07:53)
[2016-12-11] MEDS: POLYETHYLENE GLYCOL 3350 17 GM PACKET. PO SCH (07:53)
[2016-12-11] MEDS: METOPROLOL SUCC 24HR ER 50 MG TAB.ER.24H. PO SCH (07:54)
[2016-12-11] MEDS: FERROUS SULFATE 325 MG TABLET. PO SCH (07:59)
[2016-12-11] MEDS: FUROSEMIDE 40 MG TABLET. PO SCH (07:59)
[2016-12-11] MEDS: PANTOPRAZOLE 40 MG TABLET.DR. PO SCH (07:59)
[2016-12-11] MEDS ORDERED: SINCALIDE 1.66 MCG in IV NORMAL SALINE 50ML 30 ML IV ONE (10:30)
--- NOTE | 2016-12-11 10:41 | PDOC ---
Subjective: Subjective: Per - no more pain, wants to DC today. Objective: Objective: Per RN - out for PIPIDA. Tolerated PO yesterday after abd US, no c/o pain, had a large BM yesterday. Vital Signs: Vital Signs Date Time Temp Pulse Resp B/P (MAP) Pulse Ox O2 Delivery O2 Flow Rate FiO2 12/11/16 08:00 Room Air 12/11/16 07:54 102/55 12/11/16 07:00 97.9 73 18 96 97.9 Labs: Laboratory Tests Test 12/10/16 13:10 12/10/16 16:30 12/10/16 21:17 12/11/16 07:47 Sodium Level 137 mmol/L Potassium Level 5.0 mmol/L Chloride Level 101 mmol/L Carbon Dioxide Level 26 mmol/L Anion Gap 10 Blood Urea Nitrogen 40 mg/dL Creatinine 1.8 mg/dL Estimated GFR (Cockcroft-Gault) 36.5 BUN/Creatinine Ratio 22 Glucose Level 215 mg/dL Calcium Level 8.4 mg/dL Total Bilirubin 0.5 mg/dL Aspartate Amino Transf (AST/SGOT) 15 U/L Alanine Aminotransferase (ALT/SGPT) 13 U/L Alkaline Phosphatase 68 U/L Total Protein 7.6 g/dL Albumin 2.8 g/dL Albumin/Globulin Ratio 0.6 Amylase Level 37 U/L Lipase 112 U/L Glucose (Fingerstick) 385 mg/dL 159 mg/dL 55 mg/dL Imaging: Abd US 12/10/16 IMPRESSION: Generalized fatty infiltration of the liver. A focal area of fatty sparing is seen in the area of the gallbladder fossa. Slightly small kidneys. Midline structures partially obscured. No acute or definite significant finding seen. HIDA 12/11/16 PENDING PE: no exam A/P: Abd pain, vomiting - resolved -s/p appendectomy, colon resections -is diabetic, last A1c 5.6 -abd US as above, also started PPI yesterday ROLANDO - stable -last EGD and colonoscopy 2013, SBCE in 2006 w/ AVMs -Hgb stable on PO iron, no obvious bleeding -also significant CAD on ASA and Plavix Constipation - improved w/ Miralax -- Symptoms improved/resolved per RN and . Await PIPIDA. Continue Miralax and PPI. Other per Dr. Gamez. SAVI GURROLA 6, 2017 10:41
[2016-12-11 12:29] VITALS: BP 126/53
--- NOTE | 2016-12-11 13:56 | ACF ---
PARVEZ OSEGUERA 12/11/16 1356: Admit Criteria Forms Admit Criteria Forms Admit Criteria Forms CHEST PAIN Clinical Indications for Admission to Inpatient Care (Place 'X' for any and all applicable criteria): Admission is indicated for chest pain and ANY ONE of the following(1)(2)(3)(4)(5 ): [ ]I. Angina with acute coronary syndrome (Also use Myocardial Infarction or Angina guideline) [ ]II. Hemodynamic instability [ X]III. Angina needing acute intervention as indicated by ALL of the following (11)(12): [ X]a) Unstable angina is present as indicated by angina that is ANY ONE of the following: [X]i) New onset [ ]ii) Nocturnal [ ]iii) Prolonged at rest [ ]iv) Progressive [X ]b) Angina warrants acute intervention as indicated by ANY ONE of the following: [ ]i) Recurrent angina (e.g, not responding as previously to treatment) [ ]ii) Angina at rest or with low-level activities despite initial medical therapy [ ]iii) New or presumably new ST-segment depression on ECG [ ]iv) Signs or symptoms of heart failure (eg, dyspnea, pulmonary edema) [ ]v) New or worsening mitral regurgitation [ ]vi) Hemodynamic instability [ ]vii) Dangerous arrhythmia (eg, sustained ventricular tachycardia) [ ]viii) History of percutaneous coronary intervention within 6 months [ ]ix) History of coronary artery bypass graft surgery [ ]x) NORMAN risk score of 2 or greater[A] [X]xi) History of Diabetes(14) [ ]xii) High-risk cardiac ischemia findings on noninvasive testing (e.g, echocardiogram, treadmill testing, nuclear scan) [ ]xiii) Chronic renal insufficiency (ie, estimated GFR less than 60 mL/min/1.732m) [ ]xiv) Left ventricular ejection fraction less than 40% [ ]IV. Evidence of DC (eg, cardiac biomarkers positive, ST-segment elevation on ECG) also use Myocardial Infarction Criteria Form. [ ]V. Pulmonary edema [ ]. Respiratory distress [ ]VII. Chest pain indicative of serious diagnosis other than coronary artery disease (eg, aortic dissection) [ ]VIII. Contraindications and/or Inappropriate clinical situations for Observational Care in patients with Chest Pain, when ANY ONE of the following is required: [ ]a) Patient with risk factor for pulmonary embolism, acute coronary syndrome and myocardial infarction (18) [ ]b) Patient with Pulmonary embolism require an average LOS of 4.3 days, therefore emergency department observation management is inappropriate 18,23 [ ]c) Painful condition/s in the elderly, have the highest rate of recidivism after emergency department observation management (10.8%) 20,21,22 [ ]d) Elevated cardiac biomarker requires intensive and exhaustive care (19) [ X]IX. General contraindications and/or Inappropriate clinical situations for Observational Care in patients with Chest Pain, when ANY ONE of the following is required: [ X]a) Prediction of prolongation of LOS based on ANY ONE of the following may be considered as a contraindication for observational care 2, 3, 4, 5, 6, 7, 8, 9, 10, 11 [X ]i) Age > 65 yrs. [ ]ii) Patient arriving by ambulance [ ]iii) Patient with high acuity [ ]iv) Patient requiring vital sign monitoring [ ]v) Patient on IV medication [ ]b) Systolic blood pressures 180mmHg 3,12 [ ]c) Patient with altered mental status including delirium and other alteration of consciousness, (3) [ ]d) Patient whose discharge disposition will be to a longterm home or rehabilitation home should not be managed in Emergency Department Observation Unit. CMS rule requires 3 days hospital stay before such placement. 3,13 [ ]e) Patient with failure to thrive due to broad array of etiologies 3,16,17 [ ]f) Inability to ambulate 3,14 Extended stay beyond goal length of stay may be needed for (1)(28): [ ]a) Specific condition diagnosed after evaluation (eg, pulmonary embolism, aortic dissection) [ ]b) Unstable angina [ ]c) Continued suspicion of acute coronary syndrome with inability to complete needed cardiac evaluation (eg, patient clinically unable to undergo stress testing) [ ]d) Myocardial infarction (Contents from ANGINA and CHEST PAIN clinical indications for admission to inpatient care have been integrated in this form) The original [employer] content created by [employer] has been revised. The portions of the content which have been revised are identified through the use of italic text or in bold, and [email or web address] has neither reviewed nor approved the modified material. All other unmodified content is copyright [email or web address]. Please see references footnoted in the original [employer] edition 2016 OMAR RENO MD 12/16/16 0355: Admit Criteria Forms Admit Criteria Forms Admit Criteria Forms I am unable to edit this form. This patient was placed as observation status. This is the only avenue in our electronic medical record for me to document this. All of the above information is not my professional medical opinion. PARVEZ OSEGUERA Dec 11, 2016 13:56 OMAR RENO MD Dec 16, 2016 03:55
--- NOTE | 2016-12-11 14:59 | RAD ---
Radionuclide hepatobiliary scan with gallbladder ejection fraction, 12/11/2016: History: Left lower quadrant pain Following IV injection of 5.7 mCi of technetium 99m Choletec there was prompt uptake of the radionuclide from the blood stream by the liver. Activity is present in the bile ducts, gallbladder and small bowel at 15 minutes. Additional imaging of the gallbladder was performed following IV injection of 1.7 mcg of cholecystokinin. The gallbladder ejection fraction was calculated at 11%. 30-50% is considered to be the borderline low range. IMPRESSION: 1. No evidence of cystic duct or common bile duct obstruction. 2. Decreased gallbladder ejection fraction of 11%.
[2016-12-11 15:00] VITALS: BP 121/57
[2016-12-11] MEDS ORDERED: CLOPIDOGREL BISULFATE 75 MG TABLET PO ONE (17:30)
[2016-12-11] MEDS ORDERED: ASPIRIN 325 MG TABLET PO ONE (17:30)
[2016-12-11] MEDS ORDERED: IRON SUCROSE COMPLEX 200 MG in IV NORMAL SALINE 100ML 100 ML IV ONE (18:00)
[2016-12-11 19:00] VITALS: BP 139/57
[2016-12-11] MEDS: SIMVASTATIN 20 MG TABLET PO SCH (20:49)
[2016-12-11] MEDS: HYDROcodone/APAP 7.5/325MG 1 TAB TABLET PO PRN (20:49)
[2016-12-11] MEDS: INSULIN DETEMIR 300 UNITS/3 ML INSULN.PEN. SQ SCH (20:52)
--- NOTE | 2016-12-11 21:02 | PDOC ---
Provider Note Provider Note Patient is very concerned about persistent rody-umbilical pain that comes and goes. He feels gaseous distention. No bowel movement today but he states he had several bowel movements yesterday. No nausea or vomiting. His and RN apparently informed Dr. Gamez that he is doing very well and has had no symptoms. HIDA scan shows a very low ejection fraction. I look forward to Dr. Gamez's opinion regarding his abdominal pain because the patient is very concerned about it. Abdomen soft. No areas of tenderness. Lungs are clear. LATOSHA HWANG MD Dec 11, 2016 21:02
[2016-12-11 23:00] VITALS: BP 124/53
[2016-12-12] MEDS: HYDROcodone/APAP 7.5/325MG 1 TAB TABLET PO PRN (01:59)
[2016-12-12 05:32] LABS: CALCIUM 7.9 mg/dL (8.5-10.1); CREATININE 1.5 mg/dL (0.7-1.3)
[2016-12-12] MEDS ORDERED: CONTRAST GIVEN MC PRN (06:45)
[2016-12-12] MEDS ORDERED: IOHEXOL 240 MG/ML 50ML VIAL. PO ONE (07:00)
[2016-12-12 07:35] VITALS: BP 130/65
[2016-12-12] MEDS ORDERED: CLOPIDOGREL BISULFATE 75 MG TABLET PO SCH (08:00)
[2016-12-12] MEDS ORDERED: ASPIRIN CHEWABLE 81 MG TABLET. PO SCH (08:00)
[2016-12-12] MEDS: CYANOCOBALAMIN (VITAMIN B-12) 1,000 MCG TABLET. PO SCH (08:33)
[2016-12-12] MEDS: LOSARTAN POTASSIUM 50 MG TABLET. PO SCH (08:34)
[2016-12-12] MEDS: PANTOPRAZOLE 40 MG TABLET.DR. PO SCH (08:35)
[2016-12-12] MEDS: ISOSORBIDE MONONITRATE ER 30 MG TAB.ER.24H PO SCH (08:36)
[2016-12-12] MEDS: FERROUS SULFATE 325 MG TABLET. PO SCH (08:36)
[2016-12-12] MEDS: METOPROLOL SUCC 24HR ER 50 MG TAB.ER.24H. PO SCH (08:38)
[2016-12-12] MEDS: INSULIN ASPART 300 UNITS/3 ML INSULN.PEN SQ SCH ×2 (08:47→11:55)
[2016-12-12] MEDS: POLYETHYLENE GLYCOL 3350 17 GM PACKET. PO SCH (09:00)
[2016-12-12] MEDS: FUROSEMIDE 40 MG TABLET. PO SCH (09:34)
--- NOTE | 2016-12-12 09:54 | RAD ---
Indication generalized abdominal pain. Axial images through the abdomen and pelvis were obtained. Oral contrast was administered. IV contrast was not. Note is made of a previous examination of the abdomen 02/12/2016 and a prior examination of the abdomen and pelvis June 23, 2006. There is some pleural-parenchymal scarring at the lung bases. An acute finding at either lung base is not seen. Coronary artery calcification is noted. The liver and spleen appear unremarkable. There are some stones in the dependent portion of the gallbladder. No pancreatic abnormality is seen. No adrenal or renal anomalies are seen. An acute finding in the abdomen is not seen. No acute finding is apparent in the pelvis. There are degenerative changes in the lumbar spine. There is some mild dilatation of small bowel loops. This is nonspecific. High-grade mechanical obstruction is not suggested on this exam. IMPRESSION: No acute or definite significant finding in the abdomen or pelvis. Cholelithiasis. Mild dilatation of small bowel loops noted. This is nonspecific. High-grade mechanical obstruction is not suggested on this exam
[2016-12-12 10:35] VITALS: BP 89/67
--- NOTE | 2016-12-12 10:59 | PDOC ---
Provider Note Provider Note Patient complains of back pain rather than chest pain. EF dropped to 40% from 60% two years ago.This is probably due to alcoholism He says he consumes 1 gallon of whiskey a week.Place on Thiamine. Progression of CAD is unlikely. He requested a stress test but refused Lexiscan. PM was interrogate.He has had A. fib ablatio and remains in sinus rhythm. He does not need anticoagulation. E/ E' is elevated. and BNP is 400. He probably has mild fluid retention trhe cause of wheezing. He may need a diuretic. Elevated D. dimer and negative venous doppler. D/W Dr. Lu. LATOSHA HWANG MD Dec 12, 2016 10:59
[2016-12-12] MEDS ORDERED: PANT40TA3 PO (11:10)
--- NOTE | 2016-12-12 12:21 | PDOC ---
Subjective: Subjective: Abd pain "comes and goes." Has been tolerating PO, pain not necessarily related to eating. ?pain improved after stooling or passing gas, (last BM yesterday, a lot of flatus today). Denies recurrence of upper abdominal pain. No n/v. Pain now localizes in LLQ. Objective: Objective: Reviewed Dr. Barry's note. Vital Signs: Vital Signs Date Time Temp Pulse Resp B/P (MAP) Pulse Ox O2 Delivery O2 Flow Rate FiO2 12/12/16 10:35 97.9 56 18 89/67 (74) 95 Room Air 97.9 Labs: Laboratory Tests Test 12/11/16 16:18 12/11/16 20:35 12/12/16 04:10 12/12/16 07:34 Glucose (Fingerstick) 100 mg/dL 214 mg/dL 102 mg/dL Sodium Level 139 mmol/L Potassium Level 4.0 mmol/L Chloride Level 103 mmol/L Carbon Dioxide Level 29 mmol/L Anion Gap 7 Blood Urea Nitrogen 38 mg/dL Creatinine 1.5 mg/dL Estimated GFR (Cockcroft-Gault) 45.0 Glucose Level 123 mg/dL Calcium Level 7.9 mg/dL Test 12/12/16 11:35 Glucose (Fingerstick) 136 mg/dL Imaging: RUQ US 12/10/16 Liver:There is increased attenuation of the ultrasound beam by the liver compatible with fatty infiltration. There is a focal area of fatty sparing seen in the area of the gallbladder fossa. A significant liver anomaly is not seen. Gallbladder:Normal. The common bile diameter of approximately 6 to 7 mm is within normal limits given the patient's age Spleen:Normal Pancreas:Poorly visualized and largely obscured by gas Kidneys:Somewhat small but otherwise normal. Abdominal aorta and IVC:The proximal and mid abdominal aorta were obscured. The distal abdominal aorta appeared normal. The inferior vena cava, similar to the pancreas was largely obscured. Ancillary findings: None IMPRESSION: Generalized fatty infiltration of the liver. A focal area of fatty sparing is seen in the area of the gallbladder fossa. Slightly small kidneys. Midline structures partially obscured. No acute or definite significant finding seen. HIDA 12/11/16 IMPRESSION: 1. No evidence of cystic duct or common bile duct obstruction. 2. Decreased gallbladder ejection fraction of 11%. CT A/P w/ oral contrast 12/12/16 There is some pleural-parenchymal scarring at the lung bases. An acute finding at either lung base is not seen. Coronary artery calcification is noted. The liver and spleen appear unremarkable. There are some stones in the dependent portion of the gallbladder. No pancreatic abnormality is seen. No adrenal or renal anomalies are seen. An acute finding in the abdomen is not seen. No acute finding is apparent in the pelvis. There are degenerative changes in the lumbar spine. There is some mild dilatation of small bowel loops. This is nonspecific. High-grade mechanical obstruction is not suggested on this exam. IMPRESSION: No acute or definite significant finding in the abdomen or pelvis. Cholelithiasis. Mild dilatation of small bowel loops noted. This is nonspecific. High-grade mechanical obstruction is not suggested on this exam PE: GEN: NAD, sitting up in bed LUNGS: clear HEART: RRR ABD: NABS, perhaps some mild LLQ discomfort NEURO/PSYCH: A & O 3 OTHER: present A/P: Upper abd pain, vomiting - resolved -DM, A1c 5.6 -on empiric PPI here LLQ pain -s/p appendectomy, colon resections -imaging this admission as above: US w/ fatty liver, PIPIDA w/ EF 11%, CT w/ cholelithiasis and non-specific dilation of small bowel loops -some constipation issues recently, using prune juice and Citrucel at home, on Miralax here Iron deficiency anemia - stable -last EGD and colonoscopy 2013, 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 Continue PPI and Miralax. Dr. Gamez to see this afternoon. SAVI GURROLA Dec 12, 2016 12:21
[2016-12-12 14:33] VITALS: BP 105/57
== END 2016-12-12 16:12 | disposition home or self-care (01) | DRG 392 ==
LOC: ER 13:11 → 5 NORTH 14:00 → OBSVTOIN 12-10 12:54
PROVIDERS: ADMIT Specialist; ATTEND Specialist
DX: R10.10 Upper abdominal pain, unspecified (principal); E44.1 Mild protein-calorie malnutrition; I50.22 Chronic systolic (congestive) heart failure; D50.9 Iron deficiency anemia, unspecified; E11.22 Type 2 diabetes mellitus with diabetic chronic kidney disease; E78.00 Pure hypercholesterolemia, unspecified; I12.9 Hypertensive chronic kidney disease with stage 1 through stage 4 chronic kidney disease, or unspecified chronic kidney disease; I25.10 Atherosclerotic heart disease of native coronary artery without angina pectoris; I25.5 Ischemic cardiomyopathy; R07.9 Chest pain, unspecified; K57.30 Diverticulosis of large intestine without perforation or abscess without bleeding; K59.00 Constipation, unspecified; K76.0 Fatty (change of) liver, not elsewhere classified; K80.20 Calculus of gallbladder without cholecystitis without obstruction; R01.1 Cardiac murmur, unspecified; Z96.653 Presence of artificial knee joint, bilateral; Z86.010 Personal history of colon polyps; Z90.49 Acquired absence of other specified parts of digestive tract; Z95.0 Presence of cardiac pacemaker; Z95.5 Presence of coronary angioplasty implant and graft; N18.3 Chronic kidney disease, stage 3 (moderate); T40.605A Adverse effect of unspecified narcotics, initial encounter
CPT/HCPCS: 36415; 71010; 74176; 76700; 78226; 80048; 80053; 80076; 82150; 82607; 82962; 83540; 83550; 83690; 83880; 84484; 85007; 85027; 93005; 96374; 96375; A9537; G0378; G0379; J0780; J1756; J1815; J2270; J2405; J2805; J7030; Q9966; 99285-25

== ENCOUNTER → 2016-12-16 | Outpatient (CLI) | payer MEDICARE ==
[2016-12-12 14:33] VITALS: BP 105/57
[~2016-12-16] MED LIST changes: +FURO-68 PO; +PANT40TA3 PO
--- NOTE | 2016-12-16 15:10 | RAD ---
Left upper extremity venous ultrasound, 12/16/2016: History: Arm swelling Duplex evaluation of the major veins in the left upper extremity was performed utilizing grayscale, color-flow and spectral Doppler analysis. The left internal jugular, subclavian, axillary and brachial veins are patent. Patent radial and ulnar veins are evident in the forearm. The left basilic vein is unremarkable. There is occlusive thrombus in the left cephalic vein at the elbow level. This reportedly represents an old IV site. IMPRESSION: 1. No sonographic evidence of deep vein thrombosis in the left shoulder or arm. 2. Occlusive thrombus in the left cephalic vein at the elbow level.
== END | disposition home or self-care (01) ==
LOC: US 13:50
PROVIDERS: ATTEND Specialist
DX: M79.89 Other specified soft tissue disorders (principal)
CPT/HCPCS: 93971

== ENCOUNTER 2017-01-11 10:39 | Inpatient (IN) | payer MEDICARE ==
[~2017-01-11] VITALS: Ht 172.7 cm; Wt 82.3 kg
[2017-01-11] MEDS ORDERED: IV NORMAL SALINE 1000ML BAG 1,000 ML IV SCH ×2 (11:15→13:30)
[2017-01-11] MEDS ORDERED: 0.9 % SODIUM CHLORIDE 10 ML DISP.SYRIN. IV PRN (11:15)
[2017-01-11] MEDS ORDERED: ASPIRIN CHEWABLE 81 MG TABLET. PO ONE (11:15)
[2017-01-11] MEDS ORDERED: ONDANSETRON PF 4 MG/2 ML VIAL. IV ONE (11:15)
[2017-01-11 11:19] LABS: BASO % 0 % (0-3); EOS % 1 % (0-3); HEMATOCRIT 29.8 % (39.0-53.0); HEMOGLOBIN 9.5 g/dL (13.0-17.5); LYMPH # 0.3 x10^3/uL (1.0-4.8); LYMPH % 5 % (24-48); MEAN CORPUSCULAR HEMOGLOBIN 26 pg (25-35); MEAN CORPUSCULAR HGB CONC 32 g/dL (31-37); MEAN CORPUSCULAR VOLUME 81 fL (79-100); MONO % 8 % (0-9); NEUT % 85 % (31-73); PLATELET COUNT 233 x10^3/uL (140-400); RED CELL DISTRIBUTION WIDTH 18.2 % (11.5-14.5); WHITE BLOOD COUNT 6.2 x10^3/uL (4.0-11.0)
--- NOTE | 2017-01-11 11:19 | PHYS DOC ---
Past Medical History Past Medical History: CAD, Diabetes-Type II, High Cholesterol, Hypertension, OK Past Surgical History: Appendectomy, Knee Replacement, Pacemaker, Other Additional Past Surgical Histo: cardiac cath with stents,EGD,colonoscopy,bilat elbow surgery,bilat lens imp Alcohol Use: None Drug Use: None Adult General Chief Complaint Chief Complaint: HYPOGLYCEMIA HPI HPI he is a pleasant 81-year-old male with a history of insulin-dependent diabetes on NovoLog, hypertension, hyperlipidemia, prior heart disease with 7 stents and a pacemaker who presents with acute onset of dizziness and nausea that began about 2:30 this morning. Patient awoke to use the restroom this morning, dizzy when he was walking he did not attributed to his hypoglycemia. He got up hours later and went to breakfast with his at [facility]. Consumed about half a piece of toast and some juice was not feeling that well became acutely diaphoretic and vomited. Patient did not want to be seen at that time by EMS and ended elected to go home. At that time patient felt tired and went to sleep and took a short nap. On his 's attempt to wake him he was hard to arouse. On EMS arrival his D stick was 32 patient was given an amp of D50 and immediately became more arousable. He still nauseated without much in way of an appetite. Patient feels tired but has no chest pain, shortness of breath, headache, focal neurologic deficit, abdominal pain, diarrhea, change in his medications or fevers chills. Patient is has no appetite is mildly nauseated at this time. Patient was given an amp of D50 in route his sugars came up well above 200. Patient is on a short acting NovoLog which only has a half-life of 81 minutes. The given his persistent nausea and decreased appetite may advise that we bring him into the hospital for. Of observation despite our findings. Differential diagnosis for chest pain: Pericarditis, myocarditis, endocarditis, pneumothorax, pneumonia, aortic dissection, esophageal spasm, esophagitis, peptic ulcer disease, acute coronary syndrome, mediastinitis, Boerhaave syndrome , musculoskeletal chest wall pain, costochondritis, intercostal strain, rib fracture, pulmonary contusion, pneumonitis, pleural effusion, pericardial effusion, pericardial tamponode, and pleurisy. Was being considered as a possible cause of his nausea and his prior medical problems and risk factors. Dr. Quinonez is patient's PCP Review of Systems Review of Systems Constitutional: Denies fever or chills his patient had episodes of diaphoresis with these episodes of nausea Eyes: Denies change in visual acuity, redness, or eye pain [] HENT: Denies nasal congestion or sore throat [] Respiratory: Denies cough or shortness of breath [] Cardiovascular: No additional information not addressed in HPI [] GI: Patient has had no abdominal pain and has had some nausea and vomiting nonbilious nonbloody no diarrhea or blood in stools. : Denies dysuria or hematuria [] Musculoskeletal: Denies back pain or joint pain [] Integument: Denies rash or skin lesions [] Neurologic: Denies headache, focal weakness or sensory changes [feels generally weak with no focal neurologic deficits no change in vision or change in speech. Endocrine: Denies polyuria or polydipsia [] Current Medications Current Medications Current Medications Medications (Trade) Dose Ordered Sig/Joey Start Time Stop Time Status Last Admin Dose Admin Acetaminophen (Tylenol) 650 mg PRN Q4HRS PRN 01/11/17 13:15 01/12/17 13:14 Aspirin (Children'S Aspirin) 324 mg 1X ONCE 01/11/17 11:15 01/11/17 11:16 DC 01/11/17 11:29 324 MG Dextrose/Sodium Chloride 1,000 ml @ 75 mls/hr 1X ONCE 01/11/17 11:30 01/12/17 00:49 01/11/17 11:29 75 MLS/HR Magnesium Sulfate/ Dextrose 50 ml @ 25 mls/hr 1X ONCE 01/11/17 13:30 01/11/17 15:29 01/11/17 13:40 25 MLS/HR Ondansetron HCl (Zofran) 4 mg PRN Q8HRS PRN 01/11/17 13:15 01/12/17 13:14 Sodium Chloride 1,000 ml @ 100 mls/hr Q10H 01/11/17 13:30 01/11/17 14:20 DC 01/11/17 13:42 100 MLS/HR Sodium Chloride (Normal Saline Flush) 10 ml QSHIFT PRN 01/11/17 11:15 Allergies Allergies Allergies Coded Allergies Type Severity Reaction Last Updated Verified No Known Drug Allergies 09/29/16 No Physical Exam Physical Exam Patient at this time as vital signs are within normal limits. Constitutional: Well developed, well nourished, no acute distress, non-toxic appearance is pale but nondiaphoretic. HENT: Normocephalic, atraumatic, bilateral external ears normal, as patient has dry mucous members., no oral exudates, nose normal. [] Eyes: PERRLA, EOMI, conjunctiva normal, no discharge. [] Neck: Normal range of motion, no tenderness, supple, no stridor. [] Cardiovascular:Heart rate regular rhythm, no murmur [] Lungs & Thorax: Bilateral breath sounds clear to auscultation [] Abdomen: Bowel sounds normal, soft, no tenderness, no masses, no pulsatile masses. Noted well-healing scars on his abdominal wall from prior bowel resection, noted ecchymosis from prior insulin injections. Skin: Warm, dry, no erythema, no rash. [] Back: No tenderness, no CVA tenderness. [] Extremities: No tenderness, no cyanosis, no clubbing, ROM intact, no edema. [] Neurologic: Alert and oriented X 3, normal motor function, normal sensory function, no focal deficits noted cranial nerves 2-12 are intact patient's mentation is normal and his lucid. [] Psychologic: Affect normal, judgement normal, mood normal. [] Current Patient Data Vital Signs Vital Signs Date Time Temp Pulse Resp B/P (MAP) Pulse Ox O2 Delivery O2 Flow Rate FiO2 01/11/17 13:14 60 16 177/72 (107) 97 01/11/17 12:44 Room Air 01/11/17 10:39 97.5 97.5 Lab Values Laboratory Tests Test 01/11/17 10:51 01/11/17 10:55 01/11/17 11:00 01/11/17 12:41 Glucose (Fingerstick) 62 mg/dL (70-99) L 100 mg/dL (70-99) H Urine Collection Type Unknown Urine Color Yellow Urine Clarity Clear Urine pH 5.0 Urine Specific [place] 1.010 Urine Protein Negative mg/dL (NEG-TRACE) Urine Glucose (UA) Negative mg/dL (NEG) Urine Ketones (Stick) Negative mg/dL (NEG) Urine Blood Negative (NEG) Urine Nitrite Negative (NEG) Urine Bilirubin Negative (NEG) Urine Urobilinogen Dipstick 0.2 mg/dL (0.2 mg/dL) Urine Leukocyte Esterase Negative (NEG) Urine RBC 0 /HPF (0-2) Urine WBC 0 /HPF (0-4) Urine Squamous Epithelial Cells Occ /LPF Urine Bacteria 0 /HPF (0-FEW) Urine Hyaline Casts Occasional /HPF White Blood Count 6.2 x10^3/uL (4.0-11.0) Red Blood Count 3.70 x10^6/uL (4.30-5.70) L Hemoglobin 9.5 g/dL (13.0-17.5) L Hematocrit 29.8 % (39.0-53.0) L Mean Corpuscular Volume 81 fL (79-100) Mean Corpuscular Hemoglobin 26 pg (25-35) Mean Corpuscular Hemoglobin Concent 32 g/dL (31-37) Red Cell Distribution Width 18.2 % (11.5-14.5) H Platelet Count 233 x10^3/uL (140-400) Neutrophils (%) (Auto) 85 % (31-73) H Lymphocytes (%) (Auto) 5 % (24-48) L Monocytes (%) (Auto) 8 % (0-9) Eosinophils (%) (Auto) 1 % (0-3) Basophils (%) (Auto) 0 % (0-3) Neutrophils # (Auto) 5.3 x10^3uL (1.8-7.7) Lymphocytes # (Auto) 0.3 x10^3/uL (1.0-4.8) L Monocytes # (Auto) 0.5 x10^3/uL (0.0-1.1) Eosinophils # (Auto) 0.0 x10^3/uL (0.0-0.7) Basophils # (Auto) 0.0 x10^3/uL (0.0-0.2) Segmented Neutrophils % 91 % (35-66) H Lymphocytes % 6 % (24-48) L Monocytes % 3 % (0-10) Platelet Estimate Adequate (ADEQUATE) Giant Platelets Occ Anisocytosis Slight Sodium Level 137 mmol/L (136-145) Potassium Level 3.6 mmol/L (3.5-5.1) Chloride Level 102 mmol/L (98-107) Carbon Dioxide Level 25 mmol/L (21-32) Anion Gap 10 (6-14) Blood Urea Nitrogen 27 mg/dL (8-26) H Creatinine 1.4 mg/dL (0.7-1.3) H Estimated GFR (Cockcroft-Gault) 48.8 Glucose Level 129 mg/dL (70-99) H Calcium Level 8.0 mg/dL (8.5-10.1) L Magnesium Level 1.6 mg/dL (1.8-2.4) L Total Bilirubin 0.3 mg/dL (0.2-1.0) Direct Bilirubin 0.2 mg/dL (0.0-0.2) Aspartate Amino Transferase (AST) 24 U/L (15-37) Alanine Aminotransferase (ALT) 15 U/L (16-63) L Alkaline Phosphatase 96 U/L (46-116) Creatine Kinase 76 U/L (39-308) Creatine Kinase MB (Mass) 3.8 ng/mL (0.0-3.6) H Creatine Kinase MB Relative Index 5.0 % (0-4) H Troponin I Quantitative < 0.017 ng/mL (0.000-0.055) IC-Pze-V-Type Natriuretic Peptide 62415 pg/mL (0-449) H Total Protein 6.4 g/dL (6.4-8.2) Albumin 2.5 g/dL (3.4-5.0) L Thyroid Stimulating Hormone (TSH) 0.627 uIU/mL (0.358-3.74) Laboratory Tests 01/11/17 11:00 Laboratory Tests 01/11/17 11:00 EKG EKG [] EKG timed for patient 10:48 AM 08 to this and demonstrates a paced rhythm with a widened QRS complex of [address] segment T-wave changes consistent with acute coronary ischemia based on Kia's criteria. Patient' s heart rate is [address] Vee. Radiology/Procedures Radiology/Procedures [] [facility] [address] [place] [address] IMAGING REPORT Signed PATIENT: EDDIE LINN ACCOUNT: [id number] : 1935 LOCATION: ER AGE: 81 SEX: M EXAM STATUS: REG ER ORD. PHYSICIAN: PRUDENCE VEE MD REASON: ams PROCEDURE: PORTABLE CHEST 1V Indication change in mental status. Hypoglycemia. A single view of the chest was obtained. Comparison is made to an examination 12/09/2016. Heart size is unchanged. The pulmonary vasculature is within normal limits. Bipolar cardiac pacing device is noted. Slight blunting of the left costophrenic angle likely reflecting scar or a minute minute pleural effusion is unchanged. There has not been a significant change in the appearance of the chest compared to the previous exam. IMPRESSION: No acute finding in the chest. No significant change DICTATED and SIGNED BY: FIFI GARCIA MD DATE: 01/11/17 1136 CC: PRUDENCE VEE MD; LATOSHA HWANG MD ~ Impressions: [address] [place] [address] IMAGING REPORT Signed PATIENT: EDDIE LINN ACCOUNT: [id number] : 1935 LOCATION: [address] [place] [address] AGE: 81 SEX: M EXAM STATUS: ADM IN ORD. PHYSICIAN: PRUDENCE VEE MD REASON: fall from standing with dizziness PROCEDURE: CT HEAD WO CONTRAST Indication fall. Closed head injury. Noncontrast images of the head were obtained. No prior imaging of the head is available. The calvarium appears unremarkable. The visualized paranasal sinuses appear normal. There is no subdural or epidural hematoma. Ventricles and sulci are normal given the patient's age. There is no mass or midline shift. No hemorrhage or acute finding is seen. IMPRESSION: Intracranially no acute finding seen PQRS Compliance Statement: One or more of the following individualized dose reduction techniques were utilized for this examination: 1. Automated exposure control 2. Adjustment of the mA and/or kV according to patient size 3. Use of iterative reconstruction technique DICTATED and SIGNED BY: FIFI GARCIA MD DATE: 01/11/17 1421 CC: PRUDENCE VEE MD; LATOSHA HWANG MD ~ IMAGING REPORT Signed PATIENT: EDDIE LINN ACCOUNT: [id number] : 1935 LOCATION: ER AGE: 81 SEX: M EXAM STATUS: REG ER ORD. PHYSICIAN: PRUDENCE VEE MD REASON: fall from standing PROCEDURE: SHOULDER 2+V RIGHT Indication fall 2 days previously. Persistent pain. Internally and externally rotated views of the right shoulder as well as a Y view were obtained. There are some degenerative change at the AC joint. Some degenerative changes seen about the greater tubercle and at the glenohumeral joint. No fracture or acute bony finding is seen. IMPRESSION: Chronic changes. No acute bony finding seen DICTATED and SIGNED BY: FIFI GARCIA MD DATE: 01/11/17 5520 CC: PRUDENCE VEE MD; LATOSHA HWANG MD ~ Course & Med Decision Making Course & Med Decision Making Pertinent Labs and Imaging studies reviewed. (See chart for details) My syncope differential includes but not limited to: Neurally mediated vasovagal syncope, situational syncope, cardiac sinus syncope , orthostatic hypertension, medications, psychiatric interventions, neurologic syncope, cardiogenic syncopal B, to include organic heart disease congestive heart failure, cardiac dysrhythmia, seizure disorder, stroke or transient ischemic attack, bradycardia dysrhythmias, tachycardia dysrhythmias, PT, V. fib V. fib, cardiac abnormalities like first degree secondary third-degree AV blocks , prolonged QT, hypertrophic Ancelmo myopathy, severe pulmonic stenosis, pulmonary arterial hypertension, atrial myxomas, aortic stenosis, valvular failure, alcohol consumption, adrenal insufficiency, drug effects from things like antidepressants, antihypertensive agents like beta blockers, vasodilators including calcium channel blockers and nitrates, autonomic insufficiency. [] he presents with a history of hypoglycemia episodes of nausea and vomiting this morning and decreased appetite. Patient is on a missed episodes of medications or change in medication doses. He is using as prescribed at 15 units in the morning before meals. Urine is based on his presentation he has multiple medical problems and need to be evaluated. Patient noted to be hyperglycemic on evaluation initially presentation. Patient' s renal function demonstrates prerenal azotemia with elevated BUN/creatinine at 1.4 patient also has a mild anemia likely from chronic disease. Patient has negative troponin although his magnesium level is low 1.6 and his proBNP is greater than 10,000 this may be contributing to his symptoms. Patient tells me that their symptoms given during CC are improved. He is still mildly nauseous at this time and received more Zofran. Bedside understands need for admission to the hospital given his continued nausea and inability tolerate by mouth medications and fluids as well as food Time is now 12 PM and patient is still symptomatic despite fluids and treatments. Timber Inspector note: PCP called initially at 12:10 PM Timber Inspector called at of the service 12:10 Consult called back at 12:52 Discussed the case I presented and they agreed with admission. Time of acceptance 12:[address] 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 Her PCP is agrees with assessment. During evaluation and history provided to this particular DrRiley patient also mentioned he had a fall from a standing position in the garage striking the top his head 2 days ago. Although he is not having symptoms 1 to make sure that is shoulder was okay so x-rays of the shoulder been ordered as well as a CT of the head without contrast to make sure there is no intracranial hemorrhage causing this patient's dizziness. His patient's history was provided at approximately 12:52 PM. Impression: Injury, nausea, vomiting, hypoglycemia, decreased appetite. Renal insufficiency, hypomagnesemia, elevated proBNP Dragon Disclaimer Dragon Disclaimer This electronic medical record was generated, in whole or in part, using a voice recognition dictation system. Departure Departure Impression: Primary Impression: Renal insufficiency Additional Impressions: Hypoglycemia Dehydration Chronic anemia Closed head injury Hypomagnesemia Disposition: ADMITTED INPATIENT Admitting Physician: Edward Guerrero Condition: GUARDED Referrals: LATOSHA HWANG MD (PCP) Problem Qualifiers PRUDENCE VEE MD Jan 11, 2017 11:19
[2017-01-11 11:28] LABS: BILIRUBIN,URINE NEGATIVE (NEG); GLUCOSE,URINE NEGATIVE (NEG); NITRITE,URINE NEGATIVE (NEG); PROTEIN,URINE NEGATIVE (NEG-TRACE); UROBILINOGEN,URINE 0.2 mg/dL (0.2 mg/dL)
[2017-01-11] MEDS ORDERED: IV DEXTROSE 5% - 0.9 % NACL 1,000 ML IV ONE (11:30)
[2017-01-11 11:32] LABS: BACTERIA,URINE 0 /HPF (0-FEW); RBC,URINE 0 /HPF (0-2); SQUAMOUS EPITHELIAL CELL,UR OCC /LPF; WBC,URINE 0 /HPF (0-4)
--- NOTE | 2017-01-11 11:40 | RAD ---
Indication change in mental status. Hypoglycemia. A single view of the chest was obtained. Comparison is made to an examination 12/09/2016. Heart size is unchanged. The pulmonary vasculature is within normal limits. Bipolar cardiac pacing device is noted. Slight blunting of the left costophrenic angle likely reflecting scar or a minute minute pleural effusion is unchanged. There has not been a significant change in the appearance of the chest compared to the previous exam. IMPRESSION: No acute finding in the chest. No significant change
[2017-01-11 11:43] LABS: PLT ESTIMATE ADEQUATE (ADEQUATE)
[2017-01-11 11:44] LABS: ANISOCYTOSIS SLIGHT
--- NOTE | 2017-01-11 11:44 | EKG ---
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
[2017-01-11 11:46] LABS: CREATININE 1.4 mg/dL (0.7-1.3); GFR 48.8; POTASSIUM 3.6 mmol/L (3.5-5.1)
[2017-01-11 11:50] LABS: ALBUMIN 2.5 g/dL (3.4-5.0); DIRECT BILIRUBIN 0.2 mg/dL (0.0-0.2); MAGNESIUM 1.6 mg/dL (1.8-2.4); TOTAL BILIRUBIN 0.3 mg/dL (0.2-1.0); TOTAL PROTEIN 6.4 g/dL (6.4-8.2)
[2017-01-11 11:51] LABS: CKMB MASS 3.8 ng/mL (0.0-3.6)
[2017-01-11] MEDS ORDERED: ACETAMINOPHEN 325 MG TABLET. PO PRN (13:15)
[2017-01-11] MEDS ORDERED: ONDANSETRON PF 4 MG/2 ML VIAL. IV PRN (13:15)
[2017-01-11] MEDS ORDERED: MAGNESIUM SULFATE 2GM 50 ML IV ONE (13:30)
--- NOTE | 2017-01-11 13:52 | RAD ---
Indication fall 2 days previously. Persistent pain. Internally and externally rotated views of the right shoulder as well as a Y view were obtained. There are some degenerative change at the AC joint. Some degenerative changes seen about the greater tubercle and at the glenohumeral joint. No fracture or acute bony finding is seen. IMPRESSION: Chronic changes. No acute bony finding seen
--- NOTE | 2017-01-11 14:27 | RAD ---
Indication fall. Closed head injury. Noncontrast images of the head were obtained. No prior imaging of the head is available. The calvarium appears unremarkable. The visualized paranasal sinuses appear normal. There is no subdural or epidural hematoma. Ventricles and sulci are normal given the patient's age. There is no mass or midline shift. No hemorrhage or acute finding is seen. IMPRESSION: Intracranially no acute finding seen PQRS Compliance Statement: One or more of the following individualized dose reduction techniques were utilized for this examination: 1. Automated exposure control 2. Adjustment of the mA and/or kV according to patient size 3. Use of iterative reconstruction technique
[2017-01-11 14:50] VITALS: BP 136/67
--- NOTE | 2017-01-11 16:13 | PDOC1 ---
History and Physical Date of Admission Date of Admission DATE: 01/11/17 TIME: 16:03 Identification/Chief Complaint Chief Complaint COVERING FOR DR HWANG Syncope Problems: History of Present Illness History of Present Illness Pt is an 81 y o gentleman that has a Hx of DM, HTN, CAD, Pacer. He was at home and has been having some episodes of lightheadedness, today he had his insulin and after a while he fell down with LOC. The was there and called the paramedics. When they arrived the glucose was checked and it was 30. Pt given D50W and he woke up. No reported seizure activity. No cardiac complaints Past Medical History Cardiovascular: CAD, CHF, HTN, OR, Hyperlipidemia Pulmonary: Bronchitis GI: Constipation, GERD Musculoskeletal: Osteoarthritis Endocrine: Diabetes Family History Family History: No Significant Social History ALCOHOL: rare Drugs: None Current Problem List Problem List Problems Medical Problems: (1) Chronic anemia Status: Acute (2) Closed head injury Status: Acute (3) Dehydration Status: Acute (4) Hypoglycemia Status: Acute (5) Hypomagnesemia Status: Acute (6) Renal insufficiency Status: Acute Problems: Current Medications Current Medications Current Medications Aspirin (Children'S Aspirin) 324 mg 1X ONCE PO Last administered on 01/11/17 11:29; Start 01/11/17 at 11:15; Stop 01/11/17 at 11:16; Status DC Sodium Chloride 1,000 ml @ 1,000 mls/hr Q1H IV Last administered on 01/11/17 11:28; Start 01/11/17 at 11:15; Stop 01/11/17 at 12:14; Status DC Sodium Chloride (Normal Saline Flush) 10 ml QSHIFT PRN IV AFTER MEDS AND BLOOD DRAWS; Start 01/11/17 at 11:15 Ondansetron HCl (Zofran) 4 mg 1X ONCE IV Last administered on 01/11/17 11:28; Start 01/11/17 at 11:15; Stop 01/11/17 at 11:16; Status DC Dextrose/Sodium Chloride 1,000 ml @ 75 mls/hr 1X ONCE IV Last administered on 01/11/17 11:29; Start 01/11/17 at 11:30; Stop 01/12/17 at 00:49 Ondansetron HCl (Zofran) 4 mg PRN Q8HRS PRN IV NAUSEA/VOMITING; Start 01/11/17 at 13:15; Stop 01/12/17 at 13:14 Sodium Chloride 1,000 ml @ 100 mls/hr Q10H IV Last administered on 01/11/17 13 :42; Start 01/11/17 at 13:30; Stop 01/11/17 at 14:20; Status DC Acetaminophen (Tylenol) 650 mg PRN Q4HRS PRN PO FEVER; Start 01/11/17 at 13:15; Stop 01/12/17 at 13:14 Magnesium Sulfate/ Dextrose 50 ml @ 25 mls/hr 1X ONCE IV Last administered on 01/11/17 13:40; Start 01/11/17 at 13:30; Stop 01/11/17 at 15:29; Status DC Active Scripts Active Protonix (Pantoprazole Sodium) 40 Mg Tablet.dr 1 Tab PO DAILY Bactrim Ds Tablet (Sulfamethoxazole/Trimethoprim) 1 Each Tablet 1 Tab PO BID Cozaar (Losartan Potassium) 50 Mg Tablet 100 Mg PO DAILY Warfarin Sodium 2 Mg Tablet 1 Tab PO DAILY Aspirin Ec (Aspirin) 325 Mg Tablet.dr 1 Tab PO DAILY Isosorbide Mononitrate Er (Isosorbide Mononitrate) 30 Mg Tab.er.24h 1 Tab PO DAILY Clopidogrel (Clopidogrel Bisulfate) 75 Mg Tablet 1 Tab PO DAILY Reported Lasix (Furosemide) 40 Mg Tablet 40 Mg PO DAILY Percocet 7.5-325 Mg Tablet (Oxycodone/Acetaminophen) 1 Each Tablet 1 Tab PO PRN Q3HRS PRN Ferrous Sulfate 325 Mg Tablet 1 Tab PO BID last dose this am next dos is with supper Hydrocodone-Apap 7.5-325 (Hydrocodone Bit/Acetaminophen) 1 Each Tablet 1 Tab PO Q3HRS PRN Levemir (Insulin Detemir) 100 Unit/1 Ml Vial 20 Unit SQ HS LAST DOSE GIVEN: DATE: 07/18 TIME: 9 PM NEXT DOSE DUE: DATE: 07/19 TIME: 9 PM Metoprolol Tartrate 50 Mg Tablet 50 Mg PO BID LAST DOSE GIVEN: DATE: 10/02/16 TIME: 9 AM NEXT DOSE DUE: DATE: 10/02/16 TIME: 9 PM Vitamin B-12 (Cyanocobalamin (Vitamin B-12)) 1,000 Mcg Tablet 2,500 Mcg PO DAILY LAST DOSE GIVEN: DATE: 10/02/16 TIME: 9 AM NEXT DOSE DUE: DATE: 10/03 TIME: 9 AM Novolog Flexpen (Insulin Aspart) 100 Unit/1 Ml Insuln.pen 15 Unit SQ TIDWMEALS LAST DOSE GIVEN: DATE: 07/19 TIME: WITH LUNCH NEXT DOSE DUE: DATE: 07/19 TIME: WITH DINNER NITROGLYCERIN SubLingual (Nitroglycerin) 0.4 Mg Tab.subl 0.4 Mg SL PRN 1X PRN NOT GIVEN IN HOSPITAL. TAKE DIRECTED. Simvastatin 20 Mg Tablet 20 Mg PO HS LAST DOSE GIVEN: DATE: 10/01/16 TIME: 9 PM NEXT DOSE DUE: DATE: 10/02/16 TIME: 9 PM Allergies Allergies: Coded Allergies: No Known Drug Allergies (Unverified , 09/29/16) Physical Exam General: Alert, Oriented X3, Cooperative HEENT: Atraumatic, PERRLA, Other (some edema over L frontal area) Lungs: Clear to auscultation Heart: S1S2, RRR, no jug vein distention Abdomen: Normal bowel sounds, Soft Extremities: No edema Vitals Vitals Vital Signs Date Time Temp Pulse Resp B/P (MAP) Pulse Ox O2 Delivery O2 Flow Rate FiO2 01/11/17 14:50 96.4 64 20 136/67 (90) 97 Room Air 96.4 Labs Labs Laboratory Tests Test 01/11/17 10:51 01/11/17 10:55 01/11/17 11:00 01/11/17 12:41 Glucose (Fingerstick) 62 mg/dL (70-99) 100 mg/dL (70-99) Urine Collection Type Unknown Urine Color Yellow Urine Clarity Clear Urine pH 5.0 Urine Specific [place] 1.010 Urine Protein Negative mg/dL (NEG-TRACE) Urine Glucose (UA) Negative mg/dL (NEG) Urine Ketones (Stick) Negative mg/dL (NEG) Urine Blood Negative (NEG) Urine Nitrite Negative (NEG) Urine Bilirubin Negative (NEG) Urine Urobilinogen Dipstick 0.2 mg/dL (0.2 mg/dL) Urine Leukocyte Esterase Negative (NEG) Urine RBC 0 /HPF (0-2) Urine WBC 0 /HPF (0-4) Urine Squamous Epithelial Cells Occ /LPF Urine Bacteria 0 /HPF (0-FEW) Urine Hyaline Casts Occasional /HPF White Blood Count 6.2 x10^3/uL (4.0-11.0) Red Blood Count 3.70 x10^6/uL (4.30-5.70) Hemoglobin 9.5 g/dL (13.0-17.5) Hematocrit 29.8 % (39.0-53.0) Mean Corpuscular Volume 81 fL (79-100) Mean Corpuscular Hemoglobin 26 pg (25-35) Mean Corpuscular Hemoglobin Concent 32 g/dL (31-37) Red Cell Distribution Width 18.2 % (11.5-14.5) Platelet Count 233 x10^3/uL (140-400) Neutrophils (%) (Auto) 85 % (31-73) Lymphocytes (%) (Auto) 5 % (24-48) Monocytes (%) (Auto) 8 % (0-9) Eosinophils (%) (Auto) 1 % (0-3) Basophils (%) (Auto) 0 % (0-3) Neutrophils # (Auto) 5.3 x10^3uL (1.8-7.7) Lymphocytes # (Auto) 0.3 x10^3/uL (1.0-4.8) Monocytes # (Auto) 0.5 x10^3/uL (0.0-1.1) Eosinophils # (Auto) 0.0 x10^3/uL (0.0-0.7) Basophils # (Auto) 0.0 x10^3/uL (0.0-0.2) Segmented Neutrophils % 91 % (35-66) Lymphocytes % 6 % (24-48) Monocytes % 3 % (0-10) Platelet Estimate Adequate (ADEQUATE) Giant Platelets Occ Anisocytosis Slight Sodium Level 137 mmol/L (136-145) Potassium Level 3.6 mmol/L (3.5-5.1) Chloride Level 102 mmol/L (98-107) Carbon Dioxide Level 25 mmol/L (21-32) Anion Gap 10 (6-14) Blood Urea Nitrogen 27 mg/dL (8-26) Creatinine 1.4 mg/dL (0.7-1.3) Estimated GFR (Cockcroft-Gault) 48.8 Glucose Level 129 mg/dL (70-99) Calcium Level 8.0 mg/dL (8.5-10.1) Magnesium Level 1.6 mg/dL (1.8-2.4) Total Bilirubin 0.3 mg/dL (0.2-1.0) Direct Bilirubin 0.2 mg/dL (0.0-0.2) Aspartate Amino Transf (AST/SGOT) 24 U/L (15-37) Alanine Aminotransferase (ALT/SGPT) 15 U/L (16-63) Alkaline Phosphatase 96 U/L (46-116) Creatine Kinase 76 U/L (39-308) Creatine Kinase MB (Mass) 3.8 ng/mL (0.0-3.6) Creatine Kinase MB Relative Index 5.0 % (0-4) Troponin I Quantitative < 0.017 ng/mL (0.000-0.055) HN-Jye-R-Type Natriuretic Peptide 06516 pg/mL (0-449) Total Protein 6.4 g/dL (6.4-8.2) Albumin 2.5 g/dL (3.4-5.0) Thyroid Stimulating Hormone (TSH) 0.627 uIU/mL (0.358-3.74) Test 01/11/17 14:46 Glucose (Fingerstick) 217 mg/dL (70-99) Laboratory Tests Test 01/11/17 10:51 01/11/17 10:55 01/11/17 11:00 01/11/17 12:41 Glucose (Fingerstick) 62 mg/dL (70-99) 100 mg/dL (70-99) Urine Collection Type Unknown Urine Color Yellow Urine Clarity Clear Urine pH 5.0 Urine Specific [place] 1.010 Urine Protein Negative mg/dL (NEG-TRACE) Urine Glucose (UA) Negative mg/dL (NEG) Urine Ketones (Stick) Negative mg/dL (NEG) Urine Blood Negative (NEG) Urine Nitrite Negative (NEG) Urine Bilirubin Negative (NEG) Urine Urobilinogen Dipstick 0.2 mg/dL (0.2 mg/dL) Urine Leukocyte Esterase Negative (NEG) Urine RBC 0 /HPF (0-2) Urine WBC 0 /HPF (0-4) Urine Squamous Epithelial Cells Occ /LPF Urine Bacteria 0 /HPF (0-FEW) Urine Hyaline Casts Occasional /HPF White Blood Count 6.2 x10^3/uL (4.0-11.0) Red Blood Count 3.70 x10^6/uL (4.30-5.70) Hemoglobin 9.5 g/dL (13.0-17.5) Hematocrit 29.8 % (39.0-53.0) Mean Corpuscular Volume 81 fL (79-100) Mean Corpuscular Hemoglobin 26 pg (25-35) Mean Corpuscular Hemoglobin Concent 32 g/dL (31-37) Red Cell Distribution Width 18.2 % (11.5-14.5) Platelet Count 233 x10^3/uL (140-400) Neutrophils (%) (Auto) 85 % (31-73) Lymphocytes (%) (Auto) 5 % (24-48) Monocytes (%) (Auto) 8 % (0-9) Eosinophils (%) (Auto) 1 % (0-3) Basophils (%) (Auto) 0 % (0-3) Neutrophils # (Auto) 5.3 x10^3uL (1.8-7.7) Lymphocytes # (Auto) 0.3 x10^3/uL (1.0-4.8) Monocytes # (Auto) 0.5 x10^3/uL (0.0-1.1) Eosinophils # (Auto) 0.0 x10^3/uL (0.0-0.7) Basophils # (Auto) 0.0 x10^3/uL (0.0-0.2) Segmented Neutrophils % 91 % (35-66) Lymphocytes % 6 % (24-48) Monocytes % 3 % (0-10) Platelet Estimate Adequate (ADEQUATE) Giant Platelets Occ Anisocytosis Slight Sodium Level 137 mmol/L (136-145) Potassium Level 3.6 mmol/L (3.5-5.1) Chloride Level 102 mmol/L (98-107) Carbon Dioxide Level 25 mmol/L (21-32) Anion Gap 10 (6-14) Blood Urea Nitrogen 27 mg/dL (8-26) Creatinine 1.4 mg/dL (0.7-1.3) Estimated GFR (Cockcroft-Gault) 48.8 Glucose Level 129 mg/dL (70-99) Calcium Level 8.0 mg/dL (8.5-10.1) Magnesium Level 1.6 mg/dL (1.8-2.4) Total Bilirubin 0.3 mg/dL (0.2-1.0) Direct Bilirubin 0.2 mg/dL (0.0-0.2) Aspartate Amino Transf (AST/SGOT) 24 U/L (15-37) Alanine Aminotransferase (ALT/SGPT) 15 U/L (16-63) Alkaline Phosphatase 96 U/L (46-116) Creatine Kinase 76 U/L (39-308) Creatine Kinase MB (Mass) 3.8 ng/mL (0.0-3.6) Creatine Kinase MB Relative Index 5.0 % (0-4) Troponin I Quantitative < 0.017 ng/mL (0.000-0.055) EI-Rlx-O-Type Natriuretic Peptide 22684 pg/mL (0-449) Total Protein 6.4 g/dL (6.4-8.2) Albumin 2.5 g/dL (3.4-5.0) Thyroid Stimulating Hormone (TSH) 0.627 uIU/mL (0.358-3.74) Test 01/11/17 14:46 Glucose (Fingerstick) 217 mg/dL (70-99) VTE Prophylaxis Ordered VTE Prophylaxis Devices: No VTE Pharmacological Prophylaxi: No Assessment/Plan Assessment/Plan Hypoglycemic syncope Blunt head trauma DM CAD Post Pacer P: as ordered. DANYELLE TRAN MD Jan 11, 2017 16:12
[2017-01-11 19:00] VITALS: BP 135/64
[2017-01-11] MEDS ORDERED: DULO30CA2 PO (19:53)
[2017-01-11] MEDS ORDERED: POTASSIUM CHLO10 MEQ PO (19:53)
[2017-01-11] MEDS ORDERED: METO25TA9 PO (19:53)
[2017-01-11] MEDS ORDERED: NITROGLYCERIN SUBLINGUAL 0.4 MG BOTTLE OF 25. SL PRN (21:00)
[2017-01-11] MEDS: SIMVASTATIN 20 MG TABLET PO SCH (21:40)
[2017-01-11] MEDS: INSULIN DETEMIR 300 UNITS/3 ML INSULN.PEN. SQ SCH (21:42)
[2017-01-11 22:33] VITALS: BP 128/68
[2017-01-12 02:41] VITALS: BP 135/69
[2017-01-12 07:00] VITALS: BP 144/83
[2017-01-12] MEDS: INSULIN ASPART 300 UNITS/3 ML INSULN.PEN SQ SCH ×3 (08:00→17:00)
[2017-01-12] MEDS: FUROSEMIDE 40 MG TABLET. PO SCH (08:34)
[2017-01-12] MEDS: ASPIRIN ENTERIC COATED 325 MG TABLET.DR. PO SCH (08:34)
[2017-01-12] MEDS: DULoxetine HCL 30 MG CAPSULE.DR PO SCH (08:34)
[2017-01-12] MEDS: FERROUS SULFATE 325 MG TABLET. PO SCH ×2 (08:34→18:35)
[2017-01-12] MEDS: PANTOPRAZOLE 40 MG TABLET.DR. PO SCH (08:34)
[2017-01-12] MEDS: CLOPIDOGREL BISULFATE 75 MG TABLET PO SCH (08:35)
[2017-01-12] MEDS: ISOSORBIDE MONONITRATE ER 30 MG TAB.ER.24H PO SCH (08:35)
[2017-01-12] MEDS: LOSARTAN POTASSIUM 50 MG TABLET. PO SCH (08:35)
[2017-01-12] MEDS: POTASSIUM CHLORIDE 10 MEQ TABLET.ER. PO SCH (08:35)
[2017-01-12] MEDS: METOPROLOL SUCC 24HR ER 50 MG TAB.ER.24H. PO SCH (08:36)
[2017-01-12] MEDS: CYANOCOBALAMIN (VITAMIN B-12) 1,000 MCG TABLET. PO SCH (08:36)
--- NOTE | 2017-01-12 09:25 | PDOC ---
PROGRESS NOTES Subjective Subjective Pt states that his BS was a little low this morning but following breakfast it is back to normal. Pt has no other complaints at this time. Objective Objective Gen: Pt sitting in bed comfortably watching tv. Pt is pleasant and conversational. HEENT: atraumatic Neck: supple; no JVD Card: RRR; no new heart sounds Resp: CTAB; no rhonchi/rales/wheezes bilaterally Neuro: Pt is alert and aware; oriented to person, place and time. Vital Signs Date Time Temp Pulse Resp B/P (MAP) Pulse Ox O2 Delivery O2 Flow Rate FiO2 01/12/17 08:36 84 144/83 01/12/17 07:00 97.0 20 97 Room Air 97.0 Intake and Output 01/12/17 07:00 Intake Total 2540 ml Output Total 700 ml Balance 1840 ml Intake Oral 540 ml IV Total 2000 ml Output Urine Total 700 ml Assessment Assessment Problems Medical Problems: (1) Chronic anemia Status: Acute (2) Closed head injury Status: Acute (3) Dehydration Status: Acute (4) Hypoglycemia Status: Acute (5) Hypomagnesemia Status: Acute (6) Renal insufficiency Status: Acute Pt's heart function is currently stable. Continue with current treatment plan. Comment Review of Relevant I have reviewed the following items alphonso (where applicable) has been applied. Labs Laboratory Tests Test 01/11/17 10:51 01/11/17 10:55 01/11/17 11:00 01/11/17 12:41 Glucose (Fingerstick) 62 mg/dL (70-99) 100 mg/dL (70-99) Urine Collection Type Unknown Urine Color Yellow Urine Clarity Clear Urine pH 5.0 Urine Specific [place] 1.010 Urine Protein Negative mg/dL (NEG-TRACE) Urine Glucose (UA) Negative mg/dL (NEG) Urine Ketones (Stick) Negative mg/dL (NEG) Urine Blood Negative (NEG) Urine Nitrite Negative (NEG) Urine Bilirubin Negative (NEG) Urine Urobilinogen Dipstick 0.2 mg/dL (0.2 mg/dL) Urine Leukocyte Esterase Negative (NEG) Urine RBC 0 /HPF (0-2) Urine WBC 0 /HPF (0-4) Urine Squamous Epithelial Cells Occ /LPF Urine Bacteria 0 /HPF (0-FEW) Urine Hyaline Casts Occasional /HPF White Blood Count 6.2 x10^3/uL (4.0-11.0) Red Blood Count 3.70 x10^6/uL (4.30-5.70) Hemoglobin 9.5 g/dL (13.0-17.5) Hematocrit 29.8 % (39.0-53.0) Mean Corpuscular Volume 81 fL (79-100) Mean Corpuscular Hemoglobin 26 pg (25-35) Mean Corpuscular Hemoglobin Concent 32 g/dL (31-37) Red Cell Distribution Width 18.2 % (11.5-14.5) Platelet Count 233 x10^3/uL (140-400) Neutrophils (%) (Auto) 85 % (31-73) Lymphocytes (%) (Auto) 5 % (24-48) Monocytes (%) (Auto) 8 % (0-9) Eosinophils (%) (Auto) 1 % (0-3) Basophils (%) (Auto) 0 % (0-3) Neutrophils # (Auto) 5.3 x10^3uL (1.8-7.7) Lymphocytes # (Auto) 0.3 x10^3/uL (1.0-4.8) Monocytes # (Auto) 0.5 x10^3/uL (0.0-1.1) Eosinophils # (Auto) 0.0 x10^3/uL (0.0-0.7) Basophils # (Auto) 0.0 x10^3/uL (0.0-0.2) Segmented Neutrophils % 91 % (35-66) Lymphocytes % 6 % (24-48) Monocytes % 3 % (0-10) Platelet Estimate Adequate (ADEQUATE) Giant Platelets Occ Anisocytosis Slight Sodium Level 137 mmol/L (136-145) Potassium Level 3.6 mmol/L (3.5-5.1) Chloride Level 102 mmol/L (98-107) Carbon Dioxide Level 25 mmol/L (21-32) Anion Gap 10 (6-14) Blood Urea Nitrogen 27 mg/dL (8-26) Creatinine 1.4 mg/dL (0.7-1.3) Estimated GFR (Cockcroft-Gault) 48.8 Glucose Level 129 mg/dL (70-99) Calcium Level 8.0 mg/dL (8.5-10.1) Magnesium Level 1.6 mg/dL (1.8-2.4) Total Bilirubin 0.3 mg/dL (0.2-1.0) Direct Bilirubin 0.2 mg/dL (0.0-0.2) Aspartate Amino Transf (AST/SGOT) 24 U/L (15-37) Alanine Aminotransferase (ALT/SGPT) 15 U/L (16-63) Alkaline Phosphatase 96 U/L (46-116) Creatine Kinase 76 U/L (39-308) Creatine Kinase MB (Mass) 3.8 ng/mL (0.0-3.6) Creatine Kinase MB Relative Index 5.0 % (0-4) Troponin I Quantitative < 0.017 ng/mL (0.000-0.055) CJ-Kjz-X-Type Natriuretic Peptide 13993 pg/mL (0-449) Total Protein 6.4 g/dL (6.4-8.2) Albumin 2.5 g/dL (3.4-5.0) Thyroid Stimulating Hormone (TSH) 0.627 uIU/mL (0.358-3.74) Test 01/11/17 14:46 01/11/17 16:00 01/11/17 18:14 01/11/17 20:12 Glucose (Fingerstick) 217 mg/dL (70-99) 235 mg/dL (70-99) 272 mg/dL (70-99) 307 mg/dL (70-99) Test 01/12/17 02:09 01/12/17 06:16 01/12/17 07:55 Glucose (Fingerstick) 205 mg/dL (70-99) 73 mg/dL (70-99) 38 mg/dL (70-99) Laboratory Tests Test 01/11/17 10:51 01/11/17 10:55 01/11/17 11:00 01/11/17 12:41 Glucose (Fingerstick) 62 mg/dL (70-99) 100 mg/dL (70-99) Urine Collection Type Unknown Urine Color Yellow Urine Clarity Clear Urine pH 5.0 Urine Specific [place] 1.010 Urine Protein Negative mg/dL (NEG-TRACE) Urine Glucose (UA) Negative mg/dL (NEG) Urine Ketones (Stick) Negative mg/dL (NEG) Urine Blood Negative (NEG) Urine Nitrite Negative (NEG) Urine Bilirubin Negative (NEG) Urine Urobilinogen Dipstick 0.2 mg/dL (0.2 mg/dL) Urine Leukocyte Esterase Negative (NEG) Urine RBC 0 /HPF (0-2) Urine WBC 0 /HPF (0-4) Urine Squamous Epithelial Cells Occ /LPF Urine Bacteria 0 /HPF (0-FEW) Urine Hyaline Casts Occasional /HPF White Blood Count 6.2 x10^3/uL (4.0-11.0) Red Blood Count 3.70 x10^6/uL (4.30-5.70) Hemoglobin 9.5 g/dL (13.0-17.5) Hematocrit 29.8 % (39.0-53.0) Mean Corpuscular Volume 81 fL (79-100) Mean Corpuscular Hemoglobin 26 pg (25-35) Mean Corpuscular Hemoglobin Concent 32 g/dL (31-37) Red Cell Distribution Width 18.2 % (11.5-14.5) Platelet Count 233 x10^3/uL (140-400) Neutrophils (%) (Auto) 85 % (31-73) Lymphocytes (%) (Auto) 5 % (24-48) Monocytes (%) (Auto) 8 % (0-9) Eosinophils (%) (Auto) 1 % (0-3) Basophils (%) (Auto) 0 % (0-3) Neutrophils # (Auto) 5.3 x10^3uL (1.8-7.7) Lymphocytes # (Auto) 0.3 x10^3/uL (1.0-4.8) Monocytes # (Auto) 0.5 x10^3/uL (0.0-1.1) Eosinophils # (Auto) 0.0 x10^3/uL (0.0-0.7) Basophils # (Auto) 0.0 x10^3/uL (0.0-0.2) Segmented Neutrophils % 91 % (35-66) Lymphocytes % 6 % (24-48) Monocytes % 3 % (0-10) Platelet Estimate Adequate (ADEQUATE) Giant Platelets Occ Anisocytosis Slight Sodium Level 137 mmol/L (136-145) Potassium Level 3.6 mmol/L (3.5-5.1) Chloride Level 102 mmol/L (98-107) Carbon Dioxide Level 25 mmol/L (21-32) Anion Gap 10 (6-14) Blood Urea Nitrogen 27 mg/dL (8-26) Creatinine 1.4 mg/dL (0.7-1.3) Estimated GFR (Cockcroft-Gault) 48.8 Glucose Level 129 mg/dL (70-99) Calcium Level 8.0 mg/dL (8.5-10.1) Magnesium Level 1.6 mg/dL (1.8-2.4) Total Bilirubin 0.3 mg/dL (0.2-1.0) Direct Bilirubin 0.2 mg/dL (0.0-0.2) Aspartate Amino Transf (AST/SGOT) 24 U/L (15-37) Alanine Aminotransferase (ALT/SGPT) 15 U/L (16-63) Alkaline Phosphatase 96 U/L (46-116) Creatine Kinase 76 U/L (39-308) Creatine Kinase MB (Mass) 3.8 ng/mL (0.0-3.6) Creatine Kinase MB Relative Index 5.0 % (0-4) Troponin I Quantitative < 0.017 ng/mL (0.000-0.055) EW-[place]-U-Type Natriuretic Peptide 22808 pg/mL (0-449) Total Protein 6.4 g/dL (6.4-8.2) Albumin 2.5 g/dL (3.4-5.0) Thyroid Stimulating Hormone (TSH) 0.627 uIU/mL (0.358-3.74) Test 01/11/17 14:46 01/11/17 16:00 01/11/17 18:14 01/11/17 20:12 Glucose (Fingerstick) 217 mg/dL (70-99) 235 mg/dL (70-99) 272 mg/dL (70-99) 307 mg/dL (70-99) Test 01/12/17 02:09 01/12/17 06:16 01/12/17 07:55 Glucose (Fingerstick) 205 mg/dL (70-99) 73 mg/dL (70-99) 38 mg/dL (70-99) Medications Current Medications Aspirin (Children'S Aspirin) 324 mg 1X ONCE PO Last administered on 01/11/17t 11:29; Start 01/11/17 at 11:15; Stop 01/11/17 at 11:16; Status DC Sodium Chloride 1,000 ml @ 1,000 mls/hr Q1H IV Last administered on 01/11/17 11:28; Start 01/11/17 at 11:15; Stop 01/11/17 at 12:14; Status DC Sodium Chloride (Normal Saline Flush) 10 ml QSHIFT PRN IV AFTER MEDS AND BLOOD DRAWS; Start 01/11/17 at 11:15 Ondansetron HCl (Zofran) 4 mg 1X ONCE IV Last administered on 01/11/17 11:28; Start 01/11/17 at 11:15; Stop 01/11/17 at 11:16; Status DC Dextrose/Sodium Chloride 1,000 ml @ 75 mls/hr 1X ONCE IV Last administered on 01/11/17 11:29; Start 01/11/17 at 11:30; Stop 01/12/17 at 00:49; Status DC Ondansetron HCl (Zofran) 4 mg PRN Q8HRS PRN IV NAUSEA/VOMITING; Start 01/11/17 at 13:15; Stop 01/12/17 at 13:14 Sodium Chloride 1,000 ml @ 100 mls/hr Q10H IV Last administered on 01/11/17 13 :42; Start 01/11/17 at 13:30; Stop 01/11/17 at 14:20; Status DC Acetaminophen (Tylenol) 650 mg PRN Q4HRS PRN PO FEVER; Start 01/11/17 at 13:15; Stop 01/12/17 at 13:14 Magnesium Sulfate/ Dextrose 50 ml @ 25 mls/hr 1X ONCE IV Last administered on 01/11/17 13:40; Start 01/11/17 at 13:30; Stop 01/11/17 at 15:29; Status DC Aspirin (Ecotrin) 325 mg DAILY PO Last administered on 01/12/17 08:34; Start at 09:00 Clopidogrel Bisulfate (Plavix) 75 mg DAILY PO Last administered on 01/12/17 08: 35; Start 01/12/17 at 09:00 Cyanocobalamin (Vitamin B-12) 2,500 mcg DAILY PO Last administered on 01/12/17 08:36; Start 01/12/17 at 09:00 Duloxetine HCl (Cymbalta) 30 mg DAILY PO Last administered on 01/12/17 08:34; Start 01/12/17 at 09:00 Ferrous Sulfate (Feosol) 325 mg BIDWMEALS PO Last administered on 01/12/17 08: 34; Start 01/12/17 at 08:00 Furosemide (Lasix) 40 mg DAILY PO Last administered on 01/12/17 08:34; Start at 09:00 Insulin Aspart (NovoLOG) 15 units TIDWMEALS SQ ; Start 01/12/17 at 08:00 Isosorbide Mononitrate (Imdur) 30 mg DAILY PO Last administered on 01/12/17 08: 35; Start 01/12/17 at 09:00 Losartan Potassium (Cozaar) 100 mg DAILY PO Last administered on 01/12/17 08:35 ; Start 01/12/17 at 09:00 Metoprolol Succinate (Toprol Xl) 50 mg DAILY PO Last administered on 01/12/17 08:36; Start 01/12/17 at 09:00 Nitroglycerin (Nitrostat) 0.4 mg PRN 1X PRN SL CHEST PAIN; Start 01/11/17 at 21: 00 Pantoprazole Sodium (Protonix) 40 mg DAILYAC PO Last administered on 01/12/17 08:34; Start 01/12/17 at 07:30 Simvastatin (Zocor) 20 mg HS PO Last administered on 01/11/17 21:40; Start 01/11 at 21:00 Potassium Chloride (Klor-Con) 10 meq DAILY PO Last administered on 01/12/17 08: 35; Start 01/12/17 at 09:00 Insulin Detemir (Levemir) 10 units QHS SQ Last administered on 01/11/17 21:42; Start 01/11/17 at 21:00 Active Scripts Active Protonix (Pantoprazole Sodium) 40 Mg Tablet. 1 Tab PO DAILY Cozaar (Losartan Potassium) 50 Mg Tablet 100 Mg PO DAILY Aspirin Ec (Aspirin) 325 Mg Tablet.dr Koo Tab PO DAILY Isosorbide Mononitrate Er (Isosorbide Mononitrate) 30 Mg Tab.er.24h 1 Tab PO DAILY Clopidogrel (Clopidogrel Bisulfate) 75 Mg Tablet 1 Tab PO DAILY Reported Potassium Chloride 10 Meq Capsule.er 10 Meq PO DAILY Cymbalta (Duloxetine Hcl) 30 Mg Capsule.dr 1 Cap PO DAILY Metoprolol Succinate ( Xl ) (Metoprolol Succinate) 25 Mg Tab.er.24h 50 Mg PO DAILY Lasix (Furosemide) 40 Mg Tablet 40 Mg PO DAILY Ferrous Sulfate 325 Mg Tablet 1 Tab PO BID last dose this am next dos is with supper Levemir (Insulin Detemir) 100 Unit/1 Ml Vial 20 Unit SQ HS LAST DOSE GIVEN: DATE: 07/18 TIME: 9 PM NEXT DOSE DUE: DATE: 07/19 TIME: 9 PM Vitamin B-12 (Cyanocobalamin (Vitamin B-12)) 1,000 Mcg Tablet 2,500 Mcg PO DAILY LAST DOSE GIVEN: DATE: 10/02/16 TIME: 9 AM NEXT DOSE DUE: DATE: 10/03 TIME: 9 AM Novolog Flexpen (Insulin Aspart) 100 Unit/1 Ml Insuln.pen 15 Unit SQ TIDWMEALS LAST DOSE GIVEN: DATE: 07/19 TIME: WITH LUNCH NEXT DOSE DUE: DATE: 07/19 TIME: WITH DINNER NITROGLYCERIN SubLingual (Nitroglycerin) 0.4 Mg Tab.subl 0.4 Mg SL PRN 1X PRN NOT GIVEN IN HOSPITAL. TAKE DIRECTED. Simvastatin 20 Mg Tablet 20 Mg PO HS LAST DOSE GIVEN: DATE: 10/01/16 TIME: 9 PM NEXT DOSE DUE: DATE: 10/02/16 TIME: 9 PM Vitals/I & O Vital Sign - Last 24 Hours 01/11/17 01/11/17 01/11/17 01/11/17 10:39 11:14 11:44 12:14 Temp 97.5 97.5 Pulse 64 66 62 62 Resp 20 20 24 20 B/P (MAP) 130/82 (98) 128/60 (82) 150/65 (93) 145/65 (91) Pulse Ox 93 94 95 95 O2 Delivery Room Air Room Air 01/11/17 01/11/17 01/11/17 01/11/17 12:44 13:14 13:44 14:50 Temp 96.4 96.4 Pulse 60 60 62 64 Resp 17 16 18 20 B/P (MAP) 166/77 (106) 177/72 (107) 158/73 (101) 136/67 (90) Pulse Ox 96 97 98 97 O2 Delivery Room Air Room Air Room Air 01/11/17 01/11/17 01/12/1717 19:00 22:33 02:41 07:00 Temp 97.5 97.5 97.0 97.5 97.5 97.0 Pulse 73 73 68 84 Resp 18 16 18 20 B/P (MAP) 135/64 (87) 128/68 (88) 135/69 (91) 144/83 (103) Pulse Ox 96 93 94 97 O2 Delivery Room Air Room Air Room Air Room Air 01/12/17 01/12/17 01/12/17 08:35 08:35 08:36 Pulse 84 84 84 B/P (MAP) 144/83 144/83 144/83 Intake and Output 01/11/17 01/11/17 01/12/17 15:00 23:00 07:00 Intake Total 1000 ml 540 ml 1000 ml Output Total 300 ml 400 ml Balance 1000 ml 240 ml 600 ml DANYELLE TRAN MD Jan 12, 2017 09:25
[2017-01-12 11:00] VITALS: BP 149/74
[2017-01-12 15:00] VITALS: BP 142/72
[2017-01-12 19:00] VITALS: BP 154/75
[2017-01-12] MEDS: SIMVASTATIN 20 MG TABLET PO SCH (21:24)
[2017-01-12] MEDS: INSULIN DETEMIR 300 UNITS/3 ML INSULN.PEN. SQ SCH (21:28)
[2017-01-12 23:00] VITALS: BP 159/72
--- NOTE | 2017-01-13 00:48 | ACF ---
Admission Forms Criteria GENERAL ADMISSION CRITERIA (Place 'X' for any and all applicable criteria): Admission is indicated for ANY ONE of the following: [ ]I. Hemodynamic instability as indicated by ANY ONE of the following(1)(2) (3)(4)(5): [ ]a) Vital sign abnormality not readily corrected by appropriate treatment within 12 to 24 hours indicated by ANY ONE of the following: [ ]i) Hypotension [ ]ii) Symptomatic Tachycardia unresponsive to treatment (eg , analgesia, fluids, sedation as indicated) [ ]iii) Orthostatic vital sign changes unresponsive to treatment (eg, fluids) [ ]b) Vital sign abnormality that is severe indicated by ANY ONE of the following: [ ]i) Inadequate perfusion indicated by ANY ONE of the following: [ ]1) Lactic acidosis (greater than 2 mmol/L) [ ]2) New abnormal capillary refill (greater than 3 seconds) [ ]3) Other metabolic acidosis (arterial pH less than 7.35) not otherwise explained [ ]4) Reduced urine output [ ]5) Altered mental status [ ]6) Myocardial Ischemia [ ]v) Mean arterial pressure[A] less than 60 mm Hg [ ]vi) Mean arterial pressure[A] less than 70 mm Hg after 30 minutes of appropriate treatment (eg, fluid resuscitation) [ ]vii) IV inotropic or vasopressor medication required to maintain adequate blood pressure or perfusion [ ]viii) Sustained heart rate greater than 120 beats per minute in adult or child 6 years or older[B]] [ ]II. Hypertension requiring inpatient treatment as indicated by ANY ONE of the following(6)(7)(8): [ ]a) SBP greater than 220 mm Hg or DBP greater than 120 mm Hg despite treatment [ ]b) SBP greater than 140 mm Hg or DBP greater than 100 mm Hg with evidence of acute end organ damage as indicated by ANY ONE of the following: [ ]i) Encephalopathy [ ]ii) Acute renal failure as indicated by new onset of ANY ONE of the following(9)(10)(11)(12)(13): [ ]1) A 3-fold rise in serum creatinine from baseline [ ]2) Serum creatinine greater than 4 mg/dL ( 354 micromoles/L) with acute rise greater than 0.5 mg/dL (44.2 micromoles/L) [ ]3) Reduction of more than 75% in estimated glomerular filtration rate from baseline [ ]4) Estimated glomerular filtration rate less than 35 mL/min/1.73m2 (0.59 mL/sec/1.73m2) in child up to 18 years of age [ ]5) Cessation of urine output indicated by ALL of the following: [ ]A. Adequate volume status [ ]B. Inadequate urine output as indicated by ANY ONE of the following: [ ]a. Urine output less than 0.3 mL/kg/hr for 24 hours [ ]b. Anuria (urine output less than 0.1 mL/kg/hr) for 12 hours [ ]iii) Aortic dissection [ ]iv) Myocardial ischemia [ ]v) Left ventricular heart failure [ ]vi) Retinal hemorrhage [ ]vii) Other significant finding [ ]c) Hypertension in child requiring inpatient treatment as indicated by ALL of the following(14)(15)(16): [ ]i) Outpatient treatment not effective, not available, or not appropriate [ ]ii) SBP or DBP greater than 95th percentile for age [ ]iii) Evidence of acute end organ damage as indicated by ANY ONE of the following: [ ]1) Altered mental status [ ]2) Acute renal failure as indicated by new onset of ANY ONE of the following(9)(10)(11)(12)(13): [ ]A. A 3-fold rise in serum creatinine from baseline [ ]B. Serum creatinine greater than 4 mg/dL (354 micromoles/L) with acute rise greater than 0.5 mg/dL (44.2 micromoles/L) [ ]C. Reduction of more than 75% in estimated glomerular filtration rate from baseline [ ]D. Estimated glomerular filtration rate less than 35 mL/min/1.73m2 (0.59 mL/sec/1.73m2)in child up to 18 years of age [ ]E. Cessation of urine output indicated by ALL of the following: [ ]a. Adequate volume status [ ]b. Inadequate urine output as indicated by ANY ONE of the following: [ ]1) Urine output less than 0.3 mL/kg/hr for 24 hours [ ]2) Anuria (urine output less than 0.1 mL/kg/hr) for 12 hours [ ]3) Severe headache [ ]4) Visual disturbance [ ]5) Retinal hemorrhage [ ]6) Other significant finding [ ]III. Acute cardiac or peripheral ischemia as indicated by ANY ONE of the following: [ ]a) Acute coronary syndrome(17)(18) [ ]b) Acute peripheral ischemia (eg, pulseless, cool, mottled, or cyanotic extremity)(19) [ ]IV. Cardiac arrhythmias or findings of immediate concern indicated by ANY ONE of the following(20)(21): [ ]a) Heart rhythms that are inherently dangerous or unstable indicated by ANY ONE of the following(22)(23)(24): [ ]i) Resuscitated ventricular fibrillation or cardiac arrest [ ]ii) Ventricular escape rhythm [ ]iii) Sustained ventricular tachycardia (30 seconds or more of ventricular rhythm at greater than 100 beats per minute) [ ]iv) Nonsustained ventricular tachycardia and ANY ONE of the following: [ ]1) Suspected cardiac ischemia as cause or consequence of ventricular tachycardia [ ]2) In setting of acute myocarditis [ ]b) Unstable cardiac conduction defects indicated by ANY ONE of the following(24)(25)(26): [ ]i) Type II second-degree atrioventricular block [ ]ii) Third-degree atrioventricular block [ ]iii) New-onset left bundle branch block with suspected myocardial ischemia [ ]c) Any heart rhythm and ANY ONE of the following(22)(23)(27)(28)( 29): [ ] i) Continuous long-term ECG monitoring needed (eg, initiation of drug requiring monitoring for more than 24 hours) [ ] ii) Patient has automatic implanted cardioverter defibrillator that is repeatedly firing, malfunctioning, or in need of immediate adjustment of settings beyond the scope of ambulatory or observation care. [ ]d) Heart rhythms of concern due to ANY ONE of the following: [ ]i) Hypotension [ ]ii) Respiratory distress [ ]iii) Association with other significant symptoms (eg, bradycardia with syncope or ongoing dizziness, supraventricular tachycardia with chest pain) (27)(28) (30) [ ] V. Severe heart failure as indicated by ANY ONE of the following ( 31)(32): [ ]a) Respiratory distress [ ]b) Hypotension [ ]c) Anasarca (refractory to outpatient therapy) [ ]d) Cardiac arrhythmias of immediate concern [ ]e) Myocardial ischemia [ ]. Respiratory abnormalities, including ANY ONE of the following(33)(34) (35)(36): [ ]a) Respiratory rate greater than 30 breaths per minute unresponsive to treatment [A] [ ]b) New saturation of arterial oxygen less than 90% [ ]c) New partial pressure of carbon dioxide greater than 44 mm Hg ( 5.9 kPa) [ ]d) Supplemental oxygen or respiratory treatments needed that are new or not performable at other levels of care [ ]e) New-onset cyanosis [ ]f) Inability to protect airway [ ]g) Chronic lung disease with severe deterioration (not responsive to emergency and observation care treatment as appropriate) as indicated by ANY ONE of the following(34)(36 ): [ ]i) SaO2 5% below baseline in patient with chronic hypoxemia [ ]ii) New requirement for supplemental oxygen to keep SaO2 at baseline or acceptable level [ ]iii) Required supplemental oxygen performable only in acute inpatient setting [ ]iv) Severe airflow or ventilation abnormalities [ ]v) Previously mobile patient unable to walk between rooms [ ]vi Inability to eat or sleep due to dyspnea [ ]vii) Rapid rate of exacerbation onset [ ]viii) Altered mental status ]VII. Severe airflow or ventilation abnormalities (not responsive to emergency and observation care treatment as appropriate) as indicated by ANY ONE of the following(33)(34)(35)(37): [ ]a) PCO2 greater than 42 mm Hg (5.6 kPa) and pH less than 7.35 (new ) [ ]b) Documented PCO2 increased more than 5 mm Hg (0.7 kPa) from disease baseline [ ]c) Airflow measurements [B] less than 60% of previous best or predicted (eg, peak expiratory flow rate less than 300 L/minute) despite intensive emergent treatment [C] [ ]d) Required respiratory treatments that are performable only in acute inpatient setting [ ]VIII. Impending or actual respiratory arrest ( Also use Respiratory Failure GRG for severe respiratory disease and long-term mechanical ventilation patients) [ ]IX. Neurologic abnormalities, including ANY ONE of the following: [ ]a) New findings that suggest ANY ONE of the following: [ ]i) S[employer] infection(38) [ ]ii) Cerebral bleeding, ischemia, or vasospasm(39)(40) [ ]iii) Increased intracranial pressure, hydrocephalus, or cerebral edema(41)(42)(43) [ ]iv) Spinal cord injury(44) [ ]b) Uncontrolled seizures(45) [ ]c) New-onset coma (eg, Chente coma scale score less than 9) or unexplained abnormal mental status (eg, Chente coma scale score less than 14) [D](41)(46)(47) [ ]X. New-onset severe neurologic findings requiring inpatient care; examples include(42)(48)(49): [ ]a) Papilledema [ ]b) Cerebral edema [ ]c) Mass effect on CT scan [ ]XI. Suspected acute intra-abdominal process with peritoneal signs, abdominal mass, or similar findings (50)(51)(52) [X ]XII. Severe physiologic disorder remaining after emergency or observation level care (as appropriate) as indicated by ANY ONE of the following (53): [ ]a) Significant dehydration [ ]b) Diabetic ketoacidosis [ ]c) Hyperglycemic hyperosmolar state (eg, osmolality greater than 320 mOsm/kg (mmol/kg) [X ]d) Hypoglycemia [ ]e) Other (new) acid-base disorder with pH less than 7.35 or greater than 7.5(54) [ ]f) Thyroid storm (55) [ ]g) Myxedema coma (55) [ ]XIII. Abdominal abnormalities with ANY ONE of the following(56)(57): [ ]a) Absent bowel sounds with complete ileus [ ]b) Signs of intestinal obstruction or peritonitis [E] [ ]c) Nausea and vomiting that cannot be controlled with outpatient or observation care [ ]XIV. Acute renal failure as indicated by new onset of ANY ONE of the following(9)(10)(11)(12)(13): [ ]a) A 3-fold rise in serum creatinine from baseline [ ]b) Serum creatinine greater than 4 mg/dL (354 micromoles/L) with acute rise greater than 0.5 mg/dL (44.2 micromoles/L) [ ]c) Reduction of more than 75% in estimated glomerular filtration rate from baseline [ ]d) Estimated glomerular filtration rate less than 35 mL/min/ 1.73m2 (0.59 mL/sec/1.73m2) in child up to 18 years of age [ ]e) Cessation of urine output indicated by ALL of the following: [ ]i) Adequate volume status [ ]ii) Inadequate urine output as indicated by ANY ONE of the following: [ ]1) Urine output less than 0.3 mL/kg/hr for 24 hours [ ]2) Anuria (urine output less than 0.1 mL/kg/hr) for 12 hours [ ]XV. Significant uremic complications as indicated by ANY ONE of the following(58)(59)(60): [ ]a) Outpatient therapy is ineffective or not feasible for ANY ONE of the following: [ ]i) Severe heart failure [ ]ii) Severehypertension [ ]iii) Pleural effusion [ ]iv) Pericarditis or pericardial effusion [ ]b) Cardiac arrhythmias of immediate concern [ ]c) Intractable nausea or vomiting [ ]d) Recurrent seizures [ ]e) Encephalopathy [ ]f) Bleeding abnormalities (eg, platelet dysfunction) with active (eg, gastrointestinal) bleeding [ ]g) Dialysis indicated before long-term access or ambulatory arrangements can be made [ ]h) Significant metabolic or electrolyte abnormalities (eg, severe acidosis or hyperkalemia) [ ]XVI. High fever or other high-risk infection situation as indicated by ANY ONE of the following(61)(62)(63)(64): [ ]a) Outpatient and observation care antimicrobial treatment unavailable, not effective, or not appropriate [ ]b) Documented bacteremia [ ]c) Temperature greater than 40.5 degrees C (104.9 degrees F) ( oral) [ ]d) Temperature greater than 39.5 degrees C (103.1 degrees F) ( oral) or less than 36 degrees C (96.8 degrees F) (rectal) that does not respond to e treatment and observation care [ ] XVII. Temperature less than 95 degrees F (35 degrees C)(rectal)(65) [ ] XVIII. Severe nutritional abnormalities as indicated by ALL of the following (66)(67): [ ]a) Inability to tolerate or establish sufficient oral or other enteral nutrition in outpatient setting [ ]b) Parenteral nutrition regimen need that must be implemented on inpatient basis [ ] XIX. Severe electrolyte abnormalities indicated by ALL of the following(68) (69)(70): [ ]a) Electrolytes and associated findings are not as expected for patient baseline or acceptable treatment effects. [ ]b) Severe abnormalities indicated by ANY ONE of the following: [ ]i) Sodium less than 130 mEq/L (mmol/L) (new) [ ]ii)Sodium less than 135 mEq/L (mmol/L) with ANY ONE of the following: [ ]1) Uncorrectable (to near normal or chronic baseline) after trial of outpatient and emergency treatment [ ]2) Altered mental status [ ]3) Seizures [ ]4) Severe medical etiology requiring inpatient management (eg, heart failure, hypovolemia) [ ]iii) Sodium greater than 155 mEq/L (mmol/L) [ ]iv) Sodium greater than 150 mEq/L (mmol/L) with ANY ONE of the following: [ ]1) Uncorrectable (to near normal or chronic baseline) with outpatient and emergency treatment [ ]2) Altered mental status [ ]3) Seizures [ ]4) Severe medical etiology (eg, hypovolemia, diabetes insipidus) [ ]v) Potassium less than 2.5 mEq/L (mmol/L) despite outpatient and emergency treatment [ ]vi) Potassium less than 3 mEq/L (mmol/L) with ANY ONE of the following: [ ]1) Weakness [ ]2) Cardiac abnormality (eg, arrhythmia, conduction disturbance) [ ]3) Cardiac ischemia [ ]4) Ileus [ ]5) Ongoing medical cause requiring inpatient management (eg, acute renal wasting or SIADH) [ ]6) Other severe symptoms [ ]vii) Potassium greater than 6.5 mEq/L (mmol/L) [ ]viii) Potassium greater than 5 mEq/L (mmol/L) with ANY ONE of the following: [ ]1) Uncorrectable (to near normal or chronic baseline) with outpatient and emergency treatment [ ]2) Severe ECG findings [F] [ ]3) Acute worsening of renal failure (creatinine greater than 2.5 mg/dL (221 micromoles/L) or significant elevation for age and size) [ ]4) Severe weakness [ ]5) Severe medical etiology (eg, hemolysis, infection, drug overdose) [ ]ix) Calcium less than 7 mg/dL (1.75 mmol/L) despite outpatient and emergency treatment (72) [ ]x) Calcium less than 8 mg/dL (2 mmol/L) with significant symptoms or findings; examples include(72): [ ]1) Altered mental status [ ]2) Muscle spasms [ ]3) Seizures [ ]4) Breathing difficulty [ ]5) Cardiac abnormality (eg, arrhythmia or conduction disturbance) [ ]xi) Calcium greater than 14 mg/dL (3.5 mmol/L)(72) [ ]xii) Calcium greater than 12 mg/dL (3 mmol/L) with ANY ONE of the following(72): [ ]1) Uncorrectable (to near normal or chronic baseline) with outpatient and emergency treatment [ ]2) Significant dehydration or hypovolemia as indicated by ALL of the following(70)(73)(74): [ ]A. Not resolved with initial treatments [ ]B. Clinically significant dehydration as indicated by ANY ONE of the following: [ ]a. Vomiting refractory to outpatient treatment (ie, precluding oral rehydration) [ ]b. Inability to drink [ ]c. Hypernatremia or other electrolyte abnormality unable to be corrected with outpatient and emergency treatment [ ]d. Failure to remain hydrated with outpatient therapy [ ]e. Reduced urine output [ ]f. Hypotension [ ]g. Serious cause for dehydration requiring acute hospitalization (eg, bowel obstruction, increased intracranial pressure, infectious cause) [ ]h. Child with ANY ONE of the following(75): [ ]1) Severe abdominal tenderness [ ]2) Adequate care not available at home [ ]3) Severe dehydration ( greater than 9% loss of body weight) [ ]4) Significant symptoms or findings; examples include: [ ]A. Altered mental status [ ]B. Cardiac abnormality (eg, arrhythmia, conduction disturbance) [ ]C. Malignant etiology requiring inpatient treatment [ ]xiii) Phosphorus less than 1 mg/dL (0.32 mmol/L) [ ]xiv) Phosphorus less than 1.5 mg/dL (0.48 mmol/L) with ANY ONE of the following: [ ]1) Patient unresponsive to outpatient and emergency treatment [ ]2) Significant symptoms or findings; examples include: [ ]A. Weakness [ ]B. Altered mental status [ ]C. Breathing difficulty [ ]D. Seizures [ ]E. Rhabdomyolysis [ ]xv) Phosphorus greater than 10 mg/dL (3.2 mmol/L) [ ]xvi) Phosphorus greater than 4.5 mg/dL (1.45 mmol/L) (new) with ANY ONE of the following: [ ]1) Severe medical etiology (eg, crush injury, acute renal failure) [ ]2) Associated hypocalcemia with significant findings; examples include: [ ]A. Neurologic symptoms [ ]B. Altered mental status [ ]C. Muscle spasms [ ]D. Seizures [ ]E. Breathing difficulty [ ]F. Cardiac abnormality (eg, arrhythmia, conduction disturbance) [ ]xvii) Magnesium less than 1 mg/dL (0.41 mmol/L) [ ]xviii) Magnesium less than 1.5 mg/dL (0.62 mmol/L) with ANY ONE of the following: [ ]1) Patient unresponsive to outpatient and emergency treatment [ ]2) Associated hypocalcemia with significant findings; examples include: [ ]A. Altered mental status [ ]B. Muscle spasms [ ]C. Seizures [ ]D. Breathing difficulty [ ]E. Cardiac abnormality (eg, arrhythmia , conduction disturbance) [ ]3) Associated hypokalemia (potassium less than 3 mEq/L (mmol/L)) with risk of arrhythmia [ ]xix) Magnesium greater than 4 mEq/L (2 mmol/L) [ ]xx) Magnesium greater than 2.5 mEq/L (1.25 mmol/L) with significant symptoms or findings; examples include: [ ]1) Weakness [ ]2) Altered mental status [ ]3) Cardiac abnormality (eg, arrhythmia, conduction disturbance) [ ]4) Breathing difficulty [ ]5) Severe medical etiology (eg, renal failure, hypovolemia) [ ]xxi) Uric acid greater than 20 mg/dL (1190 micromoles/L)(76) [ ]xxii) Uric acid greater than 8 mg/dL (476 micromoles/L) with significant symptoms or findings of tumor lysis syndrome; examples include(76): [ ]1) Creatinine greater than 1.5 times upper limit of normal [ ]2) Cardiac abnormality (eg, arrhythmia, conduction disturbance) [ ]3) Seizure [ ]XX. Acute blood loss causing significant abnormality as indicated by ANY ONE of the following(77)(78): [ ]a) Hemoglobin less than 10 g/dL (100 g/L) (not baseline) [ ]b) Hematocrit less than 30% (0.30) (not baseline) [ ]c) Repeat hematocrit decreased more than 2% (0.02) [ ]d) Uncontrolled bleeding [ ]XXI. Severe anemia indicated by ANY ONE of the following(78)(79): [ ]a) Altered mental status [ ]b) Chest pain [ ]c) Exertional dyspnea [ ]d) Syncope [ ]e) Other findings suggesting inadequate perfusion [ ]f) Treatment with transfusion or volume replacement is ineffective at resolving ANY ONE of the following [G]: [ ]i) Tachycardia for age [ ]ii) Orthostatic vital sign changes as indicated by ANY ONE of the following(80): [ ]1) Fall in SBP of 20 mm Hg or more 1 to 3 minutes after patient sits or stands from recumbent position [ ]2) Fall in DBP of 10 mm Hg or more 1 to 3 minutes after patient sits or stands from recumbent position [ ]XXII. High-risk low platelet count as indicated by ANY ONE of the following( 81)(82): [ ]a) Severe or life-threatening bleeding (eg, intracranial, major gastrointestinal, or extensive mucosal bleeding), with any reduced platelet count [ ]b) Platelet count less than 20,000/mm3 (20 x109/L) with any active bleeding [ ]c) Platelet count less than 10,000/mm3 (10 x109/L) with minor purpura or petechiae [ ]d) Platelet count less than 5000/mm3 (5 x109/L) [ ]e) Low platelet count with hemolytic anemia [ ]XXIII. Disseminated intravascular coagulation(77)(83) [ ]XXIV. Severe adverse drug or systemic toxin reaction requiring inpatient treatment; examples include(84)(85): [ ]a) Serotonin syndrome(86) [ ]b) Neuroleptic malignant syndrome(86) [ ]c) Cholinergic syndrome with severe symptoms (eg, bronchorrhea, weakness, mental status changes, seizures) [ ]d) Sympathetic syndrome with severe symptoms (eg, seizures, mental status changes, cardiac dysrhythmias) [ ]e) Anticholinergic syndrome [ ]XXV. Severe pain requiring acute inpatient management as indicated by ALL of the following (87)(88)(89): [ ]a) Continuous or frequent (eg, every 2 to 4 hours) parenteral analgesics required [H] [ ]b) Rapid improvement expected from treatment or acute intervention (eg, surgery, anesthesia procedure) [ ]XXVI.Severe behavioral health issues judged unmanageable at a lower level of care (eg, residential) in a patient who is ANY ONE of the following(91) [ ]a) Acutely suicidal [ ]b) A danger to self (eg, self-mutilating or suicidal behavior) [ ]c) A danger to others (eg, assaultive or homicidal behavior) [ ]d) Incapacitated because of grave disability (eg, inability to provide for self at lower level of care) (92) [ ]XXVII. Inpatient monitoring needed; examples include(1)(3)(87)(93)(94)(95)(96 ): [ ]a) Vital signs, neurologic signs, or vascular checks more frequently than every 4 hours [ ]b) Cardiac or respiratory monitoring beyond the scope (eg, over 24 hours) of observation care [ ]c) Pulmonary artery catheter monitoring [ ]d) Suspected compartment syndrome(97) (98) [ ]e) Cerebral bleeding, hydrocephalus, or vasospasm monitoring [ ]f) Increased intracranial pressure or cerebral edema monitoring [ ]g) monitoring [ ]XXVIII. Treatment requiring inpatient care; examples include: [ ]a) IV fluid to replace significant ongoing losses (greater than 3 L/m2 per day)(53) [ ]b) High concentration oxygen (greater than 40%)(33)(99)(100) [ ]c) Frequent respiratory therapy (more frequently than every 4 hours) to maintain airflow rates greater than 60% of baseline(33)(99)(100) [ ]d) Epidural analgesia(87) [ ]e) IV anticoagulation, vasoactive, or antiarrhythmic medication(19 )(23) [ ]f) Acute thrombolytics (generally require 24 hours of observation )(101)(102) [ ]XXIX. Emergency procedures needed; examples include: [ ]a) Emergency inpatient surgery [ ]b) Temporary pacemaker placement(103) [ ]c) Chest tube placement with active evacuation (eg, suction, drainage)(104) [ ]d) Emergent cardioversion(105) [ ]e) Emergent cardiac or vascular procedures (eg, cardiac catheterization, angioplasty) (17)(18) [ ]f) Emergent dialysis access placement and institution(10)(106) [ ]g) Emergent pericardiocentesis(107) [ ]h) Emergent plasmapheresis or leukapheresis(83) [ ]i) Emergent tracheostomy The original [employer] content created by [employer] has been revised. The portions of the content which have been revised are identified through the use of italic text or in bold, and [facility] has neither reviewed nor approved the modified material. All other unmodified content is copyright [employer]. Please see references footnoted in the original [facility] edition 2016 Admission Criteria Met?: Yes KATY HOANG Jan 13, 2017 00:48
[2017-01-13 07:00] VITALS: BP 168/95
[2017-01-13] MEDS: INSULIN ASPART 300 UNITS/3 ML INSULN.PEN SQ SCH (08:00)
[2017-01-13] MEDS: ISOSORBIDE MONONITRATE ER 30 MG TAB.ER.24H PO SCH (08:36)
[2017-01-13] MEDS: CYANOCOBALAMIN (VITAMIN B-12) 1,000 MCG TABLET. PO SCH (08:36)
[2017-01-13] MEDS: LOSARTAN POTASSIUM 50 MG TABLET. PO SCH (08:36)
[2017-01-13] MEDS: PANTOPRAZOLE 40 MG TABLET.DR. PO SCH (08:36)
[2017-01-13] MEDS: DULoxetine HCL 30 MG CAPSULE.DR PO SCH (08:37)
[2017-01-13] MEDS: FUROSEMIDE 40 MG TABLET. PO SCH (08:37)
[2017-01-13] MEDS: METOPROLOL SUCC 24HR ER 50 MG TAB.ER.24H. PO SCH (08:37)
[2017-01-13] MEDS: ASPIRIN ENTERIC COATED 325 MG TABLET.DR. PO SCH (08:38)
[2017-01-13] MEDS: FERROUS SULFATE 325 MG TABLET. PO SCH (08:38)
[2017-01-13] MEDS: CLOPIDOGREL BISULFATE 75 MG TABLET PO SCH (08:38)
[2017-01-13] MEDS: POTASSIUM CHLORIDE 10 MEQ TABLET.ER. PO SCH (08:38)
[2017-01-13 11:09] VITALS: BP 157/77
[2017-01-13] MEDS ORDERED: MAGNESIUM SULFATE 2GM 50 ML IV ONE (12:00)
[2017-01-13] MEDS ORDERED: POTASSIUM CHLORIDE 20 MEQ TABLET.ER. PO ONE (12:00)
[2017-01-13] MEDS ORDERED: INSU100V13 SQ (12:24)
--- NOTE | 2017-01-13 23:15 | DS ---
DATE OF DISCHARGE: 01/13/2017 HOSPITAL COURSE: This is an 81-year-old white male who came in with change in level of consciousness with a low blood sugar. He had had at least 2 episodes of hypoglycemia. He was thus hospitalized. The Novolog was held. He did well. Laboratory investigations showed that the hemoglobin was somewhat low at 9.5. He has been on iron and does have a chronic GI bleed. Blood sugar of 38 mg percent was recorded in the morning of 01/12/2017. The dose of the Levemir was decreased to 10. On the morning of 01/12/2017, the blood sugar was better at 133 mg percent. The patient was feeling well. Renal functions were better with a BUN of 27, creatinine of 1.4. The potassium was 3.6. The magnesium was somewhat low at 1.6. Troponin was negative. The BNP was elevated to 14,000, but he had no symptoms of CHF. The TSH was 0.627. The albumin was low at 2.5. The chest x-ray was normal. He had fallen the previous day and shoulder x-ray was normal. A CT scan of the brain showed no acute findings. He was able to get up and walk. He was thus discharged. FINAL DIAGNOSES: 1. Hypoglycemia secondary to lack of food intake. 2. Nausea after taking several pain medications and narcotics. 3. History of coronary artery disease with no evidence of acute coronary syndrome. 4. Iron-deficiency anemia. 5. Diabetes mellitus. HOMEGOING INSTRUCTIONS: 1. Activities to tolerance. 2. He was asked to check his blood sugars three times a day and bring it to me. 3. He was asked to take his NovoLog only after having a meal and if he is nauseous and does not eat, he was to skip the NovoLog. He will be followed in the office. LATOSHA HWANG MD DR: BRANDY/malou JOB#: [id number] / [id number]
== END 2017-01-13 13:00 | disposition home or self-care (01) | DRG 638 ==
LOC: ER 10:39 → 5 SOUTH 13:30
PROVIDERS: ADMIT Specialist; ATTEND Specialist
DX: E11.649 Type 2 diabetes mellitus with hypoglycemia without coma (principal); S06.9X9A Unspecified intracranial injury with loss of consciousness of unspecified duration, initial encounter; E44.1 Mild protein-calorie malnutrition; R55 Syncope and collapse; E78.00 Pure hypercholesterolemia, unspecified; D50.9 Iron deficiency anemia, unspecified; E78.5 Hyperlipidemia, unspecified; E83.42 Hypomagnesemia; E86.0 Dehydration; I11.0 Hypertensive heart disease with heart failure; Z96.659 Presence of unspecified artificial knee joint; K59.00 Constipation, unspecified; M19.90 Unspecified osteoarthritis, unspecified site; N28.9 Disorder of kidney and ureter, unspecified; W18.30XA Fall on same level, unspecified, initial encounter; R63.0 Anorexia; I25.10 Atherosclerotic heart disease of native coronary artery without angina pectoris; I50.9 Heart failure, unspecified; K21.9 Gastro-esophageal reflux disease without esophagitis; Z79.4 Long term (current) use of insulin; Z90.49 Acquired absence of other specified parts of digestive tract; Y93.89 Activity, other specified; Y92.89 Other specified places as the place of occurrence of the external cause; Y99.8 Other external cause status
CPT/HCPCS: 36415; 70450; 71010; 73030; 80048; 80076; 81001; 82553; 82962; 83735; 83880; 84443; 84484; 85007; 85027; 93005; 96361; 96374; J1815; J2405; J7030; J7042; J7060; 99285-25

== ENCOUNTER → 2017-09-08 | Outpatient (CLI) | payer MEDICARE | END | disposition home or self-care (01) | LOC: PNCL 08:36 | DX: M54.5 Low back pain (principal); I25.10 Atherosclerotic heart disease of native coronary artery without angina pectoris; Z95.5 Presence of coronary angioplasty implant and graft; I25.2 Old myocardial infarction; E11.42 Type 2 diabetes mellitus with diabetic polyneuropathy; Z96.653 Presence of artificial knee joint, bilateral; Z90.49 Acquired absence of other specified parts of digestive tract; Z79.4 Long term (current) use of insulin | CPT/HCPCS: G0463 ==

== ENCOUNTER → 2017-09-21 | Outpatient (CLI) | payer MEDICARE | LOC: KCIC CT 09:05 | DX: M43.16 Spondylolisthesis, lumbar region (principal); M51.36 Other intervertebral disc degeneration, lumbar region; M43.5X6 Other recurrent vertebral dislocation, lumbar region; M25.78 Osteophyte, vertebrae; I11.0 Hypertensive heart disease with heart failure; I50.9 Heart failure, unspecified; I70.0 Atherosclerosis of aorta; I25.2 Old myocardial infarction; I25.10 Atherosclerotic heart disease of native coronary artery without angina pectoris; E78.00 Pure hypercholesterolemia, unspecified; Z90.49 Acquired absence of other specified parts of digestive tract; M19.90 Unspecified osteoarthritis, unspecified site; E11.9 Type 2 diabetes mellitus without complications; Z95.5 Presence of coronary angioplasty implant and graft; Z95.0 Presence of cardiac pacemaker; Z96.652 Presence of left artificial knee joint; Z86.2 Personal history of diseases of the blood and blood-forming organs and certain disorders involving the immune mechanism; Z87.891 Personal history of nicotine dependence | CPT/HCPCS: 72131 ==

== ENCOUNTER → 2017-09-23 | Outpatient (CLI) | payer MEDICARE ==
[~2017-09-23] MED LIST changes: -AMOX1TAB58 PO; -ASPI-482 PO; -ASPI-630 PO; -ASPI325T11 PO; -ASPI325T70 PO; -AZIT250T PO; -CALC-112 PO; -CELE200C PO; -CINN500C2 PO; -CLOP75TA PO; -CLOP75TA57 PO; -CYAN10005 PO; -DIGO125T PO; -DOCU100C28 PO; -FERR-26 PO; -FERR325T58 PO; -FURO-68 PO; -GLYB5TAB3 PO; -HYDR-2758 PO; -HYDR-2762 PO; -HYDR12.53 PO; -INSU100I17 SQ; -INSU100V13 SQ; -INSU100V8 SQ; +IOHEXOL 180 MG/ML 10 ML VIAL.; -ISOS30TA4 PO; -LISI40TA PO; -LOSA100T6 PO; -LOSA50TA2 PO; -LOSA50TA6 PO; -METF850T2 PO; -METH500T5 PO; -METO-269 PO; -METO100T11 PO; -METO50TA2 PO; -NITR0.4T22 SL; -OXYC-327 PO; -PANT40TA3 PO; -POTA10TA12 PO; -SIMV20TA3 PO; -SULF-143; -SULF1TAB24 PO; -WARF-78 PO; -WARF2TAB7 PO; -WARF3TAB7 PO; -ZINC30TA2 PO; +methylPREDNISolone ACETATE 40 MG/ML VIAL.; +methylPREDNISolone ACETATE 80 MG/ML VIAL.
== END ==
LOC: PNCL 08:42
DX: M51.16 Intervertebral disc disorders with radiculopathy, lumbar region (principal)
CPT/HCPCS: 62323; J1030; J1040; Q9965

== ENCOUNTER → 2017-10-14 | Outpatient (CLI) | payer MEDICARE | LOC: PNCL 08:10 | DX: M51.16 Intervertebral disc disorders with radiculopathy, lumbar region (principal); M54.5 Low back pain | CPT/HCPCS: 62323; J1030; J1040; Q9965 ==

== ENCOUNTER → 2017-11-11 | Outpatient (CLI) | payer MEDICARE ==
[~2017-11-11] MED LIST changes: +LIDOCAINE 1% PF 2 ML VIAL.
== END | disposition home or self-care (01) ==
LOC: PNCL 08:01
DX: M51.16 Intervertebral disc disorders with radiculopathy, lumbar region (principal); Z98.49 Cataract extraction status, unspecified eye; Z96.1 Presence of intraocular lens; Z98.890 Other specified postprocedural states; I25.119 Atherosclerotic heart disease of native coronary artery with unspecified angina pectoris; I11.0 Hypertensive heart disease with heart failure; I50.9 Heart failure, unspecified; E11.9 Type 2 diabetes mellitus without complications; Z95.5 Presence of coronary angioplasty implant and graft; Z95.0 Presence of cardiac pacemaker; E78.00 Pure hypercholesterolemia, unspecified; Z90.49 Acquired absence of other specified parts of digestive tract; M19.90 Unspecified osteoarthritis, unspecified site; Z96.653 Presence of artificial knee joint, bilateral; Z87.891 Personal history of nicotine dependence; D64.9 Anemia, unspecified; Z83.3 Family history of diabetes mellitus; Z82.49 Family history of ischemic heart disease and other diseases of the circulatory system
CPT/HCPCS: 62323; J1030; J1040; Q9965

== ENCOUNTER 2018-10-17 12:22 | Emergency (ER) | payer MEDICARE ==
[~2018-10-17] VITALS: Ht 172.7 cm; Wt 84.4 kg
[~2018-10-17 12:22] MED LIST changes: +AMOX1TAB58 PO; +ASPI-482 PO; +ASPI-630 PO; +ASPI325T11 PO; +ASPI325T70 PO; +AZIT250T PO; +CALC-112 PO; +CELE200C PO; +CINN500C2 PO; +CLOP75TA PO; +CLOP75TA57 PO; +CYAN10005 PO; +DIGO125T PO; +DOCU100C28 PO; +DULO30CA2 PO; +FERR325T14 PO; +FERR325T58 PO; +FURO-68 PO; +GABA-585 PO; +GLYB5TAB3 PO; +HYDR-2761 PO; +HYDR-2765 PO; +HYDR12.575 PO; +INSU100I17 SQ; +INSU100V13 SQ; +INSU100V8 SQ; -IOHEXOL 180 MG/ML 10 ML VIAL.; +ISOS30TA4 PO; -LIDOCAINE 1% PF 2 ML VIAL.; +LISI-130 PO; +LOSA-73 PO; +LOSA100T14 PO; +METF850T8 PO; +METH500T5 PO; +METO-239 PO; +METO-247 PO; +METO-269 PO; +METO50TA6 PO; +MOXI400T PO; +NITR0.4T22 SL; +OXYC1TAB19 PO; +PANT40TA3 PO; +POTA10TA12 PO; +SACU1TAB PO; +SIMV20TA3 PO; +SULF-143; +SULF1TAB24 PO; +TRAM50TA PO; +WARF-78 PO; +WARF2TAB96 PO; +WARF3TAB50 PO; +ZINC30TA2 PO; -methylPREDNISolone ACETATE 40 MG/ML VIAL.; -methylPREDNISolone ACETATE 80 MG/ML VIAL.
[2018-10-17 12:29] VITALS: BP 134/63
--- NOTE | 2018-10-17 13:07 | PHYS DOC ---
Past Medical History Past Medical History: Diabetes-Type I, Heart Disease, Hypertension, [place] Past Surgical History: Appendectomy, Knee Replacement, Pacemaker, Other Additional Past Surgical Histo: cardiac cath with stents,EGD,colonoscopy,bilat elbow surgery,bilat lens imp Smoking: Quit Greater Than 1 Year Alcohol Use: Occasionally Drug Use: None Adult General Chief Complaint Chief Complaint: HIP PAIN HPI HPI Patient is a 83 year old male who presents with chronic right hip pain that acutely worsened this morning. Patient states that he was walking into the house going up some steps when the pain became unbearable. Patient states that his right hip feels stiff in the morning but typically loosens up fairly quickly. Today, his hip still feels stiff. Patient is a deep sharp pain rated at 9/10 with movement and weightbearing. Denies radiation. Patient has had osteoarthritis requiring b/l knee replacement. His tramadol prescription has not alleviated the pain. Patient denies recent illness, fever, chills or any recent trauma to the affected area. Review of Systems Review of Systems Constitutional: Denies fever or chills [] Eyes: Denies redness or eye pain. [] HENT: Denies nasal congestion or sore throat [] Respiratory: Denies cough or shortness of breath [] Cardiovascular: Denies chest pain or palpitations. Reports chronic orthopnea.[] GI: Denies abdominal pain, nausea, vomiting, or diarrhea [] : Denies dysuria or hematuria [] Musculoskeletal: Reports right hip pain and b/l LE swelling. [] Neurologic: Denies headache, focal weakness or sensory changes [] Complete review of systems found to be within normal limits, except as documented in this note. Current Medications Current Medications Current Medications Medications (Trade) Dose Ordered Sig/Joey Start Time Stop Time Status Last Admin Dose Admin Acetaminophen/ Hydrocodone Bitart (Lortab 5/325) 1 tab 1X ONCE 10/17/18 14:00 10/17/18 14:01 DC 10/17/18 14:07 1 TAB Dexamethasone (Decadron) 10 mg 1X ONCE 10/17/18 13:15 10/17/18 13:16 DC 10/17/18 12:59 10 MG Allergies Allergies Allergies Coded Allergies Type Severity Reaction Last Updated Verified No Known Drug Allergies 09/29/16 No Physical Exam Physical Exam Constitutional: Well developed, well nourished, no acute distress, non-toxic appearance. [] HENT: Normocephalic, atraumatic, oropharynx moist.. [] Eyes: Artificial left eye present. conjunctiva normal, no discharge. [] Cardiovascular: Heart rate regular rhythm, grade +1/6 systolic murmur present[] Lungs & Thorax: Good air movement throughout with mild bibasilar crackles present [] Abdomen: Soft and nontender [] Skin: Warm, dry, no erythema, no rash. [] Extremities: Right hip painful passive range of motion with positive scour, compression and distraction tests. +1 dorsalis pedis b/l. Mild pitting edema b/l. Sensation intact. [] Neurologic: Alert and oriented, normal motor function, normal sensory function, no focal deficits noted. [] Psychologic: Affect normal, judgement normal, mood normal. [] Current Patient Data Vital Signs Vital Signs Date Time Temp Pulse Resp B/P (MAP) Pulse Ox O2 Delivery O2 Flow Rate FiO2 10/17/18 14:07 18 10/17/18 12:29 97.8 60 134/63 (86) 95 Room Air 97.8 Lab Values Laboratory Tests Test 10/17/18 12:44 Glucose (Fingerstick) 83 mg/dL (70-99) EKG EKG [] Radiology/Procedures Radiology/Procedures PROCEDURE: HIP RIGHT 2 VIEW AP and lateral right hip radiographs 10/17/2018 CLINICAL HISTORY: Hip pain. AP and lateral digital radiographs of the right hip were obtained. No fracture or dislocation of the right hip is seen. Mild to moderate degenerative changes are seen involving the right hip. Calcifications are seen within the pelvis consistent with phleboliths. Degenerative changes are seen involving the facet joints of the lower lumbar spine. Mild to moderate degenerative changes are seen involving both SI joints. Atherosclerotic calcification of the right common femoral artery and its branches is noted. IMPRESSION: Mild to moderate degenerative changes are seen involving the right hip. No acute osseous abnormality is seen. Electronically signed by: Donato Mendez MD (10/17/2018 1:09 PM) [facility][] Course & Med Decision Making Course & Med Decision Making Pertinent Labs and Imaging studies reviewed. (See chart for details) Patient is an 83 year old male who presents with acute on chronic right hip pain. Patient has a history of OA requiring b/l knee replacement. He has been experiencing morning hip joint stiffness that often resolves quickly and pain with movement and weight bearing. X-ray revealed mild to moderate degenerative c hanges suggestive of arthritis. Blood sugar WNL. Patient received dexamethasone in ED for inflammation. Pain addressed with interval improvement. Patient will discharged home with instruction to use his cane when walking, apply cold compresses to affected hip, and elevate the extremity as possible. Will also provide prescription for prednisone as well as opioid analgesics. Patient stable for discharge with outpatient follow-up with PCP/Orthopedics. Orthopedic referral provided. Discussed findings and plan with patient and family, who acknowledge understanding and agreement. [] Dragon Disclaimer Dragon Disclaimer This electronic medical record was generated, in whole or in part, using a voice recognition dictation system. Departure Departure Impression: Primary Impression: Hip pain, right Disposition: 01 HOME, SELF-CARE ( right) Condition: STABLE Referrals: LATOSHA HWANG MD (PCP) SHAINA BLAKELY II, MD Patient Instructions: Hip Pain Scripts Hydrocodone/Apap 5-325 (NORCO 5-325 TABLET) 1 Each Tablet 0.5-1 TAB PO PRN Q6HRS PRN for PAIN, #10 TAB 0 Refills Prov: KISHOR CRUZ DO 10/17/18 Orphenadrine Citrate (ORPHENADRINE CITRATE) 100 Mg Tablet.er 1 TAB PO BID PRN for MUSCLE PAIN, #14 TAB Prov: KISHOR CRUZ DO 10/17/18 Prednisone (PREDNISONE) 20 Mg Tablet 2 TAB PO DAILY, #8 TAB Prov: KISHOR CRUZ DO 10/17/18 KISHOR CRUZ DO October 17, 2018 13:07
--- NOTE | 2018-10-17 13:12 | RAD ---
AP and lateral right hip radiographs 10/17/2018 CLINICAL HISTORY: Hip pain. AP and lateral digital radiographs of the right hip were obtained. No fracture or dislocation of the right hip is seen. Mild to moderate degenerative changes are seen involving the right hip. Calcifications are seen within the pelvis consistent with phleboliths. Degenerative changes are seen involving the facet joints of the lower lumbar spine. Mild to moderate degenerative changes are seen involving both SI joints. Atherosclerotic calcification of the right common femoral artery and its branches is noted. IMPRESSION: Mild to moderate degenerative changes are seen involving the right hip. No acute osseous abnormality is seen. Electronically signed by: Donato Mendez MD (10/17/2018 1:09 PM) [facility]
[2018-10-17] MEDS ORDERED: DEXAMETHASONE 4 MG TABLET PO ONE (13:15)
[2018-10-17] MEDS ORDERED: HYDR-3164 PO (13:42)
[2018-10-17] MEDS ORDERED: PRED20TA PO (13:42)
[2018-10-17] MEDS ORDERED: ORPH100T PO (13:42)
[2018-10-17] MEDS ORDERED: HYDROcodone/APAP 5/325MG 1 TAB TABLET PO ONE (14:00)
== END 2018-10-17 14:15 | disposition home or self-care (01) ==
LOC: ER 12:22
DX: M25.551 Pain in right hip (principal); G89.29 Other chronic pain; E10.9 Type 1 diabetes mellitus without complications; I11.9 Hypertensive heart disease without heart failure; I25.2 Old myocardial infarction; M17.0 Bilateral primary osteoarthritis of knee; Z96.659 Presence of unspecified artificial knee joint; Z87.891 Personal history of nicotine dependence; Z95.0 Presence of cardiac pacemaker
CPT/HCPCS: 73502; 82962; 99284; J8540; 99285

== ENCOUNTER 2019-06-24 18:44 | Emergency (ER) | payer MEDICARE, OTHER ==
[~2019-06-24] VITALS: Ht 172.7 cm; Wt 83.9 kg
[~2019-06-24 18:44] MED LIST changes: +AMIO200T4 PO; +CYAN-25 PO; -CYAN10005 PO; -DIGO125T PO; +DIGO125T3 PO; +HYDR-3164 PO; -MOXI400T PO; +MOXI400T13 PO; +ORPH100T PO; -PANT40TA3 PO; +PANT40TA77 PO; +POTASSIUM CHLO10 ME1 PO; +PRED20TA PO; +SIMV20TA18 PO; -SIMV20TA3 PO; +TICA90TA PO
--- NOTE | 2019-06-24 20:10 | PHYS DOC ---
Past Medical History Past Medical History: Diabetes-Type I, Heart Disease, Hypertension, [place] Past Surgical History: Appendectomy, Knee Replacement, Pacemaker, Other Additional Past Surgical Histo: cardiac cath with stents,EGD,colonoscopy,bilat elbow surgery,bilat lens imp Alcohol Use: Occasionally Drug Use: None Adult General Chief Complaint Chief Complaint: MECHANICAL FALL HPI HPI Patient is a 84 year old male with history of hypertension, dyslipidemia, coronary artery disease, diabetes mellitus who presents with complaint of fall and left hip pain. Patient states he had a fall 8 days ago from a standing position and since then has had pain in left hip and was able to move around with his walker as his usual but yesterday he rolled in his left and his pain became worse and was not able to move around and rated his pain 9/10. Patient denies other injuries, focal neuro deficit, fever and chills, nausea and vomiting. Patient didn't take any pain medication and states he didn't take his insulin because he was not able to eat like his usual since yesterday. Patient did not seek medical attention for the last 8 days for his fall. Review of Systems Review of Systems Constitutional: Denies fever or chills [] Eyes: Denies change in visual acuity, redness, or eye pain [] HENT: Denies nasal congestion or sore throat [] Respiratory: Denies cough or shortness of breath [] Cardiovascular: No additional information not addressed in HPI [] GI: Denies abdominal pain, nausea, vomiting, bloody stools or diarrhea [] : Denies dysuria or hematuria [] Musculoskeletal: Denies back pain, reports joint pain [] Integument: Denies rash or skin lesions [] Neurologic: Denies headache, focal weakness or sensory changes [] Endocrine: Denies polyuria or polydipsia [] All other systems were reviewed and found to be within normal limits, except as documented in this note. Current Medications Current Medications Current Medications Medications (Trade) Dose Ordered Sig/Joey Start Time Stop Time Status Last Admin Dose Admin Acetaminophen/ Hydrocodone Bitart (Lortab 5/325) 1 tab 1X ONCE 06/24/19 20:15 06/24/19 20:16 DC 06/24/19 20:11 1 TAB Allergies Allergies Allergies Coded Allergies Type Severity Reaction Last Updated Verified No Known Drug Allergies 09/29/16 No Physical Exam Physical Exam Constitutional: Well nourished, mild distress, non-toxic appearance. [] HENT: Normocephalic, atraumatic. Eyes: PERRLA, EOMI, conjunctiva normal, no discharge. [] Neck: Normal range of motion, no tenderness, supple, no stridor. [] Cardiovascular:Heart rate regular rhythm, no murmur [] Lungs & Thorax: Bilateral breath sounds clear to auscultation [] Abdomen: Bowel sounds normal, soft, no tenderness, no masses, no pulsatile masses. [] Skin: Warm, dry, no erythema, no rash. [] Back: No tenderness, no CVA tenderness. [] Extremities: Left hip without sign of deformity, normal range of motion but with pain, no tenderness, no cyanosis, no clubbing, ROM intact, no edema. [] Neurologic: Alert and oriented X 3, no focal deficits noted. [] Psychologic: Affect normal, mood normal. [] Current Patient Data Vital Signs Vital Signs Date Time Temp Pulse Resp B/P (MAP) Pulse Ox O2 Delivery O2 Flow Rate FiO2 06/24/19 21:15 61 15 98 06/24/19 19:08 98.0 119/71 (87) Room Air 98.0 Lab Values Laboratory Tests Test 06/24/19 20:11 Glucose (Fingerstick) 212 mg/dL (70-99) H EKG EKG [] Radiology/Procedures Radiology/Procedures [facility] [address] [place] [address] IMAGING REPORT Signed PATIENT: EDDIE LINN ACCOUNT: [id number] : 1935 LOCATION: ER AGE: 84 SEX: M EXAM STATUS: REG ER ORD. PHYSICIAN: ASECNCION MAYNARD MD REASON: Mechanical fall 3 days a go PROCEDURE: HIP LEFT 2V WITH PELVIS Study: HIP LEFT 2V WITH PELVIS Indication: Fall 3 days prior. Comparison: 11/02/2018 Findings: Hip alignment is maintained as is alignment across the sacroiliac joints and pubic symphysis. No acute fracture. The sacrum is not well evaluated due to overlying bowel gas. Scattered degenerative changes throughout the pelvis to include the hips as well as involving the lumbar spine. Sclerotic appearance of the osseous structures. Correlate for a history of chronic renal dysfunction which could result in this appearance. Impression: No acute fracture or malalignment seen at the left hip or elsewhere throughout the partially evaluated pelvis. Chronic findings as above. Electronically signed by: ADDY CARRIZALES MD (06/24/2019 9:29 PM) [facility] DICTATED and SIGNED BY: ADDY CARRIZALES MD DATE: 06/24/192128 Course & Med Decision Making Course & Med Decision Making Pertinent Labs and Imaging studies reviewed. (See chart for details) Evaluation of patient in ER showed 83-year-old male patient complaining of fall several days ago and pain. Patient had unremarkable physical exam except for painful range of motion of left hip. Patient didn't take his insulin and had blood sugar of 212 and was advised to take his medication. Patient treated with [place] in ER and felt better. Plan discharge patient home with diagnosis of muscle strain and prescription of [place]. Dragon Disclaimer Dragon Disclaimer This electronic medical record was generated, in whole or in part, using a voice recognition dictation system. Departure Departure Impression: Primary Impression: Repetitive strain injury of left hip Additional Impressions: Fall at home Uncontrolled diabetes mellitus Disposition: HOME, SELF-CARE (at 2115) Condition: IMPROVED Referrals: LATOSHA HWANG MD (PCP) Patient Instructions: Diabetes Meal Planning Guide, Muscle Strain Additional Instructions: Plan ice on the affected area Follow-up with your primary care physician in 2-3 days Return to ER if not getting better Take your home medication Thank you for visiting [facility]. We appreciate you trusting us with your care. If any additional problems come up don't hesitate to return to visit us. Please follow up with your primary care provider so they can plan additional care if needed and know about the problem that you had. If symptoms worsen come back to the Emergency Department. Any concerning symptoms that start such as chest pain, shortness of air, weakness or numbness on one side of the body, running high fevers or any other concerning symptoms return to the ER. Scripts Hydrocodone/Apap 5-325 (NORCO 5-325 TABLET) 1 Each Tablet 1 TAB PO PRN Q6HRS PRN for PAIN, #15 TAB 0 Refills Prov: ASCENCION MAYNARD MD 06/24/19 Problem Qualifiers Primary Impression: Repetitive strain injury of left hip Encounter type: initial encounter Qualified Codes: S76.012A - Strain of muscle, fascia and tendon of left hip, initial encounter Additional Impressions: Fall at home Encounter type: subsequent encounter Qualified Codes: W19.XXXD - Unspecified fall, subsequent encounter; Y92.009 - Unspecified place in unspecified non-institutional (private) residence as the place of occurrence of the external cause Uncontrolled diabetes mellitus Diabetes mellitus type: other specified (including TERRY) Glycemic state: with hyperglycemia Qualified Codes: E13.65 - Other specified diabetes mellitus with hyperglycemia ASCENCION MAYNARD MD Jun 24, 2019 20:10
[2019-06-24] MEDS ORDERED: HYDROcodone/APAP 5/325MG 1 TAB TABLET PO ONE (20:15)
[2019-06-24 21:15] VITALS: BP 123/60
[2019-06-24] MEDS ORDERED: HYDR-3164 PO (21:18)
--- NOTE | 2019-06-24 21:32 | RAD ---
Study: HIP LEFT 2V WITH PELVIS Indication: Fall 3 days prior. Comparison: 11/02/2018 Findings: Hip alignment is maintained as is alignment across the sacroiliac joints and pubic symphysis. No acute fracture. The sacrum is not well evaluated due to overlying bowel gas. Scattered degenerative changes throughout the pelvis to include the hips as well as involving the lumbar spine. Sclerotic appearance of the osseous structures. Correlate for a history of chronic renal dysfunction which could result in this appearance. Impression: No acute fracture or malalignment seen at the left hip or elsewhere throughout the partially evaluated pelvis. Chronic findings as above. Electronically signed by: ADDY CARRIZALES MD (06/24/2019 9:29 PM) [facility]
== END 2019-06-24 21:33 | disposition home or self-care (01) ==
LOC: ER 18:44
DX: S76.012A Strain of muscle, fascia and tendon of left hip, initial encounter (principal); I11.9 Hypertensive heart disease without heart failure; E10.65 Type 1 diabetes mellitus with hyperglycemia; I25.2 Old myocardial infarction; I25.10 Atherosclerotic heart disease of native coronary artery without angina pectoris; Z90.89 Acquired absence of other organs; Z79.4 Long term (current) use of insulin; Z95.0 Presence of cardiac pacemaker; Z96.659 Presence of unspecified artificial knee joint; Z95.5 Presence of coronary angioplasty implant and graft; W18.39XA Other fall on same level, initial encounter; Y93.89 Activity, other specified; Y92.098 Other place in other non-institutional residence as the place of occurrence of the external cause; Y99.8 Other external cause status
CPT/HCPCS: 73502; 82962; 99284; 99285

== ENCOUNTER 2019-06-28 20:32 | Emergency (ER) | payer MEDICARE, OTHER ==
[~2019-06-28] VITALS: Ht 177.8 cm; Wt 100.0 kg
[2019-06-28] MEDS ORDERED: GELATIN SPONGE SIZE 12-7MM SPONGE. ONE (21:05)
[2019-06-28] MEDS ORDERED: GELATIN SPONGE SIZE 12-7MM SPONGE. TP ONE (21:30)
--- NOTE | 2019-06-28 21:36 | PHYS DOC ---
Past Medical History Past Medical History: Diabetes-Type I, Heart Disease, Hypertension, [place] Past Surgical History: Appendectomy, Knee Replacement, Pacemaker, Other Additional Past Surgical Histo: cardiac cath with stents,EGD,colonoscopy,bilat elbow surgery,bilat lens imp Alcohol Use: Occasionally Drug Use: None Adult General Chief Complaint Chief Complaint: FINGER INJURY [facility] HPI Patient is a 84 year old male who presents to ER with complaint of skin avulsion to his left index finger that occurred this morning when he tripped while going down to the basement. Patient states that there was a flap of skin still present but he just pulled it off and placed a bandage over the finger. He states that he is been trying to apply direct pressure to the finger to stop the bleeding but bleeding has not stopped all day. Patient is on blood thinner for cardiac stents.[] Review of Systems Review of Systems Constitutional: Denies fever or chills [] Respiratory: Denies cough or shortness of breath [] Cardiovascular: No additional information not addressed in HPI [] Integument: Positive skin tear to left index finger[] Neurologic: Denies headache, focal weakness or sensory changes [] Current Medications Current Medications Current Medications Medications (Trade) Dose Ordered Sig/Joey Start Time Stop Time Status Last Admin Dose Admin Gelatin (Gelfoam Size 12-7mm) 1 each 1X ONCE 06/28/19 21:30 06/28/19 21:31 DC 06/28/19 21:20 1 EACH Allergies Allergies Allergies Coded Allergies Type Severity Reaction Last Updated Verified No Known Drug Allergies 09/29/16 No Physical Exam Physical Exam Constitutional: Well developed, well nourished, no acute distress, non-toxic appearance. [] Cardiovascular: Regular rate and rhythm[] Lungs & Thorax: Bilateral breath sounds clear to auscultation [] Skin: Left index finger demonstrates a skin avulsion measuring approximately 8.75 x 1 cm in diameter extending down into dermis with mild active bleeding. [] Current Patient Data Vital Signs Vital Signs Date Time Temp Pulse Resp B/P (MAP) Pulse Ox O2 Delivery O2 Flow Rate FiO2 06/28/19 20:50 98.1 62 20 136/60 (85) 95 Room Air 98.1 EKG EKG [] Radiology/Procedures Radiology/Procedures [] Course & Med Decision Making Course & Med Decision Making Pertinent Labs and Imaging studies reviewed. (See chart for details) [] Dragon Disclaimer Dragon Disclaimer This electronic medical record was generated, in whole or in part, using a voice recognition dictation system. Departure Departure Impression: Primary Impression: Avulsion of skin of finger Disposition: 01 HOME, SELF-CARE Condition: STABLE Referrals: LATOSHA HWANG MD (PCP) Patient Instructions: Deep Skin Avulsion, Skin Tear Care Problem Qualifiers Primary Impression: Avulsion of skin of finger Encounter type: initial encounter Qualified Codes: S61.209A - Unspecified open wound of unspecified finger without damage to nail, initial encounter HI CAMACHO Jr. DO Jun 28, 2019 21:36
[2019-06-28 22:20] VITALS: BP 136/86
== END 2019-06-28 22:20 | disposition home or self-care (01) ==
LOC: ER 20:32
DX: S61.301A Unspecified open wound of left index finger with damage to nail, initial encounter (principal); I11.9 Hypertensive heart disease without heart failure; E10.9 Type 1 diabetes mellitus without complications; I25.2 Old myocardial infarction; Z95.0 Presence of cardiac pacemaker; Z95.5 Presence of coronary angioplasty implant and graft; W18.49XA Other slipping, tripping and stumbling without falling, initial encounter; Y93.89 Activity, other specified; Y92.89 Other specified places as the place of occurrence of the external cause; Y99.8 Other external cause status
CPT/HCPCS: 99284

== ENCOUNTER 2019-07-01 19:03 | Emergency (ER) | payer MEDICARE, OTHER ==
[~2019-07-01] VITALS: Ht 175.3 cm; Wt 72.7 kg
[2019-07-01 19:45] VITALS: BP 127/59
--- NOTE | 2019-07-01 19:59 | PHYS DOC ---
Past Medical History Past Medical History: Diabetes-Type I, Heart Disease, Hypertension, [place] Past Surgical History: Appendectomy, Knee Replacement, Pacemaker, Other Additional Past Surgical Histo: cardiac cath with stents,EGD,colonoscopy,bilat elbow surgery,bilat lens imp Alcohol Use: Occasionally Drug Use: None Adult General Chief Complaint Chief Complaint: WOUND CHECK [facility] HPI Patient is an 84-year-old male who presents for wound check of his right small finger. Patient had been treated here for a small skin avulsion it would not stop bleeding and Gelfoam had been placed on the wound. Patient states that he was changing the dressing because it got wet and when the Gelfoam came off, it started bleeding again. Patient was seen at urgent care where they placed a nonadherent dressing and had instructed patient to come back to the emergency room because they did not have any Gelfoam. At this time, there appears to be no bleeding from wound.[] Review of Systems Review of Systems Constitutional: Denies fever or chills [] Respiratory: Denies cough or shortness of breath [] Cardiovascular: No additional information not addressed in HPI [] GI: Denies abdominal pain, nausea, vomiting, bloody stools or diarrhea [] Integument: Skin avulsion right small finger[] Allergies Allergies Allergies Coded Allergies Type Severity Reaction Last Updated Verified No Known Drug Allergies 09/29/16 No Physical Exam Physical Exam Constitutional: Well developed, well nourished, no acute distress, non-toxic appearance. [] Cardiovascular:Heart rate regular rhythm, no murmur [] Lungs & Thorax: Bilateral breath sounds clear to auscultation [] Skin: Right small finger has dressing in place with no obvious continued bleeding. [] EKG EKG [] Radiology/Procedures Radiology/Procedures [] Course & Med Decision Making Course & Med Decision Making Pertinent Labs and Imaging studies reviewed. (See chart for details) [] Dragon Disclaimer Dragon Disclaimer This electronic medical record was generated, in whole or in part, using a voice recognition dictation system. Departure Departure Impression: Primary Impression: Visit for wound check Disposition: 01 HOME, SELF-CARE Condition: STABLE Referrals: LATOSHA HWANG MD (PCP) Patient Instructions: Wound Check HI CAMACHO Jr. DO Jul 01, 2019 19:59
== END 2019-07-01 20:48 | disposition home or self-care (01) ==
LOC: ER 19:03
DX: S61.306D Unspecified open wound of right little finger with damage to nail, subsequent encounter (principal); E10.9 Type 1 diabetes mellitus without complications; I25.2 Old myocardial infarction; I10 Essential (primary) hypertension; I51.89 Other ill-defined heart diseases; Z90.89 Acquired absence of other organs; Z95.0 Presence of cardiac pacemaker; Z98.890 Other specified postprocedural states; W18.49XA Other slipping, tripping and stumbling without falling, initial encounter
CPT/HCPCS: 99284

== ENCOUNTER → 2019-07-15 | Outpatient (CLI) | payer MEDICARE, OTHER ==
[2019-07-01 19:45] VITALS: BP 127/59
[~2019-07-15] MED LIST changes: +ALOG12.5 PO; +ASCO100T4 PO; +ASPI81TA50 PO
--- NOTE | 2019-07-15 08:42 | PAIN ---
DATE OF SERVICE: 07/15/2019 PROGRESS NOTE FOR PAIN CLINIC DIAGNOSES: Lumbar radiculopathy with lumbar degenerative disk disease, low back pain. HISTORY OF PRESENT ILLNESS: The patient is an 84-year-old male who returns for followup, last seen in November 2017. The patient had undergone lumbar epidural steroid injection with very good results, about 50% improvement overall. The patient reports he is doing fairly well, but fell in middle of the June on his left side about the middle of the month. The patient reports he has significant pain in the low back and the left side down the left posterior gluteus, posterior upper thigh, posterolateral thigh, lateral anterior thigh, and medial and posterior calf on the left side. Worse pain initially was on the right side, is now on the left and across the low back, much worse with sitting on the left side, standing, walking, changing positions, getting up from a seated position and using a walker to ambulate; has it with him today. The patient reports the pain is a 9 on a scale of 10 at all times, average, worst and least over the past week and is a 9 today, which was a constant, aching, shooting, stinging and tingling at times into the left ankle, but not into the foot. The patient has had some chiropractic manipulations, which have been helping, but only moderately. He did have heart stents placed in March 2019. The patient reports he is on a new blood thinner, Brilinta, and doing well with this. The patient reports no loss of motor function, but significant fatigability of the left lower extremity with standing, walking, has been awakening him from sleep at least once or twice a night. The patient reports no loss of motor function, but significant fatigability of the left leg. The patient did have x-rays of the left hip after the accident dated 06/24/2019, showed no acute fracture or malalignment seen at the left hip or elsewhere throughout the partially evaluated pelvis with chronic findings of arthritis known as well. PHYSICAL EXAMINATION: VITAL SIGNS: The patient's blood pressure is 120/54, pulse 59, respirations 20, temperature 97.7 degrees Fahrenheit. Height is 5 feet 8 inches, weight is 189 pounds. GENERAL: The patient is awake, alert, oriented, appropriate, very pleasant demeanor. HEENT: Normocephalic, atraumatic. Extraocular movements are intact and symmetrical. 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 Oral cavity: Mucous membranes moist and pink. Dentition is intact. NECK: Shows anterior throat supple without palpable lymphadenopathy noted. Swallow reflex symmetrical. CHEST: Shows normal on inspection. Breath sounds are clear bilaterally. HEART: Shows S1, S2 clear. No murmurs auscultated. ABDOMEN: Soft, nontender, nondistended. BACK: Shows spine grossly in the midline. Cervical paraspinous musculature shows symmetrical on inspection with normal cervical lordotic curvature with slight exaggeration of thoracic kyphotic curvature but normal paraspinous musculature. Lumbar paraspinous muscle shows symmetrical as well with normal lordotic curvature, with palpation shows some moderate tenderness throughout the upper, middle, and lower distribution of paraspinous muscles on the lumbar distribution, more on the left in the inferior aspect with some minor tenderness over the posterior superior iliac spine, but not the right. No tenderness over the sacroiliac region or the spinous processes with palpation. The patient does show good rotational motion of lumbar spine, both laterally greater than 10 degrees right and left as well as extension greater than 10 degrees, forward flexion 45 degrees without significant increase in pain. EXTREMITIES: The patient's lower extremities show deep tendon reflexes at 1+ in the patellar and tendo calcaneus tendons are equal. Motor exam is approximately 5/5 with dorsiflexion and extension and 4/5 with left quadriceps and hamstring flexion and 5/5 on the right. Peripheral pulses are 1+ posterior tibia. No peripheral edema is noted bilaterally. The patient is able to stand, has difficulty standing. He needs significant assistance using his walker and the arms of the chair to stand, walking with a significant shuffling gait, again with a walker favoring his left lower extremity. PLAN: Options were discussed with the patient. The patient's old chart was reviewed as his current medication regimen updated. Current review of systems updated today as well. We will check with the patient's subeditor to hold the Brilinta for 5 days prior to possible lumbar epidural steroid injection. If this is deemed safe and appropriate, we will have the patient hold this and return for injection. In the meantime, we will try Medrol Dosepak. The patient was given instruction as well as side effects to be aware of with the medication and will follow up as scheduled pending Cardiology. RK RICE MD DR: Noreen JOB#: [id number] / [id number]
== END | disposition home or self-care (01) ==
LOC: PNCL 07:51
PROVIDERS: ATTEND Anesthesiology
DX: M51.16 Intervertebral disc disorders with radiculopathy, lumbar region (principal)
CPT/HCPCS: G0463

== ENCOUNTER → 2019-08-03 | Outpatient (CLI) | payer MEDICARE, OTHER ==
[2019-07-20 23:00] VITALS: BP 107/63
[~2019-08-03] MED LIST changes: +CALC-104 PO; +FURO40TA4 PO; +HYDR-2868 PO; +INSU100C4 SQ; +IOHEXOL 180 MG/ML 10 ML VIAL. ONE; +METH4TAB2 PO; +TAMS0.4C97 PO; +methylPREDNISolone ACETATE 40 MG/ML VIAL. ONE; +methylPREDNISolone ACETATE 80 MG/ML VIAL. ONE
--- NOTE | 2019-08-03 11:24 | PAIN ---
DATE OF SERVICE: 08/03/2019 PROGRESS NOTE FOR PAIN CLINIC DIAGNOSES: Lumbar radiculopathy with lumbar degenerative disk disease and low back pain. HISTORY OF PRESENT ILLNESS: The patient is an 84-year-old male, who returns for followup, status post evaluation and clearance to hold his Brilinta. He has been off this now for 1 week after clearance from his recreation facility attendant. The patient returns, reporting still significant pain in the low back, left lower extremity as it was previously. No new motor or sensory deficits, no new bowel or bladder incontinence, still significant pain in the low back, in the left leg, posterior gluteus, lateral thigh, lateral anterior thigh, medial thigh. The patient reports it is a 5 on a scale of 10 at all times, average, worst and least in the last week and is a 5 today. The patient reports it is aching and constant in the back and the left lower extremity, worse with walking, standing, changing positions, better with sitting or lying down, does not awaken him from sleep at night. The patient reports no new motor or sensory deficits, also complains of some swelling in his left arm, which has occurred over the past 2-3 days. PHYSICAL EXAMINATION: VITAL SIGNS: The patient's blood pressure is 103/53, pulse is 71, respirations are 18, temperature 97.7 degrees Fahrenheit, height is 5 feet 8 inches, weight is 185 pounds. GENERAL: The patient is awake, alert, oriented, appropriate, very pleasant demeanor. HEENT: Head shows normocephalic, atraumatic. Extraocular movements are intact and symmetrical. Oral cavity: Mucous membranes moist and pink. Dentition is intact. NECK: Shows anterior throat supple. CHEST: Shows normal on inspection. Breath sounds are clear bilaterally. HEART: Shows S1, S2 clear. No murmurs auscultated. ABDOMEN: Soft, obese, nontender, nondistended. BACK: Shows spine grossly in the midline, slightly exaggerated thoracic kyphosis, some minor flattening of lumbar lordotic curvature. Lumbar paraspinous muscle shows symmetrical on inspection with palpation shows some moderate tenderness diffusely bilaterally, but only diffusely without significant radiation. EXTREMITIES: The patient's lower extremities show deep tendon reflexes at 1+ in the patellar and tendo calcaneus tendons. Motor exam is strong with 5/5 ankle flexion and extension and 4/5 with left quadriceps and hamstring flexion and 5/5 on the right. The patient's left arm does show some swelling compared to the right, although has palpable 2+ radial pulses, also brachial pulses 2+ without any tight distention of the arm, but is visibly larger than the left, but soft. The patient shows full rotational motion of the shoulder. No palpation and tenderness over the brachial plexus in the axilla or elsewhere. Options were discussed with the patient. The patient's old chart was reviewed as his current medication regimen updated. Current review of systems updated today as well. We will proceed with a lumbar epidural steroid injection today with fluoroscopic guidance, the first in this series. Risks were again discussed including, but not limited to bleeding, infection, possibility of epidural hematoma, subsequent neurological compromise, dural puncture, headaches, spinal cord and/or nerve damage, side effects of steroid medication and poor results regarding pain control. The patient understands and wished to proceed. The patient will return to clinic in approximately 2 weeks for followup. He was counseled on his return appointment, activity level and side effects to be aware of. DIAGNOSES: Lumbar radiculopathy with lumbar degenerative disk disease, lumbar low back pain. PROCEDURE: Lumbar epidural steroid injection, translaminar approach at the L4-L5 level using C-arm fluoroscopic guidance under sterile prep and drape using local anesthetic. MEDICATION INJECTED: A total of 120 mg Depo-Medrol plus 10 mL of preservative-free normal saline and 2 mL of contrast. CONDITION AT DISCHARGE: Stable. The patient tolerated the procedure well, had no complications and the patient will also follow up with primary care physician. He is seeing later this morning regarding his swelling of the left arm. RK RICE MD DR: MARILYN/malou JOB#: [id number] / [id number]
== END ==
LOC: PNCL 07:43
PROVIDERS: ATTEND Anesthesiology
DX: M51.16 Intervertebral disc disorders with radiculopathy, lumbar region (principal)
CPT/HCPCS: 62323; J1030; J1040; Q9965

== ENCOUNTER 2019-08-05 21:05 | Emergency (ER) | payer MEDICARE, OTHER ==
[~2019-08-05] VITALS: Ht 172.7 cm; Wt 84.0 kg
[~2019-08-05 21:05] MED LIST changes: -IOHEXOL 180 MG/ML 10 ML VIAL. ONE; -methylPREDNISolone ACETATE 40 MG/ML VIAL. ONE; -methylPREDNISolone ACETATE 80 MG/ML VIAL. ONE
--- NOTE | 2019-08-05 21:40 | PHYS DOC ---
Past Medical History Past Medical History: Diabetes-Type I, GERD, High Cholesterol, Heart Disease, Hypertension, [place] Past Surgical History: Appendectomy, Knee Replacement, Pacemaker, Other Additional Past Surgical Histo: cardiac cath with stents,EGD,colonoscopy,bilat elbow surgery,bilat lens imp Smoking Status: Former Smoker Alcohol Use: Occasionally Drug Use: None Adult General Chief Complaint Chief Complaint: LACERATION/[facility]UL[facility]ION [facility] HPI Patient is a 84 year old male who presents with a pinhole size scabbed that he scratched that will not stop bleeding. The patient is on Xaralto and Brilinta. The patient states he scratched it 3 hours ago and it has continued to bleed. The patient's been holding gauze intermittently against the wound and is still not stop. He denies any other complaints or symptoms. Complete ROS were reviewed and found to be within normal limits, except as documented in the HPI Current Medications Current Medications Current Medications Medications (Trade) Dose Ordered Sig/Joey Start Time Stop Time Status Last Admin Dose Admin Tranexamic Acid (Cyklokapron) 1,000 mg 1X ONCE 08/05/19 22:00 08/05/19 22:01 DC 08/05/19 21:51 1,000 MG Allergies Allergies Allergies Coded Allergies Type Severity Reaction Last Updated Verified No Known Drug Allergies 09/29/16 No Physical Exam Physical Exam Constitutional: Well developed, well nourished, no acute distress, non-toxic appearance. [] HENT: Normocephalic, atraumatic Skin: The patient has a pinhole size hole below the right ear. The hole is oozing small amounts of blood. Neurologic: Alert and oriented X 3, normal motor function, normal sensory function, no focal deficits noted. [] Psychologic: Affect normal, judgement normal, mood normal. [] Current Patient Data Vital Signs Vital Signs Date Time Temp Pulse Resp B/P (MAP) Pulse Ox O2 Delivery O2 Flow Rate FiO2 08/05/19 21:42 97.6 62 16 142/63 (89) 96 Room Air 97.6 EKG EKG [] Radiology/Procedures Radiology/Procedures [] Course & Med Decision Making Course & Med Decision Making Pertinent Labs and Imaging studies reviewed. (See chart for details) Will order TXA and have nursing put on wound. Wound stopped bleeding with TXA. Will d/c home with precautions down to pick at wound. He will follow up with PCP on Thursday. Jefon Disclaimer Dragon Disclaimer This electronic medical record was generated, in whole or in part, using a voice recognition dictation system. Departure Departure Impression: Primary Impression: Hemorrhage of skin lesion Disposition: HOME, SELF-CARE Condition: STABLE Referrals: LATOSHA HWANG MD (PCP) Additional Instructions: Thank you for visiting [facility]. We appreciate you trusting us with your care. If any additional problems come up don't hesitate to return to visit us. Please follow up with your primary care provider so they can plan additional care if needed and know about the problem that you had. If symptoms worsen come back to the Emergency Department. Any concerning symptoms that start such as chest pain, shortness of air, weakness or numbness on one side of the body, running high fevers or any other concerning symptoms return to the ER. KISHOR AMADO APRN Aug 05, 2019 21:40
[2019-08-05 21:42] VITALS: BP 142/63
[2019-08-05] MEDS ORDERED: TRANEXAMIC ACID 1,000 MG/10 ML VIAL. TOP ONE (22:00)
== END 2019-08-05 22:28 | disposition home or self-care (01) ==
LOC: ER 21:05
DX: L98.8 Other specified disorders of the skin and subcutaneous tissue (principal); E10.9 Type 1 diabetes mellitus without complications; K21.9 Gastro-esophageal reflux disease without esophagitis; I25.2 Old myocardial infarction; Z95.0 Presence of cardiac pacemaker; Z87.891 Personal history of nicotine dependence
CPT/HCPCS: 99284

== ENCOUNTER 2019-08-25 18:15 | Inpatient (IN) | payer MEDICARE ==
[~2019-08-25] VITALS: Ht 172.7 cm; Wt 89.9 kg
[~2019-08-25 18:15] MED LIST changes: +APIX2.5T PO
[2019-08-25] MEDS ORDERED: LIDOCAINE 1% Multi-Dose 20 ML VIAL. INJ ONE (18:30)
--- NOTE | 2019-08-25 18:40 | PHYS DOC ---
Past Medical History Past Medical History: Diabetes-Type I, DVT, GERD, High Cholesterol, Heart Disease, Hypertension, [place] Past Surgical History: Appendectomy, Knee Replacement, Pacemaker, Other Additional Past Surgical Histo: cardiac cath with stents,EGD,colonoscopy,bilat elbow surgery,bilat lens imp Smoking Status: Former Smoker Alcohol Use: Rarely Drug Use: None Adult General Chief Complaint Chief Complaint: MECHANICAL FALL HPI HPI Patient is a 84 year old male who presents with went home from [facility] today and was walking with his walker when he fell back tdod and hit his head on a door frame. He is on Eliquis. Patient denies LOC or pain. Review of Systems Review of Systems Integument: Laceration to scalp. Denies rash or skin lesions [] All other systems were reviewed and found to be within normal limits, except as documented in this note. Current Medications Current Medications Current Medications Medications (Trade) Dose Ordered Sig/Joey Start Time Stop Time Status Last Admin Dose Admin Acetaminophen (Tylenol) 650 mg PRN Q4HRS PRN 08/25/19 19:30 08/26/19 19:29 Lidocaine HCl (Lidocaine 1% 20ml Vial) 20 ml 1X ONCE 08/25/19 18:30 08/25/19 18:31 DC 08/25/19 18:30 20 ML Ondansetron HCl (Zofran) 4 mg PRN Q8HRS PRN 08/25/19 19:30 08/26/19 19:29 Allergies Allergies Allergies Coded Allergies Type Severity Reaction Last Updated Verified No Known Drug Allergies 09/29/16 No Physical Exam Physical Exam Constitutional: Well developed, well nourished, no acute distress, non-toxic appearance. [] HENT: Normocephalic, atraumatic, bilateral external ears normal, oropharynx moist, no oral exudates, nose normal. [] Eyes: PERRLA, EOMI, conjunctiva normal, no discharge. [] Neck: Normal range of motion, no tenderness, supple, no stridor. [] Cardiovascular:Heart rate regular rhythm, no murmur [] Lungs & Thorax: Bilateral breath sounds clear to auscultation [] Abdomen: Bowel sounds normal, soft, no tenderness, no masses, no pulsatile ma sses. [] Skin: Warm, dry, no erythema, no rash. Laceration to scalp. [] Back: No tenderness, no CVA tenderness. [] Extremities: No tenderness, no cyanosis, no clubbing, ROM intact, no edema. [] Neurologic: Alert and oriented X 3, normal motor function, normal sensory function, no focal deficits noted. [] Psychologic: Affect normal, judgement normal, mood normal. [] Current Patient Data Vital Signs Vital Signs Date Time Temp Pulse Resp B/P (MAP) Pulse Ox O2 Delivery O2 Flow Rate FiO2 08/25/19 18:22 98.2 60 18 166/74 (104) 96 Room Air 98.2 Lab Values Laboratory Tests Test 08/25/19 19:10 White Blood Count 6.3 x10^3/uL (4.0-11.0) Red Blood Count 3.21 x10^6/uL (4.30-5.70) L Hemoglobin 9.3 g/dL (13.0-17.5) L Hematocrit 28.4 % (39.0-53.0) L Mean Corpuscular Volume 88 fL (79-100) Mean Corpuscular Hemoglobin 29 pg (25-35) Mean Corpuscular Hemoglobin Concent 33 g/dL (31-37) Red Cell Distribution Width 19.0 % (11.5-14.5) H Platelet Count 238 x10^3/uL (140-400) Neutrophils (%) (Auto) 85 % (31-73) H Lymphocytes (%) (Auto) 5 % (24-48) L Monocytes (%) (Auto) 10 % (0-9) H Eosinophils (%) (Auto) 1 % (0-3) Basophils (%) (Auto) 0 % (0-3) Neutrophils # (Auto) 5.3 x10^3/uL (1.8-7.7) Lymphocytes # (Auto) 0.3 x10^3/uL (1.0-4.8) L Monocytes # (Auto) 0.6 x10^3/uL (0.0-1.1) Eosinophils # (Auto) 0.0 x10^3/uL (0.0-0.7) Basophils # (Auto) 0.0 x10^3/uL (0.0-0.2) Platelet Estimate Pending Prothrombin Time 14.7 SEC (11.7-14.0) H Prothrombin Time INR 1.2 (0.8-1.1) H Sodium Level 128 mmol/L (136-145) L Potassium Level 5.5 mmol/L (3.5-5.1) H Chloride Level 93 mmol/L (98-107) L Carbon Dioxide Level 30 mmol/L (21-32) Anion Gap 5 (6-14) L Blood Urea Nitrogen 33 mg/dL (8-26) H Creatinine 1.8 mg/dL (0.7-1.3) H Estimated GFR (Cockcroft-Gault) 36.2 BUN/Creatinine Ratio 18 (6-20) Glucose Level 107 mg/dL (70-99) H Calcium Level 7.9 mg/dL (8.5-10.1) L Total Bilirubin 0.4 mg/dL (0.2-1.0) Aspartate Amino Transferase (AST) 23 U/L (15-37) Alanine Aminotransferase (ALT) 45 U/L (16-63) Alkaline Phosphatase 73 U/L (46-116) Total Protein 5.6 g/dL (6.4-8.2) L Albumin 2.7 g/dL (3.4-5.0) L Albumin/Globulin Ratio 0.9 (1.0-1.7) L Laboratory Tests 08/25/19 19:10 Laboratory Tests 08/25/19 19:10 EKG EKG SINUS RHYTHM AND PACED[] Interpretation Time: [address] ERVIN Radiology/Procedures Radiology/Procedures [] Impressions: [facility] [address] [place], [place] [id number] IMAGING REPORT Signed PATIENT: EDDIE LINN ACCOUNT: [id number] : 1935 LOCATION: ER AGE: 84 SEX: M EXAM STATUS: PRE ER ORD. PHYSICIAN: KRYSTAL VASQUEZ APRN REASON: fall, laceration to back of head, on eliquis PROCEDURE: CT HEAD AND CERVICAL SPINE WO Exam: CT head and cervical spine without contrast INDICATION: Fall, laceration back of head on Eliquis TECHNIQUE: Sequential axial images through the head and cervical spine were obtained without the administration of IV contrast. Comparisons: None FINDINGS: Head: Small amount of subarachnoid hemorrhage noted within the fissure of the right parietal lobe seen best on series 2 image 23 and 24. There is no midline shift or sulcal effacement. No acute vascular territory infarction is identified. Stiles-white distinction is preserved. The ventricular system is within normal limits without compression hydrocephalus. The basal cisterns are well maintained. The visualized portions of the paranasal sinuses and mastoid air cells are well-pneumatized. No acute fractures. Cervical spine: Vertebral body heights and alignment are well-maintained. There is osseous interbody fusion at C5-C6. Fracture to the cervical spine is not identified. Degenerative disc disease greatest at C6-C7. Diffuse bilateral facet arthropathy is also noted. Visualized paraspinal soft tissues are unremarkable. IMPRESSION: 1. Minimal amount of subarachnoid hemorrhage noted within a sulcus of the right parietal lobe as described above. No significant mass effect. 2. Negative CT C-spine for acute traumatic injury. Exposure: One or more of the following in the visualized dose reduction techniques were utilized for this examination: 1. Automated exposure control 2. Adjustment of the MA and/or KV according to patient size Use of iterative of reconstructive technique FOR INTERNAL CODING PURPOSES Critical result: Findings discussed with KRYSTAL VASQUEZ at 08/25/2019 6:55 PM. RESULT CODE: (C) Electronically signed by: Shashank Gagnon MD (08/25/2019 6:56 PM) [id number] DICTATED and SIGNED BY: SHASHANK GAGNON MD DATE: 08/25/19 1856 Course & Med Decision Making Course & Med Decision Making Pertinent Labs and Imaging studies reviewed. (See chart for details) Alert and oriented. Speaks in full clear sentences. Patient without neuro deficits. Right pupil is reactive and Left eye is a glass eye. No cervical spine, thoracic spine, or lumbar spine tenderness with palpation. No bruising or deformities. Full ROM of neck. Moves all extremities equally. Egg sized hematoma to right back scalp with a 4cm laceration. Edges approximated. Bleeding controlled. Denies numbness, tingling, focal weakness, chest pain, LOC, headache, dizziness, vision changes, back pain, neck pain, abdominal pain, extremity pain, nausea, vomiting, fever, soa. Patient last took Eliquis this morning at 0900. Patient states his concern that although he went home today and he wanted to go home today he is still very unsteady on his feet. Patient is asking for admission for more rehabilitation. Patients kidney function and potassium are elevated but when looking back this is a chronic for the patient and nothing new. I have notified Dr Ervin of this. IMPRESSION: 1. Minimal amount of subarachnoid hemorrhage noted within a sulcus of the right parietal lobe as described above. No significant mass effect. 2. Negative CT C-spine for acute traumatic injury. I spoke to Paula PROJECT MANAGER SENIOR with Dr Gay that looked at CT and states to admit patient to ICU and they will come see him in the morning. Neuro checks ordered. Patient admitted to Dr Craven. Laceration is: * 4cm long * 5 rigoberto, No inner sutures * Cleaned with copious irrigation and cleaned with chlorhexidine * No deep tissue damage, no skull bone * Lidocaine 1% injected subcutaneously before suturing. * Patient is educated that the rigoberto need to be removed after 10 days. Patient educated on signs of infection. [] Dragon Disclaimer Dragon Disclaimer This electronic medical record was generated, in whole or in part, using a voice recognition dictation system. NIHSS Stroke Scale NIH Stroke Scale: NIH Stroke Scale Response (Comments) Value Level of Consciousness: 0 Alert/Responsive 0 LOC Questions: 0 Answers both correctly 0 LOC Commands: 0 Performs both tasks 0 Best Gaze: 0 Normal 0 Visual: 0 No visual loss 0 Facial Palsy: 0 Normal, symmetrical 0 Motor - Left Arm 0 No drift 0 Motor - Right Arm 0 No drift 0 Motor - Left Leg 0 No drift 0 Motor: Right Leg 0 No drift 0 Limb Ataxia: 0 Absent 0 Sensory: 0 No loss 0 Best Language: 0 Normal 0 Dysathria: 0 Normal 0 Extinction and Inattention: 0 Normal 0 Total 0 Departure Departure Impression: Primary Impression: Subarachnoid bleed Disposition: ADMITTED INPATIENT Admitting Physician: Lisa Craven Condition: STABLE Referrals: LISA CRAVEN MD (PCP) KRYSTAL VASQUEZ APRN Aug 25, 2019 18:40
--- NOTE | 2019-08-25 18:59 | RAD ---
Exam: CT head and cervical spine without contrast INDICATION: Fall, laceration back of head on Eliquis TECHNIQUE: Sequential axial images through the head and cervical spine were obtained without the administration of IV contrast. Comparisons: None FINDINGS: Head: Small amount of subarachnoid hemorrhage noted within the fissure of the right parietal lobe seen best on series 2 image 23 and 24. There is no midline shift or sulcal effacement. No acute vascular territory infarction is identified. Stiles-white distinction is preserved. The ventricular system is within normal limits without compression hydrocephalus. The basal cisterns are well maintained. The visualized portions of the paranasal sinuses and mastoid air cells are well-pneumatized. No acute fractures. Cervical spine: Vertebral body heights and alignment are well-maintained. There is osseous interbody fusion at C5-C6. Fracture to the cervical spine is not identified. Degenerative disc disease greatest at C6-C7. Diffuse bilateral facet arthropathy is also noted. Visualized paraspinal soft tissues are unremarkable. IMPRESSION: 1. Minimal amount of subarachnoid hemorrhage noted within a sulcus of the right parietal lobe as described above. No significant mass effect. 2. Negative CT C-spine for acute traumatic injury. Exposure: One or more of the following in the visualized dose reduction techniques were utilized for this examination: 1. Automated exposure control 2. Adjustment of the MA and/or KV according to patient size Use of iterative of reconstructive technique FOR INTERNAL CODING PURPOSES Critical result: Findings discussed with KRYSTAL VASQUEZ at 08/25/2019 6:55 PM. RESULT CODE: (C) Electronically signed by: Shashank Pavon MD (08/25/2019 6:56 PM) [id number]
[2019-08-25 19:20] LABS: BASO % 0 % (0-3); EOS % 1 % (0-3); HEMATOCRIT 28.4 % (39.0-53.0); HEMOGLOBIN 9.3 g/dL (13.0-17.5); LYMPH # 0.3 x10^3/uL (1.0-4.8); LYMPH % 5 % (24-48); MEAN CORPUSCULAR HEMOGLOBIN 29 pg (25-35); MEAN CORPUSCULAR HGB CONC 33 g/dL (31-37); MEAN CORPUSCULAR VOLUME 88 fL (79-100); MONO # 0.6 x10^3/uL (0.0-1.1); MONO % 10 % (0-9); NEUT # 5.3 x10^3/uL (1.8-7.7); NEUT % 85 % (31-73); PLATELET COUNT 238 x10^3/uL (140-400); RED BLOOD COUNT 3.21 x10^6/uL (4.30-5.70); WHITE BLOOD COUNT 6.3 x10^3/uL (4.0-11.0)
[2019-08-25 19:25] LABS: CALCIUM 7.9 mg/dL (8.5-10.1); CREATININE 1.8 mg/dL (0.7-1.3); GFR 36.2; POTASSIUM 5.5 mmol/L (3.5-5.1)
[2019-08-25 19:27] LABS: PROTHROMBIN TIME PATIENT 14.7 SEC (11.7-14.0)
[2019-08-25] MEDS ORDERED: ONDANSETRON PF 4 MG/2 ML VIAL. IV PRN (19:30)
[2019-08-25] MEDS ORDERED: ACETAMINOPHEN 325 MG TABLET. PO PRN (19:30)
[2019-08-25 19:31] LABS: ALBUMIN 2.7 g/dL (3.4-5.0); ALBUMIN/GLOBULIN RATIO 0.9 (1.0-1.7); TOTAL BILIRUBIN 0.4 mg/dL (0.2-1.0); TOTAL PROTEIN 5.6 g/dL (6.4-8.2)
[2019-08-25 19:59] LABS: % BANDS 1 % (0-9); % LYMPHS 3 % (24-48); % MONOS 12 % (0-10); % SEGS 84 % (35-66); ANISOCYTOSIS SLIGHT; PLT ESTIMATE ADEQUATE (ADEQUATE)
[2019-08-25 21:30] VITALS: BP 136/67
[2019-08-25 21:45] VITALS: BP 140/63
[2019-08-25 22:00] VITALS: BP 129/66
--- NOTE | 2019-08-25 22:30 | NUR ---
Patient admitted to room 108 from ER at 2230 via cart accompanied by ER nurse. Patient moved from cart to bed and monitor placed with AP paced noted. VSS. Alert and oriented. Neuro check WNL. Small laceration noted to posterior head, 5 rigoberto intact with scant amount of serosangious drainage seen. Patient c/o pain in left leg at 4/[address] Craven notified of patient's pain and new orders received at 2220. Call light is within reach. Bed locked and in lowest position. Will continue to monitor.
[2019-08-25] MEDS: traMADol 50 MG TABLET PO PRN (22:39)
[2019-08-25 23:00] VITALS: BP 149/63
[2019-08-26] VITALS (19 sets, daily range): BP systolic 134–172; BP diastolic 54–96
--- NOTE | 2019-08-26 06:13 | EKG ---
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
[2019-08-26] MEDS ORDERED: HYDR-2868 PO (07:19)
[2019-08-26] MEDS ORDERED: TICA90TA PO (07:19)
[2019-08-26] MEDS ORDERED: FURO40TA4 PO (07:19)
[2019-08-26] MEDS ORDERED: APIX2.5T PO (07:24)
--- NOTE | 2019-08-26 08:47 | HP ---
ADMIT DATE: CHIEF COMPLAINT AND HISTORY OF PRESENT ILLNESS: This 84-year-old white male is well known to me from followup in the followup. The patient had just left [facility] on the day of admission. He was walking back to his bedroom with his following him with a walker on the day of this admission when he turned the corner and fell striking back right side of his head. He was brought to the Emergency Room. He was found to have a small subarachnoid bleed and admitted for the same. PAST MEDICAL HISTORY: Remarkable for diabetes. He is currently on treatment for DVT in the left arm. He has a history of hyperlipidemia, atherosclerotic heart disease, GERD, hypertension, OK, congestive heart failure. PAST SURGICAL HISTORY: Remarkable for cardiac catheterization with stenting, colonoscopy, bilateral elbow surgery, bilateral cataract surgeries. MEDICATIONS: Brought with the patient, listed on the computer and have been addressed. ALLERGIES: He has no known drug allergies. SOCIAL HISTORY: He is a reformed smoker and rarely drinks any alcohol, does not use drugs. , lives at home with his , is retired. FAMILY HISTORY: Noncontributory. REVIEW OF SYSTEMS: As mentioned above. PHYSICAL EXAMINATION: GENERAL: He is a well-developed, well-nourished white male in no acute distress. is present. VITAL SIGNS: Stable. He is afebrile. HEAD, EYES, EARS, NOSE AND THROAT: Remarkable for the laceration of the right occipital scalp area, which has been stapled shut. Head, eyes, ears, nose, and throat are unremarkable. NECK: Supple, without adenopathy or thyromegaly. CHEST: Clear to auscultation and percussion. HEART: Regular rate and rhythm without S3, S4 or murmur. ABDOMEN: Soft, nontender, without hepatosplenomegaly or masses. EXTREMITIES: Without cyanosis, clubbing. He has 2-3+ pedal edema. NEUROLOGIC: He is intact. LABORATORY DATA: Initial laboratory shows a hemoglobin of 9.3; sodium of 128, creatinine of 1.8, which is his baseline or a little better. Imaging of the head shows a minimal amount of subarachnoid blood noted within the sulcus of the right parietal lobe with no significant mass effect. Cervical spine was unremarkable. IMPRESSION: 1. Fall with small subarachnoid hemorrhage. 2. Multiple other problems listed above. PLAN: The patient has been admitted. He is in the ICU. Neurosurgery will be consulted. I am going to ask Cardiology to come to see him regarding the anticoagulation. The patient did have stenting back in 03/2019 at [facility] and was on aspirin and Brilinta up until time of her recent GI bleeding. He developed a DVT at that point in time in his left arm and we have had him on aspirin and Eliquis since that point in time and will let them help sort out anticoagulation needs as we leave the hospital given the fact that he is currently admitted for fall with subarachnoid hemorrhage. LISA GLYNN MD DR: CHLOE/malou JOB#: [id number] / [id number]
--- NOTE | 2019-08-26 10:27 | NUR ---
SS following for discharge planning. SS reviewed pt chart and spoke with pt's RN. Pt is from home with family and is currently on room air. Pt discharged to home from [facility], ; fax [phone], on 08/25/2019 per request. Pt was set up with [facility], ; fax [phone]. Pt had falls once returning home and was admitted to hospital. SS will continue to follow for discharge planning.
--- NOTE | 2019-08-26 10:32 | PDOC ---
Provider Note Provider Note patient seen and examined s/p fall consulted for SAH exam - non focal neuro exam minimal amount of SAH right parietal lobe with no mass effect f/u scan pending will follow JULIAN KIRK MD Aug 26, 2019 10:31
--- NOTE | 2019-08-26 10:48 | PDOC ---
CARDIOLOGY PROGRESS NOTE SUBJECTIVE: Akil is a very pleasant 84 y.o man admitted for fall. He is well known to our service and presented with a mechanical fall. He was recently seen for DVT and bleeding issues. He denies any bleeding problems or chest pain. He does have mild dyspnea. He reports anxiety as well. Pls see recent notes for full details of prior admissions. OBJECTIVE: Vital Signs/I&O: Vital Signs Date Time Temp Pulse Resp B/P (MAP) Pulse Ox O2 Delivery O2 Flow Rate FiO2 08/26/19 09:00 60 20 141/55 (83) 95 Room Air 08/26/19 08:00 97.6 97.6 I & O 08/25/19 08/26/19 08/26/19 16:00 00:00 08:00 Intake Total 120 ml 120 ml Output Total 225 ml 1150 ml Balance -105 ml -1030 ml Objective: a/o x 3. NAD L> R LE edema. Irregular heart tones. lungs with rales. Soft abd 2+ radial pulses. CURRENT MEDICATIONS: Previously on asa and eliquis DIAGNOSTIC TESTING: Labs reviewed. Cr stable at 1.8 Hgb stable. ASSESSMENT: 1. Ischemic CMP s/p ICD 2. PAF 3. HTN 4. CKD 5. DVT of the LUE 6. GIB history with small bowel AVMs PLAN: 1. Await neurosurgical recommendations. If cleared by neurosurgery, restart asa and eliquis therapy. 2. Check CXR and LE dvt scan due to L > R edema. Supportive care. Restart home diuretics. Thanks. Will follow FÁTIMA DOCKERY MD Aug 26, 2019 10:48
--- NOTE | 2019-08-26 12:35 | RAD ---
Single view of the chest. 08/26/2019 10:41 AM Indication: Congestive heart failure Comparison: Chest Findings: Heart size is enlarged but similar. Multilead pacemaking/ICD device from a left subclavian approach is stable. There is elevation of left hemidiaphragm and probable small left pleural effusion. Central vascular congestion and interstitial thickening, mildly increased in the interim. No acute osseous changes are seen. IMPRESSION: Mild increase in central vascular congestion and interstitial thickening consistent with provided history of CHF. Probable small left pleural effusion. Electronically signed by: Juliano Tarango MD (08/26/2019 12:32 PM) [id number]
--- NOTE | 2019-08-26 13:03 | RAD ---
CT HEAD WO CONTRAST Clinical indications: Follow-up of subarachnoid hemorrhage. COMPARISON: August 25, 2019. Technique: Noncontrast axial cross sectional scanning of the head was performed. PQRS compliance Statement One or more of the following individualized dose reduction techniques were utilized for this study: 1. Automated exposure control 2. Adjustment of the mA and/or kV according to patient size 3. Use of iterative reconstruction technique Findings: Again seen is a small hyperdense area within the posterior right parietal region seen in today's exam on series 2 and images 20-21. In today's study, this appears to be located within the parenchyma specifically in the cortical hodges matter. Therefore, this represents a contusion rather than a subarachnoid hemorrhage. Otherwise the adjacent sulci are not filled with any hyperdense subarachnoid hemorrhage. No new areas of hyperdense intracranial hemorrhage are seen. No new extra-axial fluid collection is seen. No midline shift or mass effect or hydrocephalus or sulci effacement or new cerebral edema is seen. Prosthesis of the left orbit is seen. Laceration injury of the posterior scalp is seen with surgical rigoberto. No significant subcutaneous soft tissue hematoma is seen here. No skull fracture or pneumocephalus is seen. IMPRESSION: No change in size of small parenchymal contusion of the posterior right parietal lobe. No new abnormality is seen. Electronically signed by: Billy Quispe MD (08/26/2019 1:00 PM) [facility]
--- NOTE | 2019-08-26 14:14 | NUR ---
Spoke with Yasmeen Garduno NP for Neurosurgery, they are ok with pt moving out of ICU, they asked that Dr. Craven decide if the pt needs tele or not. Paged Dr. Craven, awaiting return call. Addendum: 08/26/19 at 1450 by KYLE MOORE RN Spoke with Dr Craven, order for transfer to [facility] resume received.
--- NOTE | 2019-08-26 14:44 | RAD ---
MR#: [id number] Date of Study: 08/26/2019 Ordering Physician: FÁTIMA DOCKERY, Referring Physician: FÁTIMA DOCKERY, Tech: Susie Clayton RDMS, RVT, RTR APPROVED REPORT Bilateral Lower Extremity Venous Study for DVT Patient Location: IN-PATIENT Indications Lower Extremity Edema: Bilateral Left Leg larger than Right Findings The bilateral lower extremity deep veins were evaluated for thrombus with color Doppler, spectral and grayscale images. On the right the grayscale images of the common femoral, superficial femoral and popliteal veins do n ot demonstrate any evidence of thrombus and these veins appear to be compressible. The below-knee vei ns were not well visualized but grossly appear to be compressible. Spectral imaging and color Doppler do not reveal any evidence of obstruction to flow with normal respirophasic variation above the knee . Below the knee there is spontaneous flow noted. On the left, the grayscale images of the common femoral, superficial femoral and popliteal veins do n ot demonstrate any evidence of thrombus and these veins appear to be compressible. The below-knee vei ns again were not well visualized but grossly appear to be compressible. Spectral imaging and color D oppler do not reveal any evidence of obstruction to flow with normal respirophasic variation above th e knee. The below-knee veins demonstrate spontaneous flow. Critical Notification Critical Value: No <Conclusion> Negative for DVT in the BLE. Signed by : Fátima Dockery, Electronically Approved : 08/26/2019 14:44:01
[2019-08-26] MEDS ORDERED: traMADol 50 MG TABLET PO PRN (15:00)
[2019-08-26] MEDS ORDERED: NITROGLYCERIN SUBLINGUAL 0.4 MG BOTTLE OF 25. SL PRN (15:00)
[2019-08-26] MEDS: GABAPENTIN 100 MG CAPSULE. PO SCH ×2 (15:00→21:08)
--- NOTE | 2019-08-26 15:31 | NUR ---
SS following up with discharge planning. OT recommending snf unit. SS currently awaiting PT evaluation. Pt and pt's spouse requesting return to [facility], ; fax [phone]. SS phoned and faxed referral to [facility]. SS will continue to follow for discharge planning.
[2019-08-26] MEDS: INSULIN LISPRO 300 UNITS/3 ML VIAL. SQ SCH (17:00)
[2019-08-26] MEDS: CALCIUM CARB/VIT D3 500/200 TABLET. PO SCH (18:39)
[2019-08-26] MEDS: TAMSULOSIN 0.4 MG CAP.ER.24H. PO SCH (21:08)
[2019-08-26] MEDS: SIMVASTATIN 20 MG TABLET PO SCH (21:09)
[2019-08-26] MEDS: AMIODARONE HCL 200 MG TABLET. PO SCH (21:09)
[2019-08-26] MEDS: hydrALAZINE 25 MG TABLET PO SCH (21:12)
[2019-08-26] MEDS: INSULIN GLARGINE SYRINGE. SQ SCH (21:16)
[2019-08-27] VITALS (7 sets, daily range): BP systolic 83–150; BP diastolic 42–63
[2019-08-27] MEDS: INSULIN LISPRO 300 UNITS/3 ML VIAL. SQ SCH ×3 (08:00→16:58)
[2019-08-27] MEDS: PANTOPRAZOLE 40 MG TABLET.DR. PO SCH (08:22)
[2019-08-27] MEDS: LINAGLIPTIN 5 MG TABLET PO SCH (08:22)
[2019-08-27] MEDS: FERROUS SULFATE 325 MG TABLET. PO SCH (08:22)
[2019-08-27] MEDS: GABAPENTIN 100 MG CAPSULE. PO SCH ×3 (08:22→22:20)
[2019-08-27] MEDS: ASCORBIC ACID 500 MG TABLET PO SCH (08:22)
[2019-08-27] MEDS: AMIODARONE HCL 200 MG TABLET. PO SCH ×2 (08:23→22:21)
[2019-08-27] MEDS: TAMSULOSIN 0.4 MG CAP.ER.24H. PO SCH ×2 (08:23→22:20)
[2019-08-27] MEDS: ISOSORBIDE MONONITRATE ER 30 MG TAB.ER.24H PO SCH (08:23)
[2019-08-27] MEDS: CALCIUM CARB/VIT D3 500/200 TABLET. PO SCH ×2 (08:23→17:00)
[2019-08-27] MEDS: CYANOCOBALAMIN (VITAMIN B-12) 1,000 MCG TABLET. PO SCH (08:23)
[2019-08-27] MEDS: METOPROLOL SUCC 24HR ER 25 MG TAB.ER.24H. PO SCH (08:24)
[2019-08-27] MEDS: hydrALAZINE 25 MG TABLET PO SCH ×2 (08:24→22:21)
[2019-08-27] MEDS ORDERED: FUROSEMIDE 40 MG TABLET. PO SCH (09:00)
--- NOTE | 2019-08-27 11:42 | PDOC ---
PROGRESS NOTES Subjective Subjective up in chair no complaints has been up with PT Objective Objective Vital Signs Date Time Temp Pulse Resp B/P (MAP) Pulse Ox O2 Delivery O2 Flow Rate FiO2 08/27/19 08:24 60 150/63 08/27/19 08:00 Room Air 08/27/19 07:20 97.5 18 95 97.5 Intake and Output 08/27/19 07:00 Intake Total 950 ml Output Total 150 ml Balance 800 ml Intake Oral 950 ml Output Urine Total 150 ml Physical Exam General: Alert, Oriented X3, Cooperative, No acute distress MUSCULOSKELETAL: Other (MADRIGAL) Neuro: Normal speech Assessment Assessment Problems Medical Problems: (1) Fall Status: Acute (2) Laceration Status: Acute (3) Subarachnoid bleed Status: Acute Plan Plan of Care follow up CT head yesterday is stable-small parenchymal contusion of the posterior right parietal lobe. will repeat scan in a week likely need SNF hold AC for now Comment Review of Relevant I have reviewed the following items alphonso (where applicable) has been applied. Labs Laboratory Tests Test 08/25/19 19:10 08/26/19 18:32 08/26/19 21:04 08/27/19 07:37 White Blood Count 6.3 x10^3/uL (4.0-11.0) Red Blood Count 3.21 x10^6/uL (4.30-5.70) Hemoglobin 9.3 g/dL (13.0-17.5) Hematocrit 28.4 % (39.0-53.0) Mean Corpuscular Volume 88 fL (79-100) Mean Corpuscular Hemoglobin 29 pg (25-35) Mean Corpuscular Hemoglobin Concent 33 g/dL (31-37) Red Cell Distribution Width 19.0 % (11.5-14.5) Platelet Count 238 x10^3/uL (140-400) Neutrophils (%) (Auto) 85 % (31-73) Lymphocytes (%) (Auto) 5 % (24-48) Monocytes (%) (Auto) 10 % (0-9) Eosinophils (%) (Auto) 1 % (0-3) Basophils (%) (Auto) 0 % (0-3) Neutrophils # (Auto) 5.3 x10^3/uL (1.8-7.7) Lymphocytes # (Auto) 0.3 x10^3/uL (1.0-4.8) Monocytes # (Auto) 0.6 x10^3/uL (0.0-1.1) Eosinophils # (Auto) 0.0 x10^3/uL (0.0-0.7) Basophils # (Auto) 0.0 x10^3/uL (0.0-0.2) Segmented Neutrophils % 84 % (35-66) Band Neutrophils % 1 % (0-9) Lymphocytes % 3 % (24-48) Monocytes % 12 % (0-10) Platelet Estimate Adequate (ADEQUATE) Anisocytosis Slight Prothrombin Time 14.7 SEC (11.7-14.0) Prothromb Time International Ratio 1.2 (0.8-1.1) Sodium Level 128 mmol/L (136-145) Potassium Level 5.5 mmol/L (3.5-5.1) Chloride Level 93 mmol/L (98-107) Carbon Dioxide Level 30 mmol/L (21-32) Anion Gap 5 (6-14) Blood Urea Nitrogen 33 mg/dL (8-26) Creatinine 1.8 mg/dL (0.7-1.3) Estimated GFR (Cockcroft-Gault) 36.2 BUN/Creatinine Ratio 18 (6-20) Glucose Level 107 mg/dL (70-99) Calcium Level 7.9 mg/dL (8.5-10.1) Total Bilirubin 0.4 mg/dL (0.2-1.0) Aspartate Amino Transf (AST/SGOT) 23 U/L (15-37) Alanine Aminotransferase (ALT/SGPT) 45 U/L (16-63) Alkaline Phosphatase 73 U/L (46-116) Total Protein 5.6 g/dL (6.4-8.2) Albumin 2.7 g/dL (3.4-5.0) Albumin/Globulin Ratio 0.9 (1.0-1.7) Glucose (Fingerstick) 199 mg/dL (70-99) 216 mg/dL (70-99) 134 mg/dL (70-99) Laboratory Tests Test 08/26/19 18:32 08/26/19 21:04 08/27/19 07:37 Glucose (Fingerstick) 199 mg/dL (70-99) 216 mg/dL (70-99) 134 mg/dL (70-99) Medications Current Medications Lidocaine HCl (Lidocaine 1% 20ml Vial) 20 ml 1X ONCE INJ Last administered on 08/25/19 18:30; Start 08/25/19 at 18:30; Stop 08/25/19 at 18:31; Status DC Ondansetron HCl (Zofran) 4 mg PRN Q8HRS PRN IV NAUSEA/VOMITING; Start 08/25/19 at 19:30; Stop 08/26/19 at 19:29; Status DC Acetaminophen (Tylenol) 650 mg PRN Q4HRS PRN PO FEVER Last administered on 08/26/19 04:25; Start 08/25/19 at 19:30; Stop 08/26/19 at 19:29; Status DC Tramadol HCl (Ultram) 50 mg PRN Q8HRS PRN PO PAIN Last administered on 08/25/19 22:39; Start 08/25/19 at 22:30 Amiodarone HCl (Cordarone) 200 mg BID PO Last administered on 08/27/19 08:23; Start 08/26/19 at 21:00 Cyanocobalamin (Vitamin B-12) 1,000 mcg DAILY PO Last administered on 08/27/19 08:23; Start 08/27/19 at 09:00 Ferrous Sulfate (Feosol) 325 mg DAILY PO Last administered on 08/27/19at 08:22; Start 08/27/19 at 09:00 Furosemide (Lasix) 40 mg DAILY PO Last administered on 08/27/19at 08:23; Start 08/27/19 at 09:00 Gabapentin (Neurontin) 200 mg TID PO Last administered on 08/27/19at 08:22; Start 08/26/19 at 15:00 Hydralazine HCl (Apresoline) 25 mg BID PO Last administered on 08/27/19 08:24; Start 08/26/19 at 21:00 Isosorbide Mononitrate (Imdur) 30 mg DAILY PO Last administered on 08/27/19 08:23; Start 08/27/19 at 09:00 Metoprolol Succinate (Toprol Xl) 50 mg DAILY PO Last administered on 08/27/19at 08:24; Start 08/27/19 at 09:00 Nitroglycerin (Nitrostat) 0.4 mg PRN 1X PRN SL CHEST PAIN; Start 08/26/19 at 15:00 Pantoprazole Sodium (Protonix) 40 mg DAILY PO Last administered on 08/27/19at 08:22; Start 08/27/19 at 09:00 Simvastatin (Zocor) 20 mg HS PO Last administered on 08/26/19at 21:09; Start 08/26/19 at 21:00 Tamsulosin HCl (Flomax) 0.4 mg BID PO Last administered on 08/27/19at 08:23; Start 08/26/19 at 21:00 Tramadol HCl (Ultram) 50 mg PRN Q8HRS PRN PO PAIN; Start 08/26/19 at 15:00 Linagliptin (Tradjenta) 5 mg DAILY PO Last administered on 08/27/19at 08:22; Start 08/27/19 at 09:00 Ascorbic Acid (Vitamin C) 500 mg DAILY PO Last administered on 08/27/19at 08:22; Start 08/27/19 at 09:00 Calcium/Vitamin D (Oscal D 500mg/ 200uts) 1 tab BIDWMEALS PO Last administered on 08/27/19at 08:23; Start 08/26/19 at 17:00 Insulin Human Lispro (HumaLOG) 15 units TIDWMEALS SQ ; Start 08/26/19 at 17:00 Insulin Glargine (Lantus Syringe) 15 unit QHS SQ Last administered on 08/26/19at 21:16; Start 08/26/19 at 21:00 Active Scripts Active Protonix (Pantoprazole Sodium) 40 Mg Tablet.dr 1 Tab PO DAILY Isosorbide Mononitrate Er (Isosorbide Mononitrate) 30 Mg Tab.er.24h 1 Tab PO DAILY Reported Eliquis (Apixaban) 2.5 Mg Tablet 2.5 Mg PO BID Furosemide 40 Mg Tablet 1 Tab PO DAILY Hydralazine Hcl 25 Mg Tablet 1 Tab PO BID Citracal + D Maximum Caplet (Calcium Citrate/Vitamin D3) 1 Each Tablet 1 Each PO BID Novolog (Insulin Aspart) 100 Unit/1 Ml Cartridge 15 Unit SQ TID Flomax (Tamsulosin Hcl) 0.4 Mg Cap.er.24h 0.4 Mg PO BID Nesina (Alogliptin Benzoate) 12.5 Mg Tablet 6.25 Mg PO DAILY Aspir-Low (Aspirin) 81 Mg Tablet.dr 1 Tab PO DAILY Vitamin C (Ascorbic Acid) 100 Mg Tablet 1 Tab PO DAILY 30 Days Amiodarone Hcl 200 Mg Tablet 200 Mg PO BID Tramadol Hcl 50 Mg Tablet 50 Mg PO PRN Q8HRS PRN Gabapentin (Gabapentin) 100 Mg Capsule 200 Mg PO TID MDD 600 Vitamin B-12 (Cyanocobalamin (Vitamin B-12)) 1,000 Mcg Tablet 1 Tab PO DAILY Ferrous Sulfate 325 Mg Tablet 1 Tab PO DAILY Levemir (Insulin Detemir) 100 Unit/1 Ml Vial 15 Unit SQ HS Metoprolol Succinate ( Xl ) (Metoprolol Succinate) 25 Mg Tab.er.24h 50 Mg PO DAILY NITROGLYCERIN SubLingual (Nitroglycerin) 0.4 Mg Tab.subl 0.4 Mg SL PRN 1X PRN NOT GIVEN IN HOSPITAL. TAKE DIRECTED. Simvastatin 20 Mg Tablet 20 Mg PO HS LAST DOSE GIVEN: DATE: 10/01/16 TIME: 9 PM NEXT DOSE DUE: DATE: 10/02/16 TIME: 9 PM Vitals/I & O Vital Sign - Last 24 Hours 08/26/19 08/26/19 08/26/19 08/26/19 12:00 12:00 13:00 14:00 Temp 98.1 98.1 Pulse 60 60 60 Resp 17 20 B/P (MAP) 170/72 (104) 170/72 (104) 163/72 (102) Pulse Ox 98 97 99 O2 Delivery Room Air Room Air Room Air Room Air 08/26/19 08/26/19 08/26/19 08/26/19 15:00 17:00 19:10 19:58 Temp 98.5 98.2 98.5 98.2 Pulse 60 60 61 Resp 20 15 18 B/P (MAP) 148/66 (93) 172/74 (106) 146/59 (88) Pulse Ox 98 96 93 O2 Delivery Room Air Room Air Room Air Room Air 08/26/19 08/26/19 08/26/19 08/27/19 21:09 21:12 23:10 03:16 Temp 98.0 97.6 98.0 97.6 Pulse 61 61 61 60 Resp 18 18 B/P (MAP) 146/59 146/59 139/54 (82) 150/63 (92) Pulse Ox 94 96 O2 Delivery Room Air Room Air 08/27/19 08/27/19 08/27/19 08/27/19 07:20 08:00 08:23 08:23 Temp 97.5 97.5 Pulse 60 60 60 Resp 18 B/P (MAP) 150/60 (90) 150/63 150/63 Pulse Ox 95 O2 Delivery Room Air Room Air 08/27/19 08/27/19 08:24 08:24 Pulse 60 60 B/P (MAP) 150/63 150/63 Intake and Output 08/26/19 08/26/19 08/27/19 15:00 23:00 07:00 Intake Total 950 ml Output Total 150 ml Balance -150 ml 950 ml WILLIAN PAREDES [employer] Aug 27, 2019 11:42
--- NOTE | 2019-08-27 14:04 | PDOC ---
Provider Note Provider Note feels ok, hematoma same- alert, no focal signs- bmp noted, K+ up- will hold lasix and follow- lower francis;log re risk of hypo-likely prov place again EMILY PALOMO MD Aug 27, 2019 14:04
[2019-08-27] MEDS ORDERED: INSULIN LISPRO 300 UNITS/3 ML VIAL. SQ SCH (14:15)
[2019-08-27] MEDS: traMADol 50 MG TABLET PO PRN ×2 (15:03→22:20)
[2019-08-27 17:12] LABS: CALCIUM 8.3 mg/dL (8.5-10.1); CREATININE 1.7 mg/dL (0.7-1.3); GFR 38.7; POTASSIUM 4.7 mmol/L (3.5-5.1)
[2019-08-27] MEDS: INSULIN GLARGINE SYRINGE. SQ SCH (21:00)
[2019-08-27] MEDS: SIMVASTATIN 20 MG TABLET PO SCH (22:21)
[2019-08-28] VITALS (7 sets, daily range): BP systolic 106–160; BP diastolic 51–65
[2019-08-28] MEDS ORDERED: DEXTROSE 50% 25 GM / 50ML DISP.SYRIN. IV PRN
[2019-08-28] MEDS: INSULIN LISPRO 300 UNITS/3 ML VIAL. SQ SCH ×3 (08:00→16:43)
[2019-08-28] MEDS: AMIODARONE HCL 200 MG TABLET. PO SCH ×2 (09:18→21:23)
[2019-08-28] MEDS: PANTOPRAZOLE 40 MG TABLET.DR. PO SCH (09:18)
[2019-08-28] MEDS: ISOSORBIDE MONONITRATE ER 30 MG TAB.ER.24H PO SCH (09:19)
[2019-08-28] MEDS: hydrALAZINE 25 MG TABLET PO SCH ×2 (09:19→21:23)
[2019-08-28] MEDS: CALCIUM CARB/VIT D3 500/200 TABLET. PO SCH ×2 (09:19→17:11)
[2019-08-28] MEDS: FERROUS SULFATE 325 MG TABLET. PO SCH (09:19)
[2019-08-28] MEDS: GABAPENTIN 100 MG CAPSULE. PO SCH ×3 (09:19→21:22)
[2019-08-28] MEDS: CYANOCOBALAMIN (VITAMIN B-12) 1,000 MCG TABLET. PO SCH (09:19)
[2019-08-28] MEDS: METOPROLOL SUCC 24HR ER 25 MG TAB.ER.24H. PO SCH (09:20)
[2019-08-28] MEDS: traMADol 50 MG TABLET PO PRN ×3 (09:20→21:23)
[2019-08-28] MEDS: TAMSULOSIN 0.4 MG CAP.ER.24H. PO SCH ×2 (09:20→21:00)
[2019-08-28] MEDS: ASCORBIC ACID 500 MG TABLET PO SCH (09:20)
[2019-08-28] MEDS: LINAGLIPTIN 5 MG TABLET PO SCH (09:20)
--- NOTE | 2019-08-28 12:29 | PDOC ---
Provider Note Provider Note vss, no temp, exam same- K+ lower as is bun/creat- Na+ up 132- hold lasix another daY , ADJUST INSULIN A LITTLE , REST SAME, PLACEMEMNT HE FELL AT HOME TO GET SAH EMILY PALOMO MD Aug 28, 2019 12:29
[2019-08-28] MEDS ORDERED: INSULIN GLARGINE SYRINGE. SQ SCH (21:00)
[2019-08-28] MEDS: SIMVASTATIN 20 MG TABLET PO SCH (21:23)
[2019-08-29 07:00] VITALS: BP 139/41
--- NOTE | 2019-08-29 08:05 | PDOC ---
GENERAL General: vss and afebrile. awake and alert. chest good breath sounds, heart regular, abd omen benign. no sob. plans for repeat ct head in one week for subarachnoid hemmorhage. snu eval though may want home with home health. discussed with nursing. VITAL SIGNS/I&O Vital Signs/I&O: Vital Signs Date Time Temp Pulse Resp B/P (MAP) Pulse Ox O2 Delivery O2 Flow Rate FiO2 08/29/19 07:00 97.7 60 18 139/41 (73) 94 Room Air 97.7 I & O 08/28/19 08/28/19 08/29/19 15:00 23:00 07:00 Intake Total 280 ml Output Total 600 ml 850 ml Balance -320 ml -850 ml ALLERGIES Allergies: Allergies Coded Allergies Type Severity Reaction Last Updated Verified No Known Drug Allergies 09/29/16 No MEDS Medications: Current Medications Medications (Trade) Dose Ordered Sig/Joey Route PRN Reason Start Time Stop Time Status Last Admin Dose Admin Insulin Glargine (Lantus Syringe) 20 unit QHS SQ 08/28/19 21:00 08/28/19 21:31 LAB Lab: Laboratory Tests Test 08/28/19 11:42 08/28/19 16:30 08/28/19 21:05 08/29/19 07:14 Glucose (Fingerstick) 268 mg/dL (70-99) H 108 mg/dL (70-99) H 195 mg/dL (70-99) H 140 mg/dL (70-99) H LISA GLYNN MD Aug 29, 2019 08:04
[2019-08-29] MEDS: METOPROLOL SUCC 24HR ER 25 MG TAB.ER.24H. PO SCH ×2 (09:00→14:02)
[2019-08-29] MEDS: CYANOCOBALAMIN (VITAMIN B-12) 1,000 MCG TABLET. PO SCH (09:32)
[2019-08-29] MEDS: LINAGLIPTIN 5 MG TABLET PO SCH (09:32)
[2019-08-29] MEDS: FERROUS SULFATE 325 MG TABLET. PO SCH (09:32)
[2019-08-29] MEDS: TAMSULOSIN 0.4 MG CAP.ER.24H. PO SCH (09:32)
[2019-08-29] MEDS: CALCIUM CARB/VIT D3 500/200 TABLET. PO SCH (09:33)
[2019-08-29] MEDS: ISOSORBIDE MONONITRATE ER 30 MG TAB.ER.24H PO SCH (09:33)
[2019-08-29] MEDS: PANTOPRAZOLE 40 MG TABLET.DR. PO SCH (09:33)
[2019-08-29] MEDS: ASCORBIC ACID 500 MG TABLET PO SCH (09:33)
[2019-08-29] MEDS: GABAPENTIN 100 MG CAPSULE. PO SCH ×2 (09:33→13:12)
[2019-08-29] MEDS: hydrALAZINE 25 MG TABLET PO SCH (09:34)
[2019-08-29] MEDS: AMIODARONE HCL 200 MG TABLET. PO SCH (09:34)
[2019-08-29] MEDS: INSULIN LISPRO 300 UNITS/3 ML VIAL. SQ SCH ×2 (09:44→13:16)
[2019-08-29 10:43] VITALS: BP 134/47
--- NOTE | 2019-08-29 13:40 | PDOC ---
Provider Note Provider Note CARDIOLOGY PROGRESS NOTE: S: No events overnight. No chest pain/dyspnea. No orthopnea or PND. No syncope. O: VSS: 2+LE edema Irregular heart tones. Labs reviewed. Meds reviewed. Toprol XL 50mg daily Imdur Hydralazine. ASSESSMENT: 1. Ischemic CMP s/p ICD 2. PAF 3. HTN 4. CKD 5. DVT of the LUE 6. GIB history with small bowel AVMs PLAN: 1. Hold anticoagulation per Neurosurg 2. Start lasix 40mg daily Ok to DC. Will f/u in 6 weeks. FÁTIMA DOCKERY MD Aug 29, 2019 13:40
[2019-08-29] MEDS ORDERED: FUROSEMIDE 40 MG TABLET. PO ONE (13:45)
--- NOTE | 2019-08-29 14:53 | NUR ---
SS following up with discharge planning. Pt accepted at [facility], ; fax [phone], but pt's spouse now requesting to take pt home with home healthcare with [facility], ; fax [phone]. SS phoned and faxed referral to [facility]. Dr. Craven notified of request to discharge with home healthcare. SS will continue to follow for discharge planning.
[2019-08-29 15:00] VITALS: BP 142/45
--- NOTE | 2019-08-29 15:09 | SNU/HH DC ---
DISCHARGE WITH HOME HEALTH DISCHARGE INFORMATION: Discharge Date: Aug 29, 2019 Final Diagnosis: Problems Medical Problems: (1) Fall Status: Acute (2) Laceration Status: Acute (3) Subarachnoid bleed Status: Acute Condition on Discharge: Stable CODE STATUS: Code Status: Full HOME HEALTH: Face to Face: I certify this patient is under my care and that I, or a nurse practitioner or physician's account assistant working with me, had a face to face encounter that meets the physician face to face encounter requirements with this patient on []. Longterm For: Assess Cardiopulm Status, Assess/Skilled Observatio RN For Eval/Treatment: Yes Physical Therapy For: Evalulation/Treatment Occupational Therapy For: Evaluation/Treatment Pt Meets Homebound Status: Poor coordination w/ amb., Unsteady balance w/ amb,, Extreme weakness w/ amb., Limited distance walking POST DISCHARGE ORDERS: Activity Instructions for Disc: Activity as tolerated Weight Bearing Status after Di: No restrictions, As tolerated Bathing Instructions: Shower-keep dressing dry, No Tub Bath until see DIET AFTER DISCHARGE: ADA Wound/Incision Care: Keep wound/cast CDI, Do not change dressing CHECKS AFTER DISCHARGE: Checks after discharge: Check blood press - daily, Check blood sugar, ac/hs, Check your Temp as needed, Weigh Yourself Daily FOLLOW-UP: Follow up with: Follow up next week with CT scan Follow Up With: Dr. Goodwin in 6 weeks TREATMENT/EQUIPMENT ORDERS: Adaptive Equipment Issued: None CERTIFICATION STATEMENT: Certification Statement: Certification Statement: Based on the above finding, I certify that this patient is confined to the home and needs intermittent [facility]cfp care, physical therapy and/or speech therapy, or continues to need occupational therapy.~ This patient is under my care, and I have initiated the establishment of the plan of care.~ This patient will be followed by myself or a community physician who will periodically review the plan of care. Home Meds Active Scripts Pantoprazole Sodium (PROTONIX ) 40 Mg Tablet.dr, 1 TAB PO DAILY, #30 TAB 5 Refills Prov:LATOSHA HWANG MD 12/12/16 Isosorbide Mononitrate (ISOSORBIDE MONONITRATE ER) 30 Mg Tab.er.24h, 1 TAB PO DAILY, #30 TAB 5 Refills Prov:LATOSHA HWANG MD 10/12/16 Reported Medications Furosemide (FUROSEMIDE) 40 Mg Tablet, 1 TAB PO DAILY for diuretic, #30 TAB 5 Refills 08/26/19 Hydralazine Hcl (HYDRALAZINE HCL) 25 Mg Tablet, 1 TAB PO BID for hypertension, #60 TAB 5 Refills 08/26/19 Calcium Citrate/Vitamin D3 (CITRACAL + D MAXIMUM CAPLET) 1 Each Tablet, 1 EACH PO BID for supp, TAB 08/03/19 Insulin Aspart (NOVOLOG) 100 Unit/1 Ml Cartridge, 15 UNIT SQ TID for diabetes, EACH 08/03/19 Tamsulosin Hcl (FLOMAX) 0.4 Mg Cap.er.24h, 0.4 MG PO BID for unk, TAB 08/03/19 Alogliptin Benzoate (NESINA) 12.5 Mg Tablet, 6.25 MG PO DAILY for health, TAB 07/15/19 Ascorbic Acid (VITAMIN C) 100 Mg Tablet, 1 TAB PO DAILY for supplement for 30 Days, #30 TAB 0 Refills 07/15/19 Amiodarone Hcl (AMIODARONE HCL) 200 Mg Tablet, 200 MG PO BID for hypertension, TAB 06/02/19 Tramadol Hcl (TRAMADOL HCL) 50 Mg Tablet, 50 MG PO PRN Q8HRS PRN for PAIN, TAB 0 Refills 09/08/17 Gabapentin (GABAPENTIN ) 100 Mg Capsule, 200 MG PO TID for neuropathy MDD 600, #1 CAP 09/08/17 Cyanocobalamin (Vitamin B-12) (VITAMIN B-12) 1,000 Mcg Tablet, 1 TAB PO DAILY, #30 TAB 2 Refills 09/08/17 Ferrous Sulfate (FERROUS SULFATE) 325 Mg Tablet, 1 TAB PO DAILY, #30 TAB 3 Refills 09/08/17 Insulin Detemir (LEVEMIR) 100 Unit/1 Ml Vial, 15 UNIT SQ HS for diabetes, VIAL 01/13/17 Metoprolol Succinate (METOPROLOL SUCCINATE ( XL )) 25 Mg Tab.er.24h, 50 MG PO DAILY for FOR HYPERTENSION, #30 TAB 0 Refills 01/11/17 Nitroglycerin (NITROGLYCERIN SubLingual) 0.4 Mg Tab.subl, 0.4 MG SL PRN 1X PRN for CHEST PAIN, #30 BOTTLE NOT GIVEN IN HOSPITAL. TAKE DIRECTED. 10/14/13 Simvastatin (SIMVASTATIN) 20 Mg Tablet, 20 MG PO HS for CHOLESTEROL LAST DOSE GIVEN: DATE: 10/01/16 TIME: 9 PM NEXT DOSE DUE: DATE: 10/02/16 TIME: 9 PM 10/10/13 Discontinued Reported Medications Apixaban (ELIQUIS) 2.5 Mg Tablet, 2.5 MG PO BID for dvt, TAB 08/26/19 Aspirin (ASPIR-LOW) 81 Mg Tablet.dr, 1 TAB PO DAILY for heart health, #30 TAB 3 Refills 07/15/19 Ticagrelor (BRILINTA) 90 Mg Tablet, 90 MG PO BID for dvt, TAB 08/26/19 LISA GLYNN MD Aug 29, 2019 15:09
--- NOTE | 2019-08-29 15:14 | NUR ---
SS following up with discharge planning. SS phoned and faxed discharge orders to [facility], ; fax [phone]. Pt's RN notified.
[2019-08-29] MEDS ORDERED: DEXTROSE ORAL GEL 15 GM TUBE. ONE ×2 (15:40→16:00)
--- NOTE | 2019-08-29 16:37 | NUR ---
Pt was escorted out to the main entrance with Gina Zavala wheelchair with belongings. Patient faired well. Going home with [facility].
--- NOTE | 2019-08-29 17:36 | DS ---
DATE OF DISCHARGE: 08/29/2019 PRIMARY DIAGNOSES: Fall with head injury and small subarachnoid hemorrhage. ADDITIONAL DIAGNOSES: Right parietooccipital laceration, diabetes, congestive heart failure, deep venous thrombosis of left arm, hyperlipidemia, atherosclerotic heart disease with stenting, hypertension. CHIEF COMPLAINT AND HISTORY OF PRESENT ILLNESS: This 84-year-old white male, fell at his home on the day of admission backwards while turning the corner of his walker striking the right side of his head, receiving a laceration and presented to the Emergency Room where this was stapled shut and he was found to have a small subarachnoid hemorrhage and admitted. SUMMARY OF STAY: The patient was admitted. Anticoagulation was held and Neurosurgery recommendation at the time of discharge was to hold it, which Cardiology agreed with at the time of discharge. Neurosurgery observed him in the ICU for a couple of days. Once he was deemed stable, it was felt he could be dismissed with another CT scanning of the head to ensue in a week or so after the time of discharge. He was stable during the stay. Did have a hemoglobin of 9.3 on admission. Sugars were decent throughout the stay. Creatinine was lower than his baseline at 1.7, but was fluid overloaded and had evidence of heart failure, although no symptomatology and was started on Lasix for the same. He was found to have a DVT of his left arm. This seemed to stay down during the stay even off of his Eliquis. Repeat CT head on the day following admission showed no change in the size of the small parenchymal contusion in the posterior right parietal lobe. He was felt ready for dismissal. There was discussion from therapy about him going to ____, but with the COVID-19 virus scaring him recently ____ and his wished to go home with home health and this was accomplished on the day of dismissal. DISPOSITION: The patient is discharged to home. ADA, low sodium diet. Activity as tolerated. Office in 2 weeks. DISCHARGE MEDICATIONS: Listed on the med rec and have been addressed. PLAN: He will go home with home health. LISA GLYNN MD DR: CHLOE/malou JOB#: [id number] / [id number]
[2019-08-30] MEDS ORDERED: FUROSEMIDE 40 MG TABLET. PO SCH (09:00)
== END 2019-08-29 18:30 | disposition home health service (06) | DRG 86 ==
LOC: ER 19:12 → ED HOLD 19:15 → 1 WEST ICU 21:14 → CVICU 08-26 09:19 → 6 SOUTH 08-26 19:43
PROVIDERS: ADMIT Family Medicine; ATTEND Family Medicine
PROC: 0HQ0XZZ Repair Scalp Skin, External Approach (ICD-10-PCS; principal; 2019-08-25)
DX: S06.6X0A Traumatic subarachnoid hemorrhage without loss of consciousness, initial encounter (principal); I82.622 Acute embolism and thrombosis of deep veins of left upper extremity; I13.0 Hypertensive heart and chronic kidney disease with heart failure and stage 1 through stage 4 chronic kidney disease, or unspecified chronic kidney disease; E10.22 Type 1 diabetes mellitus with diabetic chronic kidney disease; E78.00 Pure hypercholesterolemia, unspecified; E78.5 Hyperlipidemia, unspecified; F41.9 Anxiety disorder, unspecified; I25.10 Atherosclerotic heart disease of native coronary artery without angina pectoris; I25.5 Ischemic cardiomyopathy; I48.0 Paroxysmal atrial fibrillation; I50.9 Heart failure, unspecified; N18.9 Chronic kidney disease, unspecified; Z96.659 Presence of unspecified artificial knee joint; K21.9 Gastro-esophageal reflux disease without esophagitis; W18.30XA Fall on same level, unspecified, initial encounter; W22.8XXA Striking against or struck by other objects, initial encounter; S01.01XA Laceration without foreign body of scalp, initial encounter; Z79.01 Long term (current) use of anticoagulants; Z79.4 Long term (current) use of insulin; Z87.891 Personal history of nicotine dependence; Z90.49 Acquired absence of other specified parts of digestive tract; Z95.0 Presence of cardiac pacemaker; I25.2 Old myocardial infarction; Y93.89 Activity, other specified; Y99.8 Other external cause status; Y92.009 Unspecified place in unspecified non-institutional (private) residence as the place of occurrence of the external cause; Z98.42 Cataract extraction status, left eye; Z98.41 Cataract extraction status, right eye; Z95.5 Presence of coronary angioplasty implant and graft
CPT/HCPCS: 12002; 36415; 70450; 71045; 72125; 80048; 80053; 82962; 85007; 85025; 85610; 93005; 93970; 99285; J1815; J3490; 97110; 97116; 97530; 97535; G0378

== ENCOUNTER → 2019-09-06 | Outpatient (CLI) | payer MEDICARE ==
[2019-08-29 15:00] VITALS: BP 142/45
--- NOTE | 2019-09-06 09:47 | KCIC ---
PQRS Compliance Statement: One or more of the following individualized dose reduction techniques were utilized for this examination: 1. Automated exposure control 2. Adjustment of the mA and/or kV according to patient size 3. Use of iterative reconstruction technique CT HEAD WITHOUT CONTRAST History: Follow-up intracranial hemorrhage post fall 08/25/2019. Comparison: CT head without contrast August 26, 2019.. Technique: Axial images are obtained of the head from the skull base through the vertex without IV contrast. Findings: Right parietal lobe intraparenchymal hemorrhage is less conspicuous, image 22. The size is stable. The blood products are less hyperdense. There is no surrounding edema. No new hemorrhage is seen. No mass-effect, midline shift, extra-axial fluid collection, or obvious acute infarction is identified. Basilar cisterns are patent. The ventricles and sulci are normal for patient age. Bone windows demonstrate no acute calvarial abnormality. Left globe prosthesis redemonstrated. Right posterior scalp skin rigoberto. Slight mucosal thickening left maxillary and bilateral ethmoid sinuses. There is no air-fluid level. Mastoid air cells are well aerated. IMPRESSION: Small right parietal lobe intraparenchymal hemorrhage is partially resolved. Electronically signed by: Wally Womack MD (09/06/2019 9:44 AM) [id number]
== END | disposition home or self-care (01) ==
LOC: KCIC CT 08:47
PROVIDERS: ATTEND Neurological Surgery
DX: S06.360A Traumatic hemorrhage of cerebrum, unspecified, without loss of consciousness, initial encounter (principal); W19.XXXA Unspecified fall, initial encounter; Y93.89 Activity, other specified; Y92.89 Other specified places as the place of occurrence of the external cause; Y99.8 Other external cause status
CPT/HCPCS: 70450

== ENCOUNTER → 2019-09-13 | Outpatient (CLI) | payer MEDICARE ==
[2019-08-29 15:00] VITALS: BP 142/45
--- NOTE | 2019-09-13 10:11 | KCIC ---
CT HEAD WO CONTRAST History: Follow-up intracranial bleed. Comparison: August 24August 25 and September 06, 2019. Technique: Noncontrast CT imaging was performed of the head. Exposure: One or more of the following individualized dose reduction techniques were utilized for this examination: 1. Automated exposure control 2. Adjustment of the mA and/or kV according to patient size 3. Use of iterative reconstruction technique. Findings: Subtle hyperdensity within the right parietal lobe (series 4 image 22), slightly decreased compared to prior. No new intracranial hemorrhage. No mass effect. No hydrocephalus. Small chronic right cerebellar infarct. Mild brain parenchymal volume loss. Mild foci of decreased attenuation within the hemispheric white matter, most often due to chronic microvascular ischemia. Imaged orbits are unremarkable. Minimal mucosal thickening within the left maxillary sinus. Mastoid air cells are clear. TMJ arthropathy. No acute calvarial fracture. Impression: 1. Slightly decreased right parietal lobe hemorrhage. Recommend continued follow-up. Electronically signed by: Moe Ulloa DO (09/13/2019 10:09 AM) [id number]
== END | disposition home or self-care (01) ==
LOC: KCIC CT 09:07
PROVIDERS: ATTEND Neurological Surgery
DX: S06.360A Traumatic hemorrhage of cerebrum, unspecified, without loss of consciousness, initial encounter (principal); X58.XXXA Exposure to other specified factors, initial encounter; Y93.89 Activity, other specified; Y92.89 Other specified places as the place of occurrence of the external cause; Y99.8 Other external cause status
CPT/HCPCS: 70450

== ENCOUNTER → 2019-09-23 | Outpatient (CLI) | payer MEDICARE ==
[2019-08-29 15:00] VITALS: BP 142/45
--- NOTE | 2019-09-23 09:37 | KCIC ---
Examination: CT HEAD WO CONTRAST History: Intracranial hemorrhage follow-up Comparison/Correlation: 09/13/2019, 08/19/2019, 08/25/2019, 06/01/2019 CT head exams Findings: Axial images of the head were obtained without contrast. Atrophy is present. No midline shift or mass effect. Previously described right parietal lobe region subarachnoid hemorrhage is not currently seen. No new intracranial hemorrhage. Calcification involving the inferior right deep white matter is unchanged compared to multiple prior exams. Left globe prosthesis is noted. Small left maxillary sinus mucous retention cyst is partially seen. Bony structures are unremarkable. Impression: No suspicious process. PQRS Compliance Statement: One or more of the following individualized dose reduction techniques were utilized for this examination: 1. Automated exposure control 2. Adjustment of the mA and/or kV according to patient size 3. Use of iterative reconstruction technique Electronically signed by: Lino Alex MD (09/23/2019 9:34 AM) [id number]
== END | disposition home or self-care (01) ==
LOC: KCIC CT 09:06
PROVIDERS: ATTEND Neurological Surgery
DX: S06.360A Traumatic hemorrhage of cerebrum, unspecified, without loss of consciousness, initial encounter (principal); X58.XXXA Exposure to other specified factors, initial encounter; Y93.89 Activity, other specified; Y92.89 Other specified places as the place of occurrence of the external cause; Y99.8 Other external cause status
CPT/HCPCS: 70450

== ENCOUNTER → 2019-09-27 | Outpatient (CLI) | payer MEDICARE ==
[2019-08-29 15:00] VITALS: BP 142/45
[~2019-09-27] MED LIST changes: +IOHEXOL 180 MG/ML 10 ML VIAL. ONE; +methylPREDNISolone ACETATE 40 MG/ML VIAL. ONE; +methylPREDNISolone ACETATE 80 MG/ML VIAL. ONE
--- NOTE | 2019-09-27 16:45 | PAIN ---
DATE OF SERVICE: 09/27/2019 PROGRESS NOTE FOR PAIN CLINIC DIAGNOSES: Lumbar radiculopathy with lumbar degenerative disk disease, lumbar low back pain. HISTORY OF PRESENT ILLNESS: The patient is an 84-year-old male who returns for followup status post lumbar epidural steroid injection x 2, most recently on 08/03/2019. The patient is doing quite well with about 75% improvement initially. The pain has returned now to only about 25-30% improvement over the past few weeks. The patient reports initially he was doing much better with doing greater distance walking, doing household activities, traveling and getting in and out of his wheelchair with much more ease and comfort, using his walker more than the wheelchair, although he had a brain hemorrhage and was hospitalized. He was injured in [facility] and he has been out for about one month. The patient reports after he had been in bed rest for a quite a time that the pain began to return in his back and his left leg, specifically in the left posterior gluteus, lateral thigh, anterior thigh, medial thigh, medial lower leg on the left side and across the low back bilaterally. The patient reports it awakens him from sleep occasionally, but mostly better with sitting or lying down. The patient reports it is a 7 on a scale of 10 at all times, worst, average and least over the past week describes it as shooting, aching, dull and stabbing at times in the back. The patient reports no new motor or sensory deficits, no new bowel or bladder incontinence. He is off of his blood thinner and it has been since the ____ a month ago. PHYSICAL EXAMINATION: VITAL SIGNS: The patient's blood pressure 125/57, pulse 61, respirations are 18, temperature 98.2 degrees Fahrenheit, height is 5 feet 8 inches, weighs 180 pounds. GENERAL: The patient is awake, alert, oriented, appropriate, very pleasant demeanor. HEENT: Exam shows normocephalic, atraumatic. The patient has missing left eye with prosthesis. Oral cavity shows mucous membranes moist and pink. Dentition is intact. NECK: Shows anterior throat supple without palpable lymphadenopathy noted. Swallow reflex symmetrical. CHEST: Shows normal on inspection. Breath sounds are clear bilaterally. HEART: Shows S1, S2 clear. No murmurs auscultated. ABDOMEN: Soft, nontender, nondistended. BACK: Shows spine grossly in the midline. Slight exaggeration of thoracic kyphosis and minor flattening of lumbar lordotic curvature. Lumbar paraspinous muscle shows symmetrical on inspection, on palpation shows some moderate tenderness diffusely bilaterally going diffusely without significant radiation. The patient has good rotational motion of lumbar spine, both laterally as well as extension and flexion without significant increase in pain. EXTREMITIES: Lower extremities show deep tendon reflexes 1+ in the patellar and tendo calcaneus tendons. Motor exam is approximately 5/5 with dorsiflexion, extension and 4/5 with quadriceps and hamstring flexion on the left, 5/5 on the right. Peripheral pulses are 1+. No peripheral edema bilaterally. Options were discussed with the patient. The patient's old chart was reviewed as his current medication regimen updated. Current review of systems updated today as well and we will proceed with a third in the series of lumbar epidural steroid injection today with fluoroscopic guidance. Risks were again discussed including, but not limited to bleeding, infection, possibility of epidural hematoma, subsequent neurological compromise, dural puncture, headaches, spinal cord and/or nerve damage, side effects of steroid medication and poor results regarding pain control. The patient understands and wished to proceed. The patient will return to clinic in approximately 2 weeks for followup. He was counseled on return appointment, activity level and side effects to be aware of. DIAGNOSES: Lumbar radiculopathy with lumbar degenerative disk disease and low back pain. PROCEDURE: Lumbar epidural steroid injection, translaminar approach at the L4-L5 level using C-arm fluoroscopic guidance under sterile prep and drape using local anesthetic. MEDICATION INJECTED: A total of 120 mg Depo-Medrol plus 10 mL of preservative-free normal saline and 2 mL of contrast. CONDITION AT DISCHARGE: Stable. The patient tolerated procedure well, had no complications. RK RICE MD DR: MARILYN/malou JOB#: [id number] / [id number]
== END ==
LOC: PNCL 12:34
PROVIDERS: ATTEND Anesthesiology
DX: M51.16 Intervertebral disc disorders with radiculopathy, lumbar region (principal)
CPT/HCPCS: 62323; J1030; J1040; Q9965

== ENCOUNTER → 2020-05-11 | Outpatient (CLI) | payer MEDICARE ==
[~2020-05-11] MED LIST changes: -AMIO200T4 PO; +AMIO200T6 PO; -IOHEXOL 180 MG/ML 10 ML VIAL. ONE; -WARF-78 PO; +WARF5TAB2 PO; -methylPREDNISolone ACETATE 40 MG/ML VIAL. ONE; -methylPREDNISolone ACETATE 80 MG/ML VIAL. ONE
--- NOTE | 2020-05-11 16:45 | CARD ---
MR#: [id number] Date of Study: 05/11/2020 Ordering Physician: FÁTIMA DOCKERY, Referring Physician: FÁTIMA DOCKERY, Tech: Marivel [facility]AL[facility] APPROVED REPORT EXAM: Two-dimensional and M-mode echocardiogram with Doppler and color Doppler. Other Information Quality : GoodHR: 60bpm Rhythm : NSR INDICATION Aortic Valve Disease Cardiac Disease: CAD Syncope HX multiple stents, MT Surgery/Intervention ICD/Pacemaker: RISK FACTORS Family History Diabetes 2D DIMENSIONS RVDd1.1 (2.9-3.5cm)Left Atrium(2D)4.9 (1.6-4.0cm) IVSd1.2 (0.7-1.1cm)Aortic Root(2D)2.4 (2.0-3.7cm) LVDd5.1 (3.9-5.9cm)LVOT Diameter2.1 (1.8-2.4cm) PWd1.2 (0.7-1.1cm)LVDs2.8 (2.5-4.0cm) FS (%) 46.1 %SV96.0 ml LVEF(%)77.2 (>50%) Aortic Valve AoV Peak Facundo.290.5cm/sAoV VTI65.8cm AO Peak GR.35.4mmHgLVOT Peak Facundo.111.9cm/s AO Mean GR.21mmHgAVA (VMAX)1.38cm2 Mitral Valve MV E Mlgflkjv664.7cm/sMV DECEL [id number] MV A Nsejpfbc09.6cm/sE/A Ratio1.7 MV A [id number] TDI E/Lateral E'8.1 Pulmonary Valve PV Peak Jbctsrup098.7cm/s Tricuspid Valve TR P. Nczuhqrw080wm/sTR Peak Gr.50mmHg Pulmonary Vein S1 Uqbpeote25.9cm/sD2 Jwlaarhs26.2cm/s PVa [id number] LEFT VENTRICLE The left ventricle is normal size. There is normal left ventricular wall thickness. The left ventricu lar systolic function is normal and the ejection fraction is within normal range. EF 55% There is nor mal LV segmental wall motion. Tissue Doppler imaging reveals moderate left ventricular diastolic dysf unction. RIGHT VENTRICLE The right ventricle is normal size. There is normal right ventricular wall thickness. The right ventr icular systolic function is normal. There are multiple pacing wires noted in the RA/RV. ATRIA The left atrium is moderately dilated. A pacemaker is seen in the right atrium consistent with histor y. The interatrial septum is intact with no evidence for an atrial septal defect or patent foramen ov hamilton as noted on 2-D or Doppler imaging. AORTIC VALVE The aortic valve is trileaflet. The aortic valve is moderately calcified. Doppler and Color Flow reve aled trace to mild aortic regurgitation. There is mild . Calculated aortic valve area is 1.3 cm2 wi th maximum pressure gradient of 35 mmHg and mean pressure gradient of 20mmHg. MITRAL VALVE The mitral valve is mildly thickened but opens well. There is no evidence of mitral valve prolapse. T here is no mitral valve stenosis. There is no mitral valve regurgitation noted. TRICUSPID VALVE The tricuspid valve is normal in structure and function. There is moderate tricuspid valve regurgitat ion noted with a PA pressure of at least 50 mmHg. Doppler and Color Flow revealed moderate pulmonary hypertension. There is no tricuspid valve prolapse or vegetation. There is no tricuspid valve stenosi s. PULMONIC VALVE The pulmonary valve is normal in structure and function. There is no pulmonic valvular regurgitation. There is no pulmonic valvular stenosis. GREAT VESSELS The aortic root is normal in size. The ascending aorta is normal in size. IVC was not seen. PERICARDIAL EFFUSION There is no evidence of significant pericardial effusion. Critical Notification Critical Value: No <Conclusion> The left ventricular systolic function is normal and the ejection fraction is within normal range. EF 55% There is normal LV segmental wall motion. There are multiple pacing wires noted in the RA/RV. There is mild . Calculated aortic valve area is 1.3 cm2 with maximum pressure gradient of 35 mmHg and mean pressure gradient of 20mmHg. There is moderate tricuspid valve regurgitation noted with a PA pressure of at least 50 mmHg. Doppler and Color Flow revealed moderate pulmonary hypertension. Signed by : Fátima Dockery, Electronically Approved : 05/11/2020 14:35:38
== END ==
LOC: ECHO 12:32
PROVIDERS: ATTEND Internal Medicine Cardiovascular Disease
DX: I08.2 Rheumatic disorders of both aortic and tricuspid valves (principal); I25.5 Ischemic cardiomyopathy; Z95.0 Presence of cardiac pacemaker; Z95.5 Presence of coronary angioplasty implant and graft
CPT/HCPCS: 93306